=== PATIENT | male | born 1975 | race Caucasian/White ===

== ENCOUNTER 2025-01-25 00:17 | Inpatient (IN) | payer BC, SELFPAY ==
[2025-01-24 15:42] VITALS: BP 144/93
[2025-01-24 16:07] LABS: Urine Character Clear (Clear)
[2025-01-24 16:08] LABS: Hematocrit 46.0 % (39.0-52.0); Hemoglobin 15.7 g/dL (13.0-18.0); Mean Corp Hgb Conc. 34.1 g/dL (33.0-37.0); Mean Corpuscular Volume 88.3 fL (80.0-94.0); Nucleated Red Blood Cells % 0 % (-); Platelet Count 328 10^3/uL (130-400); Red Cell Dist. Width 13.3 % (11.5-14.5)
[2025-01-24 16:22] LABS: ALT (SGPT) 27 U/L (0-50); AST (SGOT) 21 U/L (17-59); Albumin 4.4 g/dl (3.5-5.0); Alkaline Phosphatase 78 U/L (38-126); Blood Urea Nitrogen 16 mg/dl (9-20); Calcium 9.1 mg/dl (8.4-10.2); Carbon Dioxide 28 mmol/L (22-30); Chloride 104 mmol/L (98-107); Glucose 105 mg/dl (70-99); Lipase 109 U/L (23-300); Potassium 4.7 mmol/L (3.5-5.1); Sodium 137 mmol/L (135-145); Total Protein 7.0 g/dl (6.3-8.2); eGFR > 60.00
[2025-01-24 16:32] LABS: Urine Squamous Cell 0-2 /LPF (Few); Urine White Cell 0-2 /HPF (0-5)
--- NOTE | 2025-01-24 19:47 | ED.GENMED ---
History of Present Illness
General
Chief Complaint: Abdominal Pain
Source: patient
Exam Limitations: none
Time Seen by Provider: 01/24/25 19:30
Nursing documentation reviewed up to this point in time: agreed with
History of Present Illness
History of Present Illness:
41-year-old male presenting to the emergency department today with concerns of suprapubic abdominal discomfort starting yesterday. Described as sharp and achy. Ongoing today. Denies nausea vomiting does have some degree of constipation and did
not have any significant bowel movements today which is abnormal for him. Denies any fevers denies any similar symptoms in the past.
Review of Systems
Review of Systems
Allergies reviewed?: Yes
All Other Systems: ROS reviewed and negative except as documented in HPI and ROS
Phy Exam
Physical Exam
Physical Exam:
GENERAL: Alert , in no apparent distress
EYE: pupils equal and reactive
NECK: Supple, no significant adenopathy.
ENT: o/p clr, mmm.
CARDIAC: Regular rate and rhythm .
LUNGS: Clear breath sounds bilaterally, no acute respiratory distress, no wheezes/rales/rhonchi
ABDOMEN: Vague discomfort throughout the lower abdomen otherwise abdomen benign no tenderness to the upper abdomen.
NEUROLOGICAL: Alert and oriented, no focal neuro deficits
SKIN: Warm and dry, skin intact.
MUSCULOSKELETAL: No edema, well perfused.
PSYCH: Normal and appropriate interaction.
Course
Orders/Labs/Results
Orders:
Orders
01/24/25 15:56
Complete Blood Count/With Diff Urgent
Comprehensive Metabolic Panel Urgent
Lipase Urgent
Urinalysis Reflex To Culture Urgent
Date Specimen was Collected: 01/24/25
Time Specimen was Collected: 15:46
Urine Microscopic Reflex Cult Urgent
01/24/25 19:41
CT Abd/Pel (IV only)-DH only Urgent
Comment:
Reason For Exam: lower abd pain maximal to RLQ
01/24/25 22:00
0.9% Sodium Chloride 1000 ml [Nss] 1,000 ml IV BOLUS
01/24/25 22:10
Ketorolac [Toradol] 15 mg .ROUTE .STK-MED ONE
01/24/25 22:13
Ketorolac [Toradol] 15 mg IV NOW STA
Abnormal Lab Results
01/24/25
15:56
Lymphocytes % 15.2 L %
(20.5-51.1)
Glucose 105 H mg/dl
(70-99)
Ur Occult Blood Reflex 2+ A
(Negative)
Urine RBC 3-6 A /HPF
(0-2)
Urine Bacteria (Reflex) Few A
(Negative)
01/24/25 15:56
01/24/25 15:56
Vital Signs
Initial and Last Documented VS:
Initial Vital Signs
Temp Pulse Resp BP Pulse Ox
98.8 F 64 18 144/93 98
01/24/25 15:42 01/24/25 15:42 01/24/25 15:42 01/24/25 15:42 01/24/25 15:42
Last Documented Vital Signs
Temp Pulse Resp BP Pulse Ox
98.8 F 59 18 140/84 99
01/24/25 15:42 01/24/25 22:11 01/24/25 22:11 01/24/25 22:11 01/24/25 22:11
MDM/Problems Addressed
MDM/Problems Addressed:
49-year-old male presenting with concerns of lower abdominal pain starting yesterday. Here vaguely reproducible. Plan for CT scan for further assessment. Labs unremarkable. CT scan ordered considering progressive symptoms. CT scan showing small
bowel obstruction with concerning features of mass. Plan to admit for further monitoring and assessment.
*Pulse Oximetry
SaO2: 98
Oxygen Mode of Delivery: Room air
Patient hypoxic: no (99)
*Critical Care Note
Total Time (30-74mins, 75-104mins- exclusive of procedures): Not Applicable
ED Attending Note
-
Portions of this chart may have been created with voice recognition software.� Occasional wrong word or��sound alike� substitutions may have occurred due to the inherent limitations of voice recognition software.
Discharge Plan
Departure
Patient Disposition: Admit
Date of Disposition: 01/24/25
Time of Disposition: 23:02
Admit to: Med/Surg
Admit to doctor: [place]
Presentation/result/management discussed w/ accepting MD/DO: Hospitalist
Patient with high blood pressure during this ER visit?: No
Condition: Good
Covid-19: Not Applicable
Discharge Problem:
SBO (small bowel obstruction)
Referrals:
Sudheer Cole MD [Family Provider]
Interventions
Interventions:
*Risk Screen - Suicide Last Done: 01/24/25 15:42
*General Assessment Last Done: 01/24/25 15:42
YJ-Srdlmr-Fezlqxagas Assessment Last Done: 01/24/25 19:45
Discharge Date and Time
Print Language: CITIZEN OF [place]
[2025-01-24 19:49] VITALS: BP 146/74
[2025-01-24 22:11] VITALS: BP 140/84
[2025-01-24] MEDS: NSS 1000 IV (22:12)
[2025-01-24] MEDS: TORADOL 15 MG IV (22:13)
--- NOTE | 2025-01-24 23:58 | HPS.HSE ---
Family Physician
-
Family Physician: Sudheer Cole
Chief Complaint
-
Abdominal pain
History of Present Illness
Is a 41-year-old with no known segment past medical history presenting to the emergency department with suprapubic abdominal discomfort starting about 1 day ago.
Patient denies any prior history of abdominal pain or surgeries. Denies any history of gallstones. Denies history of biliary disease. Reports that the pain is sharp and achy and nonradiating. There is some constipation and has not had a bowel
movement today. Denies abdominal bloating. Denies nausea or vomiting. Has had no fevers or chills.
In the emergency department patient has been afebrile with a temp of 98.8 blood pressure 140/80 with a pulse of 59 satting 98% on room air. CBC was unremarkable
Electrolytes BUN/creatinine were all normal. LFTs were normal.
CT scan of the abdomen pelvis showing small bowel obstruction with transition point seen in the terminal ileum just prior to the ileocecal valve, there is a loop of the terminal ileum represents transition point demonstrating mural thickening and
hyperenhancement, there is also a 4 x 4 x 3 cm mass lesion in the right lower quadrant approximately 2 cm prior to this transition point which most likely represents a pathologically enlarged lymph node. The concern is high for malignancy of the
terminal ileum causing small bowel obstruction.
Medical History
Past Medical History
Past Medical History: Reports None
Past Surgical History: Reports None
Social History
Tobacco: Non-smoker
Alcohol: Occasional
Drug: None
Personal:
Family History
Family History: Not pertinent
Allergies / Home Medications
Allergies reflects when Allergies were last updated in [employer].
Home Medications with original date entered in [employer]
Allergy/Medication List:
Allergies
Allergy/AdvReac Type Severity Reaction Status Date / Time
No Known Allergies Allergy Unverified 01/24/25 15:45
No home medication
Review of Systems
-
Constitutional: Reports No Symptoms
EENT: Reports No Symptoms
Respiratory: Reports No Symptoms
Cardiac: Reports No Symptoms
Abdomen/GI: Reports Abdominal Pain and Constipated
: Reports No Symptoms
Musculoskeletal: Reports No Symptoms
Skin: Reports No Symptoms
Neurological: Reports No Symptoms
Endocrine: Reports No Symptoms
Hematologic/Lymphatic: Reports No Symptoms
Psych: Reports No Symptoms
Physical Exam
Vital Signs
Vital Signs
Temp Pulse Resp BP Pulse Ox
98.8 F 59 18 140/84 99
01/24/25 15:42 01/24/25 22:11 01/24/25 22:11 01/24/25 22:11 01/24/25 22:11
Physical Exam
General: Well Developed, Well Nourished and No Apparent Distress
HEENT: NormoCephalic, Moist mucous membranes and Atraumatic
Respiratory: Clear
Cardiac: S1/S2 and Regular Rhythm; No Murmur or Rub
GI: Soft, Non Tender, Non Distended and Normal Bowel Sounds; No Organomegaly
Rectal: Deferred by Provider
Musculoskeletal: No Clubbing, No Cyanosis and No Edema
Skin: No Rash
Neuro: Nonfocal/grossly intact
Laboratory Results
-
01/24/25 15:56
01/24/25 15:56
Laboratory Results
Total Bilirubin 0.8 mg/dl (0.2-1.3) 01/24/25 15:56
AST 21 U/L (17-59) 01/24/25 15:56
ALT 27 U/L (0-50) 01/24/25 15:56
Alkaline Phosphatase 78 U/L (38-126) 01/24/25 15:56
Lipase 109 U/L (23-300) 01/24/25 15:56
Data Reviewed
-
CT Scan: Report Reviewed by me
Lab Data: Labs Reviewed by me
Old Records: Reviewed
Impression/Plan
-
IMPRESSION:
49-year-old with 1 day history of abdominal pain and constipation and found to have small bowel obstruction likely on the basis of malignant process just proximal to the terminal ileum.
PLAN:
SBO w/ terminal ileum malignancy.
- admit to med/surg
- npo for now
- pain control and antiemetics
- Not vomiting, so held off on NG tube
- IV fluids with LR for now
- surgical consultation
- post surgery, consider oncology consult
DVT PPX - lovenox sq
code status - Full Code
[2025-01-25] VITALS (24 sets, daily range): BP systolic 101–146; BP diastolic 54–89; BMI 33.1; BMI 31.9
[2025-01-25] MEDS: MORPHINE SULFATE 2 MG IV ×2 (01:02→12:31)
[2025-01-25] MEDS: D5LR 1000 IV ×2 (01:04→12:24)
[2025-01-25 05:41] LABS: Hematocrit 40.3 % (39.0-52.0); Hemoglobin 14.0 g/dL (13.0-18.0); Mean Corp Hgb Conc. 34.7 g/dL (33.0-37.0); Mean Corpuscular Volume 87.8 fL (80.0-94.0); Platelet Count 294 10^3/uL (130-400); Red Cell Dist. Width 13.3 % (11.5-14.5)
[2025-01-25 06:09] LABS: Blood Urea Nitrogen 15 mg/dl (9-20); Calcium 8.3 mg/dl (8.4-10.2); Carbon Dioxide 24 mmol/L (22-30); Chloride 108 mmol/L (98-107); Estimated Creatinine Clearance 116 ml/min; Glucose 106 mg/dl (70-99); Potassium 4.0 mmol/L (3.5-5.1); Sodium 137 mmol/L (135-145); eGFR > 60.00
[2025-01-25] MEDS: TORADOL 10 MG IV (09:19)
--- NOTE | 2025-01-25 10:25 | CON.GS ---
Addendum entered and electronically signed by Сергей Ledbetter MD 01/25/25 11:53:
I saw and examined the patient.
The Accident Examiner's note was reviewed and I agree with the note.
Comment: 49M acute onset abd pain, no passage of BM or flatus for 24 hours, c/o distention and severe abd pain, denies f/c/n/v. Exam with moderate abd distention and diffuse moderate ttp. AFVSS, labs unremarkable. CT concerning for obstructing mass
at terminal ileum with dilated fecalized sb loops proximal to obstruction and decompressed colon. 4.5cm mass adjacent to the transition point concerning for enlarged mesenteric node that abuts a distal branch of the SMA and is positioned anterior to
the right ureter with about a 3mm plane in between. 9mm hypodensity in the right liver lobe superior to the gallbladder fossa, likely inaccessible for intra-op biopsy. We discussed exploratory laparotomy with oncologic approach given likely
malignant bowel obstruction. Advised pt the goal is not to excise all cancerous nodes, but to relieve the obstruction, resect primary mass and obtain enough tissue for diagnosis and staging, this would include mesenteric nodes but with the larger
node it may not be safe to resect the entire structure and limited biopsy may be performed instead. Discussed the possibility of need for further surgery, adjuvant chemo and/or radiation, anastomotic leak or stricture, bleeding, infection, post op
ileus, incisional hernia
Original Note:
Consultation
-
Date/Time Consultation Performed: 01/25/25 0815
Medical History
-
Chief Complaint: abdominal pain
History of Present Illness:
Mr Damian is a 49 yo male without significant medical or surgical history with no prior colonoscopies who presents through the ED with abdominal pain which has increased over the past 2 days. 2 days ago, he noted an episode of abdominal pain in the
evening which was generalized. Although he was not having diarrhea, he did take an Imodium as well as some GasX. He was able to go to bed that night and sleep and felt better in the morning until he ate a few meatballs at a alliance party. At that point pain
returned and was more severe as well as persistent. He has not passed a BM or flatus since onset of symptoms but notes his bowel pattern is usually quite regular and he usually passes a BM after meals. He denies nausea and vomiting. Pain persists
but is not focal. General tenderness on exam. He denies fever/chills.
Past Medical History
Past Medical History: None
Past Surgical History: None
Social History
Tobacco: Non-Smoker
Alcohol: Occasional
Family History
Family History: Reviewed & Not Pertinent
Allergies / Home Medications
Allergy/AdvReac Type Severity Reaction Status Date / Time
No Known Allergies Allergy Unverified 01/24/25 15:45
Review of Systems
-
History Source: Patient and Family
All other systems: Negative unless noted
A 10 point review of systems was completed, and was negative except as per HPI.
Physical Exam
Vital Signs
Temp Pulse Resp BP Pulse Ox
98.8 F 51 16 101/54 95
01/24/25 15:42 01/25/25 04:01 01/25/25 04:01 01/25/25 04:01 01/25/25 06:30
01/24/25 01/25/25 01/26/25
06:59 06:59 06:59
Actual Weight 110.7 kg
Body Mass Index (BMI) 33.1
Lab Results
01/25/25 05:33
01/25/25 05:33
WBC 8.9 10^3/uL (4.8-10.8) 01/25/25 05:33
Hgb 14.0 g/dL (13.0-18.0) 01/25/25 05:33
Hct 40.3 % (39.0-52.0) 01/25/25 05:33
Plt Count 294 10^3/uL (130-400) 01/25/25 05:33
Abs Immat Gran (auto) 0.0 10^3/uL (0-0.05) 01/24/25 15:56
Neutrophils % 74.0 % (42.2-75.2) 01/24/25 15:56
Physical Exam
General: Well Developed and Well Nourished
HEENT: Moist Mucous Membranes
Respiratory: Non Labored Respirations
GI: Soft, Tender (generalized) and Distended
Skin: Warm and Dry
Neuro: Awake, Alert and AO x 3
Psych: Calm
Data Reviewed
-
CT Scan: Image Personally Visualized and interpreted, Report Reviewed by me, Discussed with Physician, Discussed with Nurse, Discussed with Patient and Discussed with Family
Labs: Labs Reviewed by me, Discussed with Physician, Discussed with Patient and Discussed with Family
Old Records: Reviewed
Assessment / Plan
-
49 yo male presenting with abdominal pain x2 days with absence of flatus/stools since that time. CT abd/pelvis done in work up with concerning finding of a mass near the ileocecal valve causing what looks to be a complete obstruction. Additionally,
there is a 4.5 x 4.0 x 3.5 cm mass/enlarged in the right lower quadrant approximate 2 cm superior to the transition point which is proximal to the ureter as well as the SMA. Suspect SBO secondary to what is likely to malignancy. There is no
leukocytosis or electrolyte derangements.
Plan:
OR today for exploratory laparotomy
Urology consulted for cystoscopy/right stent placement given proximity of the mass to ureter
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
Will send CEA, type and sreen and coags
Keep NPO
--- NOTE | 2025-01-25 10:29 | CONS.URO ---
Consultation
-
Date/Time Consultation Performed: 01/25/25 1030
Requesting Provider: Anatoly
Performing Provider: Bebeto
Reason for Consultation: ureteral stenting
Medical History
History of Present Illness
ED note: 'Is a 49-year-old with no known segment past medical history presenting to the emergency department with suprapubic abdominal discomfort starting about 1 day ago.'
CT scan of the abdomen pelvis: small bowel obstruction with transition point seen in the terminal ileum just prior to the ileocecal valve, there is a loop of the terminal ileum represents transition point demonstrating mural thickening and
hyperenhancement, there is also a 4 x 4 x 3 cm mass lesion in the right lower quadrant approximately 2 cm prior to this transition point which most likely represents a pathologically enlarged lymph node. The concern is high for malignancy of the
terminal ileum causing small bowel obstruction.
Past Medical History
Past Medical History: None
Allergies/Home Medications
Allergies
Allergy/AdvReac Type Severity Reaction Status Date / Time
No Known Allergies Allergy Unverified 01/24/25 15:45
Physical Exam
Vital Signs
Vital Signs
Temp Pulse Resp BP Pulse Ox
98.8 F 51 16 101/54 95
01/24/25 15:42 01/25/25 04:01 01/25/25 04:01 01/25/25 04:01 01/25/25 06:30
Lab / Testing Results
Laboratory Results
01/25/25 05:33
01/25/25 05:33
Assessment / Plan
-
Right ureter is in vicinity of abdominal-pelvic retroperitoneal pathology, rendering it at potential risk during surgical exploration.
I will place a right ureteral stent at the outset of Dr Ledbetter's surgery to help identify and protect the right ureter.
Data Reviewed
-
CT Scan: Image personally visualized and interpreted
[2025-01-25 10:38] LABS: INR 0.98; PT 13.3 Sec (11.4-14.6)
[2025-01-25 10:41] LABS: APTT 28.4 Sec (23.4-35.0)
[2025-01-25 11:16] LABS: CEA 1.89 ng/ml
--- NOTE | 2025-01-25 16:35 | W.IMMPOSTOP ---
Surgical Immed Post Op Note
-
Primary Surgeon: Anatoly
Assisting Surgeon: Elif MARLEY
Pre-op Diagnosis: Malignant bowel obstruction
Post-op Diagnosis: Same
Procedure Performed: Exploratory laparotomy, right hemicolectomy, take-down hepatic flexure
Anesthesia Type: GETA + TAP block
Specimen / Cultures: Right colon, appendix, terminal ileum, proximal transverse colon
Estimated Blood Loss: 40cc
Complications: None immediate
Operative Findings: Preop right ureteral stent placed by Urology, palpated intra-op and ureter protected. Firm tethered mass at the ileocecal junction adhesed to retroperitoneum with severely dilated terminal ileum and totally decompressed colon;
20cm of terminal ileum resected en block with right colon, appendix, hepatic flexure and proximal transverse colon; ileo-transverse anastomosis side-side stapled and oversewn at the staple line intersection; large node noted on imaging also resected
en block with specimen.
updated by phone
24 hrs postop abx
Dilaudid DEPUTY FIRE MARSHAL
NPO with sips and chips
DVT ppx
[2025-01-25] MEDS: DILAUDID 0.5 MG IV ×2 (17:12→17:35)
--- NOTE | 2025-01-25 18:02 | W.PN.HOSP.TC ---
Today's Communication/Plan
-
see bold
Assessment / Plan
Assessment / Plan
HPI: 49-year-old with 1 day history of abdominal pain and constipation and found to have small bowel obstruction likely on the basis of malignant process just proximal to the terminal ileum.
PLAN:
SBO w/ terminal ileum malignancy
-Appreciate urology input, patient's right ureter is in the vicinity of the retroperitoneal lesion, urology plans to stent the right ureter during surgery
-Appreciate general surgery input, status post ex lap, right hemicolectomy, take-down hepatic flexure, and right ureter stent
-N.p.o., IV fluids, pain control
-Consult oncology, follow-up on pathology
DVT PPX - lovenox sq
Code status - Full Code
Physical Exam
General: Obese, no acute distress
HEENT: Normocephalic, Atraumatic, EOMI, MMM
Respiratory: Clear to Auscultation bilaterally
Cardiac: Normal S1/S2, Regular Rate and Rhythm
GI: Soft, appropriately tender, vertical midline incision dressed
Extremities: No Clubbing, Cyanosis, or Edema
Neuro: Nonfocal/Grossly Intact
Psych: Calm, Cooperative
Anticipated Discharge: > 48 hours
Subjective/Interval History
-
Date of Service: January 25, 2025
Objective Data
-
Labs:
Laboratory Results
01/25/25 01/25/25
05:33 08:36
WBC 8.9
Hgb 14.0
Hct 40.3
Plt Count 294
PT Pending
INR Pending
APTT Pending
Sodium 137
Potassium 4.0
Chloride 108 H
Carbon Dioxide 24
BUN 15
Creatinine 1.0
Glucose 106 H
Calcium 8.3 L
Vital Signs:
Vital Signs
Temp Pulse Resp BP Pulse Ox
98.8 F 51 16 101/54 95
01/24/25 15:42 01/25/25 04:01 01/25/25 04:01 01/25/25 04:01 01/25/25 06:30
[2025-01-25] MEDS: DILAUDID PCA 30 IV (18:10)
[2025-01-25] MEDS: TORADOL 30 MG IV (22:21)
[2025-01-25] MEDS: TYLENOL 1000 MG PO (22:22)
[2025-01-25] MEDS: TYLENOL PO (23:38)
--- NOTE | 2025-01-26 02:06 | PTCARENOTE ---
1930 pt arrived from [facility]. AAOX3. Dilaudid assistant professor of nursing running. abdominal pain per patient ' 05/18'. pt has abdominal dressing with scant amount of drainage. winters w/ bloody urine. pt oriented to room w/ call cedeño at reach.
[address] Fallon - pt requesting morphine instead of Dilaudid. Recieved new orders for schedule pain meds and assistant professor of nursing Dilaudid pump. Reviewed order w/ doctor. will continue to monitor.
[2025-01-26 03:01] VITALS: BP 104/65
[2025-01-26] MEDS: D5LR 1000 IV ×2 (03:51→15:07)
[2025-01-26] MEDS: TORADOL 30 MG IV ×3 (03:52→15:59)
[2025-01-26] MEDS: TYLENOL 1000 MG PO ×2 (06:14→12:22)
[2025-01-26 06:16] LABS: Hematocrit 41.9 % (39.0-52.0); Hemoglobin 14.3 g/dL (13.0-18.0); Mean Corp Hgb Conc. 34.1 g/dL (33.0-37.0); Mean Corpuscular Volume 88.8 fL (80.0-94.0); Platelet Count 306 10^3/uL (130-400); Red Cell Dist. Width 13.6 % (11.5-14.5)
[2025-01-26 06:39] LABS: Blood Urea Nitrogen 20 mg/dl (9-20); Calcium 7.7 mg/dl (8.4-10.2); Carbon Dioxide 23 mmol/L (22-30); Chloride 106 mmol/L (98-107); Estimated Creatinine Clearance 95 ml/min; Glucose 155 mg/dl (70-99); Magnesium 1.9 mg/dl (1.6-2.3); Potassium 5.2 mmol/L (3.5-5.1); Sodium 134 mmol/L (135-145); eGFR > 60.00
--- NOTE | 2025-01-26 07:00 | PTCARENOTE ---
pt oob to chair. reports +flatulence. new ice pack to abd. luisana cedeño and housekeeper/laundry assistant pump in reach
[2025-01-26 07:32] VITALS: BP 112/78
--- NOTE | 2025-01-26 07:32 | CON.ONC ---
Consultation
-
Date Consultation Performed: 01/26/25
Performing Provider: Ginger Burnett
Impression
Impression
SBO w/ terminal ileum malignancy
- pathology pending
- Post Op Day 1, recovering well
- Perera and right ureteral catheter removed today
Plan
Plan
Will await pathology results. Discussed following up outpatient with [place] after path has resulted.
Will follow along while admitted.
Patient History
History of Present Illness
Patient is a 49 year old male with no known PMH presenting with abdominal pain and constipation for 1 day.
In the ED, CT AP revealed a loop of terminal ileum at the level of the transposition point contain some possible enhancement with some possible mural thickening and there is an additional 4.5 x 4.0 x 3.5 cm mass in the right lower quadrant
approximate 2 cm superior to the transition point. Suspicious for malignancy involving the terminal ileum resulting in possible mild partial small bowel obstruction as well as accompanying local sanjuana metastasis. Patient determined to have a SBO,
went for an ex lap on 01/25/2025. Patient underwent an ex lap, right hemicolectomy, take-down hepatic flexure, and right ureter stent placement. Pathology is pending.
Today patient was seen sitting in the chair. Patient states he is feeling well today. He denies any pain at the moment and is passing gas. Patient had catheter removed this morning and is urinating fine. Patient denies all other ROS.
Past-Medical/Surgical History
Medical History
Reports none
Surgical History
Reports none
Family History
Mother - lung cancer
Brother - HCC
Patient Medication
�Medication �Instructions �Recorded �Confirmed �Last Taken �Type
No Meds [No Current Medications] 01/25/25 01/25/25 Unknown History
Active Medications
Generic Name Dose Route Start Last Admin
Trade Name Freq PRN Reason Stop Dose Admin
Acetaminophen 1,000 mg 01/26/25 00:00 01/26/25 06:14
Acetaminophen 500 Mg Tablet PO 02/23/25 00:00 1,000 mg
Q6H DYLAN Administration
Enoxaparin Sodium 40 mg 01/26/25 18:00
Enoxaparin Sodium 40 Mg/0.4 Ml Syringe SC 02/23/25 17:59
QPM DYLAN
Fentanyl Citrate 25 mcg 01/25/25 13:46
Fentanyl (50 Mcg/Ml) 100 Mcg/2 Ml Ampul IV 01/26/25 13:46
[id number] PRN
shivers
Hydromorphone HCl 0.5 mg 01/25/25 13:46 01/25/25 17:35
Hydromorphone 0.5 Mg/0.5 Ml Syringe IV 01/26/25 13:46 0.5 mg
PACU-Q5MPRN PRN Administration
severe pain
Hydromorphone HCl 0.25 mg 01/25/25 13:46
Hydromorphone 0.25 Mg/0.5 Ml Syringe IV 01/26/25 13:46
PACU-Q5MPRN PRN
moderate pain
Hydromorphone HCl 0.5 mg 01/25/25 16:30
Hydromorphone 0.5 Mg/0.5 Ml Syringe IV 02/08/25 16:29
Q3HPRN PRN
breakthrough pain
Dextrose/Lactated Ringer's 1,000 mls @ 125 mls/hr 01/25/25 01:00 01/26/25 03:51
D5lr IV 1,000 mls
.Q8H DYLAN Administration
Parenteral Electrolytes 1,000 mls @ 100 mls/hr 01/25/25 14:00
Normosol-R/Plasmalyte-A IV 01/26/25 13:46
PER PROTOCOL DYLAN
Dextrose/Sodium Chloride 1,000 mls @ 40 mls/hr 01/25/25 16:30
D5/0.45%Nacl IV
.Q24H PRN
LINEN SUPPLY LOAD BUILDER Protocol- IVF discontinued
Hydromorphone HCl 30 mg in 30 mls @ 0 mls/hr 01/25/25 16:30 01/25/25 18:10
Dilaudid Tread Tuber Machine Operator IV 30 mls
PER PROTOCOL DYLAN Administration
Protocol
Per Protocol
Ketorolac Tromethamine 30 mg 01/25/25 21:55 01/26/25 03:52
Ketorolac 15 Mg/Ml Injection IV 01/30/25 16:59 30 mg
Q6H DYLAN Administration
Naloxone HCl 0.04 mg 01/25/25 16:30
Naloxone (0.4 Mg/Ml) 1 Ml Injection IV 02/22/25 16:29
Q2MPRN PRN
RR </= 10/min / Pasero scale=4
Ondansetron HCl 4 mg 01/25/25 00:54
Ondansetron 4 Mg/2 Ml Vial IV 02/22/25 00:53
Q6HPRN PRN
nausea and vomiting
Ondansetron HCl 4 mg 01/25/25 13:46
Ondansetron 4 Mg/2 Ml Vial IV 01/26/25 13:46
PACU-ONCEPRN PRN
nausea/vomiting
Prochlorperazine Edisylate 5 mg 01/25/25 13:46
Prochlorperazine 10 Mg/2 Ml Vial IV 01/26/25 13:46
PACU-ONCEPRN PRN
nausea/vomiting
Sodium Chloride 0 flush 01/25/25 01:00
Sodium Chloride 0.9% (Flush) Syringe IV 02/22/25 00:59
PER PROTOCOL DYLAN
Sodium Chloride 0.9 ml 01/25/25 16:30
Sodium Chloride 0.9% (Preservative Free) 10 Ml Vial IV 02/22/25 16:29
Q2MPRN PRN
naloxone dilution
Review of Systems
-
History Source: Patient
Constitutional: Reports No Symptoms
EENT: Reports No Symptoms
Respiratory: Reports No Symptoms
Cardiac: Reports No Symptoms
GI: Reports No Symptoms
: Reports No Symptoms
Musculoskeletal: Reports No Symptoms
Psych: Reports No Symptoms
Physical Exam
-
General: Well Developed, Well Nourished and No Apparent Distress
Cardiology: Normal Sinus Rhythm
Pulmonary: Clear
GI: Soft
Extremities: Pulses Present
Skin: Warm and Dry
Psych: Calm
Labs
Lab Results
WBC 13.7 10^3/uL (4.8-10.8) H 01/26/25 05:46
RBC 4.72 10^6/uL (4.70-6.10) 01/26/25 05:46
Hgb 14.3 g/dL (13.0-18.0) 01/26/25 05:46
Hct 41.9 % (39.0-52.0) 01/26/25 05:46
MCV 88.8 fL (80.0-94.0) 01/26/25 05:46
MCH 30.3 pg (27.0-31.0) 07 05:46
MCHC 34.1 g/dL (33.0-37.0) 01/26/25 05:46
RDW 13.6 % (11.5-14.5) 01/26/25 05:46
Plt Count 306 10^3/uL (130-400) 01/26/25 05:46
MPV 10.5 fL (7.4-10.4) H 01/26/25 05:46
Abs Immat Gran (auto) 0.0 10^3/uL (0-0.05) 01/24/25 15:56
Absolute Neuts (auto) 6.2 10^3/uL (1.4-6.5) 01/24/25 15:56
Absolute Lymphs (auto) 1.3 10^3/uL (1.2-3.4) 01/24/25 15:56
Absolute Monos (auto) 0.6 10^3/uL (0.1-0.6) 01/24/25 15:56
Absolute Eos (auto) 0.2 10^3/uL (0-0.7) 01/24/25 15:56
Absolute Basos (auto) 0.1 10^3/uL (0-0.2) 01/24/25 15:56
Immature Gran % 0.4 % (0-0.5) 01/24/25 15:56
Neutrophils % 74.0 % (42.2-75.2) 01/24/25 15:56
Lymphocytes % 15.2 % (20.5-51.1) L 01/24/25 15:56
Monocytes % 6.9 % (1.7-9.3) 01/24/25 15:56
Eosinophils % 2.9 % (0-6) 01/24/25 15:56
Basophils % 0.6 % (0-2) 01/24/25 15:56
Creatinine 1.2 mg/dL (0.7-1.3) 01/26/25 05:46
Vital Signs
Vital Signs
Temp Pulse Resp BP Pulse Ox
99.5 F 92 18 112/78 95
01/26/25 07:32 01/26/25 07:32 01/26/25 07:32 01/26/25 07:32 01/26/25 07:32
--- NOTE | 2025-01-26 08:02 | W.PN.URO.CBU ---
Today's Communication / Plan
-
Perera and right ureteral catheter removed
will sign off
Assessment / Plan
-
stable POD #1
Diagnosis
-
Date of Service: January 26, 2025
-
Patient Diagnosis:
GI tract/RP mass encroaching upon right ureter
s/p e-lap and right ureteral stenting
Post Op Day: 1
Subjective
-
'I feel better than I thought I would.'
Objective
-
Vital Signs
Temp Pulse Resp BP Pulse Ox
99.5 F 92 18 112/78 95
01/26/25 07:32 01/26/25 07:32 01/26/25 07:32 01/26/25 07:32 01/26/25 07:32
Intake and Output
01/25/25 01/26/25 01/27/25
06:59 06:59 06:59
Intake Total 1375 / 1375
Output Total 350 / 350
Balance 1025 / 1025
Intake:
IV fluids (Total) 1375 / 1375
Output:
Urine, Perera 350 / 350
Laboratory Results
01/26/25 05:46
01/26/25 05:46
Physical Exam
-
Perera and right ureteral catheter removed
--- NOTE | 2025-01-26 09:24 | W.PN.HOSP.TC ---
Today's Communication/Plan
-
clears
pain control
see plan
Assessment / Plan
Assessment / Plan
HPI: 49-year-old with 1 day history of abdominal pain and constipation and found to have small bowel obstruction likely on the basis of malignant process just proximal to the terminal ileum.
CT A/P
IMPRESSION:
Several findings, as detailed above, suspicious for malignancy involving the terminal ileum resulting in possible mild partial small bowel obstruction as well as accompanying local sanjuana metastasis.
Indeterminate subcentimeter right lobe hepatic lesion, too small to characterize.
Procedure Performed: Exploratory laparotomy, right hemicolectomy, take-down hepatic flexure 01/25/25
PLAN:
SBO w/ terminal ileum malignancy
-Appreciate Urology and General surgery
-status post ex lap, right hemicolectomy, take-down hepatic flexure, and right ureter stent
-clear liquid diet
-change fluids to 100cc/hr
-has PIPELAYER pump for pain control
-stent and winters catheter pulled this morning
-Path pending
-Oncology consulted
DVT PPX - lovenox sq
Code status - Full Code
Anticipated Discharge: > 48 hours
Subjective/Interval History
-
Date of Service: January 26, 2025
pain controlled on pump
hasn't urinated since winters removed
Objective Data
-
Labs:
Laboratory Results
01/26/25
05:46
WBC 13.7 H
Hgb 14.3
Hct 41.9
Plt Count 306
Sodium 134 L
Potassium 5.2 H D
Chloride 106
Carbon Dioxide 23
BUN 20
Creatinine 1.2
Glucose 155 H
Calcium 7.7 L
Vital Signs:
Vital Signs
Temp Pulse Resp BP Pulse Ox
99.5 F 92 18 112/78 95
01/26/25 07:32 01/26/25 07:32 01/26/25 07:32 01/26/25 07:32 01/26/25 07:32
I&O
01/25/25 01/26/25 01/27/25
06:59 06:59 06:59
Intake Total 1375 / 1375
Output Total 350 / 350
Balance 1025 / 1025
Review of Systems
-
History Source: Patient
All other systems: Reviewed and negative
Physical Exam
-
General: No Apparent Distress
HEENT: PERRLA
Respiratory: Clear to Auscultation; Negative Wheezes
Cardiac: Regular Rhythm and S1/S2
GI: Other (midline incision covered with mild oozing)
Musculoskeletal: No Edema
Skin: Warm and Dry; Negative Rash
Neuro: AO x 3
Psych: Calm
Data Reviewed
-
Diagnostic Radiology: Report Reviewed by me
Labs: Labs Reviewed by me
--- NOTE | 2025-01-26 09:56 | W.PN.GS2 ---
Addendum entered and electronically signed by Jethro Munoz MD 01/26/25 15:25:
I saw and examined the patient independently.
The resident's documentation was reviewed and I agree with the note, assessment and plan except where noted below.
Comment: This is a 49-year-old male who presented with a small bowel obstruction now postoperative day 1 with with a from a open right hemicolectomy for an ileocecal mass. He did have an intraoperative stent placed which urology removed along with
his Winters this morning.
Can start clears today.
Creatinine up today, he will need a CT chest with IV contrast at some point to complete staging so will defer for now.
Follow-up pathology.
Pain control.
DVT prophylaxis.
Surgery will follow
Original Note:
Today's Communication / Plan
-
Plan reviewed with attending.
Assessment / Plan
-
49yoM who presented with SBO s/p ex lap POD #1 with removal mass at the ileocecal junction adhesed to retroperitoneum, 20cm of terminal ileum with right colon, appendix, hepatic flexure and proximal transverse colon with ileo-transverse anastomosis.
He is recovering appropriately with managed pain. We will slowly advance his diet and monitor for continued pain control. Urology removed winters and stent.
Mr. Damian shared that his brother at the same age from liver cancer invading his heart, associated with his brother's lifestyle. We discussed that he is not responsible for his current state and that we will have more understanding of the mass
and its causes once pathology returns.
Plan
Continue to manage pain.
Follow pathology. Expected 5-7 days.
Consider further staging work up. Cr 1.[address] chest today.
Advance diet to clears.
Subjective Data
-
Date of Service: January 26, 2025
49yoM who presented with SBO s/p ex lap POD #1 with removal mass at the ileocecal junction adhesed to retroperitoneum, 20cm of terminal ileum with right colon, appendix, hepatic flexure and proximal transverse colon with ileo-transverse anastomosis.
Today, pt reports managed pain on current regimen; 9.4mg of [employer] used. He reports passing gas and walking around. Denies BM, nausea or vomiting, looking forward to advancing to a diet.
Objective Data
-
Intake and Output
01/25/25 01/26/25 01/27/25
06:59 06:59 06:59
Intake Total 1375 / 1375
Output Total 350 / 350
Balance 1025 / 1025
Intake:
IV fluids (Total) 1375 / 1375
Output:
Urine, Winters 350 / 350
Vital Signs
Temp Pulse Resp BP Pulse Ox
99.5 F 92 18 112/78 95
01/26/25 07:32 01/26/25 07:32 01/26/25 07:32 01/26/25 07:32 01/26/25 07:32
Lab Results
01/26/25 05:46
01/26/25 05:46
Calcium 7.7 mg/dl (8.4-10.2) L 01/26/25 05:46
Phosphorus 3.9 mg/dl (2.5-4.5) 01/26/25 05:46
Magnesium 1.9 mg/dl (1.6-2.3) 01/26/25 05:46
Total Bilirubin 0.8 mg/dl (0.2-1.3) 01/24/25 15:56
AST 21 U/L (17-59) 01/24/25 15:56
ALT 27 U/L (0-50) 01/24/25 15:56
Alkaline Phosphatase 78 U/L (38-126) 01/24/25 15:56
Total Protein 7.0 g/dl (6.3-8.2) 01/24/25 15:56
Albumin 4.4 g/dl (3.5-5.0) 01/24/25 15:56
Physical Exam
-
General: Well Developed and Well Nourished, sitting in chair with no acute distress
HEENT: Moist Mucous Membranes, anicteric
Respiratory: Non Labored Respirations
GI: Soft, nontender, and mildy distended, incision covered with dry bandage
Skin: Warm and Dry
Neuro: Awake, Alert and AO x 3, grossly intact
Psych: Calm
[2025-01-26 11:26] VITALS: BP 109/69
--- NOTE | 2025-01-26 11:55 | OR.RPT ---
Operative Report
Operative Report
Primary Surgeon: Anatoly
Assisting Surgeon: Elif MARLEY
Pre-op Diagnosis: Malignant bowel obstruction
Post-op Diagnosis: Same
Procedure Performed: Exploratory laparotomy, right hemicolectomy, take-down hepatic flexure
Anesthesia Type: GETA + TAP block
Specimen / Cultures: Right colon, appendix, terminal ileum, proximal transverse colon
Estimated Blood Loss: 40cc
Complications: None immediate
Operative Findings: Preop right ureteral stent placed by Urology, palpated intra-op and ureter protected. Firm tethered mass at the ileocecal junction adhesed to retroperitoneum with severely dilated terminal ileum and totally decompressed colon;
20cm of terminal ileum resected en block with right colon, appendix, hepatic flexure and proximal transverse colon; ileo-transverse anastomosis side-side stapled and oversewn at the staple line intersection; large node noted on imaging also resected
en block with specimen.
Date of Surgery: 01/25/25
Indications: This 49M developed right lower quadrant abdominal pain and a malignant bowel obstruction was suspected based on his imaging. Exploratory laparotomy with right hemicolectomy was planned. Cystoscopy and right ureteral stenting was
performed by Urology prior to the beginning of the procedure.
Description of procedure: The patient was placed on the operating table in the supine position. General anesthesia was induced. A time-out was completed verifying correct patient, procedure, site, positioning, and special equipment prior to
beginning this procedure. An orogastric tube was placed. The abdomen was prepped and draped in the usual sterile fashion. A midline incision was made with cut cautery and carried down to the linea alba with coag cautery. The linea alba was divided
and the abdomen entered. Decompressed proximal small bowel and colon was encountered. IN the right lower quadrant, a spiculated firm mass was palpated involving his terminal ileum and cecum. The terminal ileum was severely dilated for several cm
proximal to this area. The terminal ileum, cecum and right colon were mobilized off the retroperitoneum and lateral abdominal wall using a combination of blunt dissection and judicious cautery. The voyant device was used for parts of this
dissection. The colon was mobilized proximally to the hepatic flexure. The gastrocolic ligament was divided near the midline and the proximal transverse colon was mobilized from medial to lateral. Once the colon was fully mobilized attention was
turned to the ileocecal junction, this was the area of maximum adhesion to the retroperitoneum. A large lymph node corresponding to the node seen on imaging was identified. The ureteral stent was palpated and the ureter protected. The large node and
associated mesentery was carefully gently mobilized with blunt dissection and judicious electrocautery. The terminal ileum was then transected about 20cm proximal the junction in a healthy appearing area using a MILTON stapler with purple load. The
transverse colon was transected in similar fashion. The bowel was then liberated from the mesentery, en bloc with the large node and an adequate amount of mesenteric tissue. The specimen was passed off the table. The abdomen was irrigated and
hemostasis was assured. Prior to creating an anastomosis, the ileum was eviscerated and an enterotomy was created at the stapled end. A moderate amount of thick liquid stool was milked from the small bowel into a basin with minimal contamination. An
ileo-transverse anastomosis was then created in side-side fashion with a MILTON 80mm purple load stapler. The staple lines were oversewn with lembert sutures where they intersected and a crotch stitch was placed using 2-0 silk. The abdomen was again
irrigated and suctioned until effluent ran clear. The orogastric tube was removed. The fascia was closed with #1 PFDS stratafix suture. The subcutaneous tissue was irrigated with sterile saline and the skin was closed with inocencio. A silver
impregnated dressing was applied.
The patient tolerated the procedure well and was taken to the postanesthesia care unit in stable condition.
The assistance of Elif MARLEY was required due to the complexity of the procedure. During the procedure she assisted with retraction, resection, and closure of the wound.
--- NOTE | 2025-01-26 13:33 | CM ---
Patient seen at bedside
IA completed
Dx: SBO
Procedure Performed: Exploratory laparotomy, right hemicolectomy, take-down hepatic flexure
Lives with and 4 children in a multi-story home, 2 [address], flight stairs to bedroom/bathroom
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
DME: states has in home that is his 's - walker, cane, oxygen, pulse oximetry, wheelchair
Denies VN/Rehab
Denies insecurities
PCP: Sudheer Cole
Pharmacy: [address], [place]
PLAN: anticipate home, no needs currently, continue to follow
[2025-01-26 15:17] VITALS: BP 115/76
--- NOTE | 2025-01-26 15:39 | W.PN.UPDATE ---
Addendum entered and electronically signed by Bina Romero MD 01/26/25 19:39:
Renal US OK
FeNa 0.4%
-will continue higher NS rate @ 150cc/hr
-also worry may be related to contrast-induced nephropathy
-with very little urine output today, I have texted renal and will place formal consult for tomorrow
Addendum entered and electronically signed by Bina Romero MD 01/26/25 17:17:
patient urinated another small amount as bolus finishing
K OK, creatinine up to 1.8
-stop standing Toradol
-Renal US ordered
-discussing plan with Urology about considering straight cath to assess for retention (bladder scan difficult with incision in way) versus replacing winters with ABNER
Original Note:
Update Note
Progress Note Update
Patient with minimal urine output post winters removal but bladder scan shows only 10cc (may be limited given dressing in place). patient without discomfort
-I will give 500cc bolus now and monitor response in UO
-increase rate to 125cc/hr (he's also getting 40cc/hr with CINETECHNICIAN pump)
-will repeat labs now as K was mildly up this morning
[2025-01-26] MEDS: NSS 500 IV (16:00)
[2025-01-26] MEDS: D5LR IV (16:51)
[2025-01-26 17:01] LABS: Blood Urea Nitrogen 28 mg/dl (9-20); Calcium 7.9 mg/dl (8.4-10.2); Carbon Dioxide 25 mmol/L (22-30); Chloride 105 mmol/L (98-107); Estimated Creatinine Clearance 63 ml/min; Glucose 120 mg/dl (70-99); Potassium 4.7 mmol/L (3.5-5.1); Sodium 133 mmol/L (135-145); eGFR 45.86
[2025-01-26 18:32] VITALS: BP 150/90
[2025-01-26 18:53] LABS: Urine Character Clear (Clear)
[2025-01-26 19:34] LABS: Urine Red Blood Cell 80-90 /HPF (0-2)
[2025-01-26] MEDS: TYLENOL PO (19:37)
[2025-01-26] MEDS: LOVENOX 40 MG SC (20:45)
[2025-01-26 23:18] VITALS: BP 101/71
[2025-01-27] MEDS: TYLENOL 1000 MG PO ×4 (00:24→17:34)
[2025-01-27] MEDS: D5LR 1000 IV ×4 (00:29→21:35)
--- NOTE | 2025-01-27 02:24 | DOWNTIME ---
There was a [employer] Manager Downtime on 01/27/2025 from 0100 to 01/27/2025 at 0220. Downtime documentation of patient's care, including medication administrations, has been reconciled in the electronic record per guidelines. Refer to the
patient's paper chart under the miscellaneous tab to see printed paper medication records and downtime forms.
[2025-01-27 06:23] LABS: Hematocrit 36.0 % (39.0-52.0); Hemoglobin 12.1 g/dL (13.0-18.0); Mean Corp Hgb Conc. 33.6 g/dL (33.0-37.0); Mean Corpuscular Volume 89.3 fL (80.0-94.0); Platelet Count 252 10^3/uL (130-400); Red Cell Dist. Width 14.0 % (11.5-14.5)
[2025-01-27 06:42] LABS: Blood Urea Nitrogen 28 mg/dl (9-20); Calcium 7.6 mg/dl (8.4-10.2); Carbon Dioxide 24 mmol/L (22-30); Chloride 104 mmol/L (98-107); Estimated Creatinine Clearance 60 ml/min; Glucose 122 mg/dl (70-99); Magnesium 1.8 mg/dl (1.6-2.3); Potassium 4.5 mmol/L (3.5-5.1); Sodium 133 mmol/L (135-145); eGFR 42.98
--- NOTE | 2025-01-27 07:50 | W.PN.GS2 ---
Addendum entered and electronically signed by Chadd Sandoval MD 01/27/25 11:31:
Patient seen and examined.
Rough night reporting issues with urinary retention requiring Winters replacement. Continues to have crampy abdominal discomfort. No nausea or vomiting. No flatus or BM. Afebrile. Currently feels improved this AM.
Gen: NAD
Abd: soft, mild/moderate tenderness, mild/moderate distension, non-peritoneal, midline with shadowing
Patient is a 49 yo M p/w large bowel obstruction POD#2 s/p removal mass at the ileocecal junction adhesed to retroperitoneum, 20cm of terminal ileum with right colon, appendix, hepatic flexure and proximal transverse colon with ileo-transverse
anastomosis
AVSS
Labs with persistent leukocytosis, drift in Hb to 12, improved hyperkalemia, ABNER
Postoperative issues with urinary retention and expected ileus. No major changes from a surgical perspective. Continue with IV pain control. Continue with sips of clears as tolerated. Will obtain an abdominal x-ray to assess degree of bowel
distention and await further clinical improvement. Continue to trend WBC, no indication for antibiotics at this time.
-- Sips
-- Pain control: Tylenol, TELEVISION INSTALLER, no NSAIDS with ABNER
-- OOB/ambulate
-- Appreciate Nephrology and Urology
Original Note:
Today's Communication / Plan
-
Plan reviewed with attending.
Assessment / Plan
-
49yoM who presented with SBO s/p ex lap POD #2 removal mass at the ileocecal junction adhesed to retroperitoneum, 20cm of terminal ileum with right colon, appendix, hepatic flexure and proximal transverse colon with ileo-transverse anastomosis. He
is recovering appropriately with managed pain on TELEVISION INSTALLER. We discussed limiting clears diet today to sips for concern of ileus with increased distention and bloating with dinner last night. Monitor for continued pain control.
Afebrile vitals stable. Rising Cr. WBC continues to be elevated.
Pt was not urinating adequately yesterday so bladder scanned, straight cathed and winters replaced. Renal US demonstrated benign cysts but not concerning pathology or hydronephrosis.
Plan
Continue to manage pain with TELEVISION INSTALLER.
Follow pathology. Expected 5-7 days. Heme/onc following.
Consider further staging work up. Cr continues to uptrend today. Defer CT chest to outpatient.
Limit clears intake. We discussed with pt he can have some clears for comfort but hold off on full sized meal.
Winters in place. Urology following.
Trend WBC
Subjective Data
-
Date of Service: January 27, 2025
Mr. Damian is feeling well this morning. Denies nausea or vomiting. When eating dinner last night, he described feeling really warm and unwell with bloating. No BM or flatus. When lying down, he describes sensations of hyperactive bowels and the
urge to have a BM that dissipates once he stands up. Ambulating well. Pt did not have pain medication for a period of time yesterday where he described diffuse pain; now managed well on TELEVISION INSTALLER.
Objective Data
-
Intake and Output
01/26/25 01/27/25 01/28/25
06:59 06:59 06:59
Intake Total 1375 / 1375 540 / 540
Output Total 350 / 350 200 / 200
Balance 1025 / 1025 340 / 340
Intake:
Oral fluids 540 / 540
IV fluids (Total) 1375 / 1375
Output:
Urine, Winters 350 / 350 200 / 200
Other:
Number of approximated SMALL 1
amounts of urine
Vital Signs
Temp Pulse Resp BP Pulse Ox
98.7 F 90 18 101/71 94
01/26/25 23:18 01/26/25 23:18 01/27/25 04:00 01/26/25 23:18 01/27/25 04:00
Lab Results
01/27/25 05:36
01/27/25 05:36
Calcium 7.6 mg/dl (8.4-10.2) L 01/27/25 05:36
Phosphorus 3.9 mg/dl (2.5-4.5) 01/26/25 05:46
Magnesium 1.8 mg/dl (1.6-2.3) 01/27/25 05:36
Total Bilirubin 0.8 mg/dl (0.2-1.3) 01/24/25 15:56
AST 21 U/L (17-59) 01/24/25 15:56
ALT 27 U/L (0-50) 01/24/25 15:56
Alkaline Phosphatase 78 U/L (38-126) 01/24/25 15:56
Total Protein 7.0 g/dl (6.3-8.2) 01/24/25 15:56
Albumin 4.4 g/dl (3.5-5.0) 01/24/25 15:56
Physical Exam
-
General: Well Developed and Well Nourished, laying in bed, no acute distress
HEENT: Moist Mucous Membranes, anicteric
Respiratory: Non Labored Respirations
GI: nontender, distended, incision covered with slightly bloody bandage
: winters in place with slightly blood tinged urine
Skin: Warm and Dry
Neuro: Awake, Alert, groggy from pain medication, neurologically grossly intact
Psych: Calm
Patient has a winters catheter: Yes
[2025-01-27 08:06] LABS: Nucleated Red Blood Cells % 0 % (-)
[2025-01-27 08:12] VITALS: BP 102/66
--- NOTE | 2025-01-27 09:56 | W.PN.URO.CBU ---
Today's Communication / Plan
-
for ct scan
Assessment / Plan
-
yovani possible prereal or m[nephrotoxin but absebce of jets and and surgery must r./out injury will obtain abd./ pelvic ct scan r/out urinoma
Diagnosis
-
Date of Service: January 27, 2025
-
Patient Diagnosis:new onset yovani posm t op bladder empty no jets on u/s
Post Op Day:
Patient Diagnosis:
GI tract/RP mass encroaching upon right ureter
s/p e-lap and right ureteral stenting
Post Op Day: 1
Subjective
-
no gu complaints
Objective
-
Vital Signs
Temp Pulse Resp BP Pulse Ox
99.8 F 89 16 102/66 94
01/27/25 08:12 01/27/25 08:12 01/27/25 08:12 01/27/25 08:12 01/27/25 08:12
Intake and Output
01/26/25 01/27/25 01/28/25
06:59 06:59 06:59
Intake Total 1375 / 1375 540 / 540
Output Total 350 / 350 200 / 200
Balance 1025 / 1025 340 / 340
Intake:
Oral fluids 540 / 540
IV fluids (Total) 1375 / 1375
Output:
Urine, Perera 350 / 350 200 / 200
Other:
Number of approximated SMALL 1
amounts of urine
Laboratory Results
01/27/25 05:36
01/27/25 05:36
Review of Systems
-
: No Symptoms
Physical Exam
-
General - well developed, well nourished, no acute distress
Chest - clear bilaterally
Abdomen - soft, non-tender, positive bowel sounds, no CVAT, no incisional pain or distention
Genitalia - normal
Rectal - normal
Skin - warm & dry with no rash
Neuro - AOx3, no motor deficits
Extremities - no clubbing, no cyanosis, no edema
Incision - clean, dry
Dressing - clean, dry, intact
Care Review
Data Reviewed
Discussed with: Hospitalist
Ultrasound: Image Pers Reviewed
--- NOTE | 2025-01-27 10:44 | W.PN.HOSP.TC ---
Addendum entered and electronically signed by Bina Romero MD 01/27/25 15:44:
Hyponatremia
-Na stable
Acute blood loss anemia post-op versus effect of dilution
-monitor Hg daily
Original Note:
Today's Communication/Plan
-
clears
IVF
CT A/P non-con
appreciate consultants
Assessment / Plan
Assessment / Plan
Mr. 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 He is s/p right hemicolectomy,
take-down hepatic flexure 01/25/25, Urology was involved in OR case given proximity to ureter patient is s/p ureteral stent placement. Post-op course c/b ABNER.
CT A/P 01/25
IMPRESSION:
Several findings, as detailed above, suspicious for malignancy involving the terminal ileum resulting in possible mild partial small bowel obstruction as well as accompanying local sanjuana metastasis.
Indeterminate subcentimeter right lobe hepatic lesion, too small to characterize.
Procedure Performed: Exploratory laparotomy, right hemicolectomy, take-down hepatic flexure 01/25/25
Renal US 01/26/25
IMPRESSION:
1. Essentially unremarkable limited renal ultrasound, as detailed above.
Chest/Abdomen X-ray
IMPRESSION:
1. There is intraperitoneal free air, likely postoperative in nature
2. There is nonspecific bowel gas pattern with no evidence of obstruction. There are air-fluid levels in the colon.
3. Linear foci in the lung bases are likely atelectasis
PLAN:
SBO w/ terminal ileum malignancy
-Appreciate Urology and General surgery
-status post ex lap, right hemicolectomy, take-down hepatic flexure, and right ureter stent
-clear liquid diet
-D5 IVF
-has STRAP BUCKLER MACHINE pump for pain control, he states he took a 12 hour break yesterday
-Path pending
-Oncology consult appreciated, patient will need staging as outpatient
ABNER
-patient with decreased urinary output and rising creatinine post-op. His winters catheter was pulled POD 1 then replaced given minimal UO. Renal US without hydronephrosis. FeNa < 1%
-Toradol stopped
-continue IVF
-creatinine seems to be plateauing today and he produced more urine
-appreciate Urology, non-con CT A/P ordered
-Nephrology consulted
DVT PPX - lovenox sq (Cr Cl > 30)
Code status - Full Code
51 minutes spent on patient care
Anticipated Discharge: > 48 hours
Subjective/Interval History
-
Date of Service: January 27, 2025
not passing significant gas
had some abdominal discomfort last night and felt overheated, today pain resolved
no chest pain or shortness of breath
he denies feeling swollen
Objective Data
-
Labs:
Laboratory Results
01/27/25
05:36
WBC 13.2 H
Hgb 12.1 L
Hct 36.0 L
Plt Count 252
Sodium 133 L
Potassium 4.5
Chloride 104
Carbon Dioxide 24
BUN 28 H
Creatinine 1.9 H
Glucose 122 H
Calcium 7.6 L
Vital Signs:
Vital Signs
Temp Pulse Resp BP Pulse Ox
99.8 F 89 16 102/66 94
01/27/25 08:12 01/27/25 08:12 01/27/25 08:12 01/27/25 08:12 01/27/25 08:12
I&O
01/26/25 01/27/25 01/28/25
06:59 06:59 06:59
Intake Total 1375 / 1375 540 / 540
Output Total 350 / 350 200 / 200
Balance 1025 / 1025 340 / 340
Review of Systems
-
History Source: Patient
All other systems: Reviewed and negative
Physical Exam
-
General: No Apparent Distress
HEENT: PERRLA
Respiratory: Clear to Auscultation; Negative Wheezes
Cardiac: Regular Rhythm and S1/S2
GI: Soft, Nontender and Other
Musculoskeletal: No Edema
Skin: Warm and Dry; Negative Rash
Neuro: AO x 3
Psych: Calm
Data Reviewed
-
Diagnostic Radiology: Report Reviewed by me
Labs: Labs Reviewed by me
--- NOTE | 2025-01-27 13:42 | CM ---
Patient chart reviewed
clears, IVF
cont w/SUPERVISOR CRACK OFF
PLAN: Home, no needs anticipated, CM to continue to follow
--- NOTE | 2025-01-27 13:43 | W.CON.NEPH ---
Consultation
-
Date/Time Consultation Requested: January 26, 2025 at 6 PM
Date/Time Consultation Performed: January 27, 2025 at 1 PM
Requesting Provider: Dr. Romero
Performing Provider: Dr. Moody
Reason for Consultation: Acute kidney injury
Medical History
-
Chief Complaint: Acute kidney injury
History of Present Illness:
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 He is s/p right hemicolectomy, take-down hepatic flexure
01/25/25, Urology was involved in OR case given proximity to ureter patient is s/p ureteral stent placement. Post-op course c/b ABNER.
Renal consult for acute kidney injury with a creatinine of 1.9 from 1.2
Received a dose of Toradol and IV contrast
Past Medical History
No known medical history
Social History
Tobacco: Non-Smoker
Alcohol: None
Family History
Family History: Not Pertinent
Allergies / Home Medications
Allergy/AdvReac Type Severity Reaction Status Date / Time
No Known Allergies Allergy Unverified 01/24/25 15:45
�Medication �Instructions �Recorded �Confirmed �Type
No Meds [No Current Medications] 01/25/25 01/25/25 History
Review of Systems
-
No chest pain or shortness of breath
All other systems: Negative unless noted
Physical Exam
Vital Signs
Vital Signs
Temp Pulse Resp BP Pulse Ox
99.8 F 89 16 102/66 94
01/27/25 08:12 01/27/25 08:12 01/27/25 08:12 01/27/25 08:12 01/27/25 08:12
Lab Results
WBC 13.2 10^3/uL (4.8-10.8) H 01/27/25 05:36
RBC 4.03 10^6/uL (4.70-6.10) L 01/27/25 05:36
Hgb 12.1 g/dL (13.0-18.0) L 01/27/25 05:36
Hct 36.0 % (39.0-52.0) L 01/27/25 05:36
Plt Count 252 10^3/uL (130-400) 01/27/25 05:36
Sodium 133 mmol/L (135-145) L 01/27/25 05:36
Potassium 4.5 mmol/L (3.5-5.1) 01/27/25 05:36
Chloride 104 mmol/L (98-107) 01/27/25 05:36
Carbon Dioxide 24 mmol/L (22-30) 01/27/25 05:36
BUN 28 mg/dl (9-20) H 01/27/25 05:36
Creatinine 1.9 mg/dL (0.7-1.3) H 01/27/25 05:36
eGFR 42.98 01/27/25 05:36
Glucose 122 mg/dl (70-99) H 01/27/25 05:36
Calcium 7.6 mg/dl (8.4-10.2) L 01/27/25 05:36
Phosphorus 3.9 mg/dl (2.5-4.5) 01/26/25 05:46
Albumin 4.4 g/dl (3.5-5.0) 01/24/25 15:56
Physical Exam
General no acute distress
HEENT no cephalic atraumatic extraocular muscle intact no scleral icterus no JVD neck supple
lungs clear to auscultation bilateral
heart regular S1-S2 positive
abdomen soft nontender midline incision wound
extremities no edema pulses present bilateral
Neurologically nonfocal alert and oriented x 3
Skin no lesions no abrasions no petechiae
Psych normal affect no bizarre behavior
Data Reviewed
-
Ultrasound: Image Personally Visualized and interpreted
Labs: Labs Reviewed by me, Discussed with Physician, Discussed with Patient and Discussed with Family
Assessment/Plan
-
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 He is s/p right hemicolectomy, take-down hepatic flexure
01/25/25, Urology was involved in OR case given proximity to ureter patient is s/p ureteral stent placement. Post-op course c/b ABNER.
Renal consult for acute kidney injury with a creatinine of 1.9 from 1.2
Impression.
Acute kidney injury uncertain etiology ATN possible contrast nephropathy. No obvious episodes of hypotension /was given Toradol for pain
Right hemicolectomy status post with interrupted ureteral stent
Plan.
Maintain Perera catheter
No obstructive pathology on renal ultrasound
CAT scan today slight prominence of the right renal collecting system with slightly high attenuation density of fluid in the right renal pelvis 24 Hounsfield units. There is no retroperitoneal lymphadenopathy no hydronephrosis/ a small abnormal
fluid collection such as urinoma, particularly in the true pelvis cannot be entirely excluded.
Suspect this is early ATN/nonoliguric
Creatinine currently 1.9.
Urine indices Fena 0.4%
Continue lactated Ringer's at 150 cc/h
[2025-01-27 15:00] VITALS: BP 119/87
--- NOTE | 2025-01-27 15:11 | W.PN.SURGUPD ---
Surgical Update
Surgical Update
ct scan reviewed much artifact but no convincing evidence of urinary leak nor obstruction Continue prexsent medical evaluation
--- NOTE | 2025-01-27 15:14 | PN.CDI ---
CDI
- -
CDI:
Physician Documentation Request
Admit Date: 01/25/25 00:17
Dear Doctor Nick,
Patient admitted with SBO w/ terminal ileum malignancy -status post ex lap, right hemicolectomy, take-down hepatic flexure, and right ureter stent.
Hgb documented below:
Laboratory Tests
01/24/25 01/25/25 01/27/25
15:56 05:33 05:36
Hgb 15.7 14.0 12.1 L
Based on the above, please clarify, in your progress note, which of the following is the most likely diagnosis you are evaluating, monitoring and/or treating?
Acute blood loss anemia
Insignificant abnormal lab finding
Other
Use of terms such as suspected, likely, concern for, or probable (associated with a specific diagnosis that is being evaluated, monitored, or treated as if it exists) are acceptable and can be coded in the inpatient setting, when documented at the
time of discharge.
Thank you,
Eugenia MAX,RN,CCDS
CDI Specialist
Available via [employer] text
Please use your independent medical judgment in providing your response.
--- NOTE | 2025-01-27 15:21 | PN.CDI ---
CDI
- -
CDI:
Physician Documentation Request
Admit Date: 01/25/25 00:17
Dear Doctor Nick,
Patient admitted with SBO w/ terminal ileum malignancy -status post ex lap, right hemicolectomy, take-down hepatic flexure, and right ureter stent.
Na levels documented below:
Laboratory Tests
01/26/25 01/26/25 01/27/25
05:46 16:37 05:36
Sodium 134 L 133 L 133 L
Based on the above, please provide in the progress notes, the appropriate diagnosis, if significant, that supports the above abnormalities and additional evaluation, monitoring and/or treatment rendered:
Hyponatremia
Insignificant abnormal lab findings
Other
Use of terms such as suspected, likely, concern for, or probable (associated with a specific diagnosis that is being evaluated, monitored, or treated as if it exists) are acceptable and can be coded in the inpatient setting, when documented at the
time of discharge.
Thank you,
Eugenia MAX,RN,CCDS
CDI Specialist
Available via tiger text
Please use your independent medical judgment in providing your response.
[2025-01-27] MEDS: LOVENOX 40 MG SC (17:32)
[2025-01-27] MEDS: DILAUDID PCA 30 IV (18:46)
[2025-01-27 22:30] VITALS: BP 121/82
[2025-01-27 23:00] VITALS: BP 121/82
[2025-01-28] MEDS: TYLENOL 1000 MG PO ×2 (00:13→06:20)
[2025-01-28] MEDS: DILAUDID 0.5 MG IV ×3 (03:34→22:34)
[2025-01-28] MEDS: D5LR 1000 IV (03:36)
[2025-01-28 06:25] LABS: Hematocrit 37.5 % (39.0-52.0); Hemoglobin 12.5 g/dL (13.0-18.0); Mean Corp Hgb Conc. 33.3 g/dL (33.0-37.0); Mean Corpuscular Volume 89.7 fL (80.0-94.0); Platelet Count 274 10^3/uL (130-400); Red Cell Dist. Width 13.9 % (11.5-14.5)
[2025-01-28 07:05] VITALS: BP 129/76
[2025-01-28 07:12] LABS: Blood Urea Nitrogen 29 mg/dl (9-20); Calcium 7.8 mg/dl (8.4-10.2); Carbon Dioxide 24 mmol/L (22-30); Chloride 104 mmol/L (98-107); Estimated Creatinine Clearance 60 ml/min; Glucose 119 mg/dl (70-99); Potassium 4.4 mmol/L (3.5-5.1); Sodium 132 mmol/L (135-145); eGFR 42.98
--- NOTE | 2025-01-28 07:24 | W.PN.HOSP.TC ---
Today's Communication/Plan
-
pain control
IVF support
Perera as per urology
wound care
abx
Assessment / Plan
Assessment / Plan
Physical Exam
General: No acute Distress, appears relatively comfortable at this time.
HEENT: PERRLA
Respiratory: Clear to Auscultation; Negative Wheezes
Cardiac: Regular Rhythm and S1/S2
GI: Soft, tenderness, distended, wound dressing clean dry intact
Musculoskeletal: No Edema
Skin: Warm and Dry; Negative Rash
Neuro: AO x 3
Psych: Calm
Mr. 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 He is s/p right hemicolectomy,
take-down hepatic flexure 01/25/25, Urology was involved in OR case given proximity to ureter patient is s/p ureteral stent placement. Post-op course c/b ABNER.
CT A/P 01/25
IMPRESSION:
Several findings, as detailed above, suspicious for malignancy involving the terminal ileum resulting in possible mild partial small bowel obstruction as well as accompanying local sanjuana metastasis.
Indeterminate subcentimeter right lobe hepatic lesion, too small to characterize.
Procedure Performed: Exploratory laparotomy, right hemicolectomy, take-down hepatic flexure 01/25/25
Renal US 01/26/25
IMPRESSION:
1. Essentially unremarkable limited renal ultrasound, as detailed above.
Chest/Abdomen X-ray
IMPRESSION:
1. There is intraperitoneal free air, likely postoperative in nature
2. There is nonspecific bowel gas pattern with no evidence of obstruction. There are air-fluid levels in the colon.
3. Linear foci in the lung bases are likely atelectasis
PLAN:
SBO w/ terminal ileum malignancy
-Appreciate Urology and General surgery
-status post ex lap, right hemicolectomy, take-down hepatic flexure, and right ureter stent
-clear liquid diet, NURSE ADMINISTRATOR pump pain control, abx as per surgery
-Path pending
-Oncology consult appreciated, patient will need staging as outpatient
ABNER
-patient with decreased urinary output and rising creatinine post-op. His Perera catheter was pulled POD 1 then replaced given minimal UO. Renal US without hydronephrosis. FeNa < 1%
-Toradol stopped
-continue IVF as per nephro
-non-con CT A/P results appreciated limited study w/o contrast, no evidence urinary leak or obstruction as per urology review.
-urology consult appreciated
-Nephrology consult appreciated
DVT PPX - Lovenox
Code status - Full Code
I spent a total of 40 minutes with the patient or on the floor. More than 50% of this time involved counseling and coordination of care.
Anticipated Discharge: > 48 hours
Subjective/Interval History
-
Date of Service: January 28, 2025
pain relatively well controlled at this time w/ dilaudid radiologist physician. Denies bowel movements or flatus.
Objective Data
-
Labs:
Laboratory Results
01/28/25
06:03
WBC 7.1
Hgb 12.5 L
Hct 37.5 L
Plt Count 274
Sodium 132 L
Potassium 4.4
Chloride 104
Carbon Dioxide 24
BUN 29 H
Creatinine 1.9 H
Glucose 119 H
Calcium 7.8 L
Vital Signs:
Vital Signs
Temp Pulse Resp BP Pulse Ox
98.3 F 127 18 121/82 98
01/28/25 01:10 01/27/25 23:00 01/28/25 04:00 01/27/25 23:00 01/27/25 23:00
I&O
07/22/25 07/23/25 07/24/25
06:59 06:59 06:59
Intake Total 540 / 540 1280 / 1280
Output Total 200 / 200 1230 / 1230
Balance 340 / 340 50 / 50
--- NOTE | 2025-01-28 08:13 | W.PN.GS2 ---
Addendum entered and electronically signed by Сергей Ledbetter MD 01/28/25 13:19:
I was physically present and personally performed the wolfe portions of the surgical evaluation and/or procedure with the resident. I discussed the findings, reviewed the resident�s note, and confirmed the medical decision-making. I provided direct
supervision as required and agree with the assessment and plan as documented with the following additions/corrections:
Comment: Non-oliguric, dark brandie urine, pain controlled, ambulating, denies flatus, denies. Dressing cdi, belly soft, mild distention, approp ttp. WBC normalized. Tmax 101.3F. Cr elevated, stable. Mild hyponatremia. Will initiate IV abx for
fever, bolus 1L NS, D5 1/2NS at 150cc/hr for MIVF. Cont NPO with sips and chips. Ofimrev added, SEWING MACHINE OPERATOR SEMIAUTOMATIC demand dose adjusted down. DVT ppx
Original Note:
Today's Communication / Plan
-
Plan reviewed with attending
Assessment / Plan
-
49yoM who presented with SBO s/p ex lap POD #3 removal mass at the ileocecal junction adhesed to retroperitoneum, 20cm of terminal ileum with right colon, appendix, hepatic flexure and proximal transverse colon with ileo-transverse anastomosis. He
is recovering appropriately with managed pain on SEWING MACHINE OPERATOR SEMIAUTOMATIC. He had severe pain without using his SEWING MACHINE OPERATOR SEMIAUTOMATIC appropriately. We had a discussion about his future pain management to stay ahead of the pain and use the SEWING MACHINE OPERATOR SEMIAUTOMATIC when needed. We emphasized the importance of
pain control for appropriate recovery. Monitor for continued pain control.
Afebrile this morning. Vitals stable. Febrile Tmax 101.3, tachycardic to 128, normotensive overnight. Elevated Cr stabilized. WBC normalized.
Urine output yesterday was appropriate but overnight declined. FeNa and BUN:Cr ratio are indicative of prerenal etiology. Plan to give him a fluid bolus to account for surgical fluid loses.
Plan
Continue to manage pain with SEWING MACHINE OPERATOR SEMIAUTOMATIC.
Follow pathology. Expected 5-7 days. Heme/onc following.
Consider further staging work up. Defer CT chest to outpatient.
Diet: sips
Winters in place. Urology and nephrology following. Fluid bolus 1L NS.
Subjective Data
-
Date of Service: January 28, 2025
Mr. Damian had a difficult night with a bout of drenching sweats and fever at around midnight. He tried to go a few hours without using his SEWING MACHINE OPERATOR SEMIAUTOMATIC to see if it would help with bowel functioning. His pain intensified and he required a dose of 0.5
dilaudid. After getting pain meds, he was able to sleep and woke up feeling better without chills or sweats.
Objective Data
-
Intake and Output
01/27/25 01/28/25 01/29/25
06:59 06:59 06:59
Intake Total 540 / 540 1280 / 1280
Output Total 200 / 200 1230 / 1230
Balance 340 / 340 50 / 50
Intake:
Oral fluids 540 / 540 1280 / 1280
Output:
Urine, Winters 200 / 200 1230 / 1230
Other:
Number of approximated SMALL 1
amounts of urine
Vital Signs
Temp Pulse Resp BP Pulse Ox
98.3 F 127 18 121/82 98
01/28/25 01:10 01/27/25 23:00 01/28/25 07:55 01/27/25 23:00 01/27/25 23:00
Lab Results
01/28/25 06:03
01/28/25 06:03
Calcium 7.8 mg/dl (8.4-10.2) L 01/28/25 06:03
Phosphorus 3.9 mg/dl (2.5-4.5) 01/26/25 05:46
Magnesium 1.8 mg/dl (1.6-2.3) 01/27/25 05:36
Total Bilirubin 0.8 mg/dl (0.2-1.3) 01/24/25 15:56
AST 21 U/L (17-59) 01/24/25 15:56
ALT 27 U/L (0-50) 01/24/25 15:56
Alkaline Phosphatase 78 U/L (38-126) 01/24/25 15:56
Total Protein 7.0 g/dl (6.3-8.2) 01/24/25 15:56
Albumin 4.4 g/dl (3.5-5.0) 01/24/25 15:56
Physical Exam
-
General: Well Developed and Well Nourished, laying in bed, no acute distress
HEENT: Moist Mucous Membranes, anicteric
Respiratory: Non Labored Respirations
GI: nontender, distended, incision covered with slightly bloody bandage
: winters in place with dark urine, 350ml output overnight
Skin: Warm and Dry
Neuro: Awake, Alert, neurologically grossly intact
Psych: Calm
Patient has a winters catheter: Yes
--- NOTE | 2025-01-28 08:41 | W.PN.ONC ---
Today's Communication / Plan
-
Patient is s/p bowel resection for mass at TI, with suspicious local adenopathy noted on imaging.
Path pending, CEA normal. Adjuvant therapy to be considered pending path.
Will follow along while admitted.
Impression
Impression
SBO w/ terminal ileum malignancy
- pathology is still pending
- s/p right hemicolectomy, take-down hepatic flexure 01/25/25
- Post-op course complicated by ABNER
Plan
Plan
Patient is s/p bowel resection for mass at TI, with suspicious local adenopathy noted on imaging.
Path pending, CEA normal. Adjuvant therapy to be considered pending path.
Will follow along while admitted.
Subjective/Objective
Subjective/Objective
Patient seen at the bedside this morning. Patient still having post-op related abdominal pain that is worse at night, denies all other ROS.
General: not in acute distress
Cardiovascular: RRR
Respiratory: normal breath sounds
Extremities: SCDs on b/l, pulses present bilateral
Neuro: AAOx3
Vital Signs:
Vital Signs
Temp Pulse Resp BP Pulse Ox
100.3 F 88 18 129/76 95
01/28/25 07:05 01/28/25 07:05 01/28/25 07:55 01/28/25 07:05 01/28/25 07:05
Lab Results:
Laboratory Data
WBC 7.1 10^3/uL (4.8-10.8) 01/28/25 06:03
Hgb 12.5 g/dL (13.0-18.0) L 01/28/25 06:03
Plt Count 274 10^3/uL (130-400) 01/28/25 06:03
PT 13.3 Sec (11.4-14.6) 01/25/25 10:10
INR 0.98 01/25/25 10:10
APTT 28.4 Sec (23.4-35.0) 01/25/25 10:10
eGFR 42.98 01/28/25 06:03
--- NOTE | 2025-01-28 08:46 | W.PN.URO.CBU ---
Today's Communication / Plan
-
keep winters for now
Assessment / Plan
-
yovani possible atn , yovani but no convincing urologic injury CReatinine has stabilized will follow keep winters for now
Diagnosis
-
Date of Service: January 28, 2025
-
Patient Diagnosis:
Post Op Day:
Patient Diagnosis:new onset yovani posm t op bladder empty no jets on u/s
Post Op Day:
Patient Diagnosis:
GI tract/RP mass encroaching upon right ureter
s/p e-lap and right ureteral stenting
Post Op Day: 1
Subjective
-
dislikes winters
Objective
-
Vital Signs
Temp Pulse Resp BP Pulse Ox
100.3 F 88 18 129/76 95
01/28/25 07:05 01/28/25 07:05 01/28/25 07:55 01/28/25 07:05 01/28/25 07:05
Intake and Output
01/27/25 01/28/25 01/29/25
06:59 06:59 06:59
Intake Total 540 / 540 1280 / 1280
Output Total 200 / 200 1230 / 1230
Balance 340 / 340 50 / 50
Intake:
Oral fluids 540 / 540 1280 / 1280
Output:
Urine, Winters 200 / 200 1230 / 1230
Other:
Number of approximated SMALL 1
amounts of urine
Laboratory Results
01/28/25 06:03
01/28/25 06:03
Review of Systems
-
: Difficulty Voiding
Physical Exam
-
General - well developed, well nourished, no acute distress
Chest - clear bilaterally
Abdomen - soft, non-tender, positive bowel sounds, no CVAT, no incisional pain or distention
Genitalia - normal
Rectal - normal
Skin - warm & dry with no rash
Neuro - AOx3, no motor deficits
Extremities - no clubbing, no cyanosis, no edema
Incision - clean, dry
Dressing - clean, dry, intact
Care Review
Data Reviewed
Discussed with: Nursing and Family
CT Scan: Image Pers Reviewed
[2025-01-28] MEDS: NSS 1000 IV ×3 (09:48→23:19)
[2025-01-28] MEDS: D5LR IV (09:49)
[2025-01-28] MEDS: ZOSYN 50 IV ×3 (10:31→22:34)
--- NOTE | 2025-01-28 10:53 | W.PN.URO.CBU ---
Today's Communication / Plan
-
Perera removal in AM
Assessment / Plan
-
Oliguria -- NOT due to urinary retention or obstructive uropathy
Diagnosis
-
Date of Service: January 28, 2025
-
Patient Diagnosis:
GI tract/RP mass encroaching upon right ureter
s/p e-lap and right ureteral stenting
post-op oliguria for which Perera was replaced
Post Op Day: 3
Subjective
-
'can you leave it [Perera] in for one more day'
fatigued
Objective
-
Vital Signs
Temp Pulse Resp BP Pulse Ox
98.2 F 88 18 129/76 95
01/28/25 07:05 01/28/25 07:05 01/28/25 08:00 01/28/25 07:05 01/28/25 07:05
Intake and Output
01/27/25 01/28/25 01/29/25
06:59 06:59 06:59
Intake Total 540 / 540 1280 / 1280
Output Total 200 / 200 1230 / 1230
Balance 340 / 340 50 / 50
Intake:
Oral fluids 540 / 540 1280 / 1280
Output:
Urine, Perera 200 / 200 1230 / 1230
Other:
Number of approximated SMALL 1
amounts of urine
Laboratory Results
01/28/25 06:03
01/28/25 06:03
Physical Exam
-
General - appears tired
Abdomen - no distention
Genitalia -Perera with clear outflow
[2025-01-28] MEDS: FLOMAX 0.8 MG PO (11:36)
--- NOTE | 2025-01-28 12:19 | W.PN.NEPH.PH ---
Today's Communication / Plan
-
Maintain lactated Ringer's
Follow BMP
Assessment/Plan
-
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 He is s/p right hemicolectomy, take-down hepatic flexure
01/25/25, Urology was involved in OR case given proximity to ureter patient is s/p ureteral stent placement. Post-op course c/b ABNER.
Renal consult for acute kidney injury with a creatinine of 1.9 from 1.2
Impression.
Acute kidney injury uncertain etiology ATN possible contrast nephropathy. No obvious episodes of hypotension /was given Toradol for pain
Right hemicolectomy status post with interrupted ureteral stent
Plan.
ABNER persists with creatinine of 1.9
Remains nonoliguric with approximately 1 L urine output via Perera
Maintain Perera catheter
Hemodynamically stable
No obstructive pathology on renal ultrasound or CT or by urology note reviewed
CAT scan previously noted slight prominence of the right renal collecting system with slightly high attenuation density of fluid in the right renal pelvis 24 Hounsfield units. There is no retroperitoneal lymphadenopathy no hydronephrosis/ a small
abnormal fluid collection such as urinoma, particularly in the true pelvis cannot be entirely excluded.
Suspect this is early ATN/nonoliguric
Creatinine currently 1.9.
Urine indices Fena 0.4% c/w pre renal stimulus
Continue lactated Ringer's
-
-
Date of Service: January 28, 2025
CC / HPI / ROS
-
Chief Complaint:
Acute kidney injury
History of Present Illness:
Acute kidney unchanged with creatinine at 1.9
Hemodynamically stable
Review of Systems:
No reported chest pain or shortness of breath
Appetite poor
Nonoliguric with approximately 1200 cc of urine via Perera cath
Labs
-
Labs:
WBC 7.1 10^3/uL (4.8-10.8) 01/28/25 06:03
RBC 4.18 10^6/uL (4.70-6.10) L 01/28/25 06:03
Hgb 12.5 g/dL (13.0-18.0) L 01/28/25 06:03
Hct 37.5 % (39.0-52.0) L 01/28/25 06:03
Plt Count 274 10^3/uL (130-400) 01/28/25 06:03
Sodium 132 mmol/L (135-145) L 01/28/25 06:03
Potassium 4.4 mmol/L (3.5-5.1) 01/28/25 06:03
Chloride 104 mmol/L (98-107) 01/28/25 06:03
Carbon Dioxide 24 mmol/L (22-30) 01/28/25 06:03
BUN 29 mg/dl (9-20) H 01/28/25 06:03
Creatinine 1.9 mg/dL (0.7-1.3) H 01/28/25 06:03
eGFR 42.98 01/28/25 06:03
Glucose 119 mg/dl (70-99) H 01/28/25 06:03
Calcium 7.8 mg/dl (8.4-10.2) L 01/28/25 06:03
Phosphorus 3.9 mg/dl (2.5-4.5) 01/26/25 05:46
Albumin 4.4 g/dl (3.5-5.0) 01/24/25 15:56
Physical Exam
-
Vital Signs:
Vital Signs
Temp Pulse Resp BP Pulse Ox
98.2 F 88 18 129/76 95
01/28/25 07:05 01/28/25 07:05 01/28/25 08:00 01/28/25 07:05 01/28/25 07:05
Cardiovascular:: Regular rate and rhythm
Respiratory:: Bilateral: CTA
Lung Excursion:: Normal
Abdomen:: Tender
Bowel Sounds:: Decreased
Extremity Edema:: None: Bilateral:
Perera Catheter: Yes
[2025-01-28] MEDS: OFIRMEV 100 IV ×3 (12:51→23:19)
[2025-01-28 15:00] VITALS: BP 109/86
[2025-01-28] MEDS: ZOFRAN 4 MG IV (16:11)
--- NOTE | 2025-01-28 16:22 | CM ---
Patient seen at bedside with
discussed VN - agreeable - options reviewed. Prefer [facility]
tt July liaison and referral to be entered.
PLAN: Home with [facility] when stable
--- NOTE | 2025-01-28 18:00 | PTCARENOTE ---
Walked with patient in hallway x2. Patient noted to have hyperactive bowel sounds during shift. Family in room updated on POC.
[2025-01-28] MEDS: LOVENOX 40 MG SC (18:17)
[2025-01-28 23:08] VITALS: BP 105/70
[2025-01-28 23:26] VITALS: BP 105/70
[2025-01-29] MEDS: DILAUDID 0.5 MG IV (02:22)
--- NOTE | 2025-01-29 02:27 | PTCARENOTE ---
ax3 belly round distended hypoactive. no flatus. midline dsg with old drainage- winters draining brandie- medicated with prn breakthrough dilaudid x3- encouraged to use medical claims examiner but pt falls asleep and does not use it. says overall he feels better tonight
than last night.
[2025-01-29] MEDS: ZOSYN 50 IV ×4 (03:02→21:19)
[2025-01-29] MEDS: OFIRMEV 100 IV ×4 (05:33→23:01)
--- NOTE | 2025-01-29 06:49 | W.PN.HOSP.TC ---
Today's Communication/Plan
-
pain control
IVF support
agree maintaining Perera
wound care
NPO as per surgery
Assessment / Plan
Assessment / Plan
Physical Exam
General: No acute Distress, appears relatively comfortable at this time.
HEENT: PERRLA
Respiratory: Clear to Auscultation; Negative Wheezes
Cardiac: Regular Rhythm and S1/S2
GI: Soft, tenderness, distended, wound dressing clean dry intact
Musculoskeletal: No Edema
Skin: Warm and Dry; Negative Rash
Neuro: AO x 3
Psych: Calm
Mr. 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 He is s/p right hemicolectomy,
take-down hepatic flexure 01/25/25, Urology was involved in OR case given proximity to ureter patient is s/p ureteral stent placement. Post-op course c/b ABNER.
CT A/P 01/25
IMPRESSION:
Several findings, as detailed above, suspicious for malignancy involving the terminal ileum resulting in possible mild partial small bowel obstruction as well as accompanying local sanjuana metastasis.
Indeterminate subcentimeter right lobe hepatic lesion, too small to characterize.
Procedure Performed: Exploratory laparotomy, right hemicolectomy, take-down hepatic flexure 01/25/25
Renal US 01/26/25
IMPRESSION:
1. Essentially unremarkable limited renal ultrasound, as detailed above.
Chest/Abdomen X-ray
IMPRESSION:
1. There is intraperitoneal free air, likely postoperative in nature
2. There is nonspecific bowel gas pattern with no evidence of obstruction. There are air-fluid levels in the colon.
3. Linear foci in the lung bases are likely atelectasis
PLAN:
SBO w/ terminal ileum malignancy
Post-op complicated with ileus
-Appreciate Urology and General surgery
-status post ex lap, right hemicolectomy, take-down hepatic flexure, and right ureter stent
-NPO, DRIVER COURIER pump pain control, abx as per surgery
-Path pending
-Oncology consult appreciated, patient will need staging as outpatient
ABNER
-patient with decreased urinary output and rising creatinine post-op. His Perera catheter was pulled POD 1 then replaced given minimal UO. Renal US without hydronephrosis. FeNa < 1%
-Toradol stopped
-continue IVF as per nephro
-non-con CT A/P results appreciated limited study w/o contrast, no evidence urinary leak or obstruction as per urology review.
-urology consult appreciated
-Nephrology consult appreciated
DVT PPX - Lovenox
Code status - Full Code
I spent a total of 40 minutes with the patient or on the floor. More than 50% of this time involved counseling and coordination of care.
Anticipated Discharge: > 48 hours
Subjective/Interval History
-
Date of Service: January 29, 2025
Pain relatively well controlled at this time with dilaudid DRIVER COURIER. Abd remains distended. Denies flatus.
Objective Data
-
Labs:
Laboratory Results
01/29/25
06:00
WBC Pending
Hgb Pending
Hct Pending
Plt Count Pending
Sodium Pending
Potassium Pending
Chloride Pending
Carbon Dioxide Pending
BUN Pending
Creatinine Pending
Glucose Pending
Calcium Pending
Vital Signs:
Vital Signs
Temp Pulse Resp BP Pulse Ox
99.7 F 91 20 105/70 94
01/28/25 23:08 01/28/25 23:08 01/29/25 06:10 01/28/25 23:08 01/28/25 23:08
I&O
01/27/25 01/28/25 01/29/25
06:59 06:59 06:59
Intake Total 540 / 540 1280 / 1280 5910 / 5910
Output Total 200 / 200 1230 / 1230 750 / 750
Balance 340 / 340 50 / 50 5160 / 5160
--- NOTE | 2025-01-29 07:55 | W.PN.GS2 ---
Addendum entered and electronically signed by Josh Barger MD 01/29/25 10:20:
I was physically present and personally performed the wolfe portions of the surgical evaluation and/or procedure with the resident. I discussed the findings, reviewed the resident�s note, and confirmed the medical decision-making. I provided direct
supervision as required and agree with the assessment and plan as documented with the following additions/corrections:
Patient seen and examined. available for discussions via speaker phone/conference call
Patient reports improved pain control overnight with additional dose of Dilaudid administered.
Persistent abdominal discomfort/pain predominantly at incision as well as due to generalized distention.
He denies nausea but states he feels heartburn and indigestion/reflux. No vomiting
No flatus or BM.
Feels a bit more out of it today
AFVSS
NAD but uncomfortable appearing. AAO x 3
ABD: Tensely distended with generalized tenderness but no rebound, no rigidity, no guarding. Incision with surgical dressing in place.
Winters with darker brandie-colored urine
A/P: 49-year-old male POD #4 status post ex lap right hemicolectomy, ABNER, Ileus
Discussions with patient and his regarding strong consideration of NG tube decompression given degree of abdominal distention and no significant signs of recovering GI function yet. We will cautiously wait out the a.m. but reassess for
possible NG tube placement today.
Given the persistence of his ileus and elevated creatinine recommend continued Winters catheter both for close monitoring of I's and O's as well as probable high risk for developing urinary retention in the setting of ongoing ileus and narcotic
requirement.
Continue IV Tylenol and renewed ASPARAGUS CUTTER for pain control. NSAIDs contraindicated/avoided in the setting of ABNER.
Renew IV fluids
PPI IV started
N.p.o. except ice chips for comfort
Following closely. Any of the patient's or his 's concerns or questions were fully addressed. Discussed care plan with nursing staff as well.
Original Note:
Today's Communication / Plan
-
Plan reviewed with attending.
Assessment / Plan
-
49yoM who presented with SBO s/p ex lap POD #4 removal mass at the ileocecal junction adhesed to retroperitoneum, 20cm of terminal ileum with right colon, appendix, hepatic flexure and proximal transverse colon with ileo-transverse anastomosis. He
is recovering appropriately with managed pain on ASPARAGUS CUTTER. Monitor for continued pain control.
Afebrile, Vitals stable. Elevated Cr. WBC normalized. Non-oliguric. Continued ileus with increased pressures and reflux. We had a discussion about placement of NG tube for comfort to help relieve some of the pressure. We will [place] back in the
afternoon to reevaluate.
Plan
Continue to manage pain with ASPARAGUS CUTTER.
Follow pathology. Expected 5-7 days. Heme/onc following.
Diet: sips
Winters in place. Urology and nephrology following.
Consider NG tube placement for comfort
Subjective Data
-
Date of Service: January 29, 2025
Mr. Damian had a good night without nausea, vomiting, fever, chills, or night sweats. Ambulating around unit. Regular use of incentive spirometer. Pain controlled on current regimen. Continued feeling of bloating. He reports reflux with even small
sips of water but no urge to vomit.
Objective Data
-
Intake and Output
01/28/25 01/29/25 01/30/25
06:59 06:59 06:59
Intake Total 1280 / 1280 5910 / 5910
Output Total 1230 / 1230 750 / 750
Balance 50 / 50 5160 / 5160
Intake:
Oral fluids 1280 / 1280 2160 / 2160
IV fluids (Total) 3450 / 3450
IV piggybacks 300 / 300
Output:
Urine, Winters 1230 / 1230 750 / 750
Vital Signs
Temp Pulse Resp BP Pulse Ox
99.7 F 91 20 105/70 94
01/28/25 23:08 01/28/25 23:08 01/29/25 06:10 01/28/25 23:08 01/28/25 23:08
Calcium 7.8 mg/dl (8.4-10.2) L 01/28/25 06:03
Phosphorus 3.9 mg/dl (2.5-4.5) 01/26/25 05:46
Magnesium 1.8 mg/dl (1.6-2.3) 01/27/25 05:36
Total Bilirubin 0.8 mg/dl (0.2-1.3) 01/24/25 15:56
AST 21 U/L (17-59) 01/24/25 15:56
ALT 27 U/L (0-50) 01/24/25 15:56
Alkaline Phosphatase 78 U/L (38-126) 01/24/25 15:56
Total Protein 7.0 g/dl (6.3-8.2) 01/24/25 15:56
Albumin 4.4 g/dl (3.5-5.0) 01/24/25 15:56
Physical Exam
-
General: Well Developed and Well Nourished, laying uncomfortably in bed
HEENT: Moist Mucous Membranes, anicteric
Respiratory: Non Labored Respirations
GI: nontender, distended and tympanic, incision covered with slightly bloody bandage
: winters in place with concentrated urine,
Skin: Warm and Dry
Neuro: Awake, Alert, neurologically grossly intact
Psych: Calm
Patient has a winters catheter: Yes
[2025-01-29 08:05] VITALS: BP 124/77
[2025-01-29] MEDS: FLOMAX 0.8 MG PO (08:27)
[2025-01-29 08:39] LABS: Blood Urea Nitrogen 38 mg/dl (9-20); Calcium 8.0 mg/dl (8.4-10.2); Carbon Dioxide 21 mmol/L (22-30); Chloride 107 mmol/L (98-107); Estimated Creatinine Clearance 54 ml/min; Glucose 107 mg/dl (70-99); Potassium 4.8 mmol/L (3.5-5.1); Sodium 135 mmol/L (135-145); eGFR 38.11
[2025-01-29 08:47] LABS: Hematocrit 39.3 % (39.0-52.0); Hemoglobin 13.2 g/dL (13.0-18.0); Mean Corp Hgb Conc. 33.6 g/dL (33.0-37.0); Mean Corpuscular Volume 89.1 fL (80.0-94.0); Platelet Count 371 10^3/uL (130-400); Red Cell Dist. Width 14.3 % (11.5-14.5)
--- NOTE | 2025-01-29 09:17 | W.PN.ONC ---
Today's Communication / Plan
-
Patient is s/p bowel resection for mass at TI, with suspicious local adenopathy noted on imaging.
Path pending, CEA normal. Adjuvant therapy to be considered pending path.
Will follow along while admitted.
Impression
Impression
SBO w/ terminal ileum malignancy
- pathology is still pending
- s/p right hemicolectomy, take-down hepatic flexure 01/25/25
- Post-op course complicated by ABNER
Plan
Plan
Patient is s/p bowel resection for mass at TI, with suspicious local adenopathy noted on imaging.
Path pending, CEA normal. Adjuvant therapy to be considered pending path.
Will follow along while admitted.
Subjective/Objective
Subjective/Objective
Patient seen today at the bedside. Patient states that pain was better last night. Planned for winters catheter removal this morning. Patient denies all other ROS.
Physical
General: not in acute distress
Cardiovascular: RRR
Respiratory: normal breath sounds
Extremeties: no edema b/l, pulses present
Vital Signs:
Vital Signs
Temp Pulse Resp BP Pulse Ox
99.1 F 87 16 124/77 94
01/29/25 08:05 01/29/25 08:05 01/29/25 08:05 01/29/25 08:05 01/29/25 08:05
Lab Results:
Laboratory Data
WBC 6.0 10^3/uL (4.8-10.8) 01/29/25 07:55
Hgb 13.2 g/dL (13.0-18.0) 01/29/25 07:55
Plt Count 371 10^3/uL (130-400) D 01/29/25 07:55
PT 13.3 Sec (11.4-14.6) 01/25/25 10:10
INR 0.98 01/25/25 10:10
APTT 28.4 Sec (23.4-35.0) 01/25/25 10:10
eGFR 38.11 01/29/25 07:55
[2025-01-29] MEDS: NSS 1000 IV ×3 (09:38→23:03)
--- NOTE | 2025-01-29 10:52 | VNURNOTE ---
Home Health Liaison met with patient at bedside to discuss [facility] nurse/therapy, visits, schedule and homebound status. Patient is agreeable and understands that visits at home will be 2-3 x per week to assess and teach medical management.
Patient is aware that [facility] will contact them for start of care in 1-2 days after discharge from .
[facility] referral completed in [facility].
[2025-01-29 12:17] VITALS: BMI 31.9
[2025-01-29] MEDS: PROTONIX IV 40 MG IV (12:26)
--- NOTE | 2025-01-29 12:53 | CM ---
CM following for discharge plans. Surgical pathology is pending; oncology following.
Plan: Discharge to home with [facility] when medically cleared.
[2025-01-29 15:00] VITALS: BP 115/81
--- NOTE | 2025-01-29 15:01 | W.PN.SURGUPD ---
Surgical Update
Surgical Update
Patient seen in routine follow-up this afternoon. Family members at bedside.
Feels slightly better than this a.m., no worse.
He was able to ambulate the halls a couple times with family members.
No nausea or vomiting.
Abdominal bloating/distention stable.
Patient reports he has been incontinent of a few small liquid stools
AFVSS
ABD: remains distended with mild tenderness but no rebound rigidity or guarding. Distention is not worse than earlier.
Given clinical stability, no need for antiemetics and a few small liquid stools will follow clinically and hold off on NG tube decompression
Continue current care
Nephrology service following for IV fluid management. Mild bump in BUN/creatinine today noted.
[2025-01-29 16:46] VITALS: BP 127/82; PULSE 104; O2SAT 95
[2025-01-29] MEDS: LOVENOX 40 MG SC (17:00)
--- NOTE | 2025-01-29 18:01 | W.PN.NEPH.PH ---
Today's Communication / Plan
-
Continue IV fluids with normal saline at 100 cc/h
Follow BMP
Assessment/Plan
-
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 He is s/p right hemicolectomy, take-down hepatic flexure
01/25/25, Urology was involved in OR case given proximity to ureter patient is s/p ureteral stent placement. Post-op course c/b ABNER.
Renal consult for acute kidney injury with a creatinine of 1.9 from 1.2
Impression.
Acute kidney injury uncertain etiology ATN possible contrast nephropathy. No obvious episodes of hypotension /was given Toradol for pain
Right hemicolectomy status post with interrupted ureteral stent
Plan.
ABNER persists with creatinine of 2.1, urine output only 400 cc
I will continue with IV fluids and patient continues with increased p.o. fluid intake
Maintain Perera catheter
Hemodynamically stable
No obstructive pathology on renal ultrasound or CT or by urology note reviewed
CAT scan previously noted slight prominence of the right renal collecting system with slightly high attenuation density of fluid in the right renal pelvis 24 Hounsfield units. There is no retroperitoneal lymphadenopathy no hydronephrosis/ a small
abnormal fluid collection such as urinoma, particularly in the true pelvis cannot be entirely excluded.
Suspect this is early ATN/nonoliguric, there may have been a component of contrast nephropathy from CT scan on January 24 with IV contrast
Creatinine currently 1.9.
Urine indices Fena 0.4% c/w pre renal stimulus
Continue normal saline at 100 cc/hr
-
-
Date of Service: January 29, 2025
CC / HPI / ROS
-
Chief Complaint:
Acute kidney injury
History of Present Illness:
Acute kidney unchanged with creatinine up to 2.1
Hemodynamically stable
Review of Systems:
No reported chest pain or shortness of breath
Appetite improving
oliguric with approximately 400 cc of urine via Perera cath
Labs
-
Labs:
WBC 6.0 10^3/uL (4.8-10.8) 01/29/25 07:55
RBC 4.41 10^6/uL (4.70-6.10) L 01/29/25 07:55
Hgb 13.2 g/dL (13.0-18.0) 01/29/25 07:55
Hct 39.3 % (39.0-52.0) 01/29/25 07:55
Plt Count 371 10^3/uL (130-400) D 01/29/25 07:55
Sodium 135 mmol/L (135-145) 01/29/25 07:55
Potassium 4.8 mmol/L (3.5-5.1) 01/29/25 07:55
Chloride 107 mmol/L (98-107) 01/29/25 07:55
Carbon Dioxide 21 mmol/L (22-30) L 01/29/25 07:55
BUN 38 mg/dl (9-20) H 01/29/25 07:55
Creatinine 2.1 mg/dL (0.7-1.3) H 01/29/25 07:55
eGFR 38.11 01/29/25 07:55
Glucose 107 mg/dl (70-99) H 01/29/25 07:55
Calcium 8.0 mg/dl (8.4-10.2) L 01/29/25 07:55
Phosphorus 3.9 mg/dl (2.5-4.5) 01/26/25 05:46
Albumin 4.4 g/dl (3.5-5.0) 01/24/25 15:56
Physical Exam
-
Vital Signs:
Vital Signs
Temp Pulse Resp BP Pulse Ox
98.6 F 115 20 115/81 94
01/29/25 15:00 01/29/25 15:00 01/29/25 15:00 01/29/25 15:00 01/29/25 15:00
Cardiovascular:: Regular rate and rhythm
Respiratory:: Bilateral: CTA
Lung Excursion:: Normal
Abdomen:: Tender
Bowel Sounds:: Decreased
Extremity Edema:: None: Bilateral:
Perera Catheter: Yes
[2025-01-29] MEDS: DILAUDID PCA 30 IV (23:05)
[2025-01-29 23:09] VITALS: BP 133/87
[2025-01-30] VITALS (15 sets, daily range): BP systolic 58–149; BP diastolic 77–107
[2025-01-30] MEDS: ZOSYN 50 IV ×3 (03:07→21:16)
[2025-01-30] MEDS: OFIRMEV 100 IV ×3 (05:05→19:08)
[2025-01-30 06:32] LABS: Hematocrit 35.8 % (39.0-52.0); Hemoglobin 12.4 g/dL (13.0-18.0); Mean Corp Hgb Conc. 34.6 g/dL (33.0-37.0); Mean Corpuscular Volume 87.3 fL (80.0-94.0); Platelet Count 413 10^3/uL (130-400); Red Cell Dist. Width 14.4 % (11.5-14.5)
[2025-01-30 06:50] LABS: Blood Urea Nitrogen 47 mg/dl (9-20); Calcium 8.0 mg/dl (8.4-10.2); Carbon Dioxide 21 mmol/L (22-30); Chloride 106 mmol/L (98-107); Estimated Creatinine Clearance 60 ml/min; Glucose 100 mg/dl (70-99); Potassium 4.6 mmol/L (3.5-5.1); Sodium 134 mmol/L (135-145); eGFR 42.98
--- NOTE | 2025-01-30 08:11 | W.PN.GS2 ---
Addendum entered and electronically signed by Сергей Ledbetter MD 01/30/25 12:09:
I was physically present and personally performed the wolfe portions of the surgical evaluation and/or procedure with the resident. I discussed the findings, reviewed the resident�s note, and confirmed the medical decision-making. I provided direct
supervision as required and agree with the assessment and plan as documented with the following additions/corrections:
AFVSS, ambulating, passing flaytus and liquid stools, UOP improved, remains distended, tender and tympanitic on exam, dressing taken down, wound cdi with inocencio. Cr improving. No leukocytosis. Cont NPO with sips. Start TPN. Adjust pain meds. KUB to
evaluate for ileus. F/U pathology
Original Note:
Today's Communication / Plan
-
Plan reviewed with attending.
Assessment / Plan
-
49yoM who presented with SBO s/p ex lap POD #5 removal mass and hemicolectomy. He continues to have signs of an ileus with distention and pain. We are changing his pain regimen to scheduled ofrimev and scheduled Dilaudid instead of the DENTAL OFFICE MANAGER to try to
better manage his pain appropriately.
Afebrile, Vitals stable. Elevated Cr slightly downtrended from yesterday. WBC continues to be normalized. Non-oliguric, dark urine. Continued distention but 3 BM.
Plan
Pain: scheduled tylenol and dilaudid
Follow pathology. Expected 5-7 days. Heme/onc following.
Diet: sips
Winters in place. Urology and nephrology following.
KUB to evaluate ileus
Subjective Data
-
Date of Service: January 30, 2025
Mr. Damian continues feeling poorly. He has had 3 large BM overnight but reports feeling the same amount of bloating. He is taking small sips of ice water with no reflux, nausea, or vomiting. He is complaining of winters discomfort.
Objective Data
-
Intake and Output
01/29/25 01/30/25 01/31/25
06:59 06:59 06:59
Intake Total 5910 / 5910 240 / 240
Output Total 750 / 750 950 / 950
Balance 5160 / 5160 -710 / -710
Intake:
Oral fluids 2160 / 2160 240 / 240
IV fluids (Total) 3450 / 3450
IV piggybacks 300 / 300
Output:
Urine, Winters 750 / 750 950 / 950
Vital Signs
Temp Pulse Resp BP Pulse Ox
98.0 F 89 19 149/86 95
01/30/25 07:00 01/30/25 07:00 01/30/25 07:00 01/30/25 07:00 01/30/25 07:00
Lab Results
01/30/25 05:57
01/30/25 05:57
Calcium 8.0 mg/dl (8.4-10.2) L 01/30/25 05:57
Phosphorus 3.9 mg/dl (2.5-4.5) 01/26/25 05:46
Magnesium 1.8 mg/dl (1.6-2.3) 01/27/25 05:36
Total Bilirubin 0.8 mg/dl (0.2-1.3) 01/24/25 15:56
AST 21 U/L (17-59) 01/24/25 15:56
ALT 27 U/L (0-50) 01/24/25 15:56
Alkaline Phosphatase 78 U/L (38-126) 01/24/25 15:56
Total Protein 7.0 g/dl (6.3-8.2) 01/24/25 15:56
Albumin 4.4 g/dl (3.5-5.0) 01/24/25 15:56
Physical Exam
-
General: Well Developed and Well Nourished, laying uncomfortably in bed
HEENT: Moist Mucous Membranes, anicteric
Respiratory: Non Labored Respirations
GI: nontender, distended and tympanic, incision with visible inocencio clean, dry, intact
: winters in place with muddy brown urine in bag, yellow in catheter tubing
Skin: Warm and Dry
Neuro: Awake, Alert, neurologically grossly intact
Psych: Calm
Patient has a winters catheter: Yes
--- NOTE | 2025-01-30 09:16 | W.PN.ONC ---
Today's Communication / Plan
-
Patient is s/p bowel resection for mass at TI, with suspicious local adenopathy noted on imaging.
Path pending, CEA normal. Adjuvant therapy to be considered pending path.
Will follow along while admitted.
Impression
Impression
SBO w/ terminal ileum malignancy
- pathology is still pending
- s/p right hemicolectomy, take-down hepatic flexure 01/25/25
- Post-op course complicated by ABNER
Plan
Plan
Patient is s/p bowel resection for mass at TI, with suspicious local adenopathy noted on imaging.
Path pending, CEA normal. Adjuvant therapy to be considered pending path.
Will follow along while admitted.
Subjective/Objective
Subjective/Objective
Vital Signs:
Vital Signs
Temp Pulse Resp BP Pulse Ox
98.0 F 89 19 149/86 95
01/30/25 07:00 01/30/25 07:00 01/30/25 07:00 01/30/25 07:00 01/30/25 07:00
Lab Results:
Laboratory Data
WBC 6.9 10^3/uL (4.8-10.8) 01/30/25 05:57
Hgb 12.4 g/dL (13.0-18.0) L 01/30/25 05:57
Plt Count 413 10^3/uL (130-400) H 01/30/25 05:57
PT 13.3 Sec (11.4-14.6) 01/25/25 10:10
INR 0.98 01/25/25 10:10
APTT 28.4 Sec (23.4-35.0) 01/25/25 10:10
eGFR 42.98 01/30/25 05:57
[2025-01-30] MEDS: DILAUDID 0.5 MG IV ×3 (09:24→19:09)
[2025-01-30] MEDS: FLOMAX 0.8 MG PO (09:24)
[2025-01-30] MEDS: NSS 1000 IV ×3 (09:25→20:11)
[2025-01-30] MEDS: PROTONIX IV 40 MG IV (09:25)
[2025-01-30 10:36] LABS: Magnesium 2.4 mg/dl (1.6-2.3)
[2025-01-30 10:42] LABS: Triglycerides < 30 mg/dl (10-149)
[2025-01-30 10:46] LABS: Prealbumin (Transthyretin) 4.0 mg/dl (17.6-36.0)
--- NOTE | 2025-01-30 12:16 | W.PN.UPDATE ---
Update Note
Progress Note Update
Discussed with general surgery, patient primarily here with surgical issues, Nephrology following for ABNER, will transfer patient into general surgery service and hospitalist service will sign off. Please re-consult as necessary.
--- NOTE | 2025-01-30 12:26 | CM ---
Patient chart reviewed
Referral in [facility]-accepted
PLAN: home with [facility] when stable.
--- NOTE | 2025-01-30 14:06 | W.PN.UPDATE ---
Update Note
Progress Note Update
CT reviewed. Concerning for increased air and free fluid, suggestive of anastomotic leak. Plan for RTOR for dx lap, possible ex lap. Discussed with patient in person and by phone. Informed consent obtained.
Preliminary path also discussed. NET with sanjuana mets, minimum stage III. Further staging w/u with possible IR biopsy of liver lesion and CT chest deferred for now.
--- NOTE | 2025-01-30 14:10 | W.PN.URO.CBU ---
Today's Communication / Plan
-
kep winters
Assessment / Plan
-
keep winters may go to op jovita for prsiumed anastomotic leakOliguria -- NOT due to urinary retention or obstructive uropathy
Diagnosis
-
Date of Service: January 30, 2025
-
Patient Diagnosis:
Post Op Day:
Patient Diagnosis:
GI tract/RP mass encroaching upon right ureter
s/p e-lap and right ureteral stenting
post-op oliguria for which Winters was replaced
Post Op Day: 3
Subjective
-
p0oss anastomotic leak creatinine down
Objective
-
Vital Signs
Temp Pulse Resp BP Pulse Ox
98.0 F 89 19 149/86 95
01/30/25 07:00 01/30/25 07:00 01/30/25 07:00 01/30/25 07:00 01/30/25 07:00
Intake and Output
01/29/25 01/30/25 01/31/25
06:59 06:59 06:59
Intake Total 5910 / 5910 240 / 240
Output Total 750 / 750 950 / 950
Balance 5160 / 5160 -710 / -710
Intake:
Oral fluids 2160 / 2160 240 / 240
IV fluids (Total) 3450 / 3450
IV piggybacks 300 / 300
Output:
Urine, Winters 750 / 750 950 / 950
Laboratory Results
01/30/25 05:57
01/30/25 05:57
Review of Systems
-
: Difficulty Voiding
Physical Exam
-
General - well developed, well nourished, no acute distress
Chest - clear bilaterally
Abdomen - soft, non-tender, positive bowel sounds, no CVAT, no incisional pain or distention
Genitalia - normal
Rectal - normal
Skin - warm & dry with no rash
Neuro - AOx3, no motor deficits
Extremities - no clubbing, no cyanosis, no edema
Incision - clean, dry
Dressing - clean, dry, intact
Care Review
Data Reviewed
Discussed with: Nursing
CT Scan: Image Pers Reviewed
[2025-01-30] MEDS: DILAUDID IV ×3 (14:28→21:16)
[2025-01-30] MEDS: ZOSYN IV (15:55)
--- NOTE | 2025-01-30 17:45 | W.IMMPOSTOP ---
Surgical Immed Post Op Note
-
Primary Surgeon: Anatoly
Assisting Surgeon: Elif Barger
Pre-op Diagnosis: Perforated viscus
Post-op Diagnosis: Anastomotic leak
Procedure Performed: Exploratory laparotomy, bowel resection
Anesthesia Type: GETA
Specimen / Cultures: ileo-colic anastomosis
Estimated Blood Loss: 30cc
Complications: None immediate
Operative Findings: Veress needle entry with bilious fluid return, conversion to exploratory laparotomy; extensive thin stool contamination, irrigated; 2cm opening at anastomotic staple line identified and whip stitched, abdomen irrigated
thoroughly once contamination controlled; small bowel transected with MILTON stapler proximal to anastomosis, transverse colon transected in similar fashion distal to anastomosis; partial mobilization of splenic flexure and scoring of small bowel
mesentery to increase bowel mobility; ultimately ileum and colon came together well without tension and a side-side stapled anastomosis was created; common channel inspected - hemostatic; crotch stitch with 3-0 PDS placed adjacent to crotch and 1cm
away; anastomosis palpated and patency confirmed; abdomen irrigated with total 8L warm sterile saline, effluent clear; 19 fr terri drain placed in the mid abdomen in the region of the anastomosis and brought out through the right lower quadrant; ngt
palpated in the stomach, fascia closed without tension, interpolated inocencio with telfa antonia, abd pads
--- NOTE | 2025-01-30 20:00 | PTCARENOTE ---
Pt arrived from PACU via bed. Pt drowsy but AAOx4. Admission assessment updated. Pt on 2L NC. Pt has winters, SHANICE drain, and L NGT hooked up to low intermittent suction. IVF initiated per order. at bedside. Oriented to room, call cedeño within
reach, bed in lowest position.
[2025-01-30 20:09] LABS: Glucose - Point of Care 103 mg/dl (70-99)
[2025-01-30] MEDS: LOVENOX 40 MG SC (20:23)
[2025-01-30] MEDS: Parenteral Nutrition, Central 1030 IV (22:15)
--- NOTE | 2025-01-31 00:08 | PTCARENOTE ---
Pt c/o bladder pressure. Low urine output through winters. PCT obtained bladder scan that showed 669cc. [facility] notified and aware. Order to irrigate catheter was placed. First got pt up and standing at bedside but no UOP. Irrigated and
manipulated winters. Pt with successful urine output and relief of bladder pressure. Pt resting comfortably.
--- NOTE | 2025-01-31 00:08 | PTCARENOTE ---
obtain bladder scan per RN request, bladder scan showed volume amount of 669ml. Bedside RN notified of result.
[2025-01-31 00:13] LABS: Glucose - Point of Care 138 mg/dl (70-99)
[2025-01-31] MEDS: DILAUDID 0.5 MG IV ×2 (00:20→03:17)
[2025-01-31] MEDS: OFIRMEV 100 IV ×4 (00:23→18:36)
[2025-01-31] MEDS: ZOSYN 50 IV ×4 (03:17→21:13)
[2025-01-31 03:49] VITALS: BP 132/86
--- NOTE | 2025-01-31 04:35 | VATNOTE ---
R hand appears more swollen then left hand. Patient states he does not tell a difference. Primary RN at bedside, elevated right arm. Suggested US if swelling persist. Will continue to monitor.
[2025-01-31 05:01] LABS: Hematocrit 34.1 % (39.0-52.0); Hemoglobin 12.0 g/dL (13.0-18.0); Mean Corp Hgb Conc. 35.2 g/dL (33.0-37.0); Mean Corpuscular Volume 86.5 fL (80.0-94.0); Platelet Count 467 10^3/uL (130-400); Red Cell Dist. Width 14.6 % (11.5-14.5)
[2025-01-31 05:24] LABS: Blood Urea Nitrogen 40 mg/dl (9-20); Calcium 7.1 mg/dl (8.4-10.2); Carbon Dioxide 24 mmol/L (22-30); Chloride 108 mmol/L (98-107); Estimated Creatinine Clearance 88 ml/min; Glucose 138 mg/dl (70-99); Magnesium 2.6 mg/dl (1.6-2.3); Potassium 4.7 mmol/L (3.5-5.1); Sodium 136 mmol/L (135-145); eGFR > 60.00
[2025-01-31 05:27] VITALS: BMI 33.4
[2025-01-31] MEDS: DILAUDID IV (05:56)
[2025-01-31 06:12] LABS: Glucose - Point of Care 129 mg/dl (70-99)
--- NOTE | 2025-01-31 06:20 | PTCARENOTE ---
Pt's right abdominal SHANICE drain output is 370cc of bloody drainage from [id number].
[2025-01-31 07:00] VITALS: BP 143/89
[2025-01-31] MEDS: FLOMAX 0.8 MG PO (07:45)
[2025-01-31] MEDS: PROTONIX IV 40 MG IV (07:45)
[2025-01-31] MEDS: DILAUDID 1 MG IV ×4 (07:56→23:22)
[2025-01-31 11:00] VITALS: BP 145/84
--- NOTE | 2025-01-31 11:49 | W.PN.GS2 ---
Today's Communication / Plan
-
NPO/NGT/TPN
Pain management
Assessment / Plan
-
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
Increased pain/distention on 01/[address] done in work up demonstrating increase in free air, taken back to OR for anastomotic leak
POD #6 ex lap for Right hemicolectomy with cystoscopy for stent for identification of the right ureter (stent removed on pod #1 by urology)
POD #1 take back to OR for ex lap, bowel resection d/t anastomotic leak with abdominal washout
Ileus present, anticipate will take some days to resolve. TPN initiated on 01/30 via PICC and thus far well tolerated
Reactive leukocytosis, continued on IV zosyn
ABNER being followed by nephrology, Cr continues to trend down 1.9 to 1.3. No obstructive uropathy on imaging
H/H stable
SHANICE drain with expected SS outputs
Plan:
Continue IV ABX
Continue NPO, ok for sips/chips for comfort
NGT to LIWS
Analgesics scheduled and prn. Sleepy on exam, changed narcotics back to prn, continue scheduled Ofirmev. Hold NSAIDs given ABNER
Continue TPN, nutrition following. SSI while on TPN
IV ppi for VTE ppx
Lovenox for VTE ppx
Increase activity, OOB
Subjective Data
-
Date of Service: January 31, 2025
Pt seen and examined at bedside with Dr. Schulz. Denies n/v. Sleepy on exam. Pain present but manageable.
Objective Data
-
Intake and Output
01/30/25 01/31/25 02/01/25
06:59 06:59 06:59
Intake Total 240 / 240 960 / 960
Output Total 950 / 950 3193 / 3193 600 / 600
Balance -710 / -710 -2233 / -2233 -600 / -600
Intake:
Oral fluids 240 / 240 360 / 360
IV fluids (Total) 200 / 200
Normosol 200 / 200
IV piggybacks 400 / 400
Output:
Drain Output (Total) 568 / 568 50 / 50
Right Middle Abdomen Joaquim- 568 / 568 50 / 50
Perales A
Gastrointestinal tube output ( 100 / 100
Total)
[place] Sump 100 / 100
Urine, Winters 950 / 950 2525 / 2525 550 / 550
Vital Signs
Temp Pulse Resp BP Pulse Ox
99 F 82 14 143/89 94
01/31/25 07:00 01/31/25 07:00 01/31/25 07:00 01/31/25 07:00 01/31/25 07:00
Lab Results
01/31/25 04:30
01/31/25 04:30
Calcium 7.1 mg/dl (8.4-10.2) L 01/31/25 04:30
Phosphorus 3.2 mg/dl (2.5-4.5) 01/31/25 04:30
Magnesium 2.6 mg/dl (1.6-2.3) H 01/31/25 04:30
Total Bilirubin 0.8 mg/dl (0.2-1.3) 01/24/25 15:56
AST 21 U/L (17-59) 01/24/25 15:56
ALT 27 U/L (0-50) 01/24/25 15:56
Alkaline Phosphatase 78 U/L (38-126) 01/24/25 15:56
Total Protein 7.0 g/dl (6.3-8.2) 01/24/25 15:56
Albumin 4.4 g/dl (3.5-5.0) 01/24/25 15:56
Physical Exam
-
NAD, pale
ABD softly distended, expected tenderness, NGT with bilious outputs (low)
Incision with intact dressing
SHANICE with SS outputs
Patient has a winters catheter: Yes
Patient has a central line: Yes (PICC)
[2025-01-31 12:09] LABS: Glucose - Point of Care 146 mg/dl (70-99)
--- NOTE | 2025-01-31 13:04 | VATNOTE ---
PT RIGHT HAND DOES NOT APPEAR EDEMATOUS THIS AM,RESOLVED. PER PT HE '...DI D NOT THINK IT LOOKED SWOLLEN TO BEGIN WITH...'. PT RESTING, CALL HAMM IN REACH
--- NOTE | 2025-01-31 14:01 | W.PN.NEPH.PH ---
Today's Communication / Plan
-
Continue TPN per surgery
AM labs
Assessment/Plan
-
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 He is s/p right hemicolectomy, take-down hepatic flexure
01/25/25, Urology was involved in OR case given proximity to ureter patient is s/p ureteral stent placement. Post-op course c/b ABNER.
Renal consult for acute kidney injury with a creatinine of 1.9 from 1.2
Impression.
Acute kidney injury uncertain etiology ATN possible contrast nephropathy. No obvious episodes of hypotension /was given Toradol for pain
Right hemicolectomy status post with interrupted ureteral stent
Plan.
No obstructive pathology on renal ultrasound or CT or by urology note reviewed
CAT scan previously noted slight prominence of the right renal collecting system with slightly high attenuation density of fluid in the right renal pelvis 24 Hounsfield units. There is no retroperitoneal lymphadenopathy no hydronephrosis/ a small
abnormal fluid collection such as urinoma, particularly in the true pelvis cannot be entirely excluded.
ex lap for Right hemicolectomy with cystoscopy for stent for identification of the right ureter (stent removed on pod #1 by urology
Creatinine down to 1.3
On TPN reviewed orders
Discussed with family at bedside
-
-
Date of Service: January 31, 2025
CC / HPI / ROS
-
Chief Complaint:
Acute kidney injury
History of Present Illness:
Acute kidney unchanged with creatinine up to 2.1
Hemodynamically stable
Review of Systems:
No reported chest pain or shortness of breath
Nonoliguric
Labs
-
Labs:
WBC 15.0 10^3/uL (4.8-10.8) H 01/31/25 04:30
RBC 3.94 10^6/uL (4.70-6.10) L 01/31/25 04:30
Hgb 12.0 g/dL (13.0-18.0) L 01/31/25 04:30
Hct 34.1 % (39.0-52.0) L 01/31/25 04:30
Plt Count 467 10^3/uL (130-400) H 01/31/25 04:30
Sodium 136 mmol/L (135-145) 01/31/25 04:30
Potassium 4.7 mmol/L (3.5-5.1) 01/31/25 04:30
Chloride 108 mmol/L (98-107) H 01/31/25 04:30
Carbon Dioxide 24 mmol/L (22-30) 01/31/25 04:30
BUN 40 mg/dl (9-20) H 01/31/25 04:30
Creatinine 1.3 mg/dL (0.7-1.3) 01/31/25 04:30
eGFR > 60.00 01/31/25 04:30
Glucose 138 mg/dl (70-99) H 01/31/25 04:30
Calcium 7.1 mg/dl (8.4-10.2) L 01/31/25 04:30
Phosphorus 3.2 mg/dl (2.5-4.5) 01/31/25 04:30
Albumin 4.4 g/dl (3.5-5.0) 01/24/25 15:56
Physical Exam
-
Vital Signs:
Vital Signs
Temp Pulse Resp BP Pulse Ox
99.7 F 87 14 145/84 94
01/31/25 11:00 01/31/25 11:00 01/31/25 11:00 01/31/25 11:00 01/31/25 11:00
Cardiovascular:: Regular rate and rhythm
Respiratory:: Bilateral: CTA
Lung Excursion:: Normal
Abdomen:: Tender
Bowel Sounds:: Decreased
Extremity Edema:: None: Bilateral:
Perera Catheter: Yes
[2025-01-31 14:43] LABS: Glycohemoglobin (HgbA1c) 5.7 % (4.0-5.6)
[2025-01-31 15:00] VITALS: BP 144/72
[2025-01-31] MEDS: LOVENOX 40 MG SC (17:10)
[2025-01-31 18:48] LABS: Glucose - Point of Care 123 mg/dl (70-99)
[2025-01-31] MEDS: Parenteral Nutrition, Central 1610 IV (21:15)
[2025-01-31 21:42] LABS: Glucose - Point of Care 124 mg/dl (70-99)
[2025-01-31 23:22] VITALS: BP 159/82
[2025-02-01 00:10] LABS: Glucose - Point of Care 117 mg/dl (70-99)
[2025-02-01] MEDS: OFIRMEV 100 IV ×4 (00:41→18:26)
[2025-02-01] MEDS: DILAUDID 1 MG IV ×6 (02:27→20:24)
[2025-02-01] MEDS: ZOSYN 50 IV ×4 (03:24→21:10)
[2025-02-01 06:34] LABS: Glucose - Point of Care 131 mg/dl (70-99)
[2025-02-01 06:37] VITALS: BMI 33.0
[2025-02-01 07:00] VITALS: BP 145/96
[2025-02-01] MEDS: PROTONIX IV 40 MG IV (07:26)
[2025-02-01] MEDS: FLOMAX 0.8 MG PO (07:27)
[2025-02-01 08:46] LABS: Hematocrit 28.7 % (39.0-52.0); Hemoglobin 10.1 g/dL (13.0-18.0); Mean Corp Hgb Conc. 35.2 g/dL (33.0-37.0); Mean Corpuscular Volume 86.7 fL (80.0-94.0); Platelet Count 438 10^3/uL (130-400); Red Cell Dist. Width 15.0 % (11.5-14.5)
[2025-02-01 09:24] LABS: Blood Urea Nitrogen 40 mg/dl (9-20); Calcium 7.2 mg/dl (8.4-10.2); Carbon Dioxide 28 mmol/L (22-30); Chloride 110 mmol/L (98-107); Estimated Creatinine Clearance 97 ml/min; Glucose 110 mg/dl (70-99); Magnesium 2.2 mg/dl (1.6-2.3); Potassium 4.0 mmol/L (3.5-5.1); Sodium 140 mmol/L (135-145); eGFR > 60.00
--- NOTE | 2025-02-01 10:09 | W.PN.GS2 ---
Today's Communication / Plan
-
NPO/NGT/TPN
Pain management
Monitor WBC
Assessment / Plan
-
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
Increased pain/distention on 01/[address] done in work up demonstrating increase in free air, taken back to OR for anastomotic leak
POD #7 ex lap for Right hemicolectomy with cystoscopy for stent for identification of the right ureter (stent removed on pod #1 by urology)
POD #2 take back to OR for ex lap, bowel resection d/t anastomotic leak with abdominal washout
Ileus present, anticipate will take some days to resolve. TPN initiated on 01/30 via PICC and thus far well tolerated
Source of leukocytosis unclear but the incision is clean and SHANICE ss. Afebrile. Continue on IV zosyn.
ABNER being followed by nephrology, Cr continues to trend down 1.9 to 1.2. No obstructive uropathy on imaging. Possible Winters removal tomorrow.
H/H stable
SHANICE drain with expected SS outputs
Plan:
Continue IV ABX
Continue NPO, ok for sips/chips for comfort
NGT to LIWS
Analgesics scheduled and prn. Continue scheduled Ofirmev. Hold NSAIDs given ABNER
Continue TPN, nutrition following. SSI while on TPN
IV ppi for VTE ppx
Lovenox for VTE ppx
Increase activity, OOB
Subjective Data
-
Date of Service: February 01, 2025
His pain is manageable with Dilaudid 1mg. No complaints about the NGT. No flatus but he feels rumbling. He has been ambulating.
Objective Data
-
Intake and Output
01/31/25 02/01/25 02/02/25
06:59 06:59 06:59
Intake Total 960 / 960 1345 / 1345
Output Total 3193 / 3193 2955 / 2955 125 / 125
Balance -2233 / -2233 -1610 / -1610 -125 / -125
Intake:
Oral fluids 360 / 360
IV fluids (Total) 200 / 200
Normosol 200 / 200
IV piggybacks 400 / 400 50 / 50
TPN/PPN 1295 / 1295
Output:
Drain Output (Total) 568 / 568 305 / 305
Right Middle Abdomen Joaquim- 568 / 568 305 / 305
Perales A
Gastrointestinal tube output ( 100 / 100 100 / 100
Total)
[place] Sump 100 / 100 100 / 100
Urine, Winters 2525 / 2525 2550 / 2550
Urine, Voided 125 / 125
Vital Signs
Temp Pulse Resp BP Pulse Ox
98.5 F 69 16 145/96 99
02/01/25 07:00 02/01/25 07:00 02/01/25 07:00 02/01/25 07:00 02/01/25 07:00
Lab Results
02/01/25 08:41
02/01/25 08:41
Calcium 7.2 mg/dl (8.4-10.2) L 02/01/25 08:41
Phosphorus 3.1 mg/dl (2.5-4.5) 02/01/25 08:41
Magnesium 2.2 mg/dl (1.6-2.3) 02/01/25 08:41
Total Bilirubin 0.8 mg/dl (0.2-1.3) 01/24/25 15:56
AST 21 U/L (17-59) 01/24/25 15:56
ALT 27 U/L (0-50) 01/24/25 15:56
Alkaline Phosphatase 78 U/L (38-126) 01/24/25 15:56
Total Protein 7.0 g/dl (6.3-8.2) 01/24/25 15:56
Albumin 4.4 g/dl (3.5-5.0) 01/24/25 15:56
Physical Exam
-
NAD
ABD softly distended, expected tenderness, NGT with bilious outputs (low)
Dressing changed and the incision is clean.
SHANICE with SS outputs
Patient has a winters catheter: Yes
Patient has a central line: Yes (PICC)
[2025-02-01 11:47] LABS: Glucose - Point of Care 132 mg/dl (70-99)
--- NOTE | 2025-02-01 14:49 | W.PN.NEPH.PH ---
Today's Communication / Plan
-
Continue TPN
Remove Perera catheter
Assessment/Plan
-
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 He is s/p right hemicolectomy, take-down hepatic flexure
01/25/25, Urology was involved in OR case given proximity to ureter patient is s/p ureteral stent placement. Post-op course c/b ABNER.
Renal consult for acute kidney injury with a creatinine of 1.9 from 1.2
Impression.
Acute kidney injury uncertain etiology ATN possible contrast nephropathy. No obvious episodes of hypotension /was given Toradol for pain
Right hemicolectomy status post with interrupted ureteral stent
Plan.
No obstructive pathology on renal ultrasound or CT or by urology note reviewed
CAT scan previously noted slight prominence of the right renal collecting system with slightly high attenuation density of fluid in the right renal pelvis 24 Hounsfield units. There is no retroperitoneal lymphadenopathy no hydronephrosis/ a small
abnormal fluid collection such as urinoma, particularly in the true pelvis cannot be entirely excluded.
ex lap for Right hemicolectomy with cystoscopy for stent for identification of the right ureter (stent removed on pod #1 by urology
Creatinine down to 1.2
On TPN reviewed orders reviewed
Remove Perera catheter today urinating without difficulty
Discussed with family at bedside
-
-
Date of Service: February 01, 2025
CC / HPI / ROS
-
Chief Complaint:
Acute kidney injury
History of Present Illness:
Acute kidney unchanged with creatinine up to 2.1
Hemodynamically stable
Review of Systems:
No reported chest pain or shortness of breath
Nonoliguric
Labs
-
Labs:
WBC 27.5 10^3/uL (4.8-10.8) H 02/01/25 08:41
RBC 3.31 10^6/uL (4.70-6.10) L 02/01/25 08:41
Hgb 10.1 g/dL (13.0-18.0) L 02/01/25 08:41
Hct 28.7 % (39.0-52.0) L 02/01/25 08:41
Plt Count 438 10^3/uL (130-400) H 02/01/25 08:41
Sodium 140 mmol/L (135-145) 02/01/25 08:41
Potassium 4.0 mmol/L (3.5-5.1) 02/01/25 08:41
Chloride 110 mmol/L (98-107) H 02/01/25 08:41
Carbon Dioxide 28 mmol/L (22-30) 02/01/25 08:41
BUN 40 mg/dl (9-20) H 02/01/25 08:41
Creatinine 1.2 mg/dL (0.7-1.3) 02/01/25 08:41
eGFR > 60.00 02/01/25 08:41
Glucose 110 mg/dl (70-99) H 02/01/25 08:41
Calcium 7.2 mg/dl (8.4-10.2) L 02/01/25 08:41
Phosphorus 3.1 mg/dl (2.5-4.5) 02/01/25 08:41
Albumin 4.4 g/dl (3.5-5.0) 01/24/25 15:56
Physical Exam
-
Vital Signs:
Vital Signs
Temp Pulse Resp BP Pulse Ox
98.5 F 69 16 145/96 99
02/01/25 07:00 02/01/25 07:00 02/01/25 07:00 02/01/25 07:00 02/01/25 07:00
Cardiovascular:: Regular rate and rhythm
Respiratory:: Bilateral: CTA
Lung Excursion:: Normal
Abdomen:: Tender
Bowel Sounds:: Decreased
Extremity Edema:: None: Bilateral:
Perera Catheter: No
[2025-02-01 15:05] VITALS: BP 154/80
[2025-02-01] MEDS: LOVENOX 40 MG SC (17:23)
[2025-02-01 18:02] LABS: Glucose - Point of Care 118 mg/dl (70-99)
[2025-02-01] MEDS: Parenteral Nutrition, Central 1610 IV (21:08)
[2025-02-01] MEDS: CALDOLOR 104 MG IV (21:49)
[2025-02-01 23:01] VITALS: BP 128/77
[2025-02-02 00:07] LABS: Glucose - Point of Care 108 mg/dl (70-99)
[2025-02-02] MEDS: OFIRMEV 100 IV ×4 (00:08→21:12)
[2025-02-02] MEDS: DILAUDID 0.5 MG IV ×2 (01:52→18:06)
[2025-02-02] MEDS: ZOSYN 50 IV ×4 (04:25→21:45)
[2025-02-02] MEDS: DILAUDID 1 MG IV ×5 (05:00→21:08)
[2025-02-02 06:14] VITALS: BMI 32.7
[2025-02-02 07:05] VITALS: BP 142/84
--- NOTE | 2025-02-02 07:55 | W.PN.GS2 ---
Today's Communication / Plan
-
-- No major changes from surgical perspective, awaiting more consistent ROBF
-- Renew TPN when lytes finalized
Assessment / Plan
-
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
Increased pain/distention on 01/[address] done in work up demonstrating increase in free air, taken back to OR for anastomotic leak
POD #8 ex lap for Right hemicolectomy with cystoscopy for stent for identification of the right ureter (stent removed on pod #1 by urology)
POD #3 take back to OR for ex lap, bowel resection d/t anastomotic leak with abdominal washout
Ileus present, anticipate will take some days to resolve. TPN initiated on 01/30 via PICC and thus far well tolerated
Source of leukocytosis unclear but the incision is clean and SHANICE ss. Afebrile. Continue on IV zosyn.
ABNER being followed by nephrology, Cr continues to trend down. No obstructive uropathy on imaging. Labs today pending.
H/H stable
SHANICE drain with expected SS outputs
Plan:
Continue IV ABX
Continue NPO, ok for sips/chips for comfort
NGT to LIWS
Analgesics scheduled and prn. Continue scheduled Ofirmev. Hold NSAIDs given ABNER
Continue TPN, nutrition following. SSI while on TPN
IV ppi for VTE ppx
Lovenox for VTE ppx
Increase activity, OOB
Subjective Data
-
Date of Service: February 02, 2025
Reports abdominal soreness. No nausea or vomiting. No flatus. Does report some looser green stool. Ambulating. Voiding.
Objective Data
-
Intake and Output
02/01/25 02/02/25 02/03/25
06:59 06:59 06:59
Intake Total 1345 / 1345
Output Total 2955 / 2955 1400 / 1400
Balance -1610 / -1610 -1400 / -1400
Intake:
IV piggybacks 50 / 50
TPN/PPN 1295 / 1295
Output:
Drain Output (Total) 305 / 305 150 / 150
Right Middle Abdomen Joaquim- 305 / 305 150 / 150
Perales A
Gastrointestinal tube output ( 100 / 100 300 / 300
Total)
[place] Sump 100 / 100 300 / 300
Urine, Winters 2550 / 2550
Urine, Voided 950 / 950
Other:
Number of approximated LARGE 2
amounts of urine
Vital Signs
Temp Pulse Resp BP Pulse Ox
98.8 F 73 16 142/84 96
02/02/25 07:05 02/02/25 07:05 02/02/25 07:05 02/02/25 07:05 02/02/25 07:05
Calcium 7.2 mg/dl (8.4-10.2) L 02/01/25 08:41
Phosphorus 3.1 mg/dl (2.5-4.5) 02/01/25 08:41
Magnesium 2.2 mg/dl (1.6-2.3) 02/01/25 08:41
Total Bilirubin 0.8 mg/dl (0.2-1.3) 01/24/25 15:56
AST 21 U/L (17-59) 01/24/25 15:56
ALT 27 U/L (0-50) 01/24/25 15:56
Alkaline Phosphatase 78 U/L (38-126) 01/24/25 15:56
Total Protein 7.0 g/dl (6.3-8.2) 01/24/25 15:56
Albumin 4.4 g/dl (3.5-5.0) 01/24/25 15:56
Physical Exam
-
Gen: NAD, uncomfortable
HEENT: bilious output
Abd: soft, tender to palpation, mild distension, non-peritoneal, midline c/d/i - no erythema, ecchymosis or drainage, SHANICE serosang
Patient has a winters catheter: No
Patient has a central line: Yes
[2025-02-02 07:56] LABS: Hematocrit 30.2 % (39.0-52.0); Hemoglobin 10.1 g/dL (13.0-18.0); Mean Corp Hgb Conc. 33.4 g/dL (33.0-37.0); Mean Corpuscular Volume 87.5 fL (80.0-94.0); Platelet Count 500 10^3/uL (130-400); Red Cell Dist. Width 15.1 % (11.5-14.5)
[2025-02-02] MEDS: PROTONIX IV 40 MG IV (08:14)
[2025-02-02] MEDS: FLOMAX 0.8 MG PO (08:15)
[2025-02-02] MEDS: NSS (PRESERVATIVE FREE) 10 ML IV (08:28)
[2025-02-02 08:36] LABS: ALT (SGPT) 22 U/L (0-50); AST (SGOT) 26 U/L (17-59); Albumin 2.1 g/dl (3.5-5.0); Alkaline Phosphatase 53 U/L (38-126); Blood Urea Nitrogen 34 mg/dl (9-20); Calcium 7.6 mg/dl (8.4-10.2); Carbon Dioxide 26 mmol/L (22-30); Chloride 110 mmol/L (98-107); Estimated Creatinine Clearance > 125 ml/min; Glucose 102 mg/dl (70-99); Magnesium 1.6 mg/dl (1.6-2.3); Potassium 3.8 mmol/L (3.5-5.1); Sodium 140 mmol/L (135-145); Total Protein 4.5 g/dl (6.3-8.2); Triglycerides 111 mg/dl (10-149); eGFR > 60.00
--- NOTE | 2025-02-02 09:42 | W.PN.NEPH.PH ---
Today's Communication / Plan
-
s/o
Assessment/Plan
-
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 He is s/p right hemicolectomy, take-down hepatic flexure
01/25/25, Urology was involved in OR case given proximity to ureter patient is s/p ureteral stent placement. Post-op course c/b ABNER.
Renal consult for acute kidney injury with a creatinine of 1.9 from 1.2
Impression.
Acute kidney injury uncertain etiology ATN possible contrast nephropathy. No obvious episodes of hypotension /was given Toradol for pain
Right hemicolectomy status post with interrupted ureteral stent
Plan.
follow BMP
TPN per surgery
will s/o
-
-
Date of Service: February 02, 2025
CC / HPI / ROS
-
Chief Complaint:
Acute kidney injury
History of Present Illness:
Acute kidney resolved
TPN running
still with NGT high output
Hemodynamically stable
Review of Systems:
No reported chest pain or shortness of breath
Nonoliguric
Labs
-
Labs:
WBC 25.4 10^3/uL (4.8-10.8) H 02/02/25 07:28
RBC 3.45 10^6/uL (4.70-6.10) L 02/02/25 07:28
Hgb 10.1 g/dL (13.0-18.0) L 02/02/25 07:28
Hct 30.2 % (39.0-52.0) L 02/02/25 07:28
Plt Count 500 10^3/uL (130-400) H 02/02/25 07:28
Sodium 140 mmol/L (135-145) 02/02/25 07:28
Potassium 3.8 mmol/L (3.5-5.1) 02/02/25 07:28
Chloride 110 mmol/L (98-107) H 02/02/25 07:28
Carbon Dioxide 26 mmol/L (22-30) 02/02/25 07:28
BUN 34 mg/dl (9-20) H 02/02/25 07:28
Creatinine 0.9 mg/dL (0.7-1.3) 02/02/25 07:28
eGFR > 60.00 02/02/25 07:28
Glucose 102 mg/dl (70-99) H 02/02/25 07:28
Calcium 7.6 mg/dl (8.4-10.2) L 02/02/25 07:28
Phosphorus 3.9 mg/dl (2.5-4.5) 02/02/25 07:28
Albumin 2.1 g/dl (3.5-5.0) L 02/02/25 07:28
Physical Exam
-
Vital Signs:
Vital Signs
Temp Pulse Resp BP Pulse Ox
98.8 F 73 16 142/84 96
02/02/25 07:05 02/02/25 07:05 02/02/25 07:05 02/02/25 07:05 02/02/25 07:05
Cardiovascular:: Regular rate and rhythm
Respiratory:: Bilateral: Coarse
Lung Excursion:: Normal
Abdomen:: Nontender and Soft
Bowel Sounds:: None
Extremity Edema:: None: Bilateral:
[2025-02-02] MEDS: TORADOL 15 MG IV (10:46)
[2025-02-02 11:46] LABS: Glucose - Point of Care 90 mg/dl (70-99)
[2025-02-02 15:00] VITALS: BP 132/79
[2025-02-02 16:11] VITALS: BP 141/78; PULSE 74
[2025-02-02] MEDS: LOVENOX 40 MG SC (17:39)
[2025-02-02 17:59] LABS: Glucose - Point of Care 125 mg/dl (70-99)
[2025-02-02] MEDS: Parenteral Nutrition, Central 1610 IV (21:14)
[2025-02-02 23:00] VITALS: BP 149/84
[2025-02-02 23:55] LABS: Glucose - Point of Care 141 mg/dl (70-99)
[2025-02-03] MEDS: DILAUDID 1 MG IV ×7 (00:09→21:13)
[2025-02-03] MEDS: OFIRMEV 100 IV ×2 (02:51→09:31)
[2025-02-03] MEDS: ZOSYN 50 IV ×4 (03:25→21:08)
[2025-02-03 04:54] LABS: Hematocrit 28.0 % (39.0-52.0); Hemoglobin 9.8 g/dL (13.0-18.0); Mean Corp Hgb Conc. 35.0 g/dL (33.0-37.0); Mean Corpuscular Volume 86.4 fL (80.0-94.0); Platelet Count 520 10^3/uL (130-400); Red Cell Dist. Width 14.8 % (11.5-14.5)
[2025-02-03 05:23] LABS: Blood Urea Nitrogen 32 mg/dl (9-20); Calcium 7.3 mg/dl (8.4-10.2); Carbon Dioxide 25 mmol/L (22-30); Chloride 109 mmol/L (98-107); Estimated Creatinine Clearance > 125 ml/min; Glucose 116 mg/dl (70-99); Potassium 3.9 mmol/L (3.5-5.1); Sodium 139 mmol/L (135-145); eGFR > 60.00
[2025-02-03 05:57] LABS: Glucose - Point of Care 137 mg/dl (70-99)
[2025-02-03 06:00] VITALS: BMI 32.5
[2025-02-03 08:25] VITALS: BP 151/81
[2025-02-03] MEDS: NSS (PRESERVATIVE FREE) 10 ML IV (09:31)
[2025-02-03] MEDS: FLOMAX 0.8 MG PO (09:31)
[2025-02-03] MEDS: PROTONIX IV 40 MG IV (09:32)
[2025-02-03 12:08] LABS: Glucose - Point of Care 121 mg/dl (70-99)
--- NOTE | 2025-02-03 12:44 | W.PN.GS2 ---
Today's Communication / Plan
-
-- Clamp trial NGT for today possible removal tomorrow, NPO, sips of clears for comfort
Assessment / Plan
-
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
Increased pain/distention on 01/[address] done in work up demonstrating increase in free air, taken back to OR for anastomotic leak
POD #9 ex lap for Right hemicolectomy with cystoscopy for stent for identification of the right ureter (stent removed on pod #1 by urology)
POD #4 take back to OR for ex lap, bowel resection d/t anastomotic leak with abdominal washout
Ileus present, slowly resolving. Clamp trial today. TPN initiated on 01/30 via PICC and thus far well tolerated
Source of leukocytosis unclear but the incision is clean and SHANICE ss. Afebrile. Continue on IV Zosyn. Would consider repeat CT scan in the days to come (high risk for intra-abdominal abscess)
ABNER being followed by Nephrology, Cr continues to trend down. No obstructive uropathy on imaging. Labs today pending.
H/H stable
SHANICE drain with expected SS outputs
Plan:
-- Clamp trial NGT for today possible removal tomorrow, NPO, sips of clears for comfort
-- Abx: Zosyn
-- Continue NPO, ok for sips/chips for comfort
-- Pain control: Tylenol, Toradol, IV Dilaudid
-- Continue TPN, nutrition following. SSI while on TPN
-- GI: PPI
-- DVT: Lovenox
-- Increase activity, OOB
Subjective Data
-
Date of Service: February 03, 2025
Feels slightly improved. No nausea or emesis. Passing flatus and loose BMs. No fevers.
Objective Data
-
Intake and Output
0702/03/25 02/04/25
06:59 06:59 06:59
Intake Total 400 / 400 150 / 150
Output Total 1400 / 1400 2170 / 2170 240 / 240
Balance -1400 / -1400 -1770 / -1770 -90 / -90
Intake:
IV piggybacks 400 / 400 150 / 150
Output:
Drain Output (Total) 150 / 150 210 / 210 40 / 40
Right Middle Abdomen Joaquim- 150 / 150 210 / 210 40 / 40
Perales A
Gastrointestinal tube output ( 300 / 300 360 / 360
Total)
[place] Sump 300 / 300 360 / 360
Urine, Voided 950 / 950 1600 / 1600 200 / 200
Other:
Number of approximated LARGE 2
amounts of urine
Vital Signs
Temp Pulse Resp BP Pulse Ox
98.3 F 76 18 151/81 98
02/03/25 08:25 02/03/25 08:25 02/03/25 08:25 02/03/25 08:25 02/03/25 08:25
Lab Results
02/03/25 04:42
02/03/25 04:42
Calcium 7.3 mg/dl (8.4-10.2) L 02/03/25 04:42
Phosphorus 3.9 mg/dl (2.5-4.5) 02/02/25 07:28
Magnesium 1.6 mg/dl (1.6-2.3) 02/02/25 07:28
Total Bilirubin 1.1 mg/dl (0.2-1.3) 02/02/25 07:28
AST 26 U/L (17-59) 02/02/25 07:28
ALT 22 U/L (0-50) 02/02/25 07:28
Alkaline Phosphatase 53 U/L (38-126) 02/02/25 07:28
Total Protein 4.5 g/dl (6.3-8.2) L 02/02/25 07:28
Albumin 2.1 g/dl (3.5-5.0) L 02/02/25 07:28
Physical Exam
-
Gen: NAD
HEENT: light minimal bilious output
Abd: soft, tender diffusely, ND, non-peritoneal, incision c/d/i - no erythema, ecchymosis or drainage, antonia in place, SHANICE serosang
Patient has a winters catheter: No
Patient has a central line: Yes
--- NOTE | 2025-02-03 13:01 | CM ---
CM following re: discharge planning.
Reviewed pt's chart, met with pt and pt's spouse at bedside.
Per MD, clamp trial NGT for today possible removal tomorrow, NPO, continue TPN, continue supportive care.
[facility] liaison following.
D/C plan: home with [facility] and family support. Spouse to transport at discharge.
CM will follow with discharge plan updates as hospitalization progresses
[2025-02-03] MEDS: TORADOL 15 MG IV ×2 (14:56→21:03)
[2025-02-03 15:05] VITALS: BP 139/82
--- NOTE | 2025-02-03 15:09 | PN.CDI ---
CDI
- -
CDI:
Physician Documentation Request
Admit Date: 01/25/25 00:17
Dear Doctor Anatoly,
Patient admitted with SBO w/ terminal ileum malignancy.
01/30 Surgical Immediate Post Op Note, 'Post-op Diagnosis: Anastomotic leak....Operative Findings: Veress needle entry with bilious fluid return, conversion to exploratory laparotomy; extensive thin stool contamination, irrigated; 2cm opening at
anastomotic staple line identified and whip stitched, abdomen irrigated thoroughly once contamination controlled...'
Patient on IV Zosyn.
Please provide in your note the diagnosis associated with the above findings:
Localized peritonitis
General peritonitis
Perforated peritonitis
Anastomotic Leak only
Other
Use of terms such as suspected, likely, concern for, or probable (associated with a specific diagnosis that is being evaluated, monitored, or treated as if it exists) are acceptable and can be coded in the inpatient setting, when documented at the
time of discharge.
Thank you,
Eugenia MAX,RN,CCDS
CDI Specialist
Available via tiger text
Please use your independent medical judgment in providing your response.
[2025-02-03] MEDS: LOVENOX 40 MG SC (17:39)
--- NOTE | 2025-02-03 17:39 | W.PN.ONC ---
Today's Communication / Plan
-
See updated plan.
Impression
Impression
Stage III colon cancer
Reoperation for anastomotic leak
Plan
Plan
I outlined in general terms the fact that he will need postoperative chemotherapy. We did not go into great detail, as he is still not feeling too well from his repeat surgery. He seems to be accepting of this and have a realistic outlook. We
will continue to follow.
Subjective/Objective
Subjective/Objective
He is having a fair amount of abdominal pain. Examination is unchanged.
Vital Signs:
Vital Signs
Temp Pulse Resp BP Pulse Ox
98.6 F 69 18 139/82 98
02/03/25 15:05 02/03/25 15:05 02/03/25 15:05 02/03/25 15:05 02/03/25 15:05
Lab Results:
Laboratory Data
WBC 26.2 10^3/uL (4.8-10.8) H 02/03/25 04:42
Hgb 9.8 g/dL (13.0-18.0) L 02/03/25 04:42
Plt Count 520 10^3/uL (130-400) H 02/03/25 04:42
PT 13.3 Sec (11.4-14.6) 01/25/25 10:10
INR 0.98 01/25/25 10:10
APTT 28.4 Sec (23.4-35.0) 01/25/25 10:10
eGFR > 60.00 02/03/25 04:42
[2025-02-03 18:47] LABS: Glucose - Point of Care 139 mg/dl (70-99)
[2025-02-03] MEDS: Parenteral Nutrition, Central 1610 IV (20:55)
[2025-02-03 23:00] VITALS: BP 147/83
[2025-02-04] VITALS (24 sets, daily range): BP systolic 84–140; BP diastolic 62–82; BMI 32.5
[2025-02-04 00:11] LABS: Glucose - Point of Care 132 mg/dl (70-99)
[2025-02-04] MEDS: DILAUDID 1 MG IV ×8 (00:18→23:54)
[2025-02-04] MEDS: ZOSYN 50 IV ×4 (03:14→21:38)
[2025-02-04] MEDS: TORADOL 15 MG IV ×4 (03:16→23:54)
[2025-02-04 04:41] LABS: Hematocrit 24.0 % (39.0-52.0); Hemoglobin 8.4 g/dL (13.0-18.0); Mean Corp Hgb Conc. 35.0 g/dL (33.0-37.0); Mean Corpuscular Volume 86.3 fL (80.0-94.0); Platelet Count 532 10^3/uL (130-400); Red Cell Dist. Width 14.8 % (11.5-14.5)
--- NOTE | 2025-02-04 05:02 | PTCARENOTE ---
RN went to check SHANICE drain output for shift thus far, total was 480cc from 1845. Dr. Ledbetter notified and aware. Pt's Hgb came back 8.4 this AM, was previously 9.8. Dr. Ledbetter also notified and aware.
[2025-02-04 05:03] LABS: Blood Urea Nitrogen 32 mg/dl (9-20); Calcium 7.2 mg/dl (8.4-10.2); Carbon Dioxide 25 mmol/L (22-30); Chloride 110 mmol/L (98-107); Estimated Creatinine Clearance > 125 ml/min; Glucose 140 mg/dl (70-99); Potassium 4.1 mmol/L (3.5-5.1); Sodium 137 mmol/L (135-145); eGFR > 60.00
[2025-02-04 05:43] LABS: Glucose - Point of Care 145 mg/dl (70-99)
[2025-02-04 05:55] LABS: Glucose - Point of Care 167 mg/dl (70-99)
--- NOTE | 2025-02-04 06:00 | PTCARENOTE ---
Pt had increased SHANICE drain output (480cc in 9hrs). Dr. Ledbetter notified and aware. Pt was sitting at side of bed and became very pale, diaphoretic, and fixated stare ahead, not responding to verbal commands. BP became very soft. See documentation.
VENDING MACHINE HOST/HOSTESS called. Renotified Dr. Ledbetter. Labs and blood ordered. Bolus started per REPORTING MANAGER. Dr. Ledbetter at bedside. 1st unit of PRBC infusing. Pt to be transferred to IMU room 3348. Family at bedside.
[2025-02-04 06:37] LABS: INR 1.65; PT 20.0 Sec (11.4-14.6)
[2025-02-04 06:38] LABS: APTT 38.7 Sec (23.4-35.0)
[2025-02-04 06:42] LABS: Hematocrit 24.1 % (39.0-52.0); Hemoglobin 8.5 g/dL (13.0-18.0); Mean Corp Hgb Conc. 35.3 g/dL (33.0-37.0); Mean Corpuscular Volume 86.7 fL (80.0-94.0); Platelet Count 546 10^3/uL (130-400); Red Cell Dist. Width 14.8 % (11.5-14.5)
--- NOTE | 2025-02-04 06:47 | W.PN.UPDATE ---
Update Note
Progress Note Update
0600 Rapid response
BP 70's/40's, symptomatic, dizzy,pale. RN states noted increase blood colored drainage output since 4am.
NSS bolus, CBC, BMP, type and screen, COAGS, type and screen, telemetry
Dr. Ledbetter made aware and ordered for stat blood transfusion. Will await for Dr. Ledbetter for possible OR.
Blood consent obtained, emergent blood release signed, 101 97% RA
Dr. Ledbetter at the bedside, plan to transfer to IMU at present, Nsg supervisor twisting department made aware.
Patient is AAOx3, Plan of care explained by Dr. Ledbetter.
--- NOTE | 2025-02-04 06:58 | W.PN.UPDATE ---
Update Note
Progress Note Update
Called to bedside this am for increased drain output, orthostatic hypotension, pallor. SBP 90s HR 98. Hb 9.8 --> 8.4. INR 1.65. Drain output increased, bloody fluid but not kyung blood. Belly remains soft, approp ttp, minimal distention, scant NGT
output and reports passing flatus, denies nausea. Voiding. TPN infusing. Stat 2u PRBCs ordered. Transfer to IMU. Cont monitoring. Recheck labs. and daughter updated at bedside.
--- NOTE | 2025-02-04 09:15 | PTCARENOTE ---
Received patient from [address] [place] [address]. PRBC's and TPN transfusing via right d/l PICC. Patient rating pain at abdomen 8/10. 110 mls emptied from SHANICE drain. VS stable. Last BP 101/77(86). Oriented patient to room. Will continue to monitor patient
frequently.
--- NOTE | 2025-02-04 09:53 | W.PN.GS2 ---
Addendum entered and electronically signed by Сергей Ledbetter MD 02/04/25 14:49:
CT A/P reviewed. PO contrast to rectum, no evidence of leak. Free fluid noted, likely client support representative of self limited intra-abdominal bleeding. No organized collections present (scan is limited by lack of IV contrast, deferred due to recent ABNER
recovery). Plan to DC NGT and start clears. Cont close monitoring of HD status and drain output
Addendum entered and electronically signed by Сергей Ledbetter MD 02/04/25 10:53:
CDI query: perforated peritonitis at time of surgery
Addendum entered and electronically signed by Сергей Ledbetter MD 02/04/25 10:04:
lovenox on hold
SCDs ordered
Original Note:
Today's Communication / Plan
-
CT
TPN
Monitoring
Assessment / Plan
-
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
Increased pain/distention on 01/[address] done in work up demonstrating increase in free air, taken back to OR for anastomotic leak
POD #10 ex lap for Right hemicolectomy with cystoscopy for stent for identification of the right ureter (stent removed on pod #1 by urology)
POD #5 take back to OR for ex lap, bowel resection d/t anastomotic leak with abdominal washout
Increased ss drain output and transient hypotension responsive to fluids on 02/04 am --> 2 u PRBC transfused
On re-eval SBP 117 HR 86
Ileus resolving. Passed clamp trial. Passing flatus. TPN initiated on 01/30 via PICC and thus far well tolerated
Source of leukocytosis unclear but the incision is clean and SHANICE ss. WBC increased today. Afebrile. Continue on IV Zosyn.
ABNER being followed by Nephrology, Cr continues to trend down. No obstructive uropathy on imaging. Labs today pending.
Hb 9.8 --> 8.4 --> 8.5
INR 1.65
Plts 520K --> 546K
Plan:
-- CT with PO contrast
-- Transfer to IMU for closer hemodynamic monitoring
-- Abx: Zosyn
-- Continue NPO, ok for sips/chips for comfort, consider DC NGT pending CT result
-- Pain control: Tylenol, Toradol, IV Dilaudid
-- Continue TPN, nutrition following. SSI while on TPN
-- GI: PPI
-- DVT: Lovenox
-- Increase activity, OOB
Subjective Data
-
Date of Service: February 04, 2025
Hypotensive early this am with increased serosang output in drain, responsive to fluids. Pt reports increased ab pain at this time, denies n/v with NGT clamped since yesterday, reports passing flatus
Objective Data
-
Intake and Output
02/03/25 02/04/25 02/05/25
06:59 06:59 06:59
Intake Total 400 / 400 250 / 250 250 / 250
Output Total 2170 / 2170 2054 / 2054 100 / 100
Balance -1770 / -1770 -1805 / -1805 150 / 150
Intake:
IV piggybacks 400 / 400 250 / 250
Blood Product Amount Infused ( 0 / 0 250 / 250
mL)
Packed Rbc Leukoreduced Unit 0 / 0 250 / 250
[id number]
Packed Rbc Leukoreduced Unit 0 / 0
[id number]
Output:
Drain Output (Total) 855 / 855 100 / 100
Right Middle Abdomen Joaquim- 855 / 855 100 / 100
Perales A
Gastrointestinal tube output ( 360 / 360
Total)
[place] Sump 360 / 360
Urine, Voided 1600 / 1600 1200 / 1200
Vital Signs
Temp Pulse Resp BP Pulse Ox
99.7 F 97 14 109/72 97
02/04/25 09:23 02/04/25 09:23 02/04/25 09:23 02/04/25 09:23 02/04/25 09:23
Lab Results
02/04/25 06:10
02/04/25 04:25
Calcium 7.2 mg/dl (8.4-10.2) L 02/04/25 04:25
Phosphorus 3.9 mg/dl (2.5-4.5) 02/02/25 07:28
Magnesium 1.6 mg/dl (1.6-2.3) 02/02/25 07:28
Total Bilirubin 1.1 mg/dl (0.2-1.3) 02/02/25 07:28
AST 26 U/L (17-59) 02/02/25 07:28
ALT 22 U/L (0-50) 02/02/25 07:28
Alkaline Phosphatase 53 U/L (38-126) 02/02/25 07:28
Total Protein 4.5 g/dl (6.3-8.2) L 02/02/25 07:28
Albumin 2.1 g/dl (3.5-5.0) L 02/02/25 07:28
Physical Exam
-
Gen: NAD
Abd: soft, moderate ttp, incisions cdi, drain serosang
Patient has a winters catheter: No
Patient has a central line: Yes (PICC)
--- NOTE | 2025-02-04 10:19 | PTOTSP ---
Patient transferred to IMU - will require updated PT orders to resume therapy when stable. Thank you.
[2025-02-04] MEDS: FLOMAX 0.8 MG PO (10:28)
[2025-02-04] MEDS: PROTONIX IV 40 MG IV (10:29)
[2025-02-04] MEDS: FLUSH (NSS) 1 FLUSH IV ×2 (10:30→11:10)
[2025-02-04] MEDS: NSS (PRESERVATIVE FREE) 10 ML IV (10:30)
[2025-02-04] MEDS: OMNIPAQUE 50 ML PO (10:32)
--- NOTE | 2025-02-04 10:57 | OR.RPT ---
Operative Report
Operative Report
DOS: 01/30/25
Primary Surgeon: Anatoly
Assisting Surgeon: Elif Barger
Pre-op Diagnosis: Perforated viscus
Post-op Diagnosis: Anastomotic leak
Procedure Performed: Exploratory laparotomy, bowel resection
Anesthesia Type: GETA
Specimen / Cultures: ileo-colic anastomosis
Estimated Blood Loss: 30cc
Complications: None immediate
Operative Findings: Veress needle entry with bilious fluid return, conversion to exploratory laparotomy; extensive thin stool contamination, irrigated; 2cm opening at anastomotic staple line identified and whip stitched, abdomen irrigated
thoroughly once contamination controlled; small bowel transected with MILTON stapler proximal to anastomosis, transverse colon transected in similar fashion distal to anastomosis; partial mobilization of splenic flexure and scoring of small bowel
mesentery to increase bowel mobility; ultimately ileum and colon came together well without tension and a side-side stapled anastomosis was created; common channel inspected - hemostatic; crotch stitch with 3-0 PDS placed adjacent to crotch and 1cm
away; anastomosis palpated and patency confirmed; abdomen irrigated with total 8L warm sterile saline, effluent clear; 19 fr terri drain placed in the mid abdomen in the region of the anastomosis and brought out through the right lower quadrant; ngt
palpated in the stomach, fascia closed without tension, interpolated elizabeth with telfa antonia, abd pads
Indications: 49M 5 days status post exploratory laparotomy and right hemicolectomy for malignant bowel obstruction. Developed increased distention and lack of bowel recovery prompting CT scan that revealed pneumoperitoneum. Return to the operating
room for diagnostic laparoscopy, possible exploratory laparotomy was planned.
Description of procedure: The patient was placed on the operating table in the supine position. General anesthesia was induced. A time-out was completed verifying correct patient, procedure, site, positioning, and special equipment prior to
beginning this procedure. Nasogastric tube was already in place. A veress needle was inserted in the left upper quadrant and bilious fluid returned. At this point the procedure was converted to exploratory laparotomy.
Elizabeth were removed from the skin and the laparotomy incision was opened. Sorenson scissors were used to divide the PDS suture at the fascial level. Feculent fluid was identified throughout the abdomen and was suctioned and irrigated clear. The area of
veress entry was inspected and no injuries were identified. A perforation in the anastomosis at the staple line along the taenia was identified and whip stitched closed with 2-0 silk suture. The abdomen was then irrigated with 6 liters of warm
sterile saline. The terminal ileum approaching the anastomosis was isolated. A window was created in the mesentery with a hemostat and the ileum was transected with a MILTON 80mm stapler with purple load. The transverse colon was isolated and
transected in similar fashion distal to the anastomosis. The old anastomosis was passed off the table as specimen. Omentum around the area was resected. The transverse colon was mobilized off the gastrocolic ligament and the splenic flexure was
partially mobilized and the root of the mall bowel mesentery was scored. The bowel was evaluated and appeared healthy and well perfused. It was brought together without tension and an anastomosis was created in side-side fashion with the 80mm MILTON
stapler with purple loads. Crotch stitches were placed x2 with 3-0 PDS. A 19fr terri drain was placed in the region of the anastomosis and brought out through the right lower quadrant and secured with 2-0 nylon suture. The fascia was closed with #1
PDS stratafix and the skin was loosely approximated with elizabeth and telfa antonia were placed in between the elizabeth. Dry gauze and abd pads were placed and a drain sponge was placed, all secured with tape. Dr. Barger assisted with exposure,
mobilization of small bowel and creation of anastomosis.
The patient tolerated the procedure well and was taken to the postanesthesia care unit in stable condition.
The assistance of Elif MARLEY was required due to the complexity of the procedure. During the procedure she assisted with retraction, resection, and closure of the wound.
[2025-02-04 12:02] LABS: Glucose - Point of Care 142 mg/dl (70-99)
--- NOTE | 2025-02-04 12:23 | PTCARENOTE ---
Transfused 2nd unit of PRBC's without incident. Oral contrast via NGT for CT of abdomen. Medicated patient with IV tordal and IV dilaudid as ordered for abdominal pain rating 8-9/10. Patient states that the best pain relief patient has had has
been a 7/10 since his 2nd time in the OR. Patient states that his abdomen hurts with inspiration. SHANICE drain has drained 245 mls since arrival to IMU. VS have remained stable SBP have been above 100. Family in room at bedside. Will monitor.
[2025-02-04] MEDS: FLUSH (NSS) 2 FLUSH IV ×3 (13:58→17:16)
--- NOTE | 2025-02-04 16:00 | PTCARENOTE ---
Removed Left nare NGT as per MD order. Patient advanced to clear liquid diet. VS stable,afebrile. SR/ST with HR 80-low 100's.
[2025-02-04] MEDS: ANESTHETIC LOZENGE 1 LOZENGE PO (16:05)
[2025-02-04 17:42] LABS: Glucose - Point of Care 133 mg/dl (70-99)
[2025-02-04] MEDS: Parenteral Nutrition, Central 1610 IV (21:35)
[2025-02-05] VITALS (15 sets, daily range): BP systolic 97–130; BP diastolic 58–83; PULSE 91; O2SAT 98; BMI 32.4; BMI 32.3
[2025-02-05 00:01] LABS: Glucose - Point of Care 110 mg/dl (70-99)
[2025-02-05] MEDS: DILAUDID 1 MG IV ×7 (03:49→23:43)
[2025-02-05] MEDS: ZOSYN 50 IV ×4 (03:49→21:57)
[2025-02-05 04:14] LABS: Hematocrit 22.5 % (39.0-52.0); Hemoglobin 7.9 g/dL (13.0-18.0); Mean Corp Hgb Conc. 35.1 g/dL (33.0-37.0); Mean Corpuscular Volume 85.9 fL (80.0-94.0); Platelet Count 414 10^3/uL (130-400); Red Cell Dist. Width 14.4 % (11.5-14.5)
[2025-02-05 04:26] LABS: Blood Urea Nitrogen 34 mg/dl (9-20); Calcium 7.3 mg/dl (8.4-10.2); Carbon Dioxide 22 mmol/L (22-30); Chloride 111 mmol/L (98-107); Estimated Creatinine Clearance > 125 ml/min; Glucose 109 mg/dl (70-99); Magnesium 1.5 mg/dl (1.6-2.3); Potassium 4.3 mmol/L (3.5-5.1); Sodium 135 mmol/L (135-145); eGFR > 60.00
--- NOTE | 2025-02-05 05:17 | PTCARENOTE ---
No acute events overnight. Tolerating clear liquid diet. Pain managed with prn dilaudid and toradol. One moderate loose BM with hyperactive bowel sounds. TPN infusing. SHANICE drain with sanguinous output. No episodes of hypotension. Will continue to
monitor.
[2025-02-05 05:41] LABS: Glucose - Point of Care 147 mg/dl (70-99)
[2025-02-05] MEDS: FLOMAX 0.8 MG PO (07:20)
[2025-02-05] MEDS: NSS (PRESERVATIVE FREE) 10 ML IV (07:21)
[2025-02-05] MEDS: PROTONIX IV 40 MG IV (07:22)
[2025-02-05] MEDS: TORADOL 15 MG IV ×2 (08:36→23:44)
--- NOTE | 2025-02-05 08:42 | W.PN.GS2 ---
Addendum entered and electronically signed by Сергей Ledbetter MD 02/05/25 15:23:
CDI query: localized infection 2/2 perforated peritonitis
Addendum entered and electronically signed by Сергей Ledbetter MD 02/05/25 15:21:
CDI query: severe sepsis not present.
Addendum entered and electronically signed by Сергей Ledbetter MD 02/05/25 08:52:
PT re-ordered
Tylenol PO saadia for pain
PPI DC'ed
Original Note:
Today's Communication / Plan
-
Adv to fulls
TPN
IV abx
Assessment / Plan
-
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
Increased pain/distention on 01/[address] done in work up demonstrating increase in free air, taken back to OR for anastomotic leak
POD #11 ex lap for Right hemicolectomy with cystoscopy for stent for identification of the right ureter (stent removed on pod #1 by urology)
POD #6 take back to OR for ex lap, bowel resection d/t anastomotic leak with abdominal washout
Increased ss drain output and transient hypotension responsive to fluids on 02/04 am --> 2 u PRBC transfused
Since that time he has remained stable
Passing flatus and BMs. TPN initiated on 01/30 via PICC and thus far well tolerated
WBC trending down. Afebrile. Continue on IV Zosyn. Drain output clearing and decreasing.
CT 02/04 - likely intra-abdominal hematoma, lack of IV contrast limits evaluation but no clear evidence of organized collection
ABNER resolved
Hb 9.8 --> 8.4 --> 8.5 --> 7.9
INR 1.65
Plts 520K --> 546K --> 414
Plan:
-- Adv to fulls
-- Abx: Zosyn
-- Pain control: Tylenol, Toradol, IV Dilaudid
-- Continue TPN, nutrition following. SSI while on TPN
-- DVT: Lovenox on hold, SCDs in place
-- Increase activity, OOB
Subjective Data
-
Date of Service: February 05, 2025
AFVSS, drain output decreasing and clearing, ally PO clears, pain controlled, continues passing flatus and BMs, denies n/v
Objective Data
-
Intake and Output
02/04/25 02/05/25 02/06/25
06:59 06:59 06:59
Intake Total 250 / 250 1644 / 1644
Output Total 2054 / 2054 1740 / 1740 200 / 200
Balance -1805 / -1805 -96 / -96 -200 / -200
Intake:
Oral fluids 240 / 240
IV piggybacks 250 / 250 100 / 100
TPN/PPN 804 / 804
Blood Product Amount Infused ( 0 / 0 500 / 500
mL)
Packed Rbc Leukoreduced Unit 0 / 0 250 / 250
[id number]
Packed Rbc Leukoreduced Unit 250 / 250
[id number]
Output:
Drain Output (Total) 855 / 855 700 / 700
Right Middle Abdomen Joaquim- 855 / 855 700 / 700
Perales A
Urine, Voided 1200 / 1200 1040 / 1040 200 / 200
Vital Signs
Temp Pulse Resp BP Pulse Ox
98.6 F 85 12 116/83 99
02/05/25 07:34 02/05/25 08:00 02/05/25 08:00 02/05/25 08:00 02/05/25 08:00
Lab Results
02/05/25 03:48
02/05/25 03:48
Calcium 7.3 mg/dl (8.4-10.2) L 02/05/25 03:48
Phosphorus 3.4 mg/dl (2.5-4.5) 02/05/25 03:48
Magnesium 1.5 mg/dl (1.6-2.3) L 02/05/25 03:48
Total Bilirubin 1.1 mg/dl (0.2-1.3) 02/02/25 07:28
AST 26 U/L (17-59) 02/02/25 07:28
ALT 22 U/L (0-50) 02/02/25 07:28
Alkaline Phosphatase 53 U/L (38-126) 02/02/25 07:28
Total Protein 4.5 g/dl (6.3-8.2) L 02/02/25 07:28
Albumin 2.1 g/dl (3.5-5.0) L 02/02/25 07:28
Physical Exam
-
Gen: NAD
Abd: soft, approp ttp, serous drainage from midline incision, drain serosang
Patient has a winters catheter: No
Patient has a central line: Yes (PICC)
--- NOTE | 2025-02-05 08:50 | PTOTSP ---
Addendum entered by Deloris Marc, PT 02/05/25 08:53:
Pt did not go to OR yesterday but will still need new order for PT when stable to participate due to transfer to higher level of care.
Addendum entered by Deloris Marc, PT 02/05/25 08:51:
Pt went to OR and will need new order for PT when stable to restart activity.
Original Note:
Patient had rapid response and transferred to IMU yesterday. PT order was not continued upon transfer. Will need new order for PT when stable to resume therapy activity.
[2025-02-05] MEDS: TYLENOL 1000 MG PO ×3 (09:20→20:38)
[2025-02-05] MEDS: MAGNESIUM SULFATE 50 IV (09:55)
[2025-02-05 12:09] LABS: Glucose - Point of Care 116 mg/dl (70-99)
--- NOTE | 2025-02-05 14:56 | PN.CDI ---
CDI
- -
CDI:
Physician Documentation Request
Admit Date: 01/25/25 00:17
Dear Doctor Anatoly,
Patient admitted with SBO w/ terminal ileum malignancy.
02/04 WBC 35.6 and HR> 90.
02/04 PN, '....perforated peritonitis at time of surgery.... Continue on IV Zosyn....ABNER being followed by Nephrology....'
WBC's documented below:
Laboratory Tests
02/01/25 02/02/25 02/03/25
08:41 07:28 04:42
WBC 27.5 H 25.4 H 26.2 H
02/04/25 02/04/25 02/05/25
04:25 06:10 03:48
WBC 28.4 H 35.6 H 31.1 H
Please clarify which of the following most accurately describes the status of the patient's infection:
Severe sepsis, evolved during hospital stay
Perforated peritonitis only
Other
Sepsis
- Systemic manifestations of infection, with 2 or more SIRS criteria which include:
- Fever >100.9 degrees F or hypothermia < 96.8 degrees F
- Leukocytosis - WBC > 12,000 or leukopenia - WBC < 4,000 or > 10% bands
- Tachycardia > 90 beats per minute
- Tachypnea - RR > 20 breaths per minute or PaCO2 , 32mmHg
Source: Merck Manual 2013
- Indicate the known or suspected organism
- Indicate the known or suspected underlying infection, such as perforated peritonitis
Severe Sepsis
- Sepsis with associated acute organ dysfunction, such as renal failure or respiratory failure
- Documentation should indicate the association between the sepsis and the organ dysfunction
Localized Infection Only, Without Systemic Illness
- indicate the site/source, such as perforated peritonitis
Other
Use of terms such as suspected, likely, concern for, or probable (associated with a specific diagnosis that is being evaluated, monitored, or treated as if it exists) are acceptable and can be coded in the inpatient setting, when documented at the
time of discharge.
Thank you,
Eugenia MAX,RN,CCDS
CDI Specialist
Available via tiger text
Please use your independent medical judgment in providing your response.
--- NOTE | 2025-02-05 15:43 | PTCARENOTE ---
Pt received in bed @ 0700. AAOx3. Pt expressing 8/10 abdominal pain throughout shift. PRN Dilaudid 1mg IV Q3H given as able per pt request. Scheduled Tylenol 1,000mg PO administered. SaO2 99% on room air. Diminished breath sounds. Sinus rhythm/
Sinus tach on torpedoman's mate. HR 70s - 90s at rest, inccrease seen to 120s with ambulation. Trace LE edema. Pedal pulses palpable. (+) bowel sounds. Tolerating clear liquid diet. Advanced to full liquid diet and tolerating. Pt with loose bowel
movements observed. SHANICE drain with serosanguineous output. Voiding brandie into urinal. TPN infusing through (R) DL PICC. Magnesium Sulfate 2mg IV administered per order Pt oob in chair. Walked 1 lap in hallway around entire floor on 2 occasions this
shift.
--- NOTE | 2025-02-05 17:23 | CM ---
Patient with Hx Stage III colon cancer who is s/p Exploratory laparotomy, bowel resection. Room air. Full liquids. Receiving TPN, IV Abx, IV Dilaudid prn, IV Toradol prn. SHANICE Drain. Per nurse; A/O, ambulatory in halls.
CM continuing to follow for d/c needs.
Plan home with [facility].
[2025-02-05 18:03] LABS: Glucose - Point of Care 110 mg/dl (70-99)
[2025-02-05] MEDS: Parenteral Nutrition, Central 1610 IV (20:39)
[2025-02-05 23:49] LABS: Glucose - Point of Care 113 mg/dl (70-99)
[2025-02-06] VITALS (15 sets, daily range): BP systolic 109–140; BP diastolic 64–85; PULSE 81; O2SAT 99; BMI 32.4
[2025-02-06] MEDS: DILAUDID 1 MG IV ×7 (03:50→22:53)
[2025-02-06] MEDS: ZOSYN 50 IV ×4 (03:51→21:48)
[2025-02-06] MEDS: TYLENOL 1000 MG PO ×4 (03:51→19:50)
[2025-02-06 04:09] LABS: Hematocrit 20.6 % (39.0-52.0); Hemoglobin 7.3 g/dL (13.0-18.0); Mean Corp Hgb Conc. 35.4 g/dL (33.0-37.0); Mean Corpuscular Volume 86.2 fL (80.0-94.0); Platelet Count 442 10^3/uL (130-400); Red Cell Dist. Width 14.5 % (11.5-14.5)
[2025-02-06 04:33] LABS: Blood Urea Nitrogen 30 mg/dl (9-20); Calcium 7.1 mg/dl (8.4-10.2); Carbon Dioxide 22 mmol/L (22-30); Chloride 110 mmol/L (98-107); Estimated Creatinine Clearance > 125 ml/min; Glucose 104 mg/dl (70-99); Magnesium 2.1 mg/dl (1.6-2.3); Potassium 4.8 mmol/L (3.5-5.1); Sodium 134 mmol/L (135-145); eGFR > 60.00
--- NOTE | 2025-02-06 04:49 | W.PN.UPDATE ---
Update Note
Progress Note Update
hgb 7.3/20.6 stable Vs no active bleeding, minimal output 60 cc SS SHANICE drainage. Will transfuse 1 unit of PRBC's.
--- NOTE | 2025-02-06 05:41 | PTCARENOTE ---
Patient with 60 ml serosanguinous output overnight. AM hgb 7.3. at home independent call center agent provider made aware and ordered 1 unit PRBCs. PRN dilaudid given along with standing tylenol for pain. Will continue to monitor.
[2025-02-06 06:42] LABS: Glucose - Point of Care 121 mg/dl (70-99)
--- NOTE | 2025-02-06 07:46 | W.PN.GS2 ---
Today's Communication / Plan
-
LRD
IV abx
PT
Assessment / Plan
-
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
Increased pain/distention on 01/[address] done in work up demonstrating increase in free air, taken back to OR for anastomotic leak
POD #11 ex lap for Right hemicolectomy with cystoscopy for stent for identification of the right ureter (stent removed on pod #1 by urology)
POD #6 take back to OR for ex lap, bowel resection d/t anastomotic leak with abdominal washout
Increased ss drain output and transient hypotension responsive to fluids on 02/04 am --> 2 u PRBC transfused
Since that time he has remained stable
Drain output clearing and trending down
Passing flatus and BMs. TPN initiated on 01/30 via PICC and thus far well tolerated
WBC trending down. Afebrile. Continue on IV Zosyn.
CT 02/04 - likely intra-abdominal hematoma, lack of IV contrast limits evaluation but no clear evidence of organized collection
ABNER resolved
Hb and Hct trended down overnight, likely reflects equilibration. Do not suspect ongoing bleeding.
1 u PRBC ordered by night provider.
Plan:
-- Adv to [facility] with ensure BID
-- Abx: Zosyn
-- Pain control: Tylenol, Toradol, IV Dilaudid
-- Finish TPN today, not re-ordered. SSI while on TPN
-- D5 1/2NS at 75cc/hr, decrease when PO intake adequate
-- DVT: Lovenox on hold, SCDs in place
-- Increase activity, OOB, PT
Subjective Data
-
Date of Service: February 06, 2025
AFVSS, pain controlled, working with PT, ally fulls, BM and flatus +, denies n/v
Objective Data
-
Intake and Output
02/05/25 02/06/25 02/07/25
06:59 06:59 06:59
Intake Total 1644 / 1644 2338 / 2338
Output Total 1740 / 1740 1310 / 1310
Balance -96 / -96 1028 / 1028
Intake:
Oral fluids 240 / 240 480 / 480
IV piggybacks 100 / 100 250 / 250
TPN/PPN 804 / 804 1608 / 1608
Blood Product Amount Infused ( 500 / 500 0 / 0
mL)
Packed Rbc Leukoreduced Unit 0 / 0
[id number]
Packed Rbc Leukoreduced Unit 250 / 250
[id number]
Packed Rbc Leukoreduced Unit 250 / 250
[id number]
Output:
Drain Output (Total) 700 / 700 310 / 310
Right Middle Abdomen Joaquim- 700 / 700 310 / 310
Perales A
Urine, Voided 1040 / 1040 1000 / 1000
Vital Signs
Temp Pulse Resp BP Pulse Ox
98.0 F 72 11 116/68 98
02/06/25 07:00 02/06/25 06:00 02/06/25 06:00 02/06/25 06:00 02/06/25 06:00
Lab Results
02/06/25 03:49
02/06/25 03:49
Calcium 7.1 mg/dl (8.4-10.2) L 02/06/25 03:49
Phosphorus 3.3 mg/dl (2.5-4.5) 02/06/25 03:49
Magnesium 2.1 mg/dl (1.6-2.3) 02/06/25 03:49
Total Bilirubin 1.1 mg/dl (0.2-1.3) 02/02/25 07:28
AST 26 U/L (17-59) 02/02/25 07:28
ALT 22 U/L (0-50) 02/02/25 07:28
Alkaline Phosphatase 53 U/L (38-126) 02/02/25 07:28
Total Protein 4.5 g/dl (6.3-8.2) L 02/02/25 07:28
Albumin 2.1 g/dl (3.5-5.0) L 02/02/25 07:28
Physical Exam
-
Gen: NAd
Abd: soft, approp ttp, incisiom cdi with inocencio, serous drainage, drain with ss fluid
Patient has a winters catheter: No
Patient has a central line: Yes (PICC)
--- NOTE | 2025-02-06 07:55 | PTCARENOTE ---
On walking rounds Pt AAOx3, Blood transfusing as ordered , TPN transfusing as ordered. NSR on monitor. R dual PICC. Dr vázquez saw pt new orderd written. Pt for low res diet
[2025-02-06] MEDS: FLOMAX 0.8 MG PO (08:42)
[2025-02-06] MEDS: D5/0.45%NACL 1000 IV ×2 (08:43→21:48)
[2025-02-06] MEDS: TORADOL 15 MG IV (11:39)
[2025-02-06 13:08] LABS: Glucose - Point of Care 119 mg/dl (70-99)
[2025-02-06] MEDS: ROXICODONE 5 MG PO (14:56)
[2025-02-06 23:05] LABS: Glucose - Point of Care 109 mg/dl (70-99)
[2025-02-07] VITALS (12 sets, daily range): BP systolic 107–134; BP diastolic 65–80; BMI 32.6
[2025-02-07] MEDS: ROXICODONE 5 MG PO ×2 (02:19→08:53)
[2025-02-07] MEDS: ZOSYN 50 IV ×4 (03:25→22:41)
[2025-02-07] MEDS: DILAUDID 1 MG IV ×3 (03:25→11:06)
[2025-02-07] MEDS: TYLENOL PO (03:26)
[2025-02-07 06:17] LABS: Glucose - Point of Care 86 mg/dl (70-99)
[2025-02-07 06:37] LABS: Blood Urea Nitrogen 24 mg/dl (9-20); Calcium 6.6 mg/dl (8.4-10.2); Carbon Dioxide 21 mmol/L (22-30); Chloride 106 mmol/L (98-107); Estimated Creatinine Clearance > 125 ml/min; Glucose 340 mg/dl (70-99); Potassium 4.7 mmol/L (3.5-5.1); Sodium 128 mmol/L (135-145); eGFR > 60.00
[2025-02-07 06:51] LABS: Hematocrit 21.8 % (39.0-52.0); Hemoglobin 7.6 g/dL (13.0-18.0); Mean Corp Hgb Conc. 34.9 g/dL (33.0-37.0); Mean Corpuscular Volume 85.8 fL (80.0-94.0); Platelet Count 546 10^3/uL (130-400); Red Cell Dist. Width 14.3 % (11.5-14.5)
[2025-02-07] MEDS: FLOMAX 0.8 MG PO (08:51)
[2025-02-07] MEDS: TYLENOL 1000 MG PO ×3 (08:51→20:48)
[2025-02-07] MEDS: D5/0.45%NACL 1000 IV (11:06)
--- NOTE | 2025-02-07 11:13 | W.PN.GS2 ---
Today's Communication / Plan
-
`
Assessment / Plan
-
Assessment: 49yoM who presented with SBO secondary to malignant obstruction
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 Lymphovascular invasion identified. Negative resection margins. Mesenteric peritoneal tumor implants multiple.
POD #12 ex lap for Right hemicolectomy with cystoscopy for stent for identification of the right ureter (stent removed on pod #1 by urology)
POD #7 take back to OR for ex lap, bowel resection d/t anastomotic leak with abdominal washout
Increased ss drain output and transient hypotension responsive to fluids on
30 am --> 2 u PRBC transfused
Additional 1 unit transfusion overnight 02/05--> following last transfusion hemoglobin has been stable at 7.3 to 7.6 this a.m. 02/07/2025
SHANICE drain output more serosanguineous than sanguinous and trending down
Plan:
-- Low residue diet with ensure BID however cautioned to snack throughout the day with smaller portions rather than larger isolated meals
-- Abx: Zosyn
-- Follow SHANICE outputs
-- Pain control: Tylenol, Toradol, IV Dilaudid
-- D5 1/2NS at 75cc/hr, decrease when PO intake adequate
-- Repeating BMP as multiple electrolyte abnormalities no and glucose abnormally elevated at 340 may be reflective of lab error/poor lab draw then accurate assessment of electrolytes
-- DVT: Lovenox on hold, SCDs in place
-- Increase activity, OOB, PT
-- Tentative plan for IR guided liver biopsy 02/09/2025
Subjective Data
-
Date of Service: February 07, 2025
Patient seen and examined. at bedside.
Discussed with patient's nurse.
Continued postoperative abdominal pain but essentially unchanged. No worse.
Tolerated low residue diet yesterday but states he over ate as he had 2 full meals
Passing flatus, bowel movements
No nausea but feels full
Objective Data
-
Intake and Output
02/06/25 02/07/25 02/08/25
06:59 06:59 06:59
Intake Total 2338 / 2338 1269 / 1269
Output Total 1310 / 1310 250 / 250
Balance 1028 / 1028 1019 / 1019
Intake:
Oral fluids 480 / 480
IV fluids (Total) 852 / 852
IV piggybacks 250 / 250 100 / 100
TPN/PPN 1608 / 1608 67 / 67
Blood Product Amount Infused ( 0 / 0 250 / 250
mL)
Packed Rbc Leukoreduced Unit 0 / 0 250 / 250
[id number]
Output:
Drain Output (Total) 310 / 310 50 / 50
Right Middle Abdomen Joaquim- 310 / 310 50 / 50
Perales A
Urine, Voided 1000 / 1000 200 / 200
Other:
Number of approximated SMALL 3
amounts of urine
Number of approximated MODERATE 1
amounts of urine
Vital Signs
Temp Pulse Resp BP Pulse Ox
100.7 F H 72 14 121/68 98
02/07/25 07:05 02/07/25 06:00 02/07/25 06:00 02/07/25 06:00 02/07/25 06:00
Lab Results
02/07/25 05:53
Calcium 6.6 mg/dl (8.4-10.2) L* 02/07/25 05:53
Phosphorus 3.3 mg/dl (2.5-4.5) 02/06/25 03:49
Magnesium 2.1 mg/dl (1.6-2.3) 02/06/25 03:49
Total Bilirubin 1.1 mg/dl (0.2-1.3) 02/02/25 07:28
AST 26 U/L (17-59) 02/02/25 07:28
ALT 22 U/L (0-50) 02/02/25 07:28
Alkaline Phosphatase 53 U/L (38-126) 02/02/25 07:28
Total Protein 4.5 g/dl (6.3-8.2) L 02/02/25 07:28
Albumin 2.1 g/dl (3.5-5.0) L 02/02/25 07:28
Physical Exam
-
NAD AAO x 3 lying in hospital bed
ABD: Softly distended, mild generalized tenderness
SHANICE with serosanguineous fluid -not kyung blood, no clot in bulb
Keep midline incisional dressing change this a.m. and remains clean
[2025-02-07 12:15] LABS: Albumin 2.2 g/dl (3.5-5.0); Blood Urea Nitrogen 24 mg/dl (9-20); Calcium 7.5 mg/dl (8.4-10.2); Carbon Dioxide 21 mmol/L (22-30); Chloride 105 mmol/L (98-107); Estimated Creatinine Clearance > 125 ml/min; Glucose 94 mg/dl (70-99); Potassium 5.2 mmol/L (3.5-5.1); Sodium 130 mmol/L (135-145); eGFR > 60.00
--- NOTE | 2025-02-07 12:33 | PTCARENOTE ---
Pt reporting 9/10 abd pain at start of shift - pain control achieved with alternating oxy/dilaudid IV. AAO x 3; VSS; NSR on monitor. Skin pale; + 1 BLE, KH SCD's on/legs elevated while in bed. Pt OOB to bathroom and walking halls at times.
Will continue to monitor and assess.
[2025-02-07] MEDS: TORADOL 15 MG IV (13:10)
[2025-02-07] MEDS: NSS 1000 IV (13:13)
[2025-02-07 16:27] LABS: Glucose - Point of Care 98 mg/dl (70-99)
[2025-02-07] MEDS: MOTRIN 600 MG PO (18:57)
[2025-02-08] VITALS (8 sets, daily range): BP systolic 121–140; BP diastolic 69–81; BMI 32.4
--- NOTE | 2025-02-08 01:41 | PTCARENOTE ---
Wound dressings completed per order set.
SHANICE drain C/D/I.
Pt. wants to avoid using IVP and Oral Opioid medications as he reports bowel issues. Would like to utilize lower pain scale PRNs and scheduled APAP to manage pain. This technical proposal writer confirmed plan w. Patient and informed him of all PRN pain options.
Remains hemodynamically stable, ambulating w.o assistance, all questions answered.
[2025-02-08] MEDS: NSS 1000 IV (03:05)
[2025-02-08] MEDS: ZOSYN 50 IV ×4 (03:05→21:57)
[2025-02-08] MEDS: TYLENOL 1000 MG PO ×3 (03:06→20:25)
[2025-02-08 03:38] LABS: Hematocrit 24.3 % (39.0-52.0); Hemoglobin 8.5 g/dL (13.0-18.0); Mean Corp Hgb Conc. 35.0 g/dL (33.0-37.0); Mean Corpuscular Volume 84.7 fL (80.0-94.0); Platelet Count 764 10^3/uL (130-400); Red Cell Dist. Width 14.0 % (11.5-14.5)
[2025-02-08 03:47] LABS: Blood Urea Nitrogen 22 mg/dl (9-20); Calcium 7.8 mg/dl (8.4-10.2); Carbon Dioxide 22 mmol/L (22-30); Chloride 108 mmol/L (98-107); Estimated Creatinine Clearance > 125 ml/min; Glucose 98 mg/dl (70-99); Magnesium 1.9 mg/dl (1.6-2.3); Potassium 5.0 mmol/L (3.5-5.1); Sodium 132 mmol/L (135-145); eGFR > 60.00
[2025-02-08] MEDS: MOTRIN 600 MG PO (04:41)
[2025-02-08] MEDS: FLOMAX 0.8 MG PO (09:12)
--- NOTE | 2025-02-08 10:17 | W.PN.GS2 ---
Today's Communication / Plan
-
`
Assessment / Plan
-
Assessment: 49yoM who presented with SBO secondary to malignant obstruction
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 Lymphovascular invasion identified. Negative resection margins. Mesenteric peritoneal tumor implants multiple.
POD #13 ex lap for Right hemicolectomy with cystoscopy for stent for identification of the right ureter (stent removed on pod #1 by urology)
POD #8 take back to OR for ex lap, bowel resection d/t anastomotic leak with abdominal washout
7 am --> 2 u PRBC transfused
Additional 1 unit transfusion overnight 02/05--> following last transfusion hemoglobin has been stable at 7.3 to 7.6 this a.m. 02/07/2025
SHANICE drain output light SSF
WBC remains in low 20s, may be reactive as clinically improving
hyponatremia improving
mild hyperkalemia resolved
Plan:
-- stable for transfer to floors; no telemetry necessary
-- Low residue diet with ensure BID however cautioned to snack throughout the day with smaller portions rather than larger isolated meals
-- Abx: Zosyn
-- Follow SHANICE outputs
-- Pain control: Tylenol, Ibuprofen
-- D/c IVF
-- DVT: Lovenox on hold, SCDs in place
-- Increase activity, OOB, PT
-- Tentative plan for IR guided liver biopsy 02/09/2025
Subjective Data
-
Date of Service: February 08, 2025
pt seen and examined
multiple BMs and voiding frequently
pain controlled, pt states he is trying to avoid/minimize narcotics
Objective Data
-
Intake and Output
02/07/25 02/08/25 02/09/25
06:59 06:59 06:59
Intake Total 1269 / 1269 1200 / 1200
Output Total 250 / 250 340 / 340
Balance 1019 / 1019 860 / 860
Intake:
Oral fluids 200 / 200
IV fluids (Total) 852 / 852 1000 / 1000
IV piggybacks 100 / 100
TPN/PPN 67 / 67
Blood Product Amount Infused ( 250 / 250
mL)
Packed Rbc Leukoreduced Unit 250 / 250
[id number]
Output:
Drain Output (Total) 50 50 190 / 190
Right Middle Abdomen Joaquim- 190 / 190
Perales A
Urine, Voided 200 / 200 150 / 150
Other:
Number of approximated SMALL 3
amounts of urine
Number of approximated MODERATE 1 1
amounts of urine
Number of approximated LARGE 2
amounts of urine
Vital Signs
Temp Pulse Resp BP Pulse Ox
98.5 F 62 16 133/69 98
02/08/25 07:33 02/08/25 06:00 02/08/25 06:00 02/08/25 02:00 02/08/25 06:15
Lab Results
02/08/25 03:12
02/08/25 03:12
Calcium 7.8 mg/dl (8.4-10.2) L 02/08/25 03:12
Phosphorus 3.3 mg/dl (2.5-4.5) 02/06/25 03:49
Magnesium 1.9 mg/dl (1.6-2.3) 02/08/25 03:12
Total Bilirubin 1.1 mg/dl (0.2-1.3) 02/02/25 07:28
AST 26 U/L (17-59) 02/02/25 07:28
ALT 22 U/L (0-50) 02/02/25 07:28
Alkaline Phosphatase 53 U/L (38-126) 02/02/25 07:28
Total Protein 4.5 g/dl (6.3-8.2) L 02/02/25 07:28
Albumin 2.2 g/dl (3.5-5.0) L 02/07/25 11:31
Physical Exam
-
NAD AAOx3
ABD: softer, not significantly distended, mild TTP, no R/R/G
SHANICE with light SSF
--- NOTE | 2025-02-08 12:56 | PTCARENOTE ---
Pt downgraded to med/surg; Report given to Edelmira AGUILA on ; Moved to rm 211 in wheelchair.
[2025-02-08] MEDS: TYLENOL PO (16:13)
[2025-02-08] MEDS: DILAUDID 1 MG IV (22:00)
[2025-02-09] MEDS: TYLENOL 1000 MG PO ×4 (03:35→21:54)
[2025-02-09] MEDS: ZOSYN 50 IV ×4 (03:35→21:54)
[2025-02-09] MEDS: DILAUDID 1 MG IV ×6 (04:35→22:42)
[2025-02-09 04:46] LABS: Hematocrit 28.1 % (39.0-52.0); Hemoglobin 9.7 g/dL (13.0-18.0); Mean Corp Hgb Conc. 34.5 g/dL (33.0-37.0); Mean Corpuscular Volume 85.9 fL (80.0-94.0); Platelet Count 1175 10^3/uL (130-400); Red Cell Dist. Width 14.0 % (11.5-14.5)
[2025-02-09 05:05] LABS: Blood Urea Nitrogen 21 mg/dl (9-20); Calcium 8.2 mg/dl (8.4-10.2); Carbon Dioxide 22 mmol/L (22-30); Chloride 106 mmol/L (98-107); Estimated Creatinine Clearance > 125 ml/min; Glucose 96 mg/dl (70-99); Potassium 5.0 mmol/L (3.5-5.1); Sodium 134 mmol/L (135-145); eGFR > 60.00
[2025-02-09 06:00] VITALS: BMI 31.9
[2025-02-09 07:33] VITALS: BP 103/70
--- NOTE | 2025-02-09 08:07 | W.PN.ONC2 ---
Today's Communication / Plan
-
OP follow up will be arranged upon discharge
Impression
Impression
Stage III colon cancer, T4N2M0
s/p ex lap for hemicolectomy c/b anastomotic leak s/p bowel resection/wash out 02/04
anemia s/p 3U prbc during hospitalization
Plan
Plan
postoperative chemotherapy will be planned upon hospital recovery.
transfuse Hgb <7 or as needed for sxs anemia
Subjective/Objective
Subjective
no new complaints
pain controlled
ambulating
Vital Signs:
Vital Signs
Temp Pulse Resp BP Pulse Ox
98.0 F 65 16 103/70 100
02/09/25 07:33 02/09/25 07:33 02/09/25 07:33 02/09/25 07:33 02/09/25 07:33
Lab Results:
Laboratory Data
WBC 22.8 10^3/uL (4.8-10.8) H 02/09/25 04:31
Hgb 9.7 g/dL (13.0-18.0) L 02/09/25 04:31
Plt Count 1175 10^3/uL (130-400) H D 02/09/25 04:31
PT 20.0 Sec (11.4-14.6) H 02/04/25 06:10
INR 1.65 02/04/25 06:10
APTT 38.7 Sec (23.4-35.0) H 02/04/25 06:10
eGFR > 60.00 02/09/25 04:31
Physical Exam
HEENT: No Jaundice
Pulmonary: Other (unlabored)
GI: Soft
Extremities: Pulses Present
[2025-02-09] MEDS: FLOMAX 0.8 MG PO (08:19)
--- NOTE | 2025-02-09 10:29 | CM ---
Reviewed the chart notes. Low residue diet continues. SHANICE drain in place. Tentative plan for IR guided liver biopsy today. CM continues to be available to patient/family and is monitoring medical plan for needs at discharge.
Plan: Discharge to home when medically stable. No needs anticipated if SHANICE drain removed prior to discharge.
--- NOTE | 2025-02-09 11:52 | W.PN.GS2 ---
Today's Communication / Plan
-
ID eval
Assessment / Plan
-
Assessment: 49yoM who presented with SBO secondary to malignant obstruction
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 Lymphovascular invasion identified. Negative resection margins. Mesenteric peritoneal tumor implants multiple.
POD #14 ex lap for Right hemicolectomy with cystoscopy for stent for identification of the right ureter (stent removed on pod #1 by urology)
POD #9 take back to OR for ex lap, bowel resection d/t anastomotic leak with abdominal washout
CT on 02/04 with likely intra-abdominal hematoma, lack of IV contrast limits evaluation but no clear evidence of organized collection
02/04 am --> 2 u PRBC transfused
Additional 1 unit transfusion overnight 02/05--> following last transfusion hemoglobin has been stable and rising
SHANICE drain output light SSF
Tolerating diet with good bowel function
WBC remains in low 20s, may be reactive as clinically improving
Thrombocytosis likely reactive
hyponatremia improving
d/w IR, tentative liver biopsy was planned today. Lesion is likely too small to biopsy. Will cancel for today given ongoing leukocytosis
Plan:
-- Low residue diet with ensure BID
-- Abx: Zosyn. consult placed to ID for assistance with abx selection.
-- Follow SHANICE outputs, will liklely be able to remove drain prior to d/c
-- Pain control: Tylenol, Ibuprofen
-- C/W PICC for now
-- DVT: Lovenox on hold, SCDs in place
-- Increase activity, OOB, PT
Subjective Data
-
Date of Service: February 09, 2025
Pt seen and examined at bedside with Dr. Philip. Hoffmann n/v. Passing stools and flatus. Pain improved from previous. Feeling a bit less fatigued.
Objective Data
-
Intake and Output
02/08/25 02/09/25 02/10/25
06:59 06:59 06:59
Intake Total 1200 / 1200 640 / 640 480 / 480
Output Total 340 / 340 288 / 288 120 / 120
Balance 860 / 860 352 / 352 360 / 360
Intake:
Oral fluids 200 / 200 640 / 640 480 / 480
IV fluids (Total) 1000 / 1000
Output:
Drain Output (Total) 190 / 190 63 20 20
Right Middle Abdomen Joaquim- 190 / 190
Perales A
Urine, Voided 150 / 150 225 / 225 100 / 100
Other:
Number of approximated MODERATE 1 1 2
amounts of urine
Number of approximated LARGE 2
amounts of urine
Vital Signs
Temp Pulse Resp BP Pulse Ox
98.0 F 65 16 103/70 100
02/09/25 07:33 02/09/25 07:33 02/09/25 07:33 02/09/25 07:33 02/09/25 07:33
Lab Results
02/09/25 04:31
02/09/25 04:31
Calcium 8.2 mg/dl (8.4-10.2) L 02/09/25 04:31
Phosphorus 3.3 mg/dl (2.5-4.5) 02/06/25 03:49
Magnesium 1.9 mg/dl (1.6-2.3) 02/08/25 03:12
Total Bilirubin 1.1 mg/dl (0.2-1.3) 02/02/25 07:28
AST 26 U/L (17-59) 02/02/25 07:28
ALT 22 U/L (0-50) 02/02/25 07:28
Alkaline Phosphatase 53 U/L (38-126) 02/02/25 07:28
Total Protein 4.5 g/dl (6.3-8.2) L 02/02/25 07:28
Albumin 2.2 g/dl (3.5-5.0) L 02/07/25 11:31
Physical Exam
-
NAD AAOx3
ABD: softer, not significantly distended, mild TTP, no R/R/G
SHANICE with light SSF
Patient has a central line: Yes (PICC)
--- NOTE | 2025-02-09 14:51 | CON.ID ---
Consultation
-
Date/Time Consultation Requested: Consult request 02/09/25
Date/Time Consultation Performed: Consult performed 02/09/25
Performing Provider: Katie Jaimes MD
Reason for Consultation: perforated viscous
Chief Complaint / Past History
Chief Complaint
The patient was admitted 01/24/25 via ED with abdominal pain
History of Present Illness
The patient was afebrile on admission with WBC 8.4 and was afebrile at the time of initial evaluation in the ED with temperature of 98.5
CT imaging was done with findings suggestive of partial SBO with findings terminal ileum suggestive of malignancy with sanjuana mass 4.5x4.0x3.5 suggestive of malignancy
Urology placed ureteral stent for ureter protection and patient was taken to OR 01/25/25 for resection of malignant mass and node resection. Pathology showed well differentiated endocrine tumor in the terminal ileum with node invasion. Resection
showed clean margins of the anastomosis with 5/40 nodes positive along with small peritoneal implants.
The patient did well during the immediate post operative period with worrisome findings on 01/30/[address] imaging showing suspicious findings suggestive of bowel leak . The patient was taken back to the OR for repair of perforated viscous with
anastomotic leak and repair performed with surgical pathology supporting this finding.
The patient continues to improve with ability to tolerate oral intake and ambulate with assistance. The patient continues on IV Zosyn with slow decline of leukocytosis from WBC 35.6 and currently 22.8 with patient afebrile .There is thrombocytosis
which often occurs with inflammation as well as with malignancy. There are no differentials available
Past History
Past Medical History: None (no medical history )
Past Surgical History: None
Allergy History:
No Known Allergies Allergy (Unverified 01/24/25 15:45)
Medications Reviewed: Yes
Social History
Tobacco: Non-Smoker
Alcohol: Occasional
Drug: None
Personal:
Employment: Employed
Family History
Family History: Not Pertinent
Review of Systems
Review of Systems
General: Other (reports no symptoms)
Vital Signs
Temp Pulse Resp BP Pulse Ox
98.0 F 65 16 103/70 100
02/09/25 07:33 02/09/25 07:33 02/09/25 07:33 02/09/25 07:33 02/09/25 07:33
Physical Exam
Physical Exam
Constitutional: No Acute Distress, Well Developed, Comfortable and Obese (comfortable at rest with abdominal discomfort at suture line)
Head: Normocephalic
Eyes: Pupils Equal, Pupils Round, No Conjunctival Hemorrhage, Sclera Anicteric and Erythema
Pharynx: Benign
Oral: No Thrush and No Ulcers
Cardiovascular: Regular Rate
Pulmonary: Clear (slightly diminished breath sounds at both bases)
Gastrointestinal: Soft and Tender (quiet bowel sounds)
Genito-Urinary: Other (no flank tenderness)
Extremities: Other (mild edema with fair ROM , pulses present)
Skin: Warm and Dry (no pruritis, no excoriation)
Wound: Other (surgical wound with inocencio intact)
Neurological: Awake, Alert, Oriented, AO x 3 and No Motor Deficits (conversant , appropriate)
Psychological: Calm (pleasant)
Lab / Diagnostic Study Results
02/09/25 04:31
02/09/25 04:31
Abs Immat Gran (auto) 0.1 10^3/uL (0-0.05) H 01/27/25 05:36
Absolute Neuts (auto) 11.6 10^3/uL (1.4-6.5) H 01/27/25 05:36
Absolute Lymphs (auto) 0.7 10^3/uL (1.2-3.4) L 01/27/25 05:36
Absolute Monos (auto) 0.7 10^3/uL (0.1-0.6) H 01/27/25 05:36
Absolute Basos (auto) 0.1 10^3/uL (0-0.2) 01/27/25 05:36
Immature Gran % 0.4 % (0-0.5) 01/27/25 05:36
Neutrophils % 87.5 % (42.2-75.2) H 01/27/25 05:36
Lymphocytes % 5.5 % (20.5-51.1) L 01/27/25 05:36
Monocytes % 5.5 % (1.7-9.3) 01/27/25 05:36
Eosinophils % 0.6 % (0-6) 01/27/25 05:36
Basophils % 0.5 % (0-2) 01/27/25 05:36
PT 20.0 Sec (11.4-14.6) H 02/04/25 06:10
INR 1.65 02/04/25 06:10
Ur Squamous Epith Cells 6-10 /LPF (Few) 01/26/25 18:19
Microbiology Results
Micro:
none
Assessment / Plan
1. Patient with surgical resection of tumor/malignant node found terminal ileum with anastomosis 01/25/25
Pathology with well differentiated endocrine tumor with clean margins, small peritoneal implants present, node malignant , 5/40 nodes positive , appendix neg
2. Patient taken back to OR 01/30/25 with perforated viscous at site of anastomosis with successful repair
3. Leukocytosis slowly decreasing with patient afebrile and with oral intake WBC 35.6 on February 04 and currently WBC 22.8
4. Thrombocytosis continues with likely etiology inflammation, malignancy
5. Patient currently on Zosyn with slow but steady improvement without positive culture results or fever
6. Most recent CT 02/04/25 shows no evidence of obstruction
Large collection right abdomen lateral suggestive of hematoma
LUQ collection seroma or infection
Small amount of free fluid in pelvis with simple cystic attenuation value
7. Well patient continues to improve In setting of perforated viscus and recent leukocytosis infection cannot be completely ruled out
8 At this time would continue Zosyn and would repeat CT abdomen to assess for peritoneal studding as well as for large drainable collections
Thank you for calling infectious disease consultation. The ID team will continue to follow with you. Please call us with any questions or concerns
Care Review
Total Time Spent with Patient (in minutes): 55 minutes
[2025-02-09 15:10] VITALS: BP 116/71
--- NOTE | 2025-02-09 15:31 | VATNOTE ---
Per MD note, PICC to remain in place at this time. Will reassess need tomorrow.
[2025-02-09] MEDS: FLUSH (NSS) 1 FLUSH IV ×3 (19:43→22:42)
[2025-02-09] MEDS: ROXICODONE 5 MG PO (21:56)
[2025-02-09 23:31] VITALS: BP 113/70
[2025-02-10] MEDS: DILAUDID 1 MG IV ×5 (02:22→20:20)
[2025-02-10] MEDS: FLUSH (NSS) 1 FLUSH IV ×2 (02:25→05:01)
[2025-02-10] MEDS: TYLENOL PO ×2 (04:07→11:40)
[2025-02-10] MEDS: ZOSYN 50 IV ×4 (05:00→21:30)
[2025-02-10] MEDS: TYLENOL 1000 MG PO ×3 (05:00→20:20)
[2025-02-10] MEDS: ROXICODONE 5 MG PO ×4 (05:01→21:31)
[2025-02-10 06:00] VITALS: BMI 31.6
--- NOTE | 2025-02-10 07:41 | W.PN.GS2 ---
Today's Communication / Plan
-
-- CT abdomen/pelvis with PO and IV contrast
Assessment / Plan
-
Assessment: 49yoM who presented with SBO secondary to malignant obstruction
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 Lymphovascular invasion identified. Negative resection margins. Mesenteric peritoneal tumor implants multiple.
POD #15 ex lap for Right hemicolectomy with cystoscopy for stent for identification of the right ureter (stent removed on pod #1 by urology)
POD #10 take back to OR for ex lap, bowel resection d/t anastomotic leak with abdominal washout
CT on 02/04 with likely intra-abdominal hematoma, lack of IV contrast limits evaluation but no clear evidence of organized collection
02/04 am --> 2 u PRBC transfused
Additional 1 unit transfusion overnight 02/05--> following last transfusion hemoglobin has been stable and rising
SHANICE drain output light SSF
Tolerating diet with good bowel function
WBC remains in low 20s, may be reactive as clinically improving
Thrombocytosis likely reactive
Hyponatremia improving
d/w IR, tentative liver biopsy was planned today. Lesion is likely too small to biopsy.
Repeat CT abdomen and pelvis with PO and IV contrast to assess for un-drained intra-abdominal collections and cause for persistent WBC. Possible DC in the days to come if CT looks OK and clinically continues to improve.
Plan:
-- CT abdomen/pelvis with PO and IV contrast to assess for untrained collections and cause for persistent WBC
-- Low residue diet with ensure BID
-- Abx: Zosyn. consult placed to ID for assistance with abx selection.
-- Follow SHANICE outputs, will likely be able to remove drain prior to d/c
-- Pain control: Tylenol, Ibuprofen
-- C/W PICC for now
-- DVT: Lovenox on hold, SCDs in place
-- Increase activity, OOB, PT
Subjective Data
-
Date of Service: February 10, 2025
Feels little improved. Denies worsening abdominal pain. No nausea or vomiting. Passing flatus and stools. Afebrile.
Objective Data
-
Intake and Output
02/09/25 02/10/25 02/11/25
06:59 06:59 06:59
Intake Total 640 / 640 1200 / 1200
Output Total 288 / 288 300 / 300
Balance 352 / 352 900 / 900
Intake:
Oral fluids 640 / 640 1200 / 1200
Output:
Drain Output (Total) 50
Right Middle Abdomen Joaquim-
Perales A
Urine, Voided 225 / 225 250 / 250
Other:
Number of approximated MODERATE 1 2
amounts of urine
Vital Signs
Temp Pulse Resp BP Pulse Ox
98.8 F 74 18 113/70 99
02/09/25 23:31 02/09/25 23:31 02/09/25 23:31 02/09/25 23:31 02/09/25 23:31
Calcium 8.2 mg/dl (8.4-10.2) L 02/09/25 04:31
Phosphorus 3.3 mg/dl (2.5-4.5) 02/06/25 03:49
Magnesium 1.9 mg/dl (1.6-2.3) 02/08/25 03:12
Total Bilirubin 1.1 mg/dl (0.2-1.3) 02/02/25 07:28
AST 26 U/L (17-59) 02/02/25 07:28
ALT 22 U/L (0-50) 02/02/25 07:28
Alkaline Phosphatase 53 U/L (38-126) 02/02/25 07:28
Total Protein 4.5 g/dl (6.3-8.2) L 02/02/25 07:28
Albumin 2.2 g/dl (3.5-5.0) L 02/07/25 11:31
Physical Exam
-
Gen: NAD
Abd: soft, mild tenderness, mild distension, non-peritoneal, midline dressing c/d/i, SHANICE serosang
Patient has a winters catheter: No
Patient has a central line: No
[2025-02-10 07:52] VITALS: BP 120/73
[2025-02-10 08:36] LABS: Hematocrit 24.9 % (39.0-52.0); Hemoglobin 8.5 g/dL (13.0-18.0); Mean Corp Hgb Conc. 34.1 g/dL (33.0-37.0); Mean Corpuscular Volume 87.7 fL (80.0-94.0); Platelet Count 1068 10^3/uL (130-400); Red Cell Dist. Width 14.2 % (11.5-14.5)
[2025-02-10] MEDS: OMNIPAQUE 50 ML PO (08:39)
[2025-02-10 09:36] LABS: Blood Urea Nitrogen 19 mg/dl (9-20); Calcium 7.7 mg/dl (8.4-10.2); Carbon Dioxide 23 mmol/L (22-30); Chloride 105 mmol/L (98-107); Estimated Creatinine Clearance > 125 ml/min; Glucose 91 mg/dl (70-99); Potassium 4.9 mmol/L (3.5-5.1); Sodium 132 mmol/L (135-145); eGFR > 60.00
[2025-02-10 10:02] VITALS: BP 133/77
--- NOTE | 2025-02-10 12:37 | CM ---
Patient seen at bedside with physician on . Patient stated that he is feeling better and is concerned about possible IV antibiotic needs at discharge. Pending ID consult per chart review. CM will continue to follow for discharge planning
needs.
Plan;home with no needs vs home with IV antibiotic needs; watch for recommendations
[2025-02-10] MEDS: FLOMAX 0.8 MG PO (13:30)
[2025-02-10 15:36] VITALS: BP 123/71
--- NOTE | 2025-02-10 18:12 | VATNOTE ---
called to assess pt.s complaint of right forearm pain; only when extends right arm out. Pt states he noticed the pain yest. States its 'shooting'; compared right and left arms since right arm has PICC in it. no difference in size. Mentioned to PCN,
Madison, that this VAT RN did not believe pt needed an US at this time.
--- NOTE | 2025-02-10 19:55 | W.PN.ID1 ---
Date of Service
Date of Service: February 10, 2025
Today's Communication
communicated extensively with patient and about role of IR in managing and draining infectious collections
discussed patient with [facility] [place] care nurse
Assessment / Plan
1. Patient with surgical resection of tumor/malignant node found terminal ileum with anastomosis 01/25/25
Pathology with well differentiated endocrine tumor with clean margins, small peritoneal implants present, node malignant , 5/40 nodes positive , appendix neg
2. Patient taken back to OR 01/30/25 with perforated viscous at site of anastomosis with successful repair
3. Leukocytosis slowly decreasing with patient afebrile and with oral intake WBC 35.6 on February 04 and currently WBC 16
4. Thrombocytosis continues with likely etiology inflammation, malignancy
5. Patient currently on Zosyn with slow but steady improvement without positive culture results or fever
6. Most recent CT 02/04/25 shows no evidence of obstruction
Large collection right abdomen lateral suggestive of hematoma
LUQ collection seroma or infection
Small amount of free fluid in pelvis with simple cystic attenuation value versus infected collections
Likely IR drainage if possible
7. Well patient continues to improve In setting of perforated viscus and recent leukocytosis infection cannot be completely ruled out
8 At this time would continue Zosyn and would repeat CT abdomen to assess for peritoneal studding as well as for large drainable collections
Thank you for calling infectious disease consultation. The ID team will continue to follow with you. Please call us with any questions or concerns
Chief Complaint
-: Other (peritonitis from perforated viscous)
Subjective / Review of Systems
Review of Systems: No Fever, No Chills, No Headache, No Pharyngitis, No Stiff Neck, No Swollen Lymph Nodes, No Cough, No Sputum Production, No Chest Pain, No Palpitations, Abdominal Pain, No Nausea, No Vomiting, No Diarrhea, No Dysuria, No Joint
Pain and No Skin Rash
Vital Signs / Physical Exam
Vital Signs
Vital Signs
Temp Pulse Resp BP Pulse Ox
98.6 F 76 16 123/71 97
02/10/25 15:36 02/10/25 15:36 02/10/25 15:36 02/10/25 15:36 02/10/25 15:36
Physical Exam
Constitutional: No Acute Distress, Well Developed, Comfortable, Acutely Ill, Non-toxic and Obese
Head: Normocephalic
Eyes: Pupils Equal, Pupils Round, No Conjunctival Hemorrhage and Sclera Anicteric
Oropharyngeal: Benign
Cardiovascular: Regular Rate
Pulmonary: Clear
Gastrointestinal: Tender, Distended and Normal Bowel Sounds
Genito-Urinary: Clear Urine
Extremities: Pulses
Skin: Warm and Dry
Wound: Other (intact midline incision)
Neurological: Awake, Alert, Oriented, AO x 3 and No Motor Deficits
Psychological: Calm
Objective Data
Lab Data
Lab Results
02/10/25 08:15
02/10/25 08:15
PT 20.0 Sec (11.4-14.6) H 02/04/25 06:10
INR 1.65 02/04/25 06:10
APTT 38.7 Sec (23.4-35.0) H 02/04/25 06:10
Estimated Creat Clear > 125 ml/min 02/10/25 08:15
Total Bilirubin 1.1 mg/dl (0.2-1.3) 02/02/25 07:28
AST 26 U/L (17-59) 02/02/25 07:28
ALT 22 U/L (0-50) 02/02/25 07:28
Alkaline Phosphatase 53 U/L (38-126) 02/02/25 07:28
Most recent labs reviewed.
Microbiology: Report Reviewed
Chest X-Ray: Report Reviewed
CT Scan: Report Reviewed
Care Review
Plan reviewed with: Nurse and Other ( and patient)
Total Time Spent with Patient (in minutes): 55
[2025-02-10 23:30] VITALS: BP 120/72
[2025-02-11] VITALS (12 sets, daily range): BP systolic 72–136; BP diastolic 72–84; BMI 31.3
[2025-02-11] MEDS: DILAUDID 1 MG IV ×5 (00:49→21:00)
[2025-02-11] MEDS: ROXICODONE 5 MG PO ×2 (03:01→19:18)
[2025-02-11] MEDS: ZOSYN 50 IV ×4 (03:02→21:00)
[2025-02-11] MEDS: TYLENOL 1000 MG PO ×3 (03:02→21:00)
[2025-02-11 06:18] LABS: Hematocrit 24.2 % (39.0-52.0); Hemoglobin 8.2 g/dL (13.0-18.0); Mean Corp Hgb Conc. 33.9 g/dL (33.0-37.0); Mean Corpuscular Volume 88.0 fL (80.0-94.0); Platelet Count 1112 10^3/uL (130-400); Red Cell Dist. Width 14.1 % (11.5-14.5)
[2025-02-11] MEDS: FLOMAX 0.8 MG PO (08:08)
--- NOTE | 2025-02-11 09:53 | W.PN.GS2 ---
Today's Communication / Plan
-
IR for possible drain placement
Assessment / Plan
-
Assessment: 49yoM who presented with SBO secondary to malignant obstruction
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 Lymphovascular invasion identified. Negative resection margins. Mesenteric peritoneal tumor implants multiple.
POD #16 ex lap for Right hemicolectomy with cystoscopy for stent for identification of the right ureter (stent removed on pod #1 by urology)
POD #11 take back to OR for ex lap, bowel resection d/t anastomotic leak with abdominal washout
CT on 02/11/2025 Demonstrated multiple intra-abdominal abscesses.
SHANICE drain output light SSF
Tolerating diet with good bowel function
WBC down to 16
Thrombocytosis likely reactive
Hyponatremia improving
Plan:
-- IR consulted for possible drain placement of his intra-abdominal abscesses.
-- N.p.o. for now, okay to resume low residue diet with ensure BID supplements after procedure.
-- Abx: Zosyn. Appreciate ID input.
-- Follow SHANICE outputs, will likely be able to remove drain prior to discharge
-- Pain control: Tylenol, Ibuprofen
-- C/W PICC for now
-- DVT: Lovenox on hold, SCDs in place
-- Increase activity, OOB, PT
Time Spent
Total Time Spent with Patient (in minutes): 20
Subjective Data
-
Date of Service: February 11, 2025
Interval Events:
No acute events overnight. Slept well. Pain Controlled. Denies Nausea/Vomiting, +bowel function. Tolerating diet.
Objective Data
-
Intake and Output
02/10/25 02/11/25 02/12/25
06:59 06:59 06:59
Intake Total 1200 / 1200 1660 / 1660
Output Total 300 / 300 32 / 32
Balance 900 / 900 1628 / 1628
Intake:
Oral fluids 1200 / 1200 1560 / 1560
IV piggybacks 100 / 100
Output:
Drain Output (Total) 50 / 50 30 / 30
Right Middle Abdomen Joaquim- 50 30 / 30
Perales A
Urine, Voided 250 / 250 2 / 2
Other:
Number of approximated MODERATE 2 5
amounts of urine
Vital Signs
Temp Pulse Resp BP Pulse Ox
99.0 F 72 16 128/74 99
02/11/25 07:35 02/11/25 07:35 02/11/25 07:35 02/11/25 07:35 02/11/25 07:35
Lab Results
02/11/25 05:45
02/10/25 08:15
Calcium 7.7 mg/dl (8.4-10.2) L 02/10/25 08:15
Phosphorus 3.3 mg/dl (2.5-4.5) 02/06/25 03:49
Magnesium 1.9 mg/dl (1.6-2.3) 02/08/25 03:12
Total Bilirubin 1.1 mg/dl (0.2-1.3) 02/02/25 07:28
AST 26 U/L (17-59) 02/02/25 07:28
ALT 22 U/L (0-50) 02/02/25 07:28
Alkaline Phosphatase 53 U/L (38-126) 02/02/25 07:28
Total Protein 4.5 g/dl (6.3-8.2) L 02/02/25 07:28
Albumin 2.2 g/dl (3.5-5.0) L 02/07/25 11:31
Physical Exam
-
GENERAL/NEURO: Awake, Alert, no distress
CHEST: Unlabored breathing on RA
ABDOMEN: Soft, Non-Tender, Non-Distended, SHANICE with minimal serosanguineous output. Midline incision clean dry intermittent inocencio, draining appropriately.
Patient has a winters catheter: No
Patient has a central line: No
--- NOTE | 2025-02-11 10:59 | CM ---
Reviewed the chart notes and spoke with the patient and spouse at the bedside. Patient anticipates going to IR for possible drain placement today. CM continues to be available to patient/family and is monitoring medical plan for needs at discharge.
Plan: Discharge plans will depend on the patient's progress.
[2025-02-11] MEDS: TYLENOL PO (15:57)
--- NOTE | 2025-02-11 16:55 | W.PN.UPDATE ---
Update Note
Progress Note Update
- CT guided drainage of L midabdomen and LUQ/subdiaphragmatic collections.
- 6F drain placed into L midabdomen with return of serosanguineous fluid.
- 8F drain placed into LUQ collection with return of green purulent fluid. Total of 50 mL aspirated. Viscous. This drain may have minimally transgressed the pleural reflection.
- Drain orders placed. Pt tolerated well.
--- NOTE | 2025-02-11 21:01 | W.PN.ID1 ---
Date of Service
Date of Service: February 11, 2025
Today's Communication
patient with continued abscess collections with improvement //drains in place with one collection with bloody output and the other with green.montoya thick pus -like out- put
Assessment / Plan
1. Patient with surgical resection of tumor/malignant node found terminal ileum with anastomosis 01/25/25
Pathology with well differentiated endocrine tumor with clean margins, small peritoneal implants present, node malignant , 5/40 nodes positive , appendix neg
2. Patient taken back to OR 01/30/25 with perforated viscous at site of anastomosis with successful repair
3. Leukocytosis slowly decreasing with patient afebrile and with oral intake WBC 35.6 on February 04 and currently WBC 16
4. Thrombocytosis continues with likely etiology inflammation, malignancy
5. Patient currently on Zosyn with slow but steady improvement without positive culture results or fever
6. Most recent CT 02/04/25 shows no evidence of obstruction
Large collection right abdomen lateral suggestive of hematoma
LUQ collection seroma or infection
Small amount of free fluid in pelvis with simple cystic attenuation value versus infected collections
IR drainage done of two left sided collections via CT guidance others without drainage at this time
7. Patient continues to improve In setting of perforated viscus and recent leukocytosis stable
8 At this time would continue Zosyn and would repeat CT abdomen next week or sooner to assess for peritoneal studding as well as for large drainable collections
Thank you for calling infectious disease consultation. The ID team will continue to follow with you. Please call us with any questions or concerns
Chief Complaint
-: Other (peritonitis from perforated viscous with multiple abscess collections in abdomen for IR drainage today)
Subjective / Review of Systems
Review of Systems: No Fever, No Chills, No Headache, No Pharyngitis, No Stiff Neck, No Cough, No Sputum Production, No Chest Pain, No Palpitations, Abdominal Pain, Nausea, No Vomiting, No Diarrhea, No Dysuria and No Skin Rash
Vital Signs / Physical Exam
Vital Signs
Vital Signs
Temp Pulse Resp BP Pulse Ox
99.2 F 90 16 124/75 96
02/11/25 18:00 02/11/25 18:00 02/11/25 18:00 02/11/25 18:00 02/11/25 18:00
Physical Exam
Constitutional: No Acute Distress, Well Developed, Comfortable, Acutely Ill and Non-toxic
Head: Normocephalic
Eyes: Pupils Equal, Pupils Round, No Conjunctival Hemorrhage and Sclera Anicteric
Oropharyngeal: Benign
Pulmonary: Clear and Non Labored (decreased breath sounds at bases)
Gastrointestinal: Soft, Tender, Distended and Decreased Bowel Sounds (new drains now in place by IR for peritoneal collections )
Genito-Urinary: Clear Urine
Skin: Warm and Dry
Wound: Other (painful tender )
Neurological: Awake, Alert, Oriented, AO x 3 (gait not evaluated) and No Motor Deficits
Psychological: Calm
Objective Data
Lab Data
Lab Results
02/11/25 05:45
02/10/25 08:15
PT 20.0 Sec (11.4-14.6) H 02/04/25 06:10
INR 1.65 02/04/25 06:10
APTT 38.7 Sec (23.4-35.0) H 02/04/25 06:10
Estimated Creat Clear > 125 ml/min 02/10/25 08:15
Total Bilirubin 1.1 mg/dl (0.2-1.3) 02/02/25 07:28
AST 26 U/L (17-59) 02/02/25 07:28
ALT 22 U/L (0-50) 02/02/25 07:28
Alkaline Phosphatase 53 U/L (38-126) 02/02/25 07:28
Most recent labs reviewed.
Microbiology: Report Reviewed (will follow up on new specimens obtained by IR today)
Micro Results:
02/11/25 15:35 Wound Culture - Pending
Abdomen Gram Stain - Preliminary
02/11/25 16:12 Wound Culture - Pending
Abdomen Gram Stain - Preliminary
Chest X-Ray: Report Reviewed
CT Scan: Report Reviewed
Care Review
Plan reviewed with: Nurse (discussed with critical care nurse)
Total Time Spent with Patient (in minutes): 45
[2025-02-12] MEDS: DILAUDID 1 MG IV ×7 (00:32→23:34)
[2025-02-12] MEDS: ROXICODONE 5 MG PO ×2 (03:04→11:07)
[2025-02-12] MEDS: ZOSYN 50 IV ×4 (03:04→21:00)
[2025-02-12] MEDS: TYLENOL 1000 MG PO ×4 (03:04→20:22)
[2025-02-12 03:05] VITALS: BP 120/78
[2025-02-12 05:54] VITALS: BMI 31.0
[2025-02-12 08:05] VITALS: BP 128/79
--- NOTE | 2025-02-12 08:20 | W.PN.ONC2 ---
Today's Communication / Plan
-
discharge planning
Pt at bedside provided updates and questions answered
Impression
Impression
Stage III colon cancer, [id number]
s/p ex lap for hemicolectomy c/b anastomotic leak s/p bowel resection/wash out 02/04
anemia s/p 3U prbc during hospitalization
Plan
Plan
postoperative chemotherapy will be planned upon hospital recovery.
transfuse Hgb <7 or as needed for sxs anemia
Subjective/Objective
Subjective
no new complaints
Vital Signs:
Vital Signs
Temp Pulse Resp BP Pulse Ox
98.2 F 74 17 120/78 98
02/12/25 03:05 02/12/25 03:05 02/12/25 03:05 02/12/25 03:05 02/12/25 03:05
Lab Results:
Laboratory Data
WBC 16.0 10^3/uL (4.8-10.8) H 02/11/25 05:45
Hgb 8.2 g/dL (13.0-18.0) L 02/11/25 05:45
Plt Count 1112 10^3/uL (130-400) H 02/11/25 05:45
PT 20.0 Sec (11.4-14.6) H 02/04/25 06:10
INR 1.65 02/04/25 06:10
APTT 38.7 Sec (23.4-35.0) H 02/04/25 06:10
eGFR > 60.00 02/10/25 08:15
Physical Exam
HEENT: Moist Mucous Membranes; No Jaundice
Pulmonary: Other (unlabored)
GI: Other (abdominal surgical dressing CDI)
Extremities: Pulses Present
[2025-02-12] MEDS: FLOMAX 0.8 MG PO (08:25)
--- NOTE | 2025-02-12 10:09 | CM ---
Reviewed the chart notes. Patient had additional two drains placed in abdomen yesterday. CM continues to be available to patient/family and is monitoring medical plan for needs at discharge.
Plan: Discharge plans will depend on the patient's progress.
--- NOTE | 2025-02-12 10:33 | W.PN.GS2 ---
Today's Communication / Plan
-
`
Assessment / Plan
-
Assessment: 49yoM who presented with SBO secondary to malignant obstruction
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 Lymphovascular invasion identified. Negative resection margins. Mesenteric peritoneal tumor implants multiple.
POD #17 ex lap for Right hemicolectomy with cystoscopy for stent for identification of the right ureter (stent removed on pod #1 by urology)
POD #12 take back to OR for ex lap, bowel resection d/t anastomotic leak with abdominal washout
02/11/2025 -IR drainage left upper quadrant perisplenic fluid collection and left-mid sided fluid collection
SHANICE drain output light SSF
-- Mid abdomen collection with no organisms and no WBC
-- Left subdiaphragmatic collection with rare gram-negative rods
Plan:
--Low residue diet
-- Abx: Zosyn. Appreciate ID input. -> Will continue to follow for culture results
-- Maintain all current drains but will assess for appropriateness of removal potentially prior to discharge
-- Pain control: Tylenol, Ibuprofen
-- C/W PICC for now
-- DVT: Lovenox resumed today, SCDs in place
-- Increase activity, OOB, PT
Subjective Data
-
Date of Service: February 12, 2025
Patient seen and examined. Resting comfortably in hospital bed.
Patient's on conference call during our discussions
Reports some discomfort at new IR drain sites but no new generalized abdominal pain
Continued overall improvement in abdominal distention and fullness
Passing flatus and continues with bowel movements
Tolerating low residue diet without nausea or vomiting
Objective Data
-
Intake and Output
02/11/25 02/12/25 02/13/25
06:59 06:59 06:59
Intake Total 1660 / 1660 270 / 270
Output Total 32 / 32 295 / 295
Balance 1628 / 1628 -25 / -25
Intake:
Oral fluids 1560 / 1560
IV piggybacks 100 250 / 250
Amount instilled into Drain (
Total)
Left Abdomen A Placed in IR
Left Upper Abdomen B Placed in
IR
Output:
Drain Output (Total)
Left Abdomen A Placed in IR
Left Upper Abdomen B Placed in 50 / 50
IR
Right Middle Abdomen Joaquim-
Perales A
Urine, Voided 200 / 200
Other:
Number of approximated MODERATE 5
amounts of urine
Vital Signs
Temp Pulse Resp BP Pulse Ox
98.9 F 69 16 128/79 98
02/12/25 08:05 02/12/25 08:05 02/12/25 08:05 02/12/25 08:05 02/12/25 08:05
Lab Results
02/11/25 05:45
02/10/25 08:15
Calcium 7.7 mg/dl (8.4-10.2) L 02/10/25 08:15
Phosphorus 3.3 mg/dl (2.5-4.5) 02/06/25 03:49
Magnesium 1.9 mg/dl (1.6-2.3) 02/08/25 03:12
Total Bilirubin 1.1 mg/dl (0.2-1.3) 02/02/25 07:28
AST 26 U/L (17-59) 02/02/25 07:28
ALT 22 U/L (0-50) 02/02/25 07:28
Alkaline Phosphatase 53 U/L (38-126) 02/02/25 07:28
Total Protein 4.5 g/dl (6.3-8.2) L 02/02/25 07:28
Albumin 2.2 g/dl (3.5-5.0) L 02/07/25 11:31
Physical Exam
-
NAD AAO x 3
ABD: Soft, nondistended, minimal tenderness on palpation
Midline laparotomy incision with inocencio and a few small open areas. No purulence. No seromas. No erythema.
Right sided surgical SHANICE with serosanguineous fluid
Left upper lateral IR drain -purulent no enteric contents
Left upper paramedian IR drain -mostly serous
[2025-02-12 11:15] VITALS: BP 119/68
--- NOTE | 2025-02-12 16:27 | W.PN.ID1 ---
Date of Service
Date of Service: February 12, 2025
Today's Communication
spoke with critical care nurse today and
Assessment / Plan
1. Patient with surgical resection of tumor/malignant node found terminal ileum with anastomosis 01/25/25
Pathology with well differentiated endocrine tumor with clean margins, small peritoneal implants present, node malignant , 5/40 nodes positive , appendix neg
2. Patient taken back to OR 01/30/25 with perforated viscous at site of anastomosis with successful repair
3. Leukocytosis slowly decreasing with patient afebrile and with oral intake WBC 35.6 on February 04 and currently WBC 16
4. Thrombocytosis continues with likely etiology inflammation, malignancy
5. Patient currently on Zosyn with slow but steady improvement without positive culture results or fever
6. Most recent CT 02/04/25 shows no evidence of obstruction
Large collection right abdomen lateral suggestive of hematoma
LUQ collection seroma or infection
Small amount of free fluid in pelvis with simple cystic attenuation value versus infected collections
IR drainage done of two left sided collections via CT guidance others without drainage at this time
7. Patient continues to improve In setting of perforated viscus and recent leukocytosis stable
8 At this time would continue Zosyn and would repeat CT abdomen next week or sooner to assess for peritoneal studding as well as for large drainable collections
9. Mild coating of tonue suggestive of ild oral thrush will suggest nystatin 'swish-swallow' or similar
Thank you for calling infectious disease consultation. The ID team will continue to follow with you. Please call us with any questions or concerns
Chief Complaint
-: Other (peritonitis from perforated viscous with multiple abscess collections in abdomen for IR drainage today)
Subjective / Review of Systems
patient with peritonitis with fluid collections with IR drains place in 2 of the collections with continued drainage
Review of Systems: No Fever, No Chills, No Headache, No Pharyngitis, No Stiff Neck, No Swollen Lymph Nodes, No Cough, No Sputum Production, No Chest Pain, No Palpitations, Abdominal Pain, No Nausea, No Vomiting, No Diarrhea, No Dysuria, No Joint
Pain and No Skin Rash
Vital Signs / Physical Exam
Vital Signs
Vital Signs
Temp Pulse Resp BP Pulse Ox
98.5 F 74 16 119/68 98
02/12/25 11:15 02/12/25 11:15 02/12/25 11:15 02/12/25 11:15 02/12/25 11:15
Physical Exam
Constitutional: Well Developed, Acutely Ill and Non-toxic
Head: Normocephalic
Eyes: Pupils Equal, Pupils Round, No Conjunctival Hemorrhage and Sclera Anicteric
Oropharyngeal: Benign and Thrush
Cardiovascular: Regular Rate
Pulmonary: Clear and Non Labored
Gastrointestinal: Tender, Non Distended and Decreased Bowel Sounds (drains in place,tender surgical sites)
Skin: Warm and Dry
Wound: Other (surgical wounds /drains tender)
Neurological: Awake, Alert, Oriented, AO x 3 and No Motor Deficits
Psychological: Calm (cooperative, conversant, pleasnt)
Objective Data
Lab Data
Lab Results
02/11/25 05:45
02/10/25 08:15
PT 20.0 Sec (11.4-14.6) H 02/04/25 06:10
INR 1.65 02/04/25 06:10
APTT 38.7 Sec (23.4-35.0) H 02/04/25 06:10
Estimated Creat Clear > 125 ml/min 02/10/25 08:15
Total Bilirubin 1.1 mg/dl (0.2-1.3) 02/02/25 07:28
AST 26 U/L (17-59) 02/02/25 07:28
ALT 22 U/L (0-50) 02/02/25 07:28
Alkaline Phosphatase 53 U/L (38-126) 02/02/25 07:28
Most recent labs reviewed.
Microbiology: Report Reviewed
Micro Results:
02/11/25 16:12 Wound Culture - Preliminary
Abdomen No growth
Gram Stain - Preliminary
02/11/25 15:35 Wound Culture - Preliminary
Abdomen No growth
Gram Stain - Preliminary
CT Scan: Report Reviewed
Care Review
Plan reviewed with: Nurse ()
Total Time Spent with Patient (in minutes): 35
[2025-02-12] MEDS: LOVENOX 40 MG SC (17:49)
[2025-02-12 23:36] VITALS: BP 122/70
[2025-02-13] MEDS: TYLENOL 1000 MG PO ×4 (03:10→20:53)
[2025-02-13] MEDS: ZOSYN 50 IV ×4 (03:10→21:00)
[2025-02-13] MEDS: DILAUDID 1 MG IV ×2 (03:11→06:12)
[2025-02-13 04:40] LABS: Hematocrit 23.5 % (39.0-52.0); Hemoglobin 8.0 g/dL (13.0-18.0); Mean Corp Hgb Conc. 34.0 g/dL (33.0-37.0); Mean Corpuscular Volume 86.7 fL (80.0-94.0); Platelet Count 1025 10^3/uL (130-400); Red Cell Dist. Width 14.0 % (11.5-14.5)
[2025-02-13 04:51] LABS: Blood Urea Nitrogen 17 mg/dl (9-20); Calcium 8.0 mg/dl (8.4-10.2); Carbon Dioxide 28 mmol/L (22-30); Chloride 102 mmol/L (98-107); Estimated Creatinine Clearance > 125 ml/min; Glucose 98 mg/dl (70-99); Potassium 4.4 mmol/L (3.5-5.1); Sodium 131 mmol/L (135-145); eGFR > 60.00
[2025-02-13 05:57] VITALS: BMI 30.6
[2025-02-13 07:35] VITALS: BP 122/73
[2025-02-13] MEDS: FLOMAX 0.8 MG PO (08:20)
[2025-02-13] MEDS: ROXICODONE 10 MG PO (08:26)
--- NOTE | 2025-02-13 11:20 | W.PN.GS2 ---
Addendum entered and electronically signed by Chadd Sandoval MD 02/13/25 12:50:
Patient seen and examined. Agree with assessment plan as documented below.
No major complaints. Continues with mild to moderate abdominal soreness. Tolerating diet. Reports passing flatus and looser, nonbloody stools. Afebrile. Ambulating. Voiding.
Gen: NAD
Abd: soft, moderate tenderness, ND, non-peritoneal, midline dressing c/d/i, inocencio in place, operative drain with minimal serosang output, LEFT mid-abdominal IR drain with serosang output, LUQ drain purulent
Patient is a 49 yo M who presented with SBO secondary to malignant obstruction
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 Lymphovascular invasion identified. Negative resection margins. Mesenteric peritoneal tumor implants multiple.
POD #18 ex lap for Right hemicolectomy with cystoscopy for stent for identification of the right ureter (stent removed on pod #1 by urology)
POD #13 take back to OR for ex lap, bowel resection d/t anastomotic leak with abdominal washout
OR SHANICE drain with output light scant SSF, removed
02/11/2025 -IR drainage left upper quadrant perisplenic fluid collection (purulent) and left-mid sided fluid collection (serous), both with scant outputs
-- Mid abdomen collection with no organisms and no WBC
-- Left subdiaphragmatic collection with rare gram-negative rods
AVSS
Leukocytosis trending down
H/H stable
Mild hyponatremia persists
Plan:
-- Regular diet as tolerated
-- Abx: Zosyn. Appreciate ID input. -> Will continue to follow for culture results. Eventual repeat imaging, likely as OP given his continued improvement
-- Maintain both IR drains, anticipate will remain in place upon d/c. SHANICE from OR removed at bedside.
-- Pain control: scheduled Tylenol, Ibuprofen & Oxycodone (dosage increased). Dilaudid for breakthrough.
-- C/W PICC for now
-- DVT: Lovenox sq, SCDs in place
-- Increase activity, OOB, PT
Nearing readiness for d/c with close outpatient follow up. Tentatively in next 24-48hours pending labs, cultures
Original Note:
Today's Communication / Plan
-
c/w abx
pain management
Assessment / Plan
-
Assessment: 49yoM who presented with SBO secondary to malignant obstruction
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 Lymphovascular invasion identified. Negative resection margins. Mesenteric peritoneal tumor implants multiple.
POD #18 ex lap for Right hemicolectomy with cystoscopy for stent for identification of the right ureter (stent removed on pod #1 by urology)
POD #13 take back to OR for ex lap, bowel resection d/t anastomotic leak with abdominal washout
OR SHANICE drain with output light scant SSF, removed
02/11/2025 -IR drainage left upper quadrant perisplenic fluid collection (purulent) and left-mid sided fluid collection (serous), both with scant outputs
-- Mid abdomen collection with no organisms and no WBC
-- Left subdiaphragmatic collection with rare gram-negative rods
Leukocytosis trending down
H/H stable
Mild hyponatremia persists
Afebrile. VSS
Plan:
-- Regular diet as tolerated
-- Abx: Zosyn. Appreciate ID input. -> Will continue to follow for culture results. Eventual repeat imaging, likely as OP given his continued improvement
-- Maintain both IR drains, anticipate will remain in place upon d/c. SHANICE from OR removed at bedside.
-- Pain control: scheduled Tylenol, prn Ibuprofen & Oxycodone (dosage increased). Dilaudid for breakthrough.
-- C/W PICC for now
-- DVT: Lovenox sq, SCDs in place
-- Increase activity, OOB, PT
nearing readiness for d/c with close outpatient follow up. Tentatively in next 24-48hours pending labs, cultures.
Subjective Data
-
Date of Service: February 13, 2025
Pt seen and examined at bedside with Dr. Sandoval. Denies n/v. Tolerating diet with semi-formed stools. Having frequent BM's. Passing flatus. Pain gradually improving.
Objective Data
-
Intake and Output
02/12/25 02/13/25 02/14/25
06:59 06:59 06:59
Intake Total 270 / 270 480 / 480
Output Total 295 / 295 40 / 40
Balance -25 440 / 440
Intake:
Oral fluids 420 / 420
IV piggybacks 250 / 250 50 / 50
Amount instilled into Drain ( 20 / 20 10 / 10
Total)
Left Abdomen A Placed in IR 10 / 10 5 / 5
Left Upper Abdomen B Placed in 10 / 10 5 / 5
IR
Output:
Drain Output (Total) 95 / 95 40 / 40
Left Abdomen A Placed in IR 30 / 30 10 / 10
Left Upper Abdomen B Placed in 50 / 50 10 / 10
IR
Right Middle Abdomen Joaquim- 15 / 15 20 / 20
Perales A
Urine, Voided 200 / 200
Other:
Number of approximated MODERATE 4
amounts of urine
Vital Signs
Temp Pulse Resp BP Pulse Ox
98.8 F 75 18 122/73 97
02/13/25 07:35 02/13/25 07:35 02/13/25 07:35 02/13/25 07:35 02/13/25 07:35
Lab Results
02/13/25 04:19
02/13/25 04:19
Calcium 8.0 mg/dl (8.4-10.2) L 02/13/25 04:19
Phosphorus 3.3 mg/dl (2.5-4.5) 02/06/25 03:49
Magnesium 1.9 mg/dl (1.6-2.3) 02/08/25 03:12
Total Bilirubin 1.1 mg/dl (0.2-1.3) 02/02/25 07:28
AST 26 U/L (17-59) 02/02/25 07:28
ALT 22 U/L (0-50) 02/02/25 07:28
Alkaline Phosphatase 53 U/L (38-126) 02/02/25 07:28
Total Protein 4.5 g/dl (6.3-8.2) L 02/02/25 07:28
Albumin 2.2 g/dl (3.5-5.0) L 02/07/25 11:31
Physical Exam
-
NAD AAO x 3
ABD: Soft, nondistended, minimal tenderness on palpation
Midline laparotomy incision with inocencio and a few small open areas. No purulence. No seromas. No erythema.
Right sided surgical SHANICE with minimal serosanguineous fluid
Left upper lateral IR drain -purulent no enteric contents
Left upper paramedian IR drain -mostly serous, rust colored old blood
Patient has a winters catheter: No
Patient has a central line: Yes (picc)
[2025-02-13] MEDS: MOTRIN 600 MG PO (15:19)
[2025-02-13 15:35] VITALS: BP 121/74
--- NOTE | 2025-02-13 16:16 | CM ---
Chart reviewed and patient's plan is to return to home with [facility], patient to return to home with SHANICE drains in place.
Plan; Home with spouse and [facility].
--- NOTE | 2025-02-13 16:29 | W.PN.ID1 ---
Date of Service
Date of Service: February 13, 2025
Today's Communication
discussed with nurse this AM
Assessment / Plan
1. Patient with surgical resection of tumor/malignant node found terminal ileum with anastomosis 01/25/25
Pathology with well differentiated endocrine tumor with clean margins, small peritoneal implants present, node malignant , 5/40 nodes positive , appendix neg
2. Patient taken back to OR 01/30/25 with perforated viscous at site of anastomosis with successful repair
3. Leukocytosis slowly decreasing with patient afebrile and with oral intake WBC 35.6 on February 04 and currently WBC 11.9
4. Thrombocytosis continues with likely etiology inflammation, malignancy
5. Patient currently on Zosyn with slow but steady improvement without positive culture results or fever
6. Most recent CT 02/04/25 shows no evidence of obstruction
Large collection right abdomen lateral suggestive of hematoma
LUQ collection seroma or infection
Small amount of free fluid in pelvis with simple cystic attenuation value versus infected collections
IR drainage done of two left sided collections via CT guidance others without drainage at this time
7. Patient continues to improve In setting of perforated viscus and recent leukocytosis improving
8 Would consider Ceftriaxone 2 Gm IV Q 24 upon discharge with Metronidazole 500 mg po Q [address] abdomen next 7 to 10 days to assess for peritoneal studding as well as for large remaining collections for IR drainage
Yeast was noted on recent abdominal fluid await identification for appropriate antifungal treatment
9. Mild coating of tongue suggestive of mlld oral thrush ( suggest nystatin 'swish-swallow' or Mycelex cierra)
Thank you for calling infectious disease consultation. The ID team will continue to follow with you. Please call us with any questions or concerns
Chief Complaint
-: Clinical Sepsis (improving abdominal abscesses, peritonitis) and Other (peritonitis from perforated viscous with multiple abscess collections in abdomen for IR drainage today)
Subjective / Review of Systems
Review of Systems: No Fever, No Chills, No Headache, No Pharyngitis, No Stiff Neck, No Swollen Lymph Nodes, No Cough, No Sputum Production, No Chest Pain, No Palpitations, Abdominal Pain, No Nausea, No Vomiting, No Diarrhea, No Dysuria, No Joint
Pain and No Skin Rash
Vital Signs / Physical Exam
Vital Signs
Vital Signs
Temp Pulse Resp BP Pulse Ox
99.4 F 82 16 121/74 97
02/13/25 15:35 02/13/25 15:35 02/13/25 15:35 02/13/25 15:35 02/13/25 15:35
Physical Exam
Constitutional: No Acute Distress, Well Developed, Comfortable, Acutely Ill, Chronically Ill and Non-toxic
Head: Normocephalic
Eyes: Pupils Equal, Pupils Round, No Conjunctival Hemorrhage and Sclera Anicteric
Oropharyngeal: Benign and Thrush (nystati swish/swallow or Mycelex troches )
Cardiovascular: Regular Rate
Pulmonary: Clear and Non Labored
Gastrointestinal: Soft, Tender, Distended, Decreased Bowel Sounds, No Rebound and No Guarding
Extremities: Other (good Rom able to ambulate)
Skin: Warm and Dry
Wound: Other (wap2ntfv abdominal surgical wound)
Neurological: Awake, Alert, Oriented, AO x 3, Normal Gait and No Motor Deficits
Psychological: Calm (conversant, cooperative, pleasant)
Objective Data
Lab Data
Lab Results
02/13/25 04:19
02/13/25 04:19
PT 20.0 Sec (11.4-14.6) H 02/04/25 06:10
INR 1.65 02/04/25 06:10
APTT 38.7 Sec (23.4-35.0) H 02/04/25 06:10
Estimated Creat Clear > 125 ml/min 02/13/25 04:19
Total Bilirubin 1.1 mg/dl (0.2-1.3) 02/02/25 07:28
AST 26 U/L (17-59) 02/02/25 07:28
ALT 22 U/L (0-50) 02/02/25 07:28
Alkaline Phosphatase 53 U/L (38-126) 02/02/25 07:28
Most recent labs reviewed.
Microbiology: Report Reviewed (concern regarding yeast /await identification for appropriate antifungal)
Micro Results:
02/11/25 15:35 Wound Culture - Final
Abdomen No growth
Gram Stain - Final
02/11/25 16:12 Wound Culture - Preliminary
Abdomen Yeast
Gram Stain - Preliminary
Care Review
Plan reviewed with: Nurse
Total Time Spent with Patient (in minutes): 45
[2025-02-13] MEDS: LOVENOX 40 MG SC (17:50)
[2025-02-13] MEDS: ROXICODONE 5 MG PO (19:56)
[2025-02-13] MEDS: ZOFRAN 4 MG IV (20:57)
[2025-02-13] MEDS: FLUSH (NSS) 1 FLUSH IV (20:59)
[2025-02-13] MEDS: MELATONIN 5 MG PO (21:43)
[2025-02-13] MEDS: TUMS CHEWABLE TABLET 200 MG PO (23:16)
[2025-02-13 23:20] VITALS: BP 121/73
[2025-02-14] MEDS: ROXICODONE 5 MG PO (02:14)
[2025-02-14] MEDS: TYLENOL 1000 MG PO ×2 (02:14→08:36)
[2025-02-14] MEDS: FLUSH (NSS) 1 FLUSH IV (04:19)
[2025-02-14] MEDS: ZOSYN 50 IV ×4 (04:20→21:42)
[2025-02-14 05:16] LABS: Hematocrit 23.8 % (39.0-52.0); Hemoglobin 8.2 g/dL (13.0-18.0); Mean Corp Hgb Conc. 34.5 g/dL (33.0-37.0); Mean Corpuscular Volume 86.5 fL (80.0-94.0); Platelet Count 1029 10^3/uL (130-400); Red Cell Dist. Width 14.0 % (11.5-14.5)
[2025-02-14 05:41] LABS: Blood Urea Nitrogen 18 mg/dl (9-20); Calcium 8.1 mg/dl (8.4-10.2); Carbon Dioxide 27 mmol/L (22-30); Chloride 102 mmol/L (98-107); Estimated Creatinine Clearance > 125 ml/min; Glucose 91 mg/dl (70-99); Potassium 4.9 mmol/L (3.5-5.1); Sodium 131 mmol/L (135-145); eGFR > 60.00
[2025-02-14 06:00] VITALS: BMI 30.3
[2025-02-14] MEDS: ZOFRAN 4 MG IV ×3 (06:43→21:39)
[2025-02-14 07:41] VITALS: BP 116/72
[2025-02-14] MEDS: FLOMAX 0.8 MG PO (08:36)
[2025-02-14] MEDS: MARINOL 2.5 MG PO (10:46)
--- NOTE | 2025-02-14 11:18 | W.PN.ID1 ---
Date of Service
Date of Service: February 14, 2025
Today's Communication
Add micafungin to Zosyn.
Assessment / Plan
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
Pathology with well differentiated endocrine tumor with clean margins, small peritoneal implants present, node malignant , 5/40 nodes positive , appendix neg
# 01/30/25 perforated viscous at site of anastomosis s/p repair
# Intra-abdominal abscesses s/p IR perc drain x 2 on 02/11/25
# Leukocytosis improving
- Abscess # 1 cx: no growth to date
-Abscess #2 cx: yeast. Asked micro to identify yeast.
- Start micafungin 100mg IV q24.
- Continue Zosyn for now.
- Trend wbc
Chief Complaint
-: Clinical Sepsis (improving abdominal abscesses, peritonitis) and Other (peritonitis from perforated viscous with multiple abscess collections in abdomen for IR drainage today)
Subjective / Review of Systems
Poor appetite.
Vital Signs / Physical Exam
Vital Signs
Vital Signs
Temp Pulse Resp BP Pulse Ox
98.4 F 69 16 116/72 98
02/14/25 07:41 02/14/25 07:41 02/14/25 07:41 02/14/25 07:41 02/14/25 07:41
Physical Exam
Constitutional: Non-toxic
Cardiovascular: Regular Rate and S1/S2
Pulmonary: Clear
Gastrointestinal: Soft, Tender (Mild), Distended, Decreased Bowel Sounds and Other (SHANICE#1 pus; SHANICE#2 serosanguinous fluid)
Extremities: Negative Edema
Neurological: AO x 3
Objective Data
Lab Data
Lab Results
02/14/25 04:36
02/14/25 04:36
PT 20.0 Sec (11.4-14.6) H 02/04/25 06:10
INR 1.65 02/04/25 06:10
APTT 38.7 Sec (23.4-35.0) H 02/04/25 06:10
Estimated Creat Clear > 125 ml/min 02/14/25 04:36
Total Bilirubin 1.1 mg/dl (0.2-1.3) 02/02/25 07:28
AST 26 U/L (17-59) 02/02/25 07:28
ALT 22 U/L (0-50) 02/02/25 07:28
Alkaline Phosphatase 53 U/L (38-126) 02/02/25 07:28
Most recent labs reviewed.
Micro Results:
02/11/25 15:35 Wound Culture - Final
Abdomen No growth
Gram Stain - Final
02/11/25 16:12 Wound Culture - Preliminary
Abdomen Yeast
Gram Stain - Preliminary
[2025-02-14] MEDS: MEGACE 40 MG PO (12:00)
[2025-02-14] MEDS: MYCAMINE 105 MG IV (12:00)
--- NOTE | 2025-02-14 12:02 | W.PN.GS2 ---
Today's Communication / Plan
-
change oral analgesics
follow labs/cx
Assessment / Plan
-
Assessment: 49yoM who presented with SBO secondary to malignant obstruction
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 Lymphovascular invasion identified. Negative resection margins. Mesenteric peritoneal tumor implants multiple.
POD #19 ex lap for Right hemicolectomy with cystoscopy for stent for identification of the right ureter (stent removed on pod #1 by urology)
POD #14 take back to OR for ex lap, bowel resection d/t anastomotic leak with abdominal washout
02/11/2025 -IR drainage left upper quadrant perisplenic fluid collection (purulent) and left-mid sided fluid collection (serous), both with scant outputs
-- Mid abdomen collection with no organisms and no WBC
-- Left subdiaphragmatic collection with rare gram-negative rods and yeast on prelim
OR SHANICE drain with output light scant SSF, removed on 02/13
Leukocytosis trended down, now stable
H/H stable
Mild hyponatremia persists
Afebrile. VSS
c/o nausea and anorexia, passing stools/flatus. ?related to initiation of PO oxycodone, will change PO analgesics
Plan:
-- Regular diet as tolerated
-- Abx: Zosyn. d/w ID given new findings of yeast on IR cx, will evaluate.
Nystatin initiated d/t oral thrush.
Will continue to follow for final culture results. Eventual repeat imaging in 1-2 weeks, likely as OP if he has continued improvement
-- Maintain both IR drains, anticipate will remain in place upon d/c pending LOS
-- Pain control: scheduled Tylenol, prn Ibuprofen & Tramadol
-- C/W PICC for now
-- DVT: Lovenox sq, SCDs in place
-- Increase activity, OOB, PT
-- Marinol x1 dose (unable to continue as scheduled d/t national shortage) then Megace BID
Subjective Data
-
Date of Service: February 14, 2025
Pt seen and examined at bedside with Dr. Yang. Reports nausea since switching to Po oxycodone. Still passing flatus and small loose stools. Poor appetite overall. at bedside, updated.
Objective Data
-
Intake and Output
02/13/25 02/14/25 02/15/25
06:59 06:59 06:59
Intake Total 480 / 480 1190 / 1190
Output Total
Balance 440 / 440 1164 / 1164
Intake:
Oral fluids 420 / 420 1190 / 1190
IV piggybacks 50 / 50
Amount instilled into Drain (
Total)
Left Abdomen A Placed in IR
Left Upper Abdomen B Placed in
IR
Output:
Drain Output (Total)
Left Abdomen A Placed in IR
Left Upper Abdomen B Placed in
IR
Right Middle Abdomen Joaquim-
Perales A
Other:
Number of approximated MODERATE 4 3 2
amounts of urine
Vital Signs
Temp Pulse Resp BP Pulse Ox
98.4 F 69 16 116/72 98
02/14/25 07:41 02/14/25 07:41 02/14/25 07:41 02/14/25 07:41 02/14/25 07:41
Lab Results
02/14/25 04:36
02/14/25 04:36
Calcium 8.1 mg/dl (8.4-10.2) L 02/14/25 04:36
Phosphorus 3.3 mg/dl (2.5-4.5) 02/06/25 03:49
Magnesium 1.9 mg/dl (1.6-2.3) 02/08/25 03:12
Total Bilirubin 1.1 mg/dl (0.2-1.3) 02/02/25 07:28
AST 26 U/L (17-59) 02/02/25 07:28
ALT 22 U/L (0-50) 02/02/25 07:28
Alkaline Phosphatase 53 U/L (38-126) 02/02/25 07:28
Total Protein 4.5 g/dl (6.3-8.2) L 02/02/25 07:
Albumin 2.2 g/dl (3.5-5.0) L 02/07/25 11:31
Physical Exam
-
NAD AAO x 3
Tongue with redness and white patches
ABD: Soft, nondistended, minimal tenderness on palpation
Midline laparotomy incision with inocencio and a few small open areas. No purulence. No seromas. No erythema.
Right prior SHANICE site without erythema, dressing changed
Left upper lateral IR drain -purulent no enteric contents
Left upper paramedian IR drain -mostly serous, rust colored old blood
Patient has a winters catheter: No
Patient has a central line: Yes (picc)
--- NOTE | 2025-02-14 13:11 | PTCARENOTE ---
Pt w/ nausea and vomiting despite Megace and 2.5mg dose of Marinol. Zofran IV given as ordered. Will continue to assess for nausea.
[2025-02-14 15:46] VITALS: BP 120/74
[2025-02-14] MEDS: TYLENOL PO (16:22)
[2025-02-14] MEDS: DILAUDID 1 MG IV ×2 (17:28→21:39)
--- NOTE | 2025-02-14 17:32 | W.PN.UPDATE ---
Update Note
Progress Note Update
Pt seen and evaluated at bedside with family present.
1. Nausea from this morning not improved. Continues to pass flatus/regular BM's. No distention on exam. Some epigastric tenderness. Obstruction series obtained and reviewed with patient and at bedside. Nonobstructive gas pattern. Drains in
place. No significant acute findings. Suspect nausea from transition from IV dilaudid to oral oxycodone as it began around that time, will avoid oxycodone going forward. For now will continue prn IV dilaudid with addition of Ofirmev IV q6h scheduled
to minimize narcotics. Offered NGT if vomiting persists, but given his XR findings, no pressing need for this. He declines at this time. Ok for clears for comfort. Will continue zofran with compazine prn for breakthrough nausea. d/c megace. IVF
initiated given poor PO intake. NSS at 75ml/hr.
2. Notes sensation of burning in his esophagus unclear if this is secondary to vomiting vs irritation from prior NGT vs thrush related. Will follow on Micafungin. Will add magic mouthwash prn and follow for improvement.
[2025-02-14] MEDS: NSS 1000 IV (17:33)
[2025-02-14] MEDS: LOVENOX 40 MG SC (18:36)
[2025-02-14] MEDS: COMPAZINE 5 MG IV (18:37)
[2025-02-14] MEDS: OFIRMEV IV (21:30)
[2025-02-14] MEDS: MELATONIN PO (22:40)
[2025-02-14] MEDS: OFIRMEV 100 IV (23:17)
[2025-02-14 23:40] VITALS: BP 124/78
[2025-02-15] MEDS: COMPAZINE 5 MG IV ×2 (00:34→07:20)
[2025-02-15] MEDS: DILAUDID 1 MG IV ×4 (00:34→21:54)
--- NOTE | 2025-02-15 01:35 | PTCARENOTE ---
Pt. with x2 bilious green emesis ~100ml each @2130 and 0030. Talked with patient about the possibility of needing an NGT again but pt. wants to hold off at the moment and talk with the physicians this AM.
[2025-02-15] MEDS: ZOSYN 50 IV ×4 (03:24→21:54)
[2025-02-15] MEDS: ZOFRAN 4 MG IV (03:31)
[2025-02-15 05:16] LABS: Hematocrit 25.3 % (39.0-52.0); Hemoglobin 8.6 g/dL (13.0-18.0); Mean Corp Hgb Conc. 34.0 g/dL (33.0-37.0); Mean Corpuscular Volume 86.3 fL (80.0-94.0); Platelet Count 1021 10^3/uL (130-400); Red Cell Dist. Width 14.1 % (11.5-14.5)
[2025-02-15 05:42] LABS: Blood Urea Nitrogen 21 mg/dl (9-20); Calcium 7.9 mg/dl (8.4-10.2); Carbon Dioxide 30 mmol/L (22-30); Chloride 100 mmol/L (98-107); Estimated Creatinine Clearance > 125 ml/min; Glucose 104 mg/dl (70-99); Potassium 4.9 mmol/L (3.5-5.1); Sodium 131 mmol/L (135-145); eGFR > 60.00
[2025-02-15] MEDS: OFIRMEV 100 IV ×3 (05:44→17:56)
[2025-02-15 07:05] VITALS: BP 126/76
[2025-02-15] MEDS: FLOMAX PO (07:19)
[2025-02-15] MEDS: NSS 1000 IV ×2 (07:20→22:03)
--- NOTE | 2025-02-15 08:05 | W.PN.GS2 ---
Today's Communication / Plan
-
place NGT to [facility]
Assessment / Plan
-
Assessment: 49yoM who presented with SBO secondary to malignant obstruction
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 Lymphovascular invasion identified. Negative resection margins. Mesenteric peritoneal tumor implants multiple.
POD #20 ex lap for Right hemicolectomy with cystoscopy for stent for identification of the right ureter (stent removed on pod #1 by urology)
POD #15 take back to OR for ex lap, bowel resection d/t anastomotic leak with abdominal washout
02/11/2025 -IR drainage left upper quadrant perisplenic fluid collection (purulent) and left-mid sided fluid collection (serous), both with scant outputs
-- Mid abdomen collection with no organisms and no WBC
-- Left subdiaphragmatic collection with rare gram-negative rods and yeast on prelim
OR SHANICE drain with output light scant SSF, removed on 02/13
Leukocytosis trended down, now stable
H/H stable
Mild hyponatremia persists
Afebrile. VSS
Nausea/vomiting for last 24 hours. not improved with holding oxycodone. suspect ileus vs early adhesive sbo
Plan:
-- NPO except ice chips for comfort
-- Place NGT
-- Abx: Zosyn, Micafungin. Appreciate ID
Will continue to follow for final culture results
-- Maintain both IR drains
-- Pain control: scheduled IV Tylenol, prn IV diluadid
-- C/W PICC for now, may need to resume TPN if prolonged NPO, hold off for now. Consult placed to nutrition
-- DVT: Lovenox sq, SCDs in place
-- Increase activity, OOB, PT
Subjective Data
-
Date of Service: February 15, 2025
Pt seen and examined at bedside with Dr. Yang. Nausea with vomiting overnight. Abdominal pain about the same as yesterday, no better or worse. Spouse updated via telephone.
Objective Data
-
Intake and Output
02/14/25 02/15/25 02/16/25
06:59 06:59 06:59
Intake Total 1190 / 1190 720 / 720
Output Total 525 / 525
Balance 1164 / 1164 195 / 195
Intake:
Oral fluids 1190 / 1190 720 / 720
Output:
Emesis 500 / 500
Drain Output (Total)
Left Abdomen A Placed in IR
Left Upper Abdomen B Placed in
IR
Other:
Number of approximated MODERATE 3 1
amounts of urine
Number of immeasurable emeses? 1
Vital Signs
Temp Pulse Resp BP Pulse Ox
99.9 F 92 17 124/78 95
02/14/25 23:40 02/14/25 23:40 02/14/25 23:40 02/14/25 23:40 02/15/25 07:35
Lab Results
02/15/25 04:49
02/15/25 04:49
Calcium 7.9 mg/dl (8.4-10.2) L 02/15/25 04:49
Phosphorus 3.3 mg/dl (2.5-4.5) 02/06/25 03:49
Magnesium 1.9 mg/dl (1.6-2.3) 02/08/25 03:12
Total Bilirubin 1.1 mg/dl (0.2-1.3) 02/02/25 07:28
AST 26 U/L (17-59) 02/02/25 07:28
ALT 22 U/L (0-50) 02/02/25 07:28
Alkaline Phosphatase 53 U/L (38-126) 02/02/25 07:28
Total Protein 4.5 g/dl (6.3-8.2) L 02/02/25 07:28
Albumin 2.2 g/dl (3.5-5.0) L 02/07/25 11:31
Physical Exam
-
NAD AAO x 3
Tongue with redness and white patches
ABD: Soft, minimal distention, minimal tenderness on palpation to epigastrium
Midline laparotomy incision with inocencio and a few small open areas. No purulence. No seromas. No erythema.
Right prior SHANICE site without erythema
Left upper lateral IR drain -purulent no enteric contents
Left upper paramedian IR drain -mostly serous, rust colored old blood
Patient has a winters catheter: No
Patient has a central line: Yes (picc)
--- NOTE | 2025-02-15 11:28 | W.PN.ID1 ---
Date of Service
Date of Service: February 15, 2025
Today's Communication
Continue antibiotics.
Assessment / Plan
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
- Pathology with well differentiated endocrine tumor with clean margins, small peritoneal implants present, node malignant , 5/40 nodes positive , appendix neg
# 01/30/25 perforated viscous at site of anastomosis s/p repair
# Intra-abdominal abscesses s/p IR perc drain x 2 on 02/11/25
# Leukocytosis improving
- Abscess # 1 cx: no growth to date
- Abscess #2 cx: yeast. Micro to workup.
- Continue Zosyn 3.375 gm IV q.6 hours (d#19) and micafungin 100mg IV q24 (d#2)
- Trend wbc
- Follow drain output
Chief Complaint
-: Clinical Sepsis (improving abdominal abscesses, peritonitis) and Other (peritonitis from perforated viscous with multiple abscess collections in abdomen )
Subjective / Review of Systems
Patient seen and examined. Reports prior nausea which is now improved with placement of NG tube. Minimal abdominal discomfort.
Vital Signs / Physical Exam
Vital Signs
Vital Signs
Temp Pulse Resp BP Pulse Ox
98.7 F 75 16 126/76 95
02/15/25 07:05 02/15/25 07:05 02/15/25 07:05 02/15/25 07:05 02/15/25 08:45
Physical Exam
Constitutional: No Acute Distress, Comfortable and Non-toxic
Head: Other (NG tube in place.)
Eyes: Sclera Anicteric
Cardiovascular: Regular Rate and S1/S2
Pulmonary: Clear
Gastrointestinal: Soft, Tender (Mild), Distended, Decreased Bowel Sounds and Other (SHANICE#1 pus; SHANICE#2 serosanguinous fluid)
Extremities: Negative Edema
Neurological: AO x 3
Psychological: Calm
Objective Data
Lab Data
Lab Results
02/15/25 04:49
02/15/25 04:49
PT 20.0 Sec (11.4-14.6) H 02/04/25 06:10
INR 1.65 02/04/25 06:10
APTT 38.7 Sec (23.4-35.0) H 02/04/25 06:10
Estimated Creat Clear > 125 ml/min 02/15/25 04:49
Total Bilirubin 1.1 mg/dl (0.2-1.3) 02/02/25 07:28
AST 26 U/L (17-59) 02/02/25 07:28
ALT 22 U/L (0-50) 02/02/25 07:28
Alkaline Phosphatase 53 U/L (38-126) 02/02/25 07:28
Most recent labs reviewed.
Micro Results:
02/11/25 16:12 Wound Culture - Preliminary
Abdomen Yeast
Gram Stain - Preliminary
02/11/25 15:35 Wound Culture - Final
Abdomen No growth
Gram Stain - Final
[2025-02-15] MEDS: MYCAMINE 105 MG IV (12:07)
[2025-02-15] MEDS: CATHFLO/ACTIVASE 2 MG INTRACATH (12:26)
[2025-02-15 15:30] VITALS: BP 118/72
[2025-02-15] MEDS: LOVENOX 40 MG SC (17:51)
[2025-02-15] MEDS: MELATONIN 5 MG PO (21:54)
[2025-02-15 23:21] VITALS: BP 117/72
[2025-02-16] MEDS: DILAUDID 1 MG IV ×6 (01:12→20:39)
[2025-02-16] MEDS: OFIRMEV 100 IV ×4 (01:12→18:07)
[2025-02-16] MEDS: ZOSYN 50 IV ×2 (03:24→10:10)
[2025-02-16 05:28] LABS: Hematocrit 24.9 % (39.0-52.0); Hemoglobin 8.4 g/dL (13.0-18.0); Mean Corp Hgb Conc. 33.7 g/dL (33.0-37.0); Mean Corpuscular Volume 87.4 fL (80.0-94.0); Platelet Count 956 10^3/uL (130-400); Red Cell Dist. Width 14.3 % (11.5-14.5)
[2025-02-16 05:35] LABS: ALT (SGPT) 46 U/L (0-50); AST (SGOT) 37 U/L (17-59); Albumin 2.2 g/dl (3.5-5.0); Alkaline Phosphatase 89 U/L (38-126); Blood Urea Nitrogen 21 mg/dl (9-20); Calcium 7.9 mg/dl (8.4-10.2); Carbon Dioxide 32 mmol/L (22-30); Chloride 99 mmol/L (98-107); Estimated Creatinine Clearance 111 ml/min; Glucose 82 mg/dl (70-99); Magnesium 1.9 mg/dl (1.6-2.3); Potassium 4.5 mmol/L (3.5-5.1); Sodium 134 mmol/L (135-145); Total Protein 5.1 g/dl (6.3-8.2); Triglycerides 54 mg/dl (10-149); eGFR > 60.00
[2025-02-16 07:45] VITALS: BP 114/73
[2025-02-16] MEDS: FLOMAX 0.8 MG PO (08:02)
[2025-02-16] MEDS: FLUSH (NSS) 2 FLUSH IV (08:04)
--- NOTE | 2025-02-16 09:33 | W.PN.GS2 ---
Addendum entered and electronically signed by Chadd Sandoval MD 02/16/25 09:55:
Patient seen and examined. Agree with assessment plan as documented below.
Related complaints. Denies any nausea. Feels improved compared to yesterday. Passing small amounts of flatus, no further BMs. No fevers.
Gen: NAD
HEENT: light bilious output
Abd: soft, minimal tenderness, mild distension, midline incision c/d/i - no erythema, ecchymosis or drainage, IR drains LEFT mid abd serosang, LUQ purulent
Assessment: 49yo M who presented with SBO secondary to malignant obstruction
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 Lymphovascular invasion identified. Negative resection margins. Mesenteric peritoneal tumor implants multiple.
POD #21 ex lap for Right hemicolectomy with cystoscopy for stent for identification of the right ureter (stent removed on pod #1 by urology)
POD #16 take back to OR for ex lap, bowel resection d/t anastomotic leak with abdominal washout
02/11/2025 -IR drainage left upper quadrant perisplenic fluid collection (purulent) and left-mid sided fluid collection (serous), both with scant outputs
-- Mid abdomen collection with no organisms and no WBC
-- Left subdiaphragmatic collection with rare gram-negative rods and yeast on prelim
OR SHANICE drain with output light scant SSF, removed on 02/13
Leukocytosis continues to trend down
H/H stable
Hyponatremia improved
Afebrile. VSS
NGT placed on 02/15/25 with >3L bilious output. Suspect delayed ileus, if no improvement may need PO contrast study for further evaluation pending patient course.
Plan:
-- NPO except ice chips for comfort
-- Continue NGT, ok to clamp for activity
-- Abx: Zosyn, Micafungin. Appreciate ID
Will continue to follow for final culture results
-- Maintain both IR drains, eventual drain study and follow up CT either later this week or next pending pt course
-- Pain control: scheduled IV Tylenol, prn IV diluadid
-- C/W PICC for now, may need to resume TPN if prolonged NPO, hold off for now. Consult placed to nutrition
-- DVT: Lovenox sq, SCDs in place
-- Increase activity, OOB, PT. Ok to shower
-- Will remove inocencio today
Original Note:
Today's Communication / Plan
-
NGT to LIWS
Assessment / Plan
-
Assessment: 49yoM who presented with SBO secondary to malignant obstruction
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 Lymphovascular invasion identified. Negative resection margins. Mesenteric peritoneal tumor implants multiple.
POD #21 ex lap for Right hemicolectomy with cystoscopy for stent for identification of the right ureter (stent removed on pod #1 by urology)
POD #16 take back to OR for ex lap, bowel resection d/t anastomotic leak with abdominal washout
02/11/2025 -IR drainage left upper quadrant perisplenic fluid collection (purulent) and left-mid sided fluid collection (serous), both with scant outputs
-- Mid abdomen collection with no organisms and no WBC
-- Left subdiaphragmatic collection with rare gram-negative rods and yeast on prelim
OR SHANICE drain with output light scant SSF, removed on 02/13
Leukocytosis continues to trend down
H/H stable
Hyponatremia improved
Afebrile. VSS
NGT placed on 02/15/25 with >3L bilious output. Suspect delayed ileus, if no improvement may need PO contrast study for further evaluation pending patient course.
Plan:
-- NPO except ice chips for comfort
-- Continue NGT, ok to clamp for activity
-- Abx: Zosyn, Micafungin. Appreciate ID
Will continue to follow for final culture results
-- Maintain both IR drains, eventual drain study and follow up CT either later this week or next pending pt course
-- Pain control: scheduled IV Tylenol, prn IV diluadid
-- C/W PICC for now, may need to resume TPN if prolonged NPO, hold off for now. Consult placed to nutrition
-- DVT: Lovenox sq, SCDs in place
-- Increase activity, OOB, PT. Ok to shower
-- Will remove inocencio today
Subjective Data
-
Date of Service: February 16, 2025
Pt seen and examined at bedside with Dr. Sandoval. Pts present and updated, question's addressed. He feels relief of nausea with NGT placement. Still passing some flatus. No BM since Sunday morning. Denies abdominal pain.
Objective Data
-
Intake and Output
02/15/25 02/16/25 02/17/25
06:59 06:59 06:59
Intake Total 720 / 720 2265 / 2265
Output Total 525 / 525 4400 / 4400
Balance 195 / 195 -2134 / -2134
Intake:
Oral fluids 720 / 720 750 / 750
IV fluids (Total) 750 / 750
IV piggybacks 600 / 600
Amount instilled into Drain (
Total)
Left Abdomen A Placed in IR
Left Upper Abdomen B Placed in
IR
Amount instilled into GI Tube ( 150 / 150
Total)
[place] Sump 150 / 150
Output:
Emesis 500 / 500 240 / 240
Drain Output (Total)
Left Abdomen A Placed in IR
Left Upper Abdomen B Placed in
IR
Gastrointestinal tube output ( 3650 / 3650
Total)
[place] Sump 3649
Urine, Voided 500 / 500
Other:
Number of approximated MODERATE 1
amounts of urine
Number of immeasurable emeses? 1
Vital Signs
Temp Pulse Resp BP Pulse Ox
98.4 F 79 16 114/73 96
02/16/25 07:45 02/16/25 07:45 02/16/25 07:45 02/16/25 07:45 02/16/25 08:32
Lab Results
02/16/25 04:37
02/16/25 04:37
Calcium 7.9 mg/dl (8.4-10.2) L 02/16/25 04:37
Phosphorus 4.0 mg/dl (2.5-4.5) 02/16/25 04:37
Magnesium 1.9 mg/dl (1.6-2.3) 02/16/25 04:37
Total Bilirubin 1.6 mg/dl (0.2-1.3) H 02/16/25 04:37
AST 37 U/L (17-59) 02/16/25 04:37
ALT 46 U/L (0-50) 02/16/25 04:37
Alkaline Phosphatase 89 U/L (38-126) 02/16/25 04:37
Total Protein 5.1 g/dl (6.3-8.2) L 02/16/25 04:37
Albumin 2.2 g/dl (3.5-5.0) L 02/16/25 04:37
Physical Exam
-
NAD AAO x 3
ABD: Soft, ND, minimal tenderness on palpation to epigastrium
Midline laparotomy incision with inocencio and a few small open areas. No purulence. No seromas. No erythema.
Right prior SHANICE site without erythema
Left upper lateral IR drain -purulent, no enteric contents
Left upper paramedian IR drain -mostly serous, minimal outputs with rust colored old blood
Patient has a winters catheter: No
Patient has a central line: Yes (picc)
--- NOTE | 2025-02-16 11:37 | CM ---
Reviewed the chart notes and spoke with the patient and spouse at the bedside. NGT in place. IR drains remain. CM continues to be available to patient/family and is monitoring medical plan for needs at discharge.
Plan: Discharge plans will depend on the patient's progress. Referral previously sent in [facility] for [facility].
[2025-02-16] MEDS: MYCAMINE 105 MG IV (12:07)
[2025-02-16] MEDS: NSS 1000 IV (12:10)
--- NOTE | 2025-02-16 13:22 | W.PN.ID1 ---
Date of Service
Date of Service: February 16, 2025
Today's Communication
Continue antibiotics. See below�
Assessment / Plan
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
- Pathology with well differentiated endocrine tumor with clean margins, small peritoneal implants present, node malignant , 5/40 nodes positive , appendix neg
# 01/30/25 perforated viscous at site of anastomosis s/p repair
# Intra-abdominal abscesses s/p IR perc drain x 2 on 02/11/25
# Leukocytosis improving
- Abscess # 1 cx: no growth to date
- Abscess #2 cx: Juju albicans
- Narrow to Unasyn 3 gm IV q6h (d#20 abx). Continue micafungin 100mg IV q24 (d#3)
- Trend wbc
- Follow drain output
����������������������������������������������������������
Chief Complaint
-: Clinical Sepsis (improving abdominal abscesses, peritonitis) and Other (peritonitis 2*perforated viscous. Multiple abdominal abscesses)
Subjective / Review of Systems
Patient seen and examined. Reports feeling improved today. Improved abdominal discomfort.
Review of Systems: No Fever and No Chills
Vital Signs / Physical Exam
Vital Signs
Vital Signs
Temp Pulse Resp BP Pulse Ox
98.4 F 79 16 114/73 96
02/16/25 07:45 02/16/25 07:45 02/16/25 07:45 02/16/25 07:45 02/16/25 08:32
Physical Exam
Constitutional: No Acute Distress, Comfortable and Non-toxic
Head: Other (NG tube in place.)
Eyes: Sclera Anicteric
Cardiovascular: Regular Rate and S1/S2
Pulmonary: Clear
Gastrointestinal: Soft, Tender (Mild), Distended, Decreased Bowel Sounds and Other (SHANICE#1 pus; SHANICE#2 serosanguinous fluid)
Extremities: Negative Edema
Neurological: AO x 3
Psychological: Calm
Objective Data
Lab Data
Lab Results
02/16/25 04:37
02/16/25 04:37
PT 20.0 Sec (11.4-14.6) H 02/04/25 06:10
INR 1.65 02/04/25 06:10
APTT 38.7 Sec (23.4-35.0) H 02/04/25 06:10
Estimated Creat Clear 111 ml/min 02/16/25 04:37
Total Bilirubin 1.6 mg/dl (0.2-1.3) H 02/16/25 04:37
AST 37 U/L (17-59) 02/16/25 04:37
ALT 46 U/L (0-50) 02/16/25 04:37
Alkaline Phosphatase 89 U/L (38-126) 02/16/25 04:37
Most recent labs reviewed.
Micro Results:
02/11/25 16:12 Wound Culture - Final
Abdomen Juju albicans
Gram Stain - Final
02/11/25 15:35 Wound Culture - Final
Abdomen No growth
Gram Stain - Final
Care Review
Plan reviewed with: Other Provider (General Surgery)
[2025-02-16 15:35] VITALS: BP 117/65
[2025-02-16] MEDS: UNASYN IV ×2 (15:56→21:53)
[2025-02-16 16:00] VITALS: BP 117/65
[2025-02-16] MEDS: FLUSH (NSS) 1 FLUSH IV (16:15)
[2025-02-16] MEDS: LOVENOX 40 MG SC (18:06)
[2025-02-16 23:28] VITALS: BP 121/71
[2025-02-16] MEDS: MELATONIN PO (23:33)
[2025-02-17] MEDS: DILAUDID 1 MG IV ×6 (00:41→21:07)
[2025-02-17] MEDS: OFIRMEV 100 IV ×3 (01:18→13:30)
[2025-02-17] MEDS: UNASYN IV ×4 (04:13→21:07)
[2025-02-17] MEDS: NSS 1000 IV ×2 (04:13→17:36)
[2025-02-17 06:03] LABS: Hematocrit 27.9 % (39.0-52.0); Hemoglobin 9.3 g/dL (13.0-18.0); Mean Corp Hgb Conc. 33.3 g/dL (33.0-37.0); Mean Corpuscular Volume 86.4 fL (80.0-94.0); Platelet Count 987 10^3/uL (130-400); Red Cell Dist. Width 14.5 % (11.5-14.5)
[2025-02-17 06:17] LABS: Blood Urea Nitrogen 22 mg/dl (9-20); Calcium 8.2 mg/dl (8.4-10.2); Carbon Dioxide 29 mmol/L (22-30); Chloride 101 mmol/L (98-107); Estimated Creatinine Clearance > 125 ml/min; Glucose 85 mg/dl (70-99); Potassium 4.6 mmol/L (3.5-5.1); Sodium 135 mmol/L (135-145); eGFR > 60.00
--- NOTE | 2025-02-17 07:47 | W.PN.GS2 ---
Addendum entered and electronically signed by Chadd Sandoval MD 02/17/25 18:47:
CT scan reviewed with the patient. No new or worsening abscesses. Continued large RIGHT sided collection likely a hematoma without clear signs of infection or abscess formation. Contrast is made his way all the way to the descending colon.
Rickie reports passing a small bowel movement as well as continued flatus. Plan for NGT removal.
Original Note:
Today's Communication / Plan
-
-- UGI
-- Possible TPN pending above
Assessment / Plan
-
Assessment: 49yoM who presented with SBO secondary to malignant obstruction
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 Lymphovascular invasion identified. Negative resection margins. Mesenteric peritoneal tumor implants multiple.
POD #22 ex lap for Right hemicolectomy with cystoscopy for stent for identification of the right ureter (stent removed on pod #1 by urology)
POD #17 take back to OR for ex lap, bowel resection d/t anastomotic leak with abdominal washout
02/11/2025 -IR drainage left upper quadrant perisplenic fluid collection (purulent) and left-mid sided fluid collection (serous), both with scant outputs
-- Mid abdomen collection with no organisms and no WBC
-- Left subdiaphragmatic collection with rare gram-negative rods and yeast on prelim
OR SHANICE drain with output light scant SSF, removed on 02/13
Leukocytosis reactive likely from ileus
H/H stable
Hyponatremia improved
Afebrile. VSS
NGT placed on 02/15/25 with >3L >1L bilious output . Suspect delayed ileus related to LUQ abscess
Given persistent issues with bowel function plan for a UGI with SBFT today for diagnostic and therapeutic purposes. May need to resume TPN if issues from a GI function pending this study.
Plan:
-- UGI
-- NPO except ice chips for comfort
-- Continue NGT, ok to clamp for activity
-- Abx: Zosyn, Micafungin. Appreciate ID
Will continue to follow for final culture results
-- Maintain both IR drains, eventual drain study and follow up CT either later this week or next pending pt course
-- Pain control: scheduled IV Tylenol, prn IV diluadid
-- C/W PICC for now, may need to resume TPN if prolonged NPO, hold off for now. Consult placed to nutrition
-- DVT: Lovenox sq, SCDs in place
-- Increase activity, OOB, PT. Ok to shower
Subjective Data
-
Date of Service: February 17, 2025
No complaints. Pain well-controlled. No nausea or vomiting. Continues to pass flatus, no BM. Afebrile.
Objective Data
-
Intake and Output
02/16/25 02/17/25 02/18/25
06:59 06:59 06:59
Intake Total 2265 / 2265 1490 / 1490
Output Total 4400 / 4400 1610 / 1610
Balance -2135 / -2135 -120 / -120
Intake:
Oral fluids 750 / 750 60 / 60
IV fluids (Total) 750 / 750 900 / 900
IV piggybacks 600 / 600 400 / 400
Amount instilled into Drain ( 40 / 40
Total)
Left Abdomen A Placed in IR
Left Upper Abdomen B Placed in
IR
Amount instilled into GI Tube ( 150 / 150 90 / 90
Total)
[place] Sump 150 / 150 90 / 90
Output:
Emesis 240 / 240
Drain Output (Total)
Left Abdomen A Placed in IR
Left Upper Abdomen B Placed in
IR
Gastrointestinal tube output ( 3650 / 3650 1010 / 1010
Total)
[place] Sump 3650 / 3650 1010 / 1010
Urine, Voided 500 / 500 600 / 600
Vital Signs
Temp Pulse Resp BP Pulse Ox
98.4 F 68 16 121/71 98
02/16/25 23:28 02/16/25 23:28 02/16/25 23:28 02/16/25 23:28 02/16/25 23:28
Lab Results
02/17/25 05:35
02/17/25 05:35
Calcium 8.2 mg/dl (8.4-10.2) L 02/17/25 05:35
Phosphorus 4.0 mg/dl (2.5-4.5) 02/16/25 04:37
Magnesium 1.9 mg/dl (1.6-2.3) 02/16/25 04:37
Total Bilirubin 1.6 mg/dl (0.2-1.3) H 02/16/25 04:37
AST 37 U/L (17-59) 02/16/25 04:37
ALT 46 U/L (0-50) 02/16/25 04:37
Alkaline Phosphatase 89 U/L (38-126) 02/16/25 04:37
Total Protein 5.1 g/dl (6.3-8.2) L 02/16/25 04:37
Albumin 2.2 g/dl (3.5-5.0) L 02/16/25 04:37
Physical Exam
-
Gen: NAD
Abd: soft, minimal tenderness, mild distension, non-peritoneal, dressings c/d/i - no erythema, ecchymosis or drainage, IR drains L mid-abd serosang, LUQ puurulent
Patient has a winters catheter: No
Patient has a central line: Yes
[2025-02-17] MEDS: FLOMAX 0.8 MG PO (07:56)
[2025-02-17 08:05] VITALS: BP 115/74
--- NOTE | 2025-02-17 08:45 | W.PN.ID1 ---
Addendum entered and electronically signed by Sudheer Velazquez, 02/17/25 09:00:
Correction : for UGI today and eventual repeat CT abd/pel
Original Note:
Date of Service
Date of Service: February 17, 2025
Today's Communication
Continue antibiotics. Await repeat CT.
Assessment / Plan
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
- Pathology with well differentiated endocrine tumor with clean margins, small peritoneal implants present, node malignant , 40 nodes positive , appendix neg
# 01/30/25 perforated viscous at site of anastomosis s/p repair
# Intra-abdominal abscesses s/p IR perc drain x 2 on 02/11/25
# Leukocytosis
Recommendations:
- Abscess # 1 cx: no growth to date (Gram stain: no wbc's, no organisms)
- Abscess #2 cx: Juju albicans (Gram stain: many wbc's, rare GNR's)
- Continue unasyn 3 gm IV q6h (d#21 abx). Continue micafungin 100mg IV q24 (d#4)
- Trend wbc
- Follow drain output
- For repeat CT abd/pel today
����������������������������������������������������������
Chief Complaint
-: Clinical Sepsis (improving abdominal abscesses, peritonitis) and Other (peritonitis 2*perforated viscous. Multiple abdominal abscesses)
Subjective / Review of Systems
Patient seen and examined. Reports some right upper quadrant discomfort. Denies fevers or chills. No difficulty with antibiotics.
Review of Systems: No Fever and No Chills
Vital Signs / Physical Exam
Vital Signs
Vital Signs
Temp Pulse Resp BP Pulse Ox
98.4 F 68 16 121/71 98
02/16/25 23:28 02/16/25 23:28 02/16/25 23:28 02/16/25 23:28 02/16/25 23:28
Physical Exam
Constitutional: No Acute Distress, Comfortable and Non-toxic
Head: Other (NG tube in place.)
Eyes: Sclera Anicteric
Cardiovascular: Regular Rate and S1/S2
Pulmonary: Clear
Gastrointestinal: Soft, Tender (Mild), Distended, Decreased Bowel Sounds and Other (SHANICE drain x 2)
Extremities: Negative Edema
Neurological: AO x 3
Psychological: Calm
Objective Data
Lab Data
Lab Results
02/17/25 05:35
02/17/25 05:35
PT 20.0 Sec (11.4-14.6) H 02/04/25 06:10
INR 1.65 02/04/25 06:10
APTT 38.7 Sec (23.4-35.0) H 02/04/25 06:10
Estimated Creat Clear > 125 ml/min 02/17/25 05:35
Total Bilirubin 1.6 mg/dl (0.2-1.3) H 02/16/25 04:37
AST 37 U/L (17-59) 02/16/25 04:37
ALT 46 U/L (0-50) 02/16/25 04:37
Alkaline Phosphatase 89 U/L (38-126) 02/16/25 04:37
Most recent labs reviewed.
Micro Results:
02/11/25 16:12 Wound Culture - Final
Abdomen Juju albicans
Gram Stain - Final
02/11/25 15:35 Wound Culture - Final
Abdomen No growth
Gram Stain - Final
Imaging:
02/15/2025 CXR (portable): stable right PICC line. Interval NG tube placement. Mild bibasilar atelectasis. No significant residual pleural effusion.
02/10/2025 CT abdomen/pelvis: a 9.7 cm left upper quadrant subphrenic abscess noted. 810 cm left lateral mid abdominal intraperitoneal abscess is noted. A 6.5 cm intraperitoneal abscess in the center of the pelvis is appreciated. There is a large
29 cm hemorrhagic fluid collection in the right lateral paracolic gutter. Patient is status post right hemicolectomy and ileocolonic anastomosis. There is moderate small bowel distention consistent with adynamic ileus. Please see full dictation
for additional detail.
Care Review
Plan reviewed with: Physician ([facility].)
--- NOTE | 2025-02-17 09:08 | CM ---
Reviewed the chart notes. Patient order UGI today. Per notes, depending on results, TPN may need to be initiated. CM continues to be available to patient/family and is monitoring medical plan for needs at discharge.
Plan: Discharge plans will depend on the patient's progress. Referral for [facility] previously sent.
[2025-02-17] MEDS: FLUSH (NSS) 1 FLUSH IV (10:16)
[2025-02-17] MEDS: OMNIPAQUE 50 ML PO (12:10)
[2025-02-17] MEDS: MYCAMINE 105 MG IV (12:11)
[2025-02-17] MEDS: FLUSH (NSS) 2 FLUSH IV (14:35)
[2025-02-17 15:40] VITALS: BP 114/67
[2025-02-17] MEDS: LOVENOX 40 MG SC (17:37)
[2025-02-17] MEDS: MELATONIN PO (20:13)
[2025-02-17 23:00] VITALS: BP 117/75
[2025-02-18] MEDS: DILAUDID 1 MG IV ×7 (00:26→21:59)
[2025-02-18] MEDS: UNASYN IV ×4 (03:28→22:01)
[2025-02-18 06:00] VITALS: BMI 28.9
--- NOTE | 2025-02-18 06:38 | PTCARENOTE ---
Per pt. midline dressing changed in the early AM (02/17) by overnight nurse Amy. Midline dressing C/D/I and free of drainage. VSS. Pt. resting comfortably at this time. Plan of care ongoing.
[2025-02-18 07:40] VITALS: BP 117/77
[2025-02-18] MEDS: FLOMAX 0.8 MG PO (10:07)
[2025-02-18] MEDS: NSS 1000 IV ×2 (10:09→23:55)
--- NOTE | 2025-02-18 10:45 | CM ---
Reviewed the chart notes and spoke with the patient and spouse at the bedside. The patient's diet advanced to clear liquid. CM continues to be available to patient/family and is monitoring medical plan for needs at discharge.
Plan: Discharge to home when medically stable. VN referral previously sent and accepted.
--- NOTE | 2025-02-18 11:15 | W.PN.GS2 ---
Today's Communication / Plan
-
Clears with ensure
Abx per ID
Assessment / Plan
-
Assessment: 49yoM who presented with SBO secondary to malignant obstruction
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 Lymphovascular invasion identified. Negative resection margins. Mesenteric peritoneal tumor implants multiple.
POD #22 ex lap for Right hemicolectomy with cystoscopy for stent for identification of the right ureter (stent removed on pod #1 by urology)
POD #17 take back to OR for ex lap, bowel resection d/t anastomotic leak with abdominal washout
02/11/2025 -IR drainage left upper quadrant perisplenic fluid collection (purulent) and left-mid sided fluid collection (serous), both with scant outputs
-- Mid abdomen collection with no organisms and no WBC
-- Left subdiaphragmatic collection growing padmaja
OR SHANICE drain with output light scant SSF, removed on 02/13
Leukocytosis reactive likely from ileus, lab holiday today
H/H stable
Hyponatremia improved
Afebrile. VSS
NGT placed on 02/15/25 with >3L >1L bilious output . Suspect delayed ileus related to LUQ abscess
Rpt CT 02/17 with much improved left side collections, resolving hematoma to right hemiabdomen noted, po contrast to sigmoid with air in rectum
Plan:
-- Start clears with ensure bid
-- IVF at reduced rate
-- Abx: unasyn, Micafungin. Appreciate ID
Will continue to follow for final culture results
-- Maintain both IR drains, likely will dc prior to discharge home given improvement on CT yesterday
-- Pain control: scheduled IV Tylenol, prn IV diluadid
-- Consider DC PICC line tomorrow if tolerates PO
-- DVT: Lovenox sq, SCDs in place
-- Increase activity, OOB, PT. Ok to shower
-- Discuss further staging w/u if relevant with Heme/Onc
Subjective Data
-
Date of Service: February 18, 2025
AFVSS, hungry, feels tired, weak, passing flatus and BM, ambulating, denies n/v since NGT dc'ed yesterday
Objective Data
-
Intake and Output
02/17/25 02/18/25 02/19/25
06:59 06:59 06:59
Intake Total 1490 / 1490 1140 / 1140
Output Total 1610 / 1610 300 / 300
Balance -120 / -120 840 / 840
Intake:
Oral fluids 60 / 60
IV fluids (Total) 900 / 900 900 / 900
IV piggybacks 400 / 400 240 / 240
Amount instilled into Drain ( 40 /
Total)
Left Abdomen A Placed in IR
Left Upper Abdomen B Placed in
IR
Amount instilled into GI Tube ( 90 / 90
Total)
[place] Sump 90 / 90
Output:
Gastrointestinal tube output ( 1010 / 1010
Total)
[place] Sump 1010 / 1010
Urine, Voided 600 / 600 300 / 300
Other:
Number of approximated MODERATE 3
amounts of urine
Vital Signs
Temp Pulse Resp BP Pulse Ox
98.8 F 81 16 117/77 97
02/18/25 07:40 02/18/25 07:40 02/18/25 07:40 02/18/25 07:40 02/18/25 07:40
Lab Results
02/17/25 05:35
02/17/25 05:35
Calcium 8.2 mg/dl (8.4-10.2) L 02/17/25 05:35
Phosphorus 4.0 mg/dl (2.5-4.5) 02/16/25 04:37
Magnesium 1.9 mg/dl (1.6-2.3) 02/16/25 04:37
Total Bilirubin 1.6 mg/dl (0.2-1.3) H 02/16/25 04:37
AST 37 U/L (17-59) 02/16/25 04:37
ALT 46 U/L (0-50) 02/16/25 04:37
Alkaline Phosphatase 89 U/L (38-126) 02/16/25 04:37
Total Protein 5.1 g/dl (6.3-8.2) L 02/16/25 04:37
Albumin 2.2 g/dl (3.5-5.0) L 02/16/25 04:37
Physical Exam
-
Gen: NAD
Abd: soft, minimal distention/ttp, incision healing well with scant serous drainage, IR drains with scant output
Patient has a winters catheter: No
Patient has a central line: Yes (PICC)
[2025-02-18] MEDS: MYCAMINE 105 MG IV (13:15)
--- NOTE | 2025-02-18 15:07 | W.PN.ID1 ---
Date of Service
Date of Service: February 18, 2025
Today's Communication
Continue antibiotics for today.
Assessment / Plan
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
- Pathology with well differentiated endocrine tumor with clean margins, small peritoneal implants present, node malignant , 5/40 nodes positive , appendix neg
# 01/30/25 perforated viscous at site of anastomosis s/p repair
# Intra-abdominal abscesses s/p IR perc drain x 2 on 02/11/25
# Leukocytosis
Recommendations:
- Abscess # 1 cx: no growth to date (Gram stain: no wbc's, no organisms)
- Abscess #2 cx: Juju albicans (Gram stain: many wbc's, rare GNR's)
- Continue unasyn 3 gm IV q6h (d#22 abx). Continue micafungin 100mg IV q24 (d#5)
- Trend wbc
- Follow drain output
- Repeat CT abd/pel suggests almost complete resolution of previously seen left upper and lateral abdominal and central pelvic fluid collections.
����������������������������������������������������������
Chief Complaint
-: Clinical Sepsis (improving abdominal abscesses, peritonitis) and Other (peritonitis 2*perforated viscous. Multiple abdominal abscesses)
Subjective / Review of Systems
Patient seen and examined. Reports feeling improved today. NG tube has been pulled. Patient tolerating small amounts of liquid.
Review of Systems: No Fever and No Chills
Vital Signs / Physical Exam
Vital Signs
Vital Signs
Temp Pulse Resp BP Pulse Ox
98.8 F 81 16 117/77 97
02/18/25 07:40 02/18/25 07:40 02/18/25 07:40 02/18/25 07:40 02/18/25 07:40
Physical Exam
Constitutional: No Acute Distress, Comfortable and Non-toxic
Eyes: Sclera Anicteric
Cardiovascular: Regular Rate and S1/S2
Pulmonary: Clear
Gastrointestinal: Soft, Tender (Mild), Distended, Decreased Bowel Sounds and Other (SHANICE drain x 2; first with scant amount of purulence, second with serosanguineous drainage)
Extremities: Negative Edema
Neurological: AO x 3
Psychological: Calm
Objective Data
Lab Data
Lab Results
02/17/25 05:35
02/17/25 05:35
PT 20.0 Sec (11.4-14.6) H 02/04/25 06:10
INR 1.65 02/04/25 06:10
APTT 38.7 Sec (23.4-35.0) H 02/04/25 06:10
Estimated Creat Clear > 125 ml/min 02/17/25 05:35
Total Bilirubin 1.6 mg/dl (0.2-1.3) H 02/16/25 04:37
AST 37 U/L (17-59) 02/16/25 04:37
ALT 46 U/L (0-50) 02/16/25 04:37
Alkaline Phosphatase 89 U/L (38-126) 02/16/25 04:37
Most recent labs reviewed.
Micro Results:
02/11/25 16:12 Wound Culture - Final
Abdomen Juju albicans
Gram Stain - Final
02/11/25 15:35 Wound Culture - Final
Abdomen No growth
Gram Stain - Final
Imaging:
02/15/2025 CXR (portable): stable right PICC line. Interval NG tube placement. Mild bibasilar atelectasis. No significant residual pleural effusion.
02/10/2025 CT abdomen/pelvis: a 9.7 cm left upper quadrant subphrenic abscess noted. 810 cm left lateral mid abdominal intraperitoneal abscess is noted. A 6.5 cm intraperitoneal abscess in the center of the pelvis is appreciated. There is a large
29 cm hemorrhagic fluid collection in the right lateral paracolic gutter. Patient is status post right hemicolectomy and ileocolonic anastomosis. There is moderate small bowel distention consistent with adynamic ileus. Please see full dictation
for additional detail.
[2025-02-18 17:30] VITALS: BP 118/75
[2025-02-18] MEDS: LOVENOX 40 MG SC (18:36)
[2025-02-18] MEDS: MELATONIN PO (22:08)
[2025-02-18 23:27] VITALS: BP 123/78
[2025-02-19] MEDS: DILAUDID 1 MG IV ×3 (01:10→08:44)
[2025-02-19] MEDS: UNASYN IV ×4 (05:00→22:28)
[2025-02-19 05:23] LABS: Hematocrit 25.1 % (39.0-52.0); Hemoglobin 8.3 g/dL (13.0-18.0); Mean Corp Hgb Conc. 33.1 g/dL (33.0-37.0); Mean Corpuscular Volume 85.7 fL (80.0-94.0); Platelet Count 745 10^3/uL (130-400); Red Cell Dist. Width 15.1 % (11.5-14.5)
[2025-02-19 05:38] LABS: Blood Urea Nitrogen 18 mg/dl (9-20); Calcium 7.3 mg/dl (8.4-10.2); Carbon Dioxide 26 mmol/L (22-30); Chloride 106 mmol/L (98-107); Estimated Creatinine Clearance > 125 ml/min; Glucose 89 mg/dl (70-99); Magnesium 1.8 mg/dl (1.6-2.3); Potassium 4.4 mmol/L (3.5-5.1); Sodium 134 mmol/L (135-145); eGFR > 60.00
[2025-02-19 08:10] VITALS: BP 125/83
[2025-02-19] MEDS: FLOMAX 0.8 MG PO (08:43)
--- NOTE | 2025-02-19 09:19 | W.PN.GS2 ---
Today's Communication / Plan
-
IV abx per ID
Adv to fulls
DC PICC
Assessment / Plan
-
Assessment: 49yoM who presented with SBO secondary to malignant obstruction
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 Lymphovascular invasion identified. Negative resection margins. Mesenteric peritoneal tumor implants multiple.
POD #23 ex lap for Right hemicolectomy with cystoscopy for stent for identification of the right ureter (stent removed on pod #1 by urology)
POD #18 take back to OR for ex lap, bowel resection d/t anastomotic leak with abdominal washout
02/11/2025 -IR drainage left upper quadrant perisplenic fluid collection (purulent) and left-mid sided fluid collection (serous), both with scant outputs
-- Mid abdomen collection with no organisms and no WBC
-- Left subdiaphragmatic collection growing padmaja
OR SHANICE drain with output light scant SSF, removed on 02/13
Leukocytosis resolved
Hyponatremia improved, mag and phos replaced
Afebrile. VSS
NGT placed on 02/15/25 with >3L >1L bilious output . Suspect delayed ileus related to LUQ abscess
Rpt CT 02/17 with much improved left side collections, resolving hematoma to right hemiabdomen noted, po contrast to sigmoid with air in rectum
Plan:
-- Adv to fulls with ensure bid
-- Cont IVF at reduced rate
-- Abx: unasyn, Micafungin. Appreciate ID
-- Maintain both IR drains, likely will dc prior to discharge home given improvement on CT yesterday
-- Pain control: scheduled PO Tylenol, prn oxy, weaning IV diluadid (d/w pt)
-- DC PICC
-- DVT: Lovenox sq, SCDs in place
-- Increase activity, OOB, PT. Ok to shower
-- Discuss further staging w/u if relevant with Heme/Onc, consider CT C/A/P
Subjective Data
-
Date of Service: February 19, 2025
AFVSS, pain controlled, ambulating, voiding, ally cld, denies n/v
Objective Data
-
Intake and Output
02/18/25 02/19/25 02/20/25
06:59 06:59 06:59
Intake Total 1140 / 1140 3235 / 3235
Output Total 300 / 300
Balance 840 / 840 3235 / 3235
Intake:
Oral fluids 990 / 990
IV fluids (Total) 900 / 900 1650 / 1650
IV piggybacks 240 / 240 585 / 585
Amount instilled into Drain (
Total)
Left Abdomen A Placed in IR 5 / 5
Left Upper Abdomen B Placed in 5 / 5
IR
Output:
Urine, Voided 300 / 300
Other:
Number of approximated MODERATE 3 2
amounts of urine
Vital Signs
Temp Pulse Resp BP Pulse Ox
98.8 F 104 16 125/83 99
02/19/25 08:10 02/19/25 08:10 02/19/25 08:10 02/19/25 08:10 02/19/25 08:10
Lab Results
02/19/25 05:05
02/19/25 05:05
Calcium 7.3 mg/dl (8.4-10.2) L 02/19/25 05:05
Phosphorus 2.8 mg/dl (2.5-4.5) 02/19/25 05:05
Magnesium 1.8 mg/dl (1.6-2.3) 02/19/25 05:05
Total Bilirubin 1.6 mg/dl (0.2-1.3) H 02/16/25 04:37
AST 37 U/L (17-59) 02/16/25 04:37
ALT 46 U/L (0-50) 02/16/25 04:37
Alkaline Phosphatase 89 U/L (38-126) 02/16/25 04:37
Total Protein 5.1 g/dl (6.3-8.2) L 02/16/25 04:37
Albumin 2.2 g/dl (3.5-5.0) L 02/16/25 04:37
Physical Exam
-
Gen: NAD
Abd: soft, approp ttp, upper drain scant seropurulent, lower drain clear ss
Patient has a winters catheter: No
Patient has a central line: Yes (PICC)
[2025-02-19] MEDS: MAGNESIUM SULFATE 50 IV (09:23)
[2025-02-19] MEDS: SODIUM PHOSPHATE 255 MEQ IV (09:26)
[2025-02-19] MEDS: NSS 1000 IV (10:56)
[2025-02-19] MEDS: TYLENOL 1000 MG PO (10:57)
--- NOTE | 2025-02-19 11:09 | CM ---
Reviewed the chart notes and spoke with the patient's spouse at the bedside, patient was asleep. Patient's diet upgraded to full liquid. Patient ambulates ad alanna. CM continues to be available to patient/family and is monitoring medical plan for
needs at discharge.
Plan: Discharge to home when medically stable with VN services.
[2025-02-19] MEDS: MYCAMINE 105 MG IV (12:31)
[2025-02-19] MEDS: ROXICODONE 5 MG PO (12:57)
--- NOTE | 2025-02-19 14:47 | W.PN.ID1 ---
Date of Service
Date of Service: February 19, 2025
Today's Communication
Continue antibiotics.
Assessment / Plan
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
- Pathology with well differentiated endocrine tumor with clean margins, small peritoneal implants present, node malignant , 5/40 nodes positive , appendix neg
# 01/30/25 perforated viscous at site of anastomosis s/p repair
# Intra-abdominal abscesses s/p IR perc drain x 2 on 02/11/25
# Leukocytosis
Recommendations:
- Abscess # 1 cx: no growth (Gram stain: no wbc's, no organisms)
- Abscess #2 cx: Juju albicans (Gram stain: many wbc's, rare GNR's)
- Continue unasyn 3 gm IV q6h (d#23 abx). Continue micafungin 100mg IV q24 (d#6)
- Trend wbc
- Follow drain output
- Repeat CT abd/pel suggests almost complete resolution of previously seen left upper and lateral abdominal and central pelvic fluid collections.
- At time of discharge, will likely transition to oral Augmentin and Diflucan for another 7 to 10 days of antibiotics.
����������������������������������������������������������
Chief Complaint
-: Clinical Sepsis (improving abdominal abscesses, peritonitis) and Other (peritonitis 2*perforated viscous. Multiple abdominal abscesses)
Subjective / Review of Systems
Review of Systems: No Fever and No Chills
Vital Signs / Physical Exam
Vital Signs
Vital Signs
Temp Pulse Resp BP Pulse Ox
98.8 F 104 16 125/83 99
02/19/25 08:10 02/19/25 08:10 02/19/25 08:10 02/19/25 08:10 02/19/25 08:10
Physical Exam
Constitutional: No Acute Distress, Comfortable and Non-toxic
Eyes: Sclera Anicteric
Cardiovascular: Regular Rate and S1/S2
Pulmonary: Clear
Gastrointestinal: Soft, Tender (Mild), Distended, Decreased Bowel Sounds and Other (SHANICE drain x 2; first with scant amount of purulence, second with serosanguineous drainage)
Extremities: Negative Edema
Skin: Warm and Dry; Negative Rash
Neurological: AO x 3
Psychological: Calm
Objective Data
Lab Data
Lab Results
02/19/25 05:05
02/19/25 05:05
PT 20.0 Sec (11.4-14.6) H 02/04/25 06:10
INR 1.65 02/04/25 06:10
APTT 38.7 Sec (23.4-35.0) H 02/04/25 06:10
Estimated Creat Clear > 125 ml/min 02/19/25 05:05
Total Bilirubin 1.6 mg/dl (0.2-1.3) H 02/16/25 04:37
AST 37 U/L (17-59) 02/16/25 04:37
ALT 46 U/L (0-50) 02/16/25 04:37
Alkaline Phosphatase 89 U/L (38-126) 02/16/25 04:37
Most recent labs reviewed.
Micro Results:
02/11/25 16:12 Wound Culture - Final
Abdomen Juju albicans
Gram Stain - Final
02/11/25 15:35 Wound Culture - Final
Abdomen No growth
Gram Stain - Final
Imaging:
02/15/2025 CXR (portable): stable right PICC line. Interval NG tube placement. Mild bibasilar atelectasis. No significant residual pleural effusion.
02/10/2025 CT abdomen/pelvis: a 9.7 cm left upper quadrant subphrenic abscess noted. 810 cm left lateral mid abdominal intraperitoneal abscess is noted. A 6.5 cm intraperitoneal abscess in the center of the pelvis is appreciated. There is a large
29 cm hemorrhagic fluid collection in the right lateral paracolic gutter. Patient is status post right hemicolectomy and ileocolonic anastomosis. There is moderate small bowel distention consistent with adynamic ileus. Please see full dictation
for additional detail.
[2025-02-19] MEDS: DILAUDID 0.5 MG IV ×2 (16:10→20:54)
[2025-02-19] MEDS: TYLENOL PO ×2 (16:14→22:29)
[2025-02-19 16:47] VITALS: BP 125/84
[2025-02-19] MEDS: LOVENOX 40 MG SC (18:18)
[2025-02-19] MEDS: COMPAZINE 5 MG IV (18:21)
--- NOTE | 2025-02-19 22:19 | PTCARENOTE ---
Pt had 300ml green emesis this evening after receiving compazine previous shift prior to shift change for nausea. Pt on full liquid diet and report he had some cream of wheat for dinner. Pt discouraged and reports he want to maintain clear liquid
diet as of now and refusing any oral meds.
[2025-02-19] MEDS: MELATONIN PO (22:29)
[2025-02-19 23:00] VITALS: BP 140/83
[2025-02-20] MEDS: DILAUDID 0.5 MG IV (00:38)
[2025-02-20] MEDS: UNASYN IV ×4 (03:31→21:27)
[2025-02-20] MEDS: DILAUDID 1 MG IV ×3 (03:31→23:30)
[2025-02-20] MEDS: TYLENOL PO ×4 (03:38→21:42)
[2025-02-20 06:00] VITALS: BMI 29.4
[2025-02-20] MEDS: TUMS CHEWABLE TABLET 200 MG PO (06:23)
[2025-02-20 08:10] VITALS: BP 131/84
[2025-02-20] MEDS: NSS 1000 IV ×2 (09:37→23:30)
[2025-02-20] MEDS: PROTONIX IV 40 MG IV (10:13)
[2025-02-20] MEDS: NSS (PRESERVATIVE FREE) 10 ML IV (10:14)
[2025-02-20] MEDS: MAALOX 30 ML PO (10:15)
--- NOTE | 2025-02-20 10:38 | W.PN.GS2 ---
Addendum entered and electronically signed by Сергей Ledbetter MD 02/20/25 14:38:
I saw and examined the patient.
The Senior Medical Writer's note was reviewed and I agree with the note.
Comment: Emesis yesterday, c/o reflux pain this morning. Continues passing flatus/BMs. Denies nausea. Ab exam very mild distention, incision cdi, drains unchanged from yesterday with no recorded output. Mylanta/protonix for reflux. Back to CLD for
now. Would maintain CLD for minimum 48 hrs prior to advancing.
Original Note:
Today's Communication / Plan
-
XR abd
Clears as tolerated
Assessment / Plan
-
Assessment: 49yoM who presented with SBO secondary to malignant obstruction
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 Lymphovascular invasion identified. Negative resection margins. Mesenteric peritoneal tumor implants multiple.
POD #26 ex lap for Right hemicolectomy with cystoscopy for stent for identification of the right ureter (stent removed on pod #1 by urology)
POD #21 take back to OR for ex lap, bowel resection d/t anastomotic leak with abdominal washout
02/11/2025 -IR drainage left upper quadrant perisplenic fluid collection (purulent) and left-mid sided fluid collection (serous), both with scant outputs
-- Mid abdomen collection with no organisms and no WBC
-- Left subdiaphragmatic collection growing padmaja
OR SHANICE drain removed on 02/13
Lab holiday
Afebrile. VSS
NGT placed on 02/15/25 with >3L >1L bilious output . Suspect delayed ileus related to LUQ abscess
Rpt CT 02/17 with much improved left side collections, resolving hematoma to right hemiabdomen noted, po contrast to sigmoid with air in rectum
N/V developed overnight with dietary advancements. continues to pass flatus/stools
Plan:
-- Clears as tolerated, may need to restart on TPN if nausea persists
-- Check XR abd
-- Cont IVF
-- Abx: unasyn, Micafungin. Appreciate ID
-- Maintain both IR drains, likely will dc prior to discharge home given improvement on CT yesterday
-- Pain control: scheduled PO Tylenol, prn tramadol, prn IV diluadid
-- DC PICC
-- DVT: Lovenox sq, SCDs in place
-- Increase activity, OOB, PT. Ok to shower
Subjective Data
-
Date of Service: February 20, 2025
Pt seen and examined at bedside with Dr. Ldebetter. Vomited last night after dinner. Vomiting persists through this AM. Denies worsening pain. Has had 2 bm's today and continues to pass flatus.
Objective Data
-
Intake and Output
02/19/25 02/20/25 02/21/25
06:59 06:59 06:59
Intake Total 3235 / 3235 1840 / 1840 120 / 120
Output Total 600 / 600
Balance 3235 / 3235 1240 / 1240 120 / 120
Intake:
Oral fluids 990 / 990 1140 / 1140
IV fluids (Total) 1650 / 1650 500 / 500
IV piggybacks 585 / 585 200 / 200 120 / 120
Amount instilled into Drain (
Total)
Left Abdomen A Placed in IR 5 / 5
Left Upper Abdomen B Placed in 5 / 5
IR
Output:
Emesis 300 / 300
Urine, Voided 300 / 300
Other:
Number of approximated MODERATE 2 1
amounts of urine
Vital Signs
Temp Pulse Resp BP Pulse Ox
99.0 F 99 20 131/84 98
02/20/25 08:10 02/20/25 08:10 02/20/25 08:10 02/20/25 08:10 02/20/25 08:10
Lab Results
02/19/25 05:05
02/19/25 05:05
Calcium 7.3 mg/dl (8.4-10.2) L 02/19/25 05:05
Phosphorus 2.8 mg/dl (2.5-4.5) 02/19/25 05:05
Magnesium 1.8 mg/dl (1.6-2.3) 02/19/25 05:05
Total Bilirubin 1.6 mg/dl (0.2-1.3) H 02/16/25 04:37
AST 37 U/L (17-59) 02/16/25 04:37
ALT 46 U/L (0-50) 02/16/25 04:37
Alkaline Phosphatase 89 U/L (38-126) 02/16/25 04:37
Total Protein 5.1 g/dl (6.3-8.2) L 02/16/25 04:37
Albumin 2.2 g/dl (3.5-5.0) L 02/16/25 04:37
Physical Exam
-
Gen: NAD
Abd: soft, approp ttp, upper drain scant seropurulent, lower drain clear ss
Midline incision healing, no drainage. Prior drain site healing, no drainage
Patient has a winters catheter: No
Patient has a central line: Yes (PICC)
--- NOTE | 2025-02-20 11:04 | W.PN.ID1 ---
Date of Service
Date of Service: February 20, 2025
Today's Communication
Continue current antibiotics.
Assessment / Plan
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
- Pathology with well differentiated endocrine tumor with clean margins, small peritoneal implants present, node malignant , 5/40 nodes positive , appendix neg
# 01/30/25 perforated viscous at site of anastomosis s/p repair
# Intra-abdominal abscesses s/p IR perc drain x 2 on 02/11/25
# Leukocytosis
Recommendations:
- Abscess # 1 cx: no growth (Gram stain: no wbc's, no organisms)
- Abscess #2 cx: Juju albicans (Gram stain: many wbc's, rare GNR's)
- Repeat CT abd/pel suggests almost complete resolution of previously seen left upper and lateral abdominal and central pelvic fluid collections.
- Continue unasyn 3 gm IV q6h (d#24 abx). Continue micafungin 100mg IV q24 (d#7)
- Trend wbc
- Follow drain output
- Follow N/V
- At time of discharge, will likely transition to oral Augmentin and Diflucan for another 7 to 10 days of antibiotics.
����������������������������������������������������������
Chief Complaint
-: Clinical Sepsis (improving abdominal abscesses, peritonitis) and Other (peritonitis 2*perforated viscous. Multiple abdominal abscesses)
Subjective / Review of Systems
Patient seen and examined. Nausea and vomiting has returned. No fevers or chills.
Vital Signs / Physical Exam
Vital Signs
Vital Signs
Temp Pulse Resp BP Pulse Ox
99.0 F 99 20 131/84 98
02/20/25 08:10 02/20/25 08:10 02/20/25 08:10 02/20/25 08:10 02/20/25 08:10
Physical Exam
Constitutional: No Acute Distress, Comfortable and Non-toxic
Eyes: Sclera Anicteric
Cardiovascular: Regular Rate and S1/S2
Pulmonary: Clear and Non Labored
Gastrointestinal: Distended, Decreased Bowel Sounds and Other (SHANICE drain x 2; first with scant amount of purulence, second with serosanguineous drainage)
Extremities: Negative Edema
Skin: Warm and Dry; Negative Rash
Neurological: AO x 3
Psychological: Calm
Objective Data
Lab Data
Lab Results
02/19/25 05:05
02/19/25 05:05
PT 20.0 Sec (11.4-14.6) H 02/04/25 06:10
INR 1.65 02/04/25 06:10
APTT 38.7 Sec (23.4-35.0) H 02/04/25 06:10
Estimated Creat Clear > 125 ml/min 02/19/25 05:05
Total Bilirubin 1.6 mg/dl (0.2-1.3) H 02/16/25 04:37
AST 37 U/L (17-59) 02/16/25 04:37
ALT 46 U/L (0-50) 02/16/25 04:37
Alkaline Phosphatase 89 U/L (38-126) 02/16/25 04:37
Most recent labs reviewed.
Micro Results:
02/11/25 16:12 Wound Culture - Final
Abdomen Juju albicans
Gram Stain - Final
02/11/25 15:35 Wound Culture - Final
Abdomen No growth
Gram Stain - Final
Imaging:
02/15/2025 CXR (portable): stable right PICC line. Interval NG tube placement. Mild bibasilar atelectasis. No significant residual pleural effusion.
02/10/2025 CT abdomen/pelvis: a 9.7 cm left upper quadrant subphrenic abscess noted. 810 cm left lateral mid abdominal intraperitoneal abscess is noted. A 6.5 cm intraperitoneal abscess in the center of the pelvis is appreciated. There is a large
29 cm hemorrhagic fluid collection in the right lateral paracolic gutter. Patient is status post right hemicolectomy and ileocolonic anastomosis. There is moderate small bowel distention consistent with adynamic ileus. Please see full dictation
for additional detail.
Care Review
Plan reviewed with: Other Provider (Gen Sx.)
--- NOTE | 2025-02-20 11:44 | CM ---
Reviewed the chart notes. Patient vomited last evening. Patient's diet downgraded to clear liquid. Per ID, will transition to oral abx when discharged. CM continues to be available to patient/family and is monitoring medical plan for needs at
discharge.
Plan: Discharge to home once medically stable with VN.
[2025-02-20] MEDS: MYCAMINE 105 MG IV (12:27)
[2025-02-20 12:42] VITALS: BP 128/85
[2025-02-20] MEDS: ZOFRAN 4 MG IV (12:58)
[2025-02-20] MEDS: ULTRAM 100 MG PO (15:15)
[2025-02-20 16:00] VITALS: BP 121/80
[2025-02-20] MEDS: LOVENOX 40 MG SC (17:50)
--- NOTE | 2025-02-20 18:01 | PTCARENOTE ---
Patient vomited multiple times this dayshift; Dr. Ledbetter aware, diet changed from Full Liquids to clears, and Zofran, Maalox & Protonix administered; patient stated willing to wait to see if vomiting stopped before placing NGT; at 16:30 patient
vomited 150cc green emesis, Dr. Ledbetter notified, NGT placed in (L) nare successfully on 2nd attempt with immediate 500cc green/brown drainage (possible small amount of bloody drainage in tube).
[2025-02-20] MEDS: MELATONIN PO (21:42)
[2025-02-20 23:25] VITALS: BP 124/81
[2025-02-20 23:52] LABS: Glucose - Point of Care 96 mg/dl (70-99)
[2025-02-21] MEDS: DILAUDID 1 MG IV ×4 (02:30→20:57)
[2025-02-21] MEDS: UNASYN IV ×4 (03:57→21:50)
[2025-02-21] MEDS: TYLENOL PO ×2 (04:00→10:21)
[2025-02-21 05:59] LABS: Glucose - Point of Care 91 mg/dl (70-99)
[2025-02-21 06:40] LABS: Hematocrit 25.4 % (39.0-52.0); Hemoglobin 8.4 g/dL (13.0-18.0); Mean Corp Hgb Conc. 33.1 g/dL (33.0-37.0); Mean Corpuscular Volume 85.5 fL (80.0-94.0); Platelet Count 655 10^3/uL (130-400); Red Cell Dist. Width 15.1 % (11.5-14.5)
[2025-02-21 07:48] VITALS: BP 129/81
[2025-02-21 07:48] LABS: ALT (SGPT) 34 U/L (0-50); AST (SGOT) 30 U/L (17-59); Albumin 2.2 g/dl (3.5-5.0); Alkaline Phosphatase 70 U/L (38-126); Blood Urea Nitrogen 17 mg/dl (9-20); Calcium 7.7 mg/dl (8.4-10.2); Carbon Dioxide 23 mmol/L (22-30); Chloride 107 mmol/L (98-107); Estimated Creatinine Clearance > 125 ml/min; Glucose 87 mg/dl (70-99); Magnesium 1.9 mg/dl (1.6-2.3); Potassium 4.6 mmol/L (3.5-5.1); Sodium 134 mmol/L (135-145); Total Protein 5.2 g/dl (6.3-8.2); Triglycerides 60 mg/dl (10-149); eGFR > 60.00
[2025-02-21] MEDS: NSS (PRESERVATIVE FREE) 10 ML IV (08:57)
[2025-02-21] MEDS: PROTONIX IV 40 MG IV (08:57)
--- NOTE | 2025-02-21 11:47 | W.PN.ID1 ---
Date of Service
Date of Service: February 21, 2025
Today's Communication
Continue antibiotics.
Assessment / Plan
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
- Pathology with well differentiated endocrine tumor with clean margins, small peritoneal implants present, node malignant , 5/40 nodes positive , appendix neg
# 01/30/25 perforated viscous at site of anastomosis s/p repair
# Intra-abdominal abscesses s/p IR perc drain x 2 on 02/11/25
# Leukocytosis
Recommendations:
- Abscess # 1 cx: no growth (Gram stain: no wbc's, no organisms)
- Abscess #2 cx: Juju albicans (Gram stain: many wbc's, rare GNR's)
- Repeat CT abd/pel suggests almost complete resolution of previously seen left upper and lateral abdominal and central pelvic fluid collections.
- Continue unasyn 3 gm IV q6h (d#25 abx). Continue micafungin 100mg IV q24 (d#8)
- Trend wbc
- Follow drain output
- Follow N/V
- For initiation of TPN
����������������������������������������������������������
Chief Complaint
-: Clinical Sepsis (improving abdominal abscesses, peritonitis) and Other (peritonitis 2*perforated viscous. Multiple abdominal abscesses)
Subjective / Review of Systems
Patient seen and examined. Since yesterday, NG tube has been replaced. Currently patient feels improved.
Review of Systems: No Fever
Vital Signs / Physical Exam
Vital Signs
Vital Signs
Temp Pulse Resp BP Pulse Ox
98.4 F 88 17 129/81 96
02/21/25 07:48 02/21/25 07:48 02/21/25 07:48 02/21/25 07:48 02/21/25 07:48
Physical Exam
Constitutional: No Acute Distress, Comfortable and Non-toxic
Eyes: Sclera Anicteric
Pulmonary: Non Labored
Gastrointestinal: Non Distended and Other (SHANICE drain x 2; first with scant amount of purulence, second with serosanguineous drainage)
Extremities: Negative Edema
Skin: Warm and Dry; Negative Rash
Neurological: AO x 3
Psychological: Calm
Objective Data
Lab Data
Lab Results
02/21/25 06:20
02/21/25 06:20
PT 20.0 Sec (11.4-14.6) H 02/04/25 06:10
INR 1.65 02/04/25 06:10
APTT 38.7 Sec (23.4-35.0) H 02/04/25 06:10
Estimated Creat Clear > 125 ml/min 02/21/25 06:20
Total Bilirubin 1.1 mg/dl (0.2-1.3) 02/21/25 06:20
AST 30 U/L (17-59) 02/21/25 06:20
ALT 34 U/L (0-50) 02/21/25 06:20
Alkaline Phosphatase 70 U/L (38-126) 02/21/25 06:20
Most recent labs reviewed.
Micro Results:
02/11/25 16:12 Wound Culture - Final
Abdomen Juju albicans
Gram Stain - Final
02/11/25 15:35 Wound Culture - Final
Abdomen No growth
Gram Stain - Final
Imaging:
02/15/2025 CXR (portable): stable right PICC line. Interval NG tube placement. Mild bibasilar atelectasis. No significant residual pleural effusion.
02/10/2025 CT abdomen/pelvis: a 9.7 cm left upper quadrant subphrenic abscess noted. 810 cm left lateral mid abdominal intraperitoneal abscess is noted. A 6.5 cm intraperitoneal abscess in the center of the pelvis is appreciated. There is a large
29 cm hemorrhagic fluid collection in the right lateral paracolic gutter. Patient is status post right hemicolectomy and ileocolonic anastomosis. There is moderate small bowel distention consistent with adynamic ileus. Please see full dictation
for additional detail.
[2025-02-21 12:04] LABS: Glucose - Point of Care 84 mg/dl (70-99)
[2025-02-21] MEDS: OFIRMEV 100 IV ×3 (12:38→23:55)
[2025-02-21] MEDS: MYCAMINE 105 MG IV (12:48)
--- NOTE | 2025-02-21 13:10 | W.PN.GS2 ---
Addendum entered and electronically signed by Sudheer Shafer MD 02/21/25 14:30:
I saw and examined the patient.
The RADIO MACHINIST's note was reviewed and I agree with the note.
Comment:
NGT placed overnight with 1.2 L of bilious output. Complains of mild nausea, no flatus or BMs
AFVSS, ABD soft, mildly distended and tympanitic, minimally tender, midline incision with scab, no surrounding erythema or drainage
WBC 12.0 from 10.4, Hb 8.4 from 8.3, CR 0.7
� Continue NPO with NGT; will start TPN
� Mild increase in WBC, but no fever; will hold off on CT scan today
�Continue JPs to bulb suction
� Continue Protonix; will add Pepcid as needed
�Continue DVT PPx with Lovenox
�Continue antibiotics per ID
Original Note:
Today's Communication / Plan
-
NGT to suction
Start TPN
Assessment / Plan
-
Assessment: 49yoM who presented with SBO secondary to malignant obstruction
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 Lymphovascular invasion identified. Negative resection margins. Mesenteric peritoneal tumor implants multiple.
POD #27 ex lap for Right hemicolectomy with cystoscopy for stent for identification of the right ureter (stent removed on pod #1 by urology)
POD #22 take back to OR for ex lap, bowel resection d/t anastomotic leak with abdominal washout
02/11/2025 -IR drainage left upper quadrant perisplenic fluid collection (purulent) and left-mid sided fluid collection (serous), both with scant outputs
-- Mid abdomen collection with no organisms and no WBC
-- Left subdiaphragmatic collection growing padmaja
OR SHANICE drain removed on 02/13
Labs stable
Afebrile. VSS
NGT placed on 02/15/25. Suspect delayed ileus related to resolving hematoma/abscess. Subsequently able to be removed; however, did not tolerate dietary advancement and n/v recurred
NGT placed on 02/20/25 for bilious outputs of 1.2L immediately. XR abdomen consistent with ileus.
Rpt CT 02/17 with much improved left side collections, resolving hematoma to right hemiabdomen noted, po contrast to sigmoid with air in rectum (nonobstructive pattern)
Plan:
-- NPO with NGT to suction
-- Restart TPN, nutrition recs from previous appreciated
-- Cont IVF until TPN initiated
-- Abx: unasyn, Micafungin. Appreciate ID
-- Maintain both IR drains, likely will dc prior to discharge home given improvement on CT yesterday
-- Pain control: scheduled IV Tylenol, prn IV diluadid
-- OOB as able
-- Trend labs/exams
-- DVT: Lovenox sq, SCDs in place
Subjective Data
-
Date of Service: February 21, 2025
Pt seen and examined at bedside with Dr. Shafer. Updated his via telephone. Denies further vomiting since NGT placement but does have intermittent mild nausea. Had a small BM today, not really passing much flatus. No worsening abdominal pain.
Objective Data
-
Intake and Output
02/20/25 02/21/25 02/22/25
06:59 06:59 06:59
Intake Total 1840 / 1840 1545 / 1545
Output Total 600 / 600 1729 / 1729
Balance 1240 / 1240 -184 / -184
Intake:
Oral fluids 1140 / 1140
IV fluids (Total) 500 / 500 1100 / 1100
IV piggybacks 200 / 200 425 / 425
Amount instilled into Drain ( 20 / 20
Total)
Left Abdomen A Placed in IR
Left Upper Abdomen B Placed in
IR
Amount instilled into GI Tube ( 0 / 0
Total)
[place] Sump 0 / 0
Output:
Emesis 300 / 300 250 / 250
Drain Output (Total)
Left Abdomen A Placed in IR
Left Upper Abdomen B Placed in
IR
Gastrointestinal tube output ( 1200 / 1200
Total)
[place] Sump 1200 / 1200
Urine, Voided 300 / 300 250 / 250
Other:
Number of approximated MODERATE 1
amounts of urine
Vital Signs
Temp Pulse Resp BP Pulse Ox
98.4 F 88 17 129/81 96
02/21/25 07:48 02/21/25 07:48 02/21/25 07:48 02/21/25 07:48 02/21/25 07:48
Lab Results
02/21/25 06:20
02/21/25 06:20
Calcium 7.7 mg/dl (8.4-10.2) L 02/21/25 06:20
Phosphorus 3.7 mg/dl (2.5-4.5) 02/21/25 06:20
Magnesium 1.9 mg/dl (1.6-2.3) 02/21/25 06:20
Total Bilirubin 1.1 mg/dl (0.2-1.3) 02/21/25 06:20
AST 30 U/L (17-59) 02/21/25 06:20
ALT 34 U/L (0-50) 02/21/25 06:20
Alkaline Phosphatase 70 U/L (38-126) 02/21/25 06:20
Total Protein 5.2 g/dl (6.3-8.2) L 02/21/25 06:20
Albumin 2.2 g/dl (3.5-5.0) L 02/21/25 06:20
Physical Exam
-
Gen: NAD
Abd: soft, approp ttp, upper drain scant fibrinous, lower drain clear ss
Midline incision healing, no drainage. Prior drain site healing, no drainage
Patient has a winters catheter: No
Patient has a central line: Yes (PICC)
[2025-02-21 15:47] VITALS: BP 114/69
[2025-02-21] MEDS: LOVENOX 40 MG SC (17:02)
[2025-02-21 17:49] LABS: Glucose - Point of Care 84 mg/dl (70-99)
[2025-02-21] MEDS: Parenteral Nutrition, Central 1250 IV (20:26)
[2025-02-21] MEDS: NSS 1000 IV (21:48)
[2025-02-21] MEDS: MELATONIN PO (22:13)
[2025-02-21 23:00] VITALS: BP 125/80
[2025-02-21 23:20] LABS: Glucose - Point of Care 122 mg/dl (70-99)
[2025-02-22] MEDS: DILAUDID 0.5 MG IV ×3 (00:02→20:42)
[2025-02-22] MEDS: DILAUDID 1 MG IV ×2 (04:34→18:03)
[2025-02-22] MEDS: UNASYN IV ×4 (04:34→21:33)
[2025-02-22 05:26] LABS: Hematocrit 25.0 % (39.0-52.0); Hemoglobin 8.1 g/dL (13.0-18.0); Mean Corp Hgb Conc. 32.4 g/dL (33.0-37.0); Mean Corpuscular Volume 85.3 fL (80.0-94.0); Platelet Count 630 10^3/uL (130-400); Red Cell Dist. Width 15.3 % (11.5-14.5)
[2025-02-22 05:35] LABS: Blood Urea Nitrogen 15 mg/dl (9-20); Calcium 7.5 mg/dl (8.4-10.2); Carbon Dioxide 26 mmol/L (22-30); Chloride 106 mmol/L (98-107); Estimated Creatinine Clearance > 125 ml/min; Glucose 111 mg/dl (70-99); Magnesium 1.8 mg/dl (1.6-2.3); Potassium 4.1 mmol/L (3.5-5.1); Sodium 133 mmol/L (135-145); eGFR > 60.00
[2025-02-22] MEDS: OFIRMEV IV (05:47)
[2025-02-22 06:00] VITALS: BMI 29.2
[2025-02-22 06:09] LABS: Glucose - Point of Care 118 mg/dl (70-99)
[2025-02-22 07:40] VITALS: BP 114/79
--- NOTE | 2025-02-22 10:31 | W.PN.ID1 ---
Date of Service
Date of Service: February 22, 2025
Today's Communication
Continue antibiotics.
Assessment / Plan
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
- Pathology with well differentiated endocrine tumor with clean margins, small peritoneal implants present, node malignant , /40 nodes positive , appendix neg
# 01/30/25 perforated viscous at site of anastomosis s/p repair
# Intra-abdominal abscesses s/p IR perc drain x 2 on 02/11/25
# Leukocytosis
Recommendations:
- Abscess # 1 cx: no growth (Gram stain: no wbc's, no organisms)
- Abscess #2 cx: Juju albicans (Gram stain: many wbc's, rare GNR's)
- Repeat CT abd/pel suggests almost complete resolution of previously seen left upper and lateral abdominal and central pelvic fluid collections.
- Continue unasyn 3 gm IV q6h (d#26 abx). Continue micafungin 100mg IV q24 (d#9)
- Trend wbc; slight upward trend over the past several days noted.
- Follow drain output; currently scant
- Follow N/V; currently improved with NG tube
- For repeat CT today
����������������������������������������������������������
Chief Complaint
-: Clinical Sepsis (improving abdominal abscesses, peritonitis) and Other (peritonitis 2*perforated viscous. Multiple abdominal abscesses)
Subjective / Review of Systems
Patient seen and examined. Reports feeling somewhat improved from yesterday. NG tube remains in place. Patient on TPN.
Review of Systems: No Fever and No Chills
Vital Signs / Physical Exam
Vital Signs
Vital Signs
Temp Pulse Resp BP Pulse Ox
98.7 F 88 16 114/79 96
02/22/25 07:40 02/22/25 07:40 02/22/25 07:40 02/22/25 07:40 02/22/25 07:40
Physical Exam
Constitutional: No Acute Distress, Comfortable and Non-toxic
Eyes: Sclera Anicteric
Pulmonary: Non Labored
Gastrointestinal: Non Distended and Other (SHANICE drain x 2; first with scant amount of purulence, second with serosanguineous drainage)
Extremities: Negative Edema
Skin: Warm and Dry; Negative Rash
Neurological: AO x 3
Psychological: Calm
Objective Data
Lab Data
Lab Results
02/22/25 04:57
02/22/25 04:57
PT 20.0 Sec (11.4-14.6) H 02/04/25 06:10
INR 1.65 02/04/25 06:10
APTT 38.7 Sec (23.4-35.0) H 02/04/25 06:10
Estimated Creat Clear > 125 ml/min 02/22/25 04:57
Total Bilirubin 1.1 mg/dl (0.2-1.3) 02/21/25 06:20
AST 30 U/L (17-59) 02/21/25 06:20
ALT 34 U/L (0-50) 02/21/25 06:20
Alkaline Phosphatase 70 U/L (38-126) 02/21/25 06:20
Most recent labs reviewed.
Micro Results:
02/11/25 16:12 Wound Culture - Final
Abdomen Juju albicans
Gram Stain - Final
02/11/25 15:35 Wound Culture - Final
Abdomen No growth
Gram Stain - Final
Imaging:
02/15/2025 CXR (portable): stable right PICC line. Interval NG tube placement. Mild bibasilar atelectasis. No significant residual pleural effusion.
02/10/2025 CT abdomen/pelvis: a 9.7 cm left upper quadrant subphrenic abscess noted. 810 cm left lateral mid abdominal intraperitoneal abscess is noted. A 6.5 cm intraperitoneal abscess in the center of the pelvis is appreciated. There is a large
29 cm hemorrhagic fluid collection in the right lateral paracolic gutter. Patient is status post right hemicolectomy and ileocolonic anastomosis. There is moderate small bowel distention consistent with adynamic ileus. Please see full dictation
for additional detail.
[2025-02-22] MEDS: PROTONIX IV 40 MG IV (10:37)
[2025-02-22] MEDS: NSS (PRESERVATIVE FREE) 10 ML IV (10:37)
[2025-02-22] MEDS: OMNIPAQUE 50 ML PO (10:54)
[2025-02-22] MEDS: OFIRMEV 100 IV ×3 (11:27→23:59)
--- NOTE | 2025-02-22 12:02 | W.PN.GS2 ---
Addendum entered and electronically signed by Sudheer Shafer MD 02/22/25 19:10:
Update pt and on results of CTAP; continue mgmt as is
Addendum entered and electronically signed by Sudheer Shafer MD 02/22/25 15:59:
I saw and examined the patient.
The THERMOSTAT MECHANIC's note was reviewed and I agree with the note.
Comment:
Still no flatus or BMs, feels better today with TPN flowing. NGT with 700 bilious output
AFVSS, ABD soft, mildly to moderately distended with tympany (somewhat better than yesterday), minimally tender, no rebound or guarding; midline incision with scabbing, no surrounding erythema or purulent drainage
WBC 12.3 from 12.0, Hb stable, CR 0.6
� Repeat CT due to persistent leukocytosis and obstipation
�CT showing concern for small bowel obstruction in the right midabdomen, hematoma stable, collections minimal/resolved
�Will discuss with primary surgeon tomorrow; no acute surgical intervention at this point; would consider gradually removing IR drains
� Continue n.p.o. with NGT and TPN
� Pain control with Dilaudid as needed
� Continue Unasyn and micafungin per ID
�Encourage I-S/OOB
Original Note:
Today's Communication / Plan
-
Continue npo/ngt
TPN
check CT
Assessment / Plan
-
Assessment: 49yoM who presented with SBO secondary to malignant obstruction
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 Lymphovascular invasion identified. Negative resection margins. Mesenteric peritoneal tumor implants multiple.
POD #28 ex lap for Right hemicolectomy with cystoscopy for stent for identification of the right ureter (stent removed on pod #1 by urology)
POD #23 take back to OR for ex lap, bowel resection d/t anastomotic leak with abdominal washout
02/11/2025 -IR drainage left upper quadrant perisplenic fluid collection (purulent) and left-mid sided fluid collection (serous), both with scant outputs
-- Mid abdomen collection with no organisms and no WBC
-- Left subdiaphragmatic collection growing padmaja
OR SHANICE drain removed on 02/13
Still with mild leukocytosis, h/h stable
Afebrile. VSS
NGT placed on 02/15/25. Suspect delayed ileus related to resolving hematoma/abscess. Subsequently able to be removed; however, did not tolerate dietary advancement and n/v recurred
Rpt CT 02/17 with much improved left side collections, resolving hematoma to right hemiabdomen noted, po contrast to sigmoid with air in rectum (nonobstructive pattern)
NGT placed on 02/20/25 for bilious outputs of 1.2L immediately. XR abdomen consistent with ileus.
Plan:
-- NPO with NGT to suction
-- Continue TPN, nutrition recs appreciated. Hand writing TPN given CPOE issue with TPN order set (see paper chart)
-- Abx: unasyn, Micafungin. Appreciate ID
-- Maintain both IR drains, likely will dc prior to discharge home
-- CT abd/pelvis for further evaluation of collections given ongoing ileus
-- Pain control: scheduled IV Tylenol, prn IV diluadid
-- OOB as able
-- Trend labs/exams
-- DVT: Lovenox sq, SCDs in place
Subjective Data
-
Date of Service: February 22, 2025
Pt seen and examined at bedside with Dr. Shafer. Denies n/v. Feeling much better today with more energy. Not passing flatus or stools. No worsening pain, still with some discomfort.
Objective Data
-
Intake and Output
02/21/25 02/22/25 02/23/25
06:59 06:59 06:59
Intake Total 1545 / 1545 2285 / 2285
Output Total 1729 / 1729 2204 / 2204 300 / 300
Balance -184 / -184 81 / 81 -300 / -300
Intake:
Oral fluids 0 / 0
IV fluids (Total) 1100 / 1100 1100 / 1100
IV piggybacks 425 / 425 515 / 515
TPN/PPN 520 / 520
Amount instilled into Drain (
Total)
Left Abdomen A Placed in IR
Left Upper Abdomen B Placed in
IR
Amount instilled into GI Tube ( 0 / 0 150 / 150
Total)
[place] Sump 0 / 0 150 / 150
Output:
Emesis 250 / 250
Drain Output (Total)
Left Abdomen A Placed in IR
Left Upper Abdomen B Placed in
IR
Gastrointestinal tube output ( 1200 / 1200 700 / 700
Total)
[place] Sump 1200 / 1200 700 / 700
Urine, Voided 250 / 250 1500 / 1500 300 / 300
Vital Signs
Temp Pulse Resp BP Pulse Ox
98.7 F 88 16 114/79 96
02/22/25 07:40 02/22/25 07:40 02/22/25 07:40 02/22/25 07:40 02/22/25 07:40
Lab Results
02/22/25 04:57
02/22/25 04:57
Calcium 7.5 mg/dl (8.4-10.2) L 02/22/25 04:57
Phosphorus 3.3 mg/dl (2.5-4.5) 02/22/25 04:57
Magnesium 1.8 mg/dl (1.6-2.3) 02/22/25 04:57
Total Bilirubin 1.1 mg/dl (0.2-1.3) 02/21/25 06:20
AST 30 U/L (17-59) 02/21/25 06:20
ALT 34 U/L (0-50) 02/21/25 06:20
Alkaline Phosphatase 70 U/L (38-126) 02/21/25 06:20
Total Protein 5.2 g/dl (6.3-8.2) L 02/21/25 06:20
Albumin 2.2 g/dl (3.5-5.0) L 02/21/25 06:20
Physical Exam
-
Gen: NAD
Abd: soft, approp ttp, upper drain scant fibrinous, lower drain clear ss
Midline incision healing, no drainage. Prior drain site healing, no drainage
Patient has a winters catheter: No
Patient has a central line: Yes (PICC)
[2025-02-22 12:30] LABS: Glucose - Point of Care 122 mg/dl (70-99)
[2025-02-22] MEDS: MYCAMINE 105 MG IV (13:13)
[2025-02-22 15:35] VITALS: BP 122/76
[2025-02-22] MEDS: LOVENOX 40 MG SC (18:04)
[2025-02-22 18:10] LABS: Glucose - Point of Care 112 mg/dl (70-99)
[2025-02-22] MEDS: Parenteral Nutrition, Central 1250 IV (20:44)
[2025-02-22] MEDS: MELATONIN PO (21:54)
[2025-02-22 23:00] VITALS: BP 119/75
[2025-02-22 23:11] LABS: Glucose - Point of Care 122 mg/dl (70-99)
[2025-02-23] VITALS (8 sets, daily range): BP systolic 82–131; BP diastolic 77–93; BMI 29.2
[2025-02-23] MEDS: DILAUDID 1 MG IV ×5 (00:27→21:11)
[2025-02-23] MEDS: UNASYN IV ×4 (04:24→21:42)
[2025-02-23 05:00] LABS: Glucose - Point of Care 118 mg/dl (70-99)
[2025-02-23] MEDS: OFIRMEV 100 IV (05:30)
[2025-02-23 06:00] LABS: ALT (SGPT) 37 U/L (0-50); AST (SGOT) 32 U/L (17-59); Albumin 2.0 g/dl (3.5-5.0); Alkaline Phosphatase 66 U/L (38-126); Blood Urea Nitrogen 14 mg/dl (9-20); Calcium 7.8 mg/dl (8.4-10.2); Carbon Dioxide 25 mmol/L (22-30); Chloride 103 mmol/L (98-107); Estimated Creatinine Clearance > 125 ml/min; Glucose 98 mg/dl (70-99); Magnesium 1.8 mg/dl (1.6-2.3); Potassium 4.4 mmol/L (3.5-5.1); Sodium 130 mmol/L (135-145); Total Protein 5.1 g/dl (6.3-8.2); Triglycerides 89 mg/dl (10-149); eGFR > 60.00
--- NOTE | 2025-02-23 09:31 | W.PN.ID1 ---
Date of Service
Date of Service: February 23, 2025
Today's Communication
Continue antibiotics.
Assessment / Plan
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
- Pathology with well differentiated endocrine tumor with clean margins, small peritoneal implants present, node malignant , 5/40 nodes positive , appendix neg
# SBO
# Perforated viscous at site of anastomosis s/p repair (01/30/25)
# Intra-abdominal abscesses s/p IR perc drain x 2 on 02/11/25
# Leukocytosis
Recommendations:
- Abscess # 1 cx: no growth (Gram stain: no wbc's, no organisms)
- Abscess #2 cx: Juju albicans (Gram stain: many wbc's, rare GNR's)
- Continue unasyn 3 gm IV q6h (d#27 abx). Continue micafungin 100mg IV q24 (d#10)
- Trend wbc; slight upward trend over the past several days noted, possibly from SBO
- Follow drain output; currently scant
- Follow N/V; currently improved with NG tube
- for attempt at hematoma aspiration today.
����������������������������������������������������������
Chief Complaint
-: Clinical Sepsis (improving abdominal abscesses, peritonitis) and Other (peritonitis 2*perforated viscous. Multiple abdominal abscesses)
Subjective / Review of Systems
Review of Systems: No Fever and No Chills
Vital Signs / Physical Exam
Vital Signs
Vital Signs
Temp Pulse Resp BP Pulse Ox
98.6 F 67 16 131/77 98
02/23/25 06:38 02/23/25 06:38 02/23/25 06:38 02/23/25 06:38 02/23/25 06:38
Physical Exam
Constitutional: No Acute Distress, Comfortable and Non-toxic
Eyes: Sclera Anicteric
Cardiovascular: S1/S2; Negative S3/S4
Pulmonary: Non Labored
Gastrointestinal: Non Distended, Decreased Bowel Sounds and Other (SHANICE drain x 2; first with scant amount of purulence, second with serosanguineous drainage)
Extremities: Negative Edema
Skin: Warm and Dry; Negative Rash
Neurological: AO x 3
Psychological: Calm
Objective Data
Lab Data
Lab Results
02/22/25 04:57
02/23/25 04:50
PT 20.0 Sec (11.4-14.6) H 02/04/25 06:10
INR 1.65 02/04/25 06:10
APTT 38.7 Sec (23.4-35.0) H 02/04/25 06:10
Estimated Creat Clear > 125 ml/min 02/23/25 04:50
Total Bilirubin 1.0 mg/dl (0.2-1.3) 02/23/25 04:50
AST 32 U/L (17-59) 02/23/25 04:50
ALT 37 U/L (0-50) 02/23/25 04:50
Alkaline Phosphatase 66 U/L (38-126) 02/23/25 04:50
Most recent labs reviewed.
Micro Results:
02/11/25 16:12 Wound Culture - Final
Abdomen Juju albicans
Gram Stain - Final
02/11/25 15:35 Wound Culture - Final
Abdomen No growth
Gram Stain - Final
Imaging:
02/22/2025 CT abdomen/pelvis with contrast: SBO noted with transition point in the right lateral abdomen. Persistent relatively stable large hematoma in the right abdomen. Trace ascites. No free air. Left subhepatic percutaneous drainage catheter
remains in place. Thin linear soft tissue attenuation noted adjacent to the peripheral margin of the drainage catheter, which could represent a collapsed abscess versus small amount of residual complex fluid within a small abscess. This appears
slightly improved compared to prior examination. Right lateral abdomen percutaneous drainage catheter in place without adjacent or surrounding persistent fluid collection/abscess.
02/15/2025 CXR (portable): stable right PICC line. Interval NG tube placement. Mild bibasilar atelectasis. No significant residual pleural effusion.
02/10/2025 CT abdomen/pelvis: a 9.7 cm left upper quadrant subphrenic abscess noted. 810 cm left lateral mid abdominal intraperitoneal abscess is noted. A 6.5 cm intraperitoneal abscess in the center of the pelvis is appreciated. There is a large
29 cm hemorrhagic fluid collection in the right lateral paracolic gutter. Patient is status post right hemicolectomy and ileocolonic anastomosis. There is moderate small bowel distention consistent with adynamic ileus. Please see full dictation
for additional detail.
Care Review
Plan reviewed with: Physician (Gen Vieira.)
[2025-02-23] MEDS: PROTONIX IV 40 MG IV ×2 (10:05→19:34)
[2025-02-23] MEDS: NSS (PRESERVATIVE FREE) 10 ML IV ×2 (10:05→19:35)
[2025-02-23] MEDS: PROTONIX IV IV (10:05)
--- NOTE | 2025-02-23 10:05 | CM ---
Reviewed the chart notes and spoke with the patient and spouse at the bedside. TPN continues, as well as, NGT. Patient ambulates ad alanna. CM continues to be available to patient/family and is monitoring medical plan for needs at discharge.
Plan: Discharge plans will depend on the patient's progress. Hopefully home with no needs.
[2025-02-23] MEDS: DILAUDID 0.5 MG IV ×2 (10:12→19:33)
[2025-02-23] MEDS: NSS (PRESERVATIVE FREE) IV (10:43)
--- NOTE | 2025-02-23 11:01 | W.PN.GS2 ---
Today's Communication / Plan
-
Incr PPI, saadia H2 kailash
IR consult
IV abx
NGT
PT/OT
Assessment / Plan
-
Assessment: 49yoM who presented with SBO secondary to malignant obstruction
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 Lymphovascular invasion identified. Negative resection margins. Mesenteric peritoneal tumor implants multiple.
POD #29 ex lap for Right hemicolectomy with cystoscopy for stent for identification of the right ureter (stent removed on pod #1 by urology)
POD #24 take back to OR for ex lap, bowel resection d/t anastomotic leak with abdominal washout
02/11/2025 -IR drainage left upper quadrant perisplenic fluid collection (purulent) and left-mid sided fluid collection (serous), both with scant outputs
-- Mid abdomen collection with no organisms and no WBC
-- Left subdiaphragmatic collection growing padmaja
OR SHANICE drain removed on 02/13
Still with mild leukocytosis, h/h stable, hyponatremia noted today
Afebrile. VSS
NGT placed on 02/15/25. Suspect delayed ileus related to resolving hematoma/abscess. Subsequently able to be removed; however, did not tolerate dietary advancement and n/v recurred
Rpt CT 02/17 with much improved left side collections, resolving hematoma to right hemiabdomen noted, po contrast to sigmoid with air in rectum (nonobstructive pattern)
NGT placed on 02/20/25 for bilious outputs of 1.2L immediately. XR abdomen consistent with ileus.
CT with ileus vs SBO 02/22, collections on left side appear resolved, hematoma remains
Plan:
-- Inc PPI and H2 kailash for reflux
-- Interventional Rads consult to interrogate/DC left side drains, attempt new drain to right side hematoma
-- Cont NPO with NGT to suction
-- Continue TPN, nutrition recs appreciated. Hand writing TPN given CPOE issue with TPN order set (see paper chart)
-- Abx: unasyn, Micafungin. Appreciate ID
-- Pain control: scheduled IV Tylenol, prn IV diluadid
-- OOB as able
-- Trend labs/exams
-- DVT: Lovenox sq, SCDs in place
Subjective Data
-
Date of Service: February 23, 2025
AFVSS, denies n/v with NGT to suction, passing small flatus, c/o reflux pain, feels hematoma on right hemiabdomen as well
Objective Data
-
Intake and Output
02/22/25 02/23/25 02/24/25
06:59 06:59 06:59
Intake Total 2285 / 2285 2704 / 2704 150 / 150
Output Total 2204 / 2204 2130 / 2130
Balance 81 / 81 574 / 574 150 / 150
Intake:
Oral fluids 0 / 0
IV fluids (Total) 1100 / 1100
IV piggybacks 515 / 515 800 / 800 150 / 150
TPN/PPN 520 / 520 1144 / 1144
Amount instilled into GI Tube ( 150 / 150 760 / 760
Total)
[place] Sump 150 / 150 760 / 760
Output:
Drain Output (Total) 4 / 4 75 / 75
Left Abdomen A Placed in IR /
Left Upper Abdomen B Placed in 2 / 2 50 / 50
IR
Gastrointestinal tube output ( 700 / 700 730 / 730
Total)
[place] Sump 700 / 700 730 / 730
Urine, Voided 1500 / 1500 1325 / 1325
Vital Signs
Temp Pulse Resp BP Pulse Ox
98.6 F 67 16 131/77 98
02/23/25 06:38 02/23/25 06:38 02/23/25 06:38 02/23/25 06:38 02/23/25 06:38
Lab Results
02/22/25 04:57
02/23/25 04:50
Calcium 7.8 mg/dl (8.4-10.2) L 02/23/25 04:50
Phosphorus 3.9 mg/dl (2.5-4.5) 02/23/25 04:50
Magnesium 1.8 mg/dl (1.6-2.3) 02/23/25 04:50
Total Bilirubin 1.0 mg/dl (0.2-1.3) 02/23/25 04:50
AST 32 U/L (17-59) 02/23/25 04:50
ALT 37 U/L (0-50) 02/23/25 04:50
Alkaline Phosphatase 66 U/L (38-126) 02/23/25 04:50
Total Protein 5.1 g/dl (6.3-8.2) L 02/23/25 04:50
Albumin 2.0 g/dl (3.5-5.0) L 02/23/25 04:50
Physical Exam
-
Gen: NAD
Abd: soft, approp ttp, incision cdi with scabbing. left side drains unchanged, palpable hematoma right lili-abdomen
Patient has a winters catheter: No
Patient has a central line: Yes (PICC)
[2025-02-23] MEDS: MYCAMINE 105 MG IV (13:50)
[2025-02-23 15:36] LABS: Glucose - Point of Care 88 mg/dl (70-99)
--- NOTE | 2025-02-23 16:14 | W.PN.ONC2 ---
Today's Communication / Plan
-
Serum chromogranin and 24-hr urine for 5-HIAA now given diagnosis of well-differentiated neuroendocrine tumor.
Outpt SSTR-PET upon recovery.
Impression
Impression
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
s/p ex lap for hemicolectomy c/b anastomotic leak s/p bowel resection/wash out 02/04
Recurrent bowel obstruction
Hematomas with drains in place
Pain from reflux and hematoma
Plan
Plan
Discussed pathologic diagnosis with pt.
Cytotoxic chemotherapy not indicated for this diagnosis.
If residual disease suspected to be present and complicating his recover, could consider lanreotide.
Would not start everolimus at this time as it is immunosuppressive and pt continues on unasyn and micafungin.
If no residual disease suspected then would do SSRT-PET/CT with DOTATATE tracer to eclude residual disease and establish post-treatment baseline. Would consider 'adjuvant' lanreotide due to disease bulk.
Await recovery from surgery.
Transfuse Hgb <7 or as needed for sxs anemia
Subjective/Objective
Chief Complaint
Heme/Onc follow up of newly diagnosed locally advanced neuroendocrine tumor
Subjective
Offering little history, appears depressed, NGT in place.
Since we last saw him, path has unexpectedly returned consistent with well-differentiated, low-grade neuroendocrine carcinoma of terminal ileum.
Vital Signs:
Vital Signs
Temp Pulse Resp BP Pulse Ox
98.4 F 83 14 115/85 99
02/23/25 16:00 02/23/25 16:05 02/23/25 16:05 02/23/25 16:05 02/23/25 16:05
Lab Results:
Laboratory Data
WBC 12.3 10^3/uL (4.8-10.8) H 02/22/25 04:57
Hgb 8.1 g/dL (13.0-18.0) L 02/22/25 04:57
Plt Count 630 10^3/uL (130-400) H 02/22/25 04:57
PT 20.0 Sec (11.4-14.6) H 02/04/25 06:10
INR 1.65 02/04/25 06:10
APTT 38.7 Sec (23.4-35.0) H 02/04/25 06:10
eGFR > 60.00 02/23/25 04:50
Physical Exam
Awake, alert, non-toxic but uncomfortable-appearing with NGT in place.
[2025-02-23 17:45] LABS: Glucose - Point of Care 117 mg/dl (70-99)
[2025-02-23] MEDS: LOVENOX 40 MG SC (18:05)
[2025-02-23 18:12] LABS: Glucose - Point of Care 124 mg/dl (70-99)
[2025-02-23] MEDS: PEPCID 20 MG IV (19:34)
[2025-02-23] MEDS: NSS (PRESERVATIVE FREE) 8 ML IV (19:35)
[2025-02-23] MEDS: Parenteral Nutrition, Central 1450 IV (20:56)
[2025-02-23] MEDS: MELATONIN PO (22:19)
[2025-02-24] MEDS: DILAUDID 1 MG IV ×6 (00:38→20:08)
[2025-02-24] MEDS: DILAUDID 0.5 MG IV (02:58)
[2025-02-24] MEDS: UNASYN IV ×2 (04:19→11:04)
[2025-02-24 06:00] VITALS: BMI 29.1
[2025-02-24 06:24] LABS: Glucose - Point of Care 136 mg/dl (70-99)
[2025-02-24 07:35] VITALS: BP 133/81
[2025-02-24] MEDS: PROTONIX IV 40 MG IV ×2 (08:13→20:12)
[2025-02-24] MEDS: PEPCID 20 MG IV ×2 (08:14→20:12)
[2025-02-24] MEDS: NSS (PRESERVATIVE FREE) 10 ML IV ×2 (08:14→20:11)
[2025-02-24] MEDS: NSS (PRESERVATIVE FREE) 8 ML IV ×2 (08:14→20:12)
[2025-02-24 08:55] LABS: Blood Urea Nitrogen 14 mg/dl (9-20); Calcium 8.0 mg/dl (8.4-10.2); Carbon Dioxide 25 mmol/L (22-30); Chloride 100 mmol/L (98-107); Estimated Creatinine Clearance > 125 ml/min; Glucose 116 mg/dl (70-99); Magnesium 1.7 mg/dl (1.6-2.3); Potassium 4.6 mmol/L (3.5-5.1); Sodium 129 mmol/L (135-145); eGFR > 60.00
[2025-02-24 09:03] LABS: Hematocrit 26.2 % (39.0-52.0); Hemoglobin 8.7 g/dL (13.0-18.0); Mean Corp Hgb Conc. 33.2 g/dL (33.0-37.0); Mean Corpuscular Volume 83.4 fL (80.0-94.0); Platelet Count 625 10^3/uL (130-400); Red Cell Dist. Width 15.5 % (11.5-14.5)
[2025-02-24 11:13] LABS: Glucose - Point of Care 116 mg/dl (70-99)
[2025-02-24] MEDS: MYCAMINE 105 MG IV (11:55)
--- NOTE | 2025-02-24 12:33 | W.PN.GS2 ---
Today's Communication / Plan
-
NGT
TPN
Drain Cx
Abx
Assessment / Plan
-
Assessment: 49yoM who presented with SBO secondary to malignant obstruction
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 Lymphovascular invasion identified. Negative resection margins. Mesenteric peritoneal tumor implants multiple.
POD #30 ex lap for Right hemicolectomy with cystoscopy for stent for identification of the right ureter (stent removed on pod #1 by urology)
POD #25 take back to OR for ex lap, bowel resection d/t anastomotic leak with abdominal washout
02/11/2025 -IR drainage left upper quadrant perisplenic fluid collection (purulent) and left-mid sided fluid collection (serous), both with scant outputs
-- Mid abdomen collection with no organisms and no WBC
-- Left subdiaphragmatic collection growing padmaja
-- Both drains removed 02/23
Leukocytosis trending up, h/h stable, hyponatremia noted
Low grade temps continue. VSS
NGT placed on 02/15/25. Suspect delayed ileus related to resolving hematoma/abscess. Subsequently able to be removed; however, did not tolerate dietary advancement and n/v recurred
Rpt CT 02/17 with much improved left side collections, resolving hematoma to right hemiabdomen noted, po contrast to sigmoid with air in rectum (nonobstructive pattern)
NGT placed on 02/20/25 for bilious outputs of 1.2L immediately. XR abdomen consistent with ileus.
CT with ileus vs SBO 02/22, collections on left side appear resolved, hematoma remains
02/23 new IR drain to hematoma
Plan:
-- Cont PPI and H2 kailash for reflux
-- Cx hematoma fluid
-- Cont NPO with NGT to suction
-- Continue TPN, nutrition recs appreciated.
-- Abx: unasyn, Micafungin. Appreciate ID
-- Pain control: scheduled IV Tylenol, prn IV diluadid
-- OOB as able
-- Trend labs/exams
-- DVT: Lovenox sq, SCDs in place
Subjective Data
-
Date of Service: February 24, 2025
Low grade temps contnue, 99.5 Tmax,increased pain at site of hematoma, passing small flatus, denies n/v with NGT to suction, reflux improved not resolved
Objective Data
-
Intake and Output
02/23/25 02/24/25 02/25/25
06:59 06:59 06:59
Intake Total 2704 / 2704 1330 / 1330
Output Total 2130 / 2130 950 / 950
Balance 574 / 574 380 / 380
Intake:
Oral fluids 0 / 0
IV piggybacks 800 / 800 300 / 300
TPN/PPN 1144 / 1144 720 / 720
Amount instilled into GI Tube ( 760 / 760 310 / 310
Total)
[place] Sump 760 / 760 310 / 310
Output:
Drain Output (Total) 75 / 75 10 / 10
Left Abdomen A Placed in IR
Left Upper Abdomen B Placed in 50 / 50
IR
Right Lower Abdomen Placed in
IR
Gastrointestinal tube output ( 730 / 730 340 / 340
Total)
[place] Sump 730 / 730 340 / 340
Urine, Voided 1325 / 1325 600 / 600
Vital Signs
Temp Pulse Resp BP Pulse Ox
99.6 F 84 16 133/81 96
02/24/25 07:35 02/24/25 07:35 02/24/25 07:35 02/24/25 07:35 02/24/25 07:35
Lab Results
02/24/25 08:25
02/24/25 08:25
Calcium 8.0 mg/dl (8.4-10.2) L 02/24/25 08:25
Phosphorus 3.7 mg/dl (2.5-4.5) 02/24/25 08:25
Magnesium 1.7 mg/dl (1.6-2.3) 02/24/25 08:25
Total Bilirubin 1.0 mg/dl (0.2-1.3) 02/23/25 04:50
AST 32 U/L (17-59) 02/23/25 04:50
ALT 37 U/L (0-50) 02/23/25 04:50
Alkaline Phosphatase 66 U/L (38-126) 02/23/25 04:50
Total Protein 5.1 g/dl (6.3-8.2) L 02/23/25 04:50
Albumin 2.0 g/dl (3.5-5.0) L 02/23/25 04:50
Physical Exam
-
Gen: NAD
Abd: soft, mild distetion, ttp mainy to right hemiabdomen, right drain with dark old blood
Patient has a winters catheter: No
Patient has a central line: Yes (picc)
--- NOTE | 2025-02-24 14:36 | CM ---
Reviewed the chart notes. Patient remains on TPN. CM continues to be available to patient/family and is monitoring medical plan for needs at discharge.
Plan: Discharge plans will depend on the patient's progress.
--- NOTE | 2025-02-24 14:39 | W.PN.ID1 ---
Date of Service
Date of Service: February 24, 2025
Today's Communication
Continue micafungin. Discontinue further Unasyn. Follow white count. Await pending cultures.
Assessment / Plan
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
- Pathology with well differentiated endocrine tumor with clean margins, small peritoneal implants present, node malignant , 5/40 nodes positive , appendix neg
# SBO
# Perforated viscous at site of anastomosis s/p repair (01/30/25)
# Intra-abdominal abscesses s/p IR perc drain x 2 on 02/11/25
# Leukocytosis; trending up
Recommendations:
- Abscess # 1 cx: no growth (Gram stain: no wbc's, no organisms)
- Abscess #2 cx: Juju albicans (Gram stain: many wbc's, rare GNR's)
At this point in time, patient is on day #28 of Unasyn, can likely discontinue at this point
Continue micafungin 100mg IV q24 (d#11)
- Trend wbc; slight upward trend over the past several days noted, possibly from SBO
- Follow drain output
- Await pending cultures
- Follow N/V; currently improved with NG tube
����������������������������������������������������������
Chief Complaint
-: Clinical Sepsis (improving abdominal abscesses, peritonitis) and Other (peritonitis 2*perforated viscous. Multiple abdominal abscesses)
Subjective / Review of Systems
Review of Systems: No Fever
Vital Signs / Physical Exam
Vital Signs
Vital Signs
Temp Pulse Resp BP Pulse Ox
99.6 F 84 16 133/81 96
02/24/25 07:35 02/24/25 07:35 02/24/25 07:35 02/24/25 07:35 02/24/25 07:35
Physical Exam
Constitutional: No Acute Distress, Comfortable and Non-toxic
Eyes: Sclera Anicteric
Cardiovascular: S1/S2; Negative S3/S4
Pulmonary: Non Labored
Gastrointestinal: Non Distended, Decreased Bowel Sounds and Other (right sided SHANICE with bloody fluid)
Extremities: Negative Edema
Skin: Warm and Dry; Negative Rash
Neurological: AO x 3
Psychological: Calm
Objective Data
Lab Data
Lab Results
02/24/25 08:25
02/24/25 08:25
PT 20.0 Sec (11.4-14.6) H 02/04/25 06:10
INR 1.65 02/04/25 06:10
APTT 38.7 Sec (23.4-35.0) H 02/04/25 06:10
Estimated Creat Clear > 125 ml/min 02/24/25 08:25
Total Bilirubin 1.0 mg/dl (0.2-1.3) 02/23/25 04:50
AST 32 U/L (17-59) 02/23/25 04:50
ALT 37 U/L (0-50) 02/23/25 04:50
Alkaline Phosphatase 66 U/L (38-126) 02/23/25 04:50
Most recent labs reviewed.
Micro Results:
02/24/25 14:05 Wound Culture - Pending
Abdomen Gram Stain - Pending
02/11/25 16:12 Wound Culture - Final
Abdomen Juju albicans
Gram Stain - Final
02/11/25 15:35 Wound Culture - Final
Abdomen No growth
Gram Stain - Final
Imaging:
02/22/2025 CT abdomen/pelvis with contrast: SBO noted with transition point in the right lateral abdomen. Persistent relatively stable large hematoma in the right abdomen. Trace ascites. No free air. Left subhepatic percutaneous drainage catheter
remains in place. Thin linear soft tissue attenuation noted adjacent to the peripheral margin of the drainage catheter, which could represent a collapsed abscess versus small amount of residual complex fluid within a small abscess. This appears
slightly improved compared to prior examination. Right lateral abdomen percutaneous drainage catheter in place without adjacent or surrounding persistent fluid collection/abscess.
02/15/2025 CXR (portable): stable right PICC line. Interval NG tube placement. Mild bibasilar atelectasis. No significant residual pleural effusion.
02/10/2025 CT abdomen/pelvis: a 9.7 cm left upper quadrant subphrenic abscess noted. 810 cm left lateral mid abdominal intraperitoneal abscess is noted. A 6.5 cm intraperitoneal abscess in the center of the pelvis is appreciated. There is a large
29 cm hemorrhagic fluid collection in the right lateral paracolic gutter. Patient is status post right hemicolectomy and ileocolonic anastomosis. There is moderate small bowel distention consistent with adynamic ileus. Please see full dictation
for additional detail.
[2025-02-24 15:35] VITALS: BP 126/78
[2025-02-24 16:56] LABS: Glucose - Point of Care 126 mg/dl (70-99)
[2025-02-24] MEDS: LOVENOX 40 MG SC (17:31)
--- NOTE | 2025-02-24 20:34 | PTCARENOTE ---
Pt had multiple drain irrigation orders for R abdominal SHANICE drain inserted in IR. Clarified with Dr. Ledbetter via TT. Instructed to 'Flush with 10cc sterile water Q shift'. Pt also had PRN irrigation order for NGT but was being flushed q4.
Clarified with Dr. Ledbetter via TT. Instructed 'No flush for NGT'. Care remains ongoing.
[2025-02-24] MEDS: MELATONIN PO (21:26)
[2025-02-24] MEDS: Parenteral Nutrition, Central 1470 IV (21:32)
[2025-02-24 23:24] VITALS: BP 116/81
[2025-02-24 23:59] LABS: Glucose - Point of Care 117 mg/dl (70-99)
--- NOTE | 2025-02-25 02:39 | DOWNTIME ---
There was a [employer] Client [employer] Downtime on 02/25/2025 from 0100 to 02/25/2025 at 0235. Downtime documentation of patient's care, including medication administrations, has been reconciled in the electronic record per guidelines. Refer to the
patient's paper chart under the miscellaneous tab to see printed paper medication records and downtime forms.
[2025-02-25] MEDS: DILAUDID 1 MG IV ×7 (03:09→21:22)
[2025-02-25 06:00] VITALS: BMI 28.9
[2025-02-25 06:06] LABS: Glucose - Point of Care 104 mg/dl (70-99)
[2025-02-25 06:50] LABS: Hematocrit 26.7 % (39.0-52.0); Hemoglobin 8.9 g/dL (13.0-18.0); Mean Corp Hgb Conc. 33.3 g/dL (33.0-37.0); Mean Corpuscular Volume 82.7 fL (80.0-94.0); Platelet Count 621 10^3/uL (130-400); Red Cell Dist. Width 15.6 % (11.5-14.5)
[2025-02-25 07:10] LABS: Blood Urea Nitrogen 12 mg/dl (9-20); Calcium 7.8 mg/dl (8.4-10.2); Carbon Dioxide 27 mmol/L (22-30); Chloride 100 mmol/L (98-107); Estimated Creatinine Clearance > 125 ml/min; Glucose 107 mg/dl (70-99); Magnesium 2.0 mg/dl (1.6-2.3); Potassium 4.6 mmol/L (3.5-5.1); Sodium 129 mmol/L (135-145); eGFR > 60.00
[2025-02-25 07:45] VITALS: BP 122/74
[2025-02-25] MEDS: PEPCID 20 MG IV ×2 (09:18→19:57)
[2025-02-25] MEDS: PROTONIX IV 40 MG IV ×2 (09:18→19:56)
[2025-02-25] MEDS: NSS (PRESERVATIVE FREE) 10 ML IV ×2 (09:19→19:56)
[2025-02-25] MEDS: NSS (PRESERVATIVE FREE) 8 ML IV ×2 (09:19→19:56)
[2025-02-25] MEDS: MYCAMINE 105 MG IV (11:20)
[2025-02-25] MEDS: TORADOL 30 MG IV ×3 (11:25→23:39)
--- NOTE | 2025-02-25 12:01 | W.PN.NEPH.PH ---
Today's Communication / Plan
-
TPN provided
Urine osmolality check
Assessment/Plan
-
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 He is s/p right hemicolectomy, take-down hepatic flexure
01/25/25, Urology was involved in OR case given proximity to ureter patient is s/p ureteral stent placement. Post-op course c/b ABNER.
Renal consult for acute kidney injury with a creatinine of 1.9 from 1.2
Impression.
Acute kidney injury uncertain etiology ATN possible contrast nephropathy. No obvious episodes of hypotension /was given Toradol for pain
Right hemicolectomy status post with interrupted ureteral stent
Hyponatremia
Stage III neuroendocrine tumor of colon; s/p hemicolectomy with anastomosis 01/25/25
01/30/25 perforated viscous at site of anastomosis s/p repair
Intra-abdominal abscesses s/p IR perc drain x 2 on 02/11/25
Plan.
TPN adjusted for hyponatremia
Toradol may be aggravating hyponatremia by inhibiting free water excretion
Check urine osmolality
Renal function remained stable and grossly nonoliguric
Other electrolytes appear to be normalized
Weight is down significantly from admission from 108 kg to 96.5 kg
No dynamically stable
Today's total encounter time was 50 minutes as this was a reconsult requiring extensive review of records since sign off with new problem workup and TPN adjustment
-
-
Date of Service: February 25, 2025
CC / HPI / ROS
-
Chief Complaint:
Acute kidney injury
History of Present Illness:
Acute kidney resolved
TPN running
still with NGT but currently clamped
Hemodynamically stable
Review of Systems:
No reported chest pain or shortness of breath
Nonoliguric
Right lower quadrant hematoma during
Labs
-
Labs:
WBC 15.9 10^3/uL (4.8-10.8) H 02/25/25 06:25
RBC 3.23 10^6/uL (4.70-6.10) L 02/25/25 06:25
Hgb 8.9 g/dL (13.0-18.0) L 02/25/25 06:25
Hct 26.7 % (39.0-52.0) L 02/25/25 06:25
Plt Count 621 10^3/uL (130-400) H 02/25/25 06:25
Sodium 129 mmol/L (135-145) L 02/25/25 06:25
Potassium 4.6 mmol/L (3.5-5.1) 02/25/25 06:25
Chloride 100 mmol/L (98-107) 02/25/25 06:25
Carbon Dioxide 27 mmol/L (22-30) 02/25/25 06:25
BUN 12 mg/dl (9-20) 02/25/25 06:25
Creatinine 0.6 mg/dL (0.7-1.3) L 02/25/25 06:25
eGFR > 60.00 02/25/25 06:25
Glucose 107 mg/dl (70-99) H 02/25/25 06:25
Calcium 7.8 mg/dl (8.4-10.2) L 02/25/25 06:25
Phosphorus 3.8 mg/dl (2.5-4.5) 02/25/25 06:25
Albumin 2.0 g/dl (3.5-5.0) L 02/23/25 04:50
Physical Exam
-
Vital Signs:
Vital Signs
Temp Pulse Resp BP Pulse Ox
99 F 96 16 122/74 98
02/25/25 07:45 02/25/25 07:45 02/25/25 07:45 02/25/25 07:45 02/25/25 07:45
Cardiovascular:: Regular rate and rhythm
Lung Excursion:: Normal
Abdomen:: Distended and Tender
Bowel Sounds:: Decreased (Right lower quadrant SHANICE drain with blood)
Extremity Edema:: None: Bilateral:
Perera Catheter: No
[2025-02-25 12:05] LABS: Glucose - Point of Care 135 mg/dl (70-99)
--- NOTE | 2025-02-25 12:26 | W.PN.GS2 ---
Today's Communication / Plan
-
Clamp trials
TPN
Re-engage Nephrology
Assessment / Plan
-
Assessment: 49yoM who presented with SBO secondary to malignant obstruction
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 Lymphovascular invasion identified. Negative resection margins. Mesenteric peritoneal tumor implants multiple.
POD #31 ex lap for Right hemicolectomy with cystoscopy for stent for identification of the right ureter (stent removed on pod #1 by urology)
POD #26 take back to OR for ex lap, bowel resection d/t anastomotic leak with abdominal washout
02/11/2025 -IR drainage left upper quadrant perisplenic fluid collection (purulent) and left-mid sided fluid collection (serous), both with scant outputs
-- Mid abdomen collection with no organisms and no WBC
-- Left subdiaphragmatic collection growing padmaja
-- Both drains removed 02/23
Leukocytosis trending up, h/h stable, hyponatremia ongoing
Low grade temps continue. VSS
NGT placed on 02/15. Suspect delayed ileus related to resolving hematoma/abscess. Subsequently able to be removed; however, did not tolerate dietary advancement and n/v recurred
Rpt CT 02/17 with much improved left side collections, resolving hematoma to right hemiabdomen noted, po contrast to sigmoid with air in rectum (nonobstructive pattern)
NGT placed on 02/20 for bilious outputs of 1.2L immediately. XR abdomen consistent with ileus.
CT with ileus vs SBO 02/22, collections on left side appear resolved, hematoma remains
02/23 new IR drain to hematoma Cx: prelim enterococcus
Persistent hyponatremia
Plan:
-- Cont PPI and H2 kailash for reflux
-- F/U Cx hematoma fluid
-- Clamp trials
-- Continue TPN, Nephrology re-engaged for persistent hyponatremia, recs appreciated.
-- Abx: per ID
-- Pain control: scheduled IV toradol, prn IV diluadid
-- OOB as able
-- Trend labs/exams
-- DVT: Lovenox sq, SCDs in place
Subjective Data
-
Date of Service: February 25, 2025
Low grade temps, otherwise VSS, ambulating, pain controlled, minimal nausea yesterday, none today while tube clamped for ambulation, passed flatus yesterday as well
Objective Data
-
Intake and Output
02/24/25 02/25/25 02/26/25
06:59 06:59 06:59
Intake Total 1330 / 1330 1030 / 1030
Output Total 950 / 950 2260 / 2260 5 / 5
Balance 380 / 380 -1230 / -1230 -5 / -5
Intake:
Oral fluids 0 / 0 0 / 0
IV piggybacks 300 / 300 200 / 200
TPN/PPN 720 / 720 720 / 720
Amount instilled into Drain (
Total)
Right Lower Abdomen Placed in
IR
Amount instilled into GI Tube ( 310 / 310 90 / 90
Total)
[place] Sump 310 / 310 90 / 90
Output:
Drain Output (Total) 35 / 35 5 / 5
Right Lower Abdomen Placed in 35 5 / 5
IR
Gastrointestinal tube output ( 340 / 340 750 / 750
Total)
[place] Sump 340 / 340 750 / 750
Urine, Voided 600 / 600 1475 / 1475
Other:
Number of approximated MODERATE 3
amounts of urine
Vital Signs
Temp Pulse Resp BP Pulse Ox
99 F 96 16 122/74 98
02/25/25 07:45 02/25/25 07:45 02/25/25 07:45 02/25/25 07:45 02/25/25 07:45
Lab Results
02/25/25 06:25
02/25/25 06:25
Calcium 7.8 mg/dl (8.4-10.2) L 02/25/25 06:25
Phosphorus 3.8 mg/dl (2.5-4.5) 02/25/25 06:25
Magnesium 2.0 mg/dl (1.6-2.3) 02/25/25 06:25
Total Bilirubin 1.0 mg/dl (0.2-1.3) 02/23/25 04:50
AST 32 U/L (17-59) 02/23/25 04:50
ALT 37 U/L (0-50) 02/23/25 04:50
Alkaline Phosphatase 66 U/L (38-126) 02/23/25 04:50
Total Protein 5.1 g/dl (6.3-8.2) L 02/23/25 04:50
Albumin 2.0 g/dl (3.5-5.0) L 02/23/25 04:50
Physical Exam
-
Gen: NAD
Abd: softly distended, incision cdi with some minor bleeding at inferior aspect with ambulation, right hemiabdomen firm at th area of hematoma, drain ss
Patient has a winters catheter: No
Patient has a central line: Yes (picc)
--- NOTE | 2025-02-25 12:45 | CM ---
Reviewed the chart notes. Clamp trial today. CM continues to be available to patient/family and is monitoring medical plan for needs at discharge.
Plan: Discharge plans will depend on the patient's progress.
--- NOTE | 2025-02-25 14:00 | PTCARENOTE ---
Pt's NGT was clamped per MD's orders. At 1400 after a walk around the hallway, pt reported that he was feeling nauseous and needed his NGT hooked back up to suction. Pt's ngt re hooked to low intermittent suction as per orders. Approx. 50mls of
green bile drained immediately then slowed to a trickle. Will continue to monitor Ngt output.
--- NOTE | 2025-02-25 15:39 | W.PN.ID1 ---
Date of Service
Date of Service: February 25, 2025
Today's Communication
Continue micafungin. Begin linezolid.
Assessment / Plan
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
- Pathology with well differentiated endocrine tumor with clean margins, small peritoneal implants present, node malignant , 5/40 nodes positive , appendix neg
# SBO
# Perforated viscous at site of anastomosis s/p repair (01/30/25)
# Intra-abdominal abscesses s/p IR perc drain x 2 on 02/11/25
# Leukocytosis; trending up
Recommendations:
- Abscess # 1 cx: no growth (Gram stain: no wbc's, no organisms)
- Abscess #2 cx: Juju albicans (Gram stain: many wbc's, rare GNR's)
Unasyn discontinued yesterday.
Continue micafungin 100mg IV q24 (d#12)
Given recent administration of ampicillin (and Unasyn), Enterococcus isolate is likely VRE.
Will begin linezolid.
- Trend wbc; slight upward trend over the past several days noted, possibly from SBO
- Follow drain output
- Await pending cultures
- Follow N/V; currently improved with NG tube
����������������������������������������������������������
Chief Complaint
-: Clinical Sepsis (improving abdominal abscesses, peritonitis) and Other (peritonitis 2*perforated viscous. Multiple abdominal abscesses)
Subjective / Review of Systems
Review of Systems: No Fever and No Chills
Vital Signs / Physical Exam
Vital Signs
Vital Signs
Temp Pulse Resp BP Pulse Ox
99 F 96 16 122/74 98
02/25/25 07:45 02/25/25 07:45 02/25/25 07:45 02/25/25 07:45 02/25/25 07:45
Physical Exam
Constitutional: No Acute Distress, Comfortable and Non-toxic
Eyes: Sclera Anicteric
Cardiovascular: S1/S2; Negative S3/S4
Pulmonary: Non Labored
Gastrointestinal: Non Distended, Decreased Bowel Sounds and Other (right sided SHANICE with bloody fluid)
Extremities: Negative Edema
Skin: Warm and Dry; Negative Rash
Neurological: AO x 3
Psychological: Calm
Objective Data
Lab Data
Lab Results
02/25/25 06:25
02/25/25 06:25
PT 20.0 Sec (11.4-14.6) H 02/04/25 06:10
INR 1.65 02/04/25 06:10
APTT 38.7 Sec (23.4-35.0) H 02/04/25 06:10
Estimated Creat Clear > 125 ml/min 02/25/25 06:25
Total Bilirubin 1.0 mg/dl (0.2-1.3) 02/23/25 04:50
AST 32 U/L (17-59) 02/23/25 04:50
ALT 37 U/L (0-50) 02/23/25 04:50
Alkaline Phosphatase 66 U/L (38-126) 02/23/25 04:50
Most recent labs reviewed.
Micro Results:
02/24/25 14:05 Wound Culture - Preliminary
Abdomen Enterococcus species
Gram Stain - Preliminary
02/11/25 16:12 Wound Culture - Final
Abdomen Juju albicans
Gram Stain - Final
02/11/25 15:35 Wound Culture - Final
Abdomen No growth
Gram Stain - Final
Imaging:
02/22/2025 CT abdomen/pelvis with contrast: SBO noted with transition point in the right lateral abdomen. Persistent relatively stable large hematoma in the right abdomen. Trace ascites. No free air. Left subhepatic percutaneous drainage catheter
remains in place. Thin linear soft tissue attenuation noted adjacent to the peripheral margin of the drainage catheter, which could represent a collapsed abscess versus small amount of residual complex fluid within a small abscess. This appears
slightly improved compared to prior examination. Right lateral abdomen percutaneous drainage catheter in place without adjacent or surrounding persistent fluid collection/abscess.
02/15/2025 CXR (portable): stable right PICC line. Interval NG tube placement. Mild bibasilar atelectasis. No significant residual pleural effusion.
02/10/2025 CT abdomen/pelvis: a 9.7 cm left upper quadrant subphrenic abscess noted. 810 cm left lateral mid abdominal intraperitoneal abscess is noted. A 6.5 cm intraperitoneal abscess in the center of the pelvis is appreciated. There is a large
29 cm hemorrhagic fluid collection in the right lateral paracolic gutter. Patient is status post right hemicolectomy and ileocolonic anastomosis. There is moderate small bowel distention consistent with adynamic ileus. Please see full dictation
for additional detail.
[2025-02-25 15:42] VITALS: BP 120/81
[2025-02-25] MEDS: ZYVOX 600 MG 300 IV (16:31)
[2025-02-25 17:48] LABS: Glucose - Point of Care 110 mg/dl (70-99)
[2025-02-25] MEDS: LOVENOX 40 MG SC (18:20)
[2025-02-25] MEDS: Parenteral Nutrition, Central 1480 IV (20:16)
[2025-02-25] MEDS: MELATONIN PO (21:03)
[2025-02-25 23:24] VITALS: BP 124/75
[2025-02-25 23:49] LABS: Glucose - Point of Care 116 mg/dl (70-99)
[2025-02-26] MEDS: DILAUDID 1 MG IV ×6 (03:40→22:50)
[2025-02-26] MEDS: TORADOL 30 MG IV ×4 (04:11→22:50)
[2025-02-26] MEDS: ZYVOX 600 MG 300 IV (05:01)
[2025-02-26 05:35] VITALS: BMI 28.7
[2025-02-26 06:24] LABS: Glucose - Point of Care 114 mg/dl (70-99)
[2025-02-26 07:45] VITALS: BP 120/73
[2025-02-26] MEDS: PROTONIX IV 40 MG IV ×2 (07:45→19:55)
[2025-02-26] MEDS: NSS (PRESERVATIVE FREE) 10 ML IV ×2 (07:45→19:55)
[2025-02-26] MEDS: NSS (PRESERVATIVE FREE) 8 ML IV ×2 (07:46→19:55)
[2025-02-26] MEDS: PEPCID 20 MG IV ×2 (07:46→19:55)
--- NOTE | 2025-02-26 08:08 | W.PN.GS2 ---
Today's Communication / Plan
-
bedside opening of midline incision today -hematoma may be decompressing through midline or possible superficial surgical site infection -> will obtain new cultures
Assessment / Plan
-
Assessment: 49yoM who presented with SBO secondary to malignant obstruction
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 Lymphovascular invasion identified. Negative resection margins. Mesenteric peritoneal tumor implants multiple.
POD #32 ex lap for Right hemicolectomy with cystoscopy for stent for identification of the right ureter (stent removed on pod #1 by urology)
POD #27 take back to OR for ex lap, bowel resection d/t anastomotic leak with abdominal washout
02/11/2025 -IR drainage left upper quadrant perisplenic fluid collection (purulent) and left-mid sided fluid collection (serous), both with scant outputs
-- Mid abdomen collection with no organisms and no WBC
-- Left subdiaphragmatic collection growing padmaja
-- Both drains removed 02/23
Leukocytosis trending up, h/h stable, hyponatremia ongoing
Low grade temps continue. VSS
NGT placed on 02/15. Suspect delayed ileus related to resolving hematoma/abscess. Subsequently able to be removed; however, did not tolerate dietary advancement and n/v recurred
Rpt CT 02/17 with much improved left side collections, resolving hematoma to right hemiabdomen noted, po contrast to sigmoid with air in rectum (nonobstructive pattern)
NGT placed on 02/20 for bilious outputs of 1.2L immediately. XR abdomen consistent with ileus.
CT with ileus vs SBO 02/22, collections on left side appear resolved, hematoma remains
02/23 new IR drain to hematoma Cx: prelim enterococcus
Persistent hyponatremia
Plan: bedside opening of midline incision today -hematoma may be decompressing through midline or possible superficial surgical site infection -> will obtain new cultures
-- Cont PPI and H2 kailash for reflux
-- F/U Cx hematoma fluid
-- maintain NGT but okay to clamp for ambulation and PRN
-- Continue TPN, Nephrology re-engaged for persistent hyponatremia, recs appreciated.
-- Abx: per ID
-- Pain control: scheduled IV toradol, prn IV diluadid
-- OOB as able
-- Trend labs/exams
-- DVT: Lovenox sq, SCDs in place
Subjective Data
-
Date of Service: February 26, 2025
pt seen and examined
some nausea/fullness with NGT clamping yesterday; got relief when returned to suction
reports bleeding at incision
Objective Data
-
Intake and Output
02/25/25 02/26/25 02/27/25
06:59 06:59 06:59
Intake Total 1030 / 1030 1502 / 1502
Output Total 2260 / 2260 910 / 910
Balance -1230 / -1230 592 / 592
Intake:
Oral fluids 0 / 0
IV piggybacks 200 / 200 708 / 708
TPN/PPN 720 / 720 744 / 744
Amount instilled into Drain (
Total)
Right Lower Abdomen Placed in
IR
Amount instilled into GI Tube ( 90 / 90 30 / 30
Total)
[place] Sump 90 / 90 30 / 30
Output:
Drain Output (Total) 35 / 35 10 / 10
Right Lower Abdomen Placed in 35 / 35 10 / 10
IR
Gastrointestinal tube output ( 750 / 750 450 / 450
Total)
[place] Sump 750 / 750 450 / 450
Urine, Voided 1475 / 1475 450 / 450
Other:
Number of approximated MODERATE 3 4
amounts of urine
Vital Signs
Temp Pulse Resp BP Pulse Ox
98.8 F 84 17 124/75 99
02/25/25 23:24 02/25/25 23:24 02/25/25 23:24 02/25/25 23:24 02/25/25 23:24
Lab Results
02/25/25 06:25
Calcium 7.8 mg/dl (8.4-10.2) L 02/25/25 06:25
Phosphorus 3.8 mg/dl (2.5-4.5) 02/25/25 06:25
Magnesium 2.0 mg/dl (1.6-2.3) 02/25/25 06:25
Total Bilirubin 1.0 mg/dl (0.2-1.3) 02/23/25 04:50
AST 32 U/L (17-59) 02/23/25 04:50
ALT 37 U/L (0-50) 02/23/25 04:50
Alkaline Phosphatase 66 U/L (38-126) 02/23/25 04:50
Total Protein 5.1 g/dl (6.3-8.2) L 02/23/25 04:50
Albumin 2.0 g/dl (3.5-5.0) L 02/23/25 04:50
Physical Exam
-
NAD AAOx3
ABD: soft, ND
TTP around incision
centralized erythema, fluctuance and old bloody drainage from midline incision
--- NOTE | 2025-02-26 09:00 | W.PN.SURGUPD ---
Surgical Update
Surgical Update
midline incision opened at bedside
10mL 1% lido utilized for local block
3 areas opened at cleaned - supraumbilical, infraumbilical and suprapubic
-old liquefactive hematoma removed and new culture obtained.
- fascia appears intact
packed with 4x4 gauze and ABD dressing placed
firm area on right lateral abd wall at old drain site will continue to monitor
[2025-02-26 09:04] LABS: Blood Urea Nitrogen 15 mg/dl (9-20); Calcium 8.1 mg/dl (8.4-10.2); Carbon Dioxide 26 mmol/L (22-30); Chloride 101 mmol/L (98-107); Estimated Creatinine Clearance > 125 ml/min; Glucose 108 mg/dl (70-99); Potassium 4.6 mmol/L (3.5-5.1); Sodium 130 mmol/L (135-145); eGFR > 60.00
--- NOTE | 2025-02-26 09:47 | W.PN.NEPH.PH ---
Today's Communication / Plan
-
Maintain current TPN
Follow electrolyte
Assessment/Plan
-
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 He is s/p right hemicolectomy, take-down hepatic flexure
01/25/25, Urology was involved in OR case given proximity to ureter patient is s/p ureteral stent placement. Post-op course c/b ABNER.
Renal consult for acute kidney injury with a creatinine of 1.9 from 1.2
Impression.
Acute kidney injury uncertain etiology ATN possible contrast nephropathy. No obvious episodes of hypotension /was given Toradol for pain
Right hemicolectomy status post with interrupted ureteral stent
Hyponatremia
Stage III neuroendocrine tumor of colon; s/p hemicolectomy with anastomosis 01/25/25
01/30/25 perforated viscous at site of anastomosis s/p repair
Intra-abdominal abscesses s/p IR perc drain x 2 on 02/11/25
Plan.
Serum sodium stable at 130
Maintain current TPN administration
If hyponatremia exacerbate, given urine osmolality of greater than 600 likely due to underlying malignancy,we can provide PRN Samsca
Toradol may be aggravating hyponatremia by inhibiting free water excretion
Renal function remained stable and grossly nonoliguric
Other electrolytes appear to be normalized
Weight is down significantly from admission from 108 kg to 96 kg
Hemodynamically
-
-
Date of Service: February 26, 2025
CC / HPI / ROS
-
Chief Complaint:
Acute kidney injury
History of Present Illness:
Acute kidney resolved
TPN running
still with NGT but currently clamped
Hemodynamically stable
Serum sodium stable at 130
Review of Systems:
No reported chest pain or shortness of breath
Nonoliguric
Right lower quadrant hematoma during
Labs
-
Labs:
WBC 15.9 10^3/uL (4.8-10.8) H 02/25/25 06:25
RBC 3.23 10^6/uL (4.70-6.10) L 02/25/25 06:25
Hgb 8.9 g/dL (13.0-18.0) L 02/25/25 06:25
Hct 26.7 % (39.0-52.0) L 02/25/25 06:25
Plt Count 621 10^3/uL (130-400) H 02/25/25 06:25
Sodium 130 mmol/L (135-145) L 02/26/25 08:36
Potassium 4.6 mmol/L (3.5-5.1) 02/26/25 08:36
Chloride 101 mmol/L (98-107) 02/26/25 08:36
Carbon Dioxide 26 mmol/L (22-30) 02/26/25 08:36
BUN 15 mg/dl (9-20) 02/26/25 08:36
Creatinine 0.6 mg/dL (0.7-1.3) L 02/26/25 08:36
eGFR > 60.00 02/26/25 08:36
Glucose 108 mg/dl (70-99) H 02/26/25 08:36
Calcium 8.1 mg/dl (8.4-10.2) L 02/26/25 08:36
Phosphorus 3.8 mg/dl (2.5-4.5) 02/25/25 06:25
Albumin 2.0 g/dl (3.5-5.0) L 02/23/25 04:50
Physical Exam
-
Vital Signs:
Vital Signs
Temp Pulse Resp BP Pulse Ox
98.2 F 73 16 120/73 99
02/26/25 07:45 02/26/25 07:45 02/26/25 07:45 02/26/25 07:45 02/26/25 07:45
Cardiovascular:: Regular rate and rhythm
Lung Excursion:: Normal
Abdomen:: Distended and Tender
Bowel Sounds:: Decreased (Right lower quadrant SHANICE drain with blood)
Extremity Edema:: None: Bilateral:
Perera Catheter: No
--- NOTE | 2025-02-26 11:00 | CM ---
Chart reviewed patient ambulating hallway, attempted clamp trial yesterday, patint remains on TPN, plan isto home with spouse when stable.
Plan; Home when stable.
[2025-02-26] MEDS: MYCAMINE 105 MG IV (11:23)
[2025-02-26] MEDS: TORADOL IV (11:24)
[2025-02-26 11:59] LABS: Glucose - Point of Care 127 mg/dl (70-99)
--- NOTE | 2025-02-26 15:33 | W.PN.ID1 ---
Date of Service
Date of Service: February 26, 2025
Today's Communication
Continue antibiotics. Discontinue further linezolid and reinitiate Unasyn.
Assessment / Plan
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
- Pathology with well differentiated endocrine tumor with clean margins, small peritoneal implants present, node malignant , 5/40 nodes positive , appendix neg
# SBO
# Perforated viscous at site of anastomosis s/p repair (01/30/25)
# Intra-abdominal abscesses s/p IR perc drain x 2 on 02/11/25
# Leukocytosis; trending up
Recommendations:
Continue micafungin 100mg IV q24 (d#13)
Right abdominal collection/hematoma growing Enterococcus (sensitive to ampicillin and vancomycin).
Discontinue further linezolid.
Restart Unasyn. Prior growth of Enterococcus while on Unasyn was likely due to a lack of penetration into the hematoma.
- Trend wbc; slight upward trend over the past several days noted, possibly from SBO
- Follow drain output
- Follow N/V; currently improved with NG tube
����������������������������������������������������������
Chief Complaint
-: Clinical Sepsis (improving abdominal abscesses, peritonitis) and Other (peritonitis 2*perforated viscous. Multiple abdominal abscesses)
Subjective / Review of Systems
Review of Systems: No Fever and No Chills
Vital Signs / Physical Exam
Vital Signs
Vital Signs
Temp Pulse Resp BP Pulse Ox
98.2 F 73 16 120/73 99
02/26/25 07:45 02/26/25 07:45 02/26/25 07:45 02/26/25 07:45 02/26/25 07:45
Physical Exam
Constitutional: No Acute Distress, Comfortable and Non-toxic
Eyes: Sclera Anicteric
Cardiovascular: S1/S2; Negative S3/S4
Pulmonary: Non Labored
Gastrointestinal: Non Distended, Decreased Bowel Sounds and Other (right sided SHANICE with bloody fluid)
Extremities: Negative Edema
Skin: Warm and Dry; Negative Rash
Neurological: AO x 3
Psychological: Calm
Objective Data
Lab Data
Lab Results
02/25/25 06:25
02/26/25 08:36
PT 20.0 Sec (11.4-14.6) H 02/04/25 06:10
INR 1.65 02/04/25 06:10
APTT 38.7 Sec (23.4-35.0) H 02/04/25 06:10
Estimated Creat Clear > 125 ml/min 02/26/25 08:36
Total Bilirubin 1.0 mg/dl (0.2-1.3) 02/23/25 04:50
AST 32 U/L (17-59) 02/23/25 04:50
ALT 37 U/L (0-50) 02/23/25 04:50
Alkaline Phosphatase 66 U/L (38-126) 02/23/25 04:50
Most recent labs reviewed.
Micro Results:
02/24/25 14:05 Wound Culture - Final
Abdomen Enterococcus faecalis
Gram Stain - Final
02/26/25 08:57 Wound Culture - Pending
Abdomen Gram Stain - Preliminary
02/11/25 16:12 Wound Culture - Final
Abdomen Juju albicans
Gram Stain - Final
02/11/25 15:35 Wound Culture - Final
Abdomen No growth
Gram Stain - Final
Imaging:
02/22/2025 CT abdomen/pelvis with contrast: SBO noted with transition point in the right lateral abdomen. Persistent relatively stable large hematoma in the right abdomen. Trace ascites. No free air. Left subhepatic percutaneous drainage catheter
remains in place. Thin linear soft tissue attenuation noted adjacent to the peripheral margin of the drainage catheter, which could represent a collapsed abscess versus small amount of residual complex fluid within a small abscess. This appears
slightly improved compared to prior examination. Right lateral abdomen percutaneous drainage catheter in place without adjacent or surrounding persistent fluid collection/abscess.
02/15/2025 CXR (portable): stable right PICC line. Interval NG tube placement. Mild bibasilar atelectasis. No significant residual pleural effusion.
02/10/2025 CT abdomen/pelvis: a 9.7 cm left upper quadrant subphrenic abscess noted. 810 cm left lateral mid abdominal intraperitoneal abscess is noted. A 6.5 cm intraperitoneal abscess in the center of the pelvis is appreciated. There is a large
29 cm hemorrhagic fluid collection in the right lateral paracolic gutter. Patient is status post right hemicolectomy and ileocolonic anastomosis. There is moderate small bowel distention consistent with adynamic ileus. Please see full dictation
for additional detail.
[2025-02-26 15:40] VITALS: BP 125/75
[2025-02-26] MEDS: UNASYN IV ×2 (16:38→21:52)
[2025-02-26] MEDS: LOVENOX 40 MG SC (17:06)
[2025-02-26 18:06] LABS: Glucose - Point of Care 116 mg/dl (70-99)
[2025-02-26] MEDS: Parenteral Nutrition, Central 1480 IV (20:45)
[2025-02-26] MEDS: MELATONIN PO (22:13)
[2025-02-26 23:21] VITALS: BP 112/70
[2025-02-26 23:54] LABS: Glucose - Point of Care 122 mg/dl (70-99)
[2025-02-27] MEDS: UNASYN IV ×4 (03:40→21:07)
[2025-02-27] MEDS: DILAUDID 1 MG IV ×7 (03:40→22:59)
[2025-02-27] MEDS: TORADOL 30 MG IV (05:44)
[2025-02-27 05:57] LABS: Glucose - Point of Care 108 mg/dl (70-99)
[2025-02-27 07:55] VITALS: BP 110/72
[2025-02-27 07:58] LABS: Hematocrit 24.1 % (39.0-52.0); Hemoglobin 7.7 g/dL (13.0-18.0); Mean Corp Hgb Conc. 32.0 g/dL (33.0-37.0); Mean Corpuscular Volume 83.7 fL (80.0-94.0); Platelet Count 559 10^3/uL (130-400); Red Cell Dist. Width 15.9 % (11.5-14.5)
[2025-02-27 08:27] LABS: Blood Urea Nitrogen 16 mg/dl (9-20); Calcium 8.1 mg/dl (8.4-10.2); Carbon Dioxide 26 mmol/L (22-30); Chloride 103 mmol/L (98-107); Estimated Creatinine Clearance > 125 ml/min; Glucose 109 mg/dl (70-99); Magnesium 2.2 mg/dl (1.6-2.3); Potassium 5.0 mmol/L (3.5-5.1); Sodium 131 mmol/L (135-145); eGFR > 60.00
--- NOTE | 2025-02-27 09:23 | CM ---
Reviewed the chart notes and spoke with the RN. Patient had incision opened at bedside yesterday. Continues with TPN and NGT. CM continues to be available to patient/family and is monitoring medical plan for needs at discharge.
Plan: Discharge plans will depend on the patient's progress.
[2025-02-27] MEDS: PROTONIX IV 40 MG IV ×2 (09:46→19:49)
[2025-02-27] MEDS: NSS (PRESERVATIVE FREE) 10 ML IV ×2 (09:46→19:49)
[2025-02-27] MEDS: NSS (PRESERVATIVE FREE) 8 ML IV ×2 (09:47→19:49)
[2025-02-27] MEDS: PEPCID 20 MG IV ×2 (09:48→19:50)
--- NOTE | 2025-02-27 10:09 | W.PN.GS2 ---
Today's Communication / Plan
-
TPN
NGT
Local wound care
h/h recheck this afternoon
Assessment / Plan
-
Assessment: 49yoM who presented with SBO secondary to malignant obstruction
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 Lymphovascular invasion identified. Negative resection margins. Mesenteric peritoneal tumor implants multiple.
01/25/25 ex lap for Right hemicolectomy with cystoscopy for stent for identification of the right ureter (stent removed on pod #1 by urology)
01/30/25 take back to OR for ex lap, bowel resection d/t anastomotic leak with abdominal washout
02/11/2025 -IR drainage left upper quadrant perisplenic fluid collection (purulent) and left-mid sided fluid collection (serous), both with scant outputs
-- Mid abdomen collection with no organisms and no WBC
-- Left subdiaphragmatic collection growing padmaja
-- Both drains removed 02/23
NGT placed on 02/15/25. Suspect delayed ileus related to resolving hematoma/abscess. Subsequently able to be removed; however, did not tolerate dietary advancement and n/v recurred
Rpt CT 02/17/25 with much improved left side collections, resolving hematoma to right hemiabdomen noted, po contrast to sigmoid with air in rectum (nonobstructive pattern)
NGT placed on 02/20/25 for bilious outputs of 1.2L immediately. XR abdomen consistent with ileus.
CT with ileus vs SBO 02/22/25, collections on left side appear resolved, hematoma remains
02/23/2025 - IR drainage of hematoma, minimal old blood able to be removed. Other drains removed. Cx: enterococcus
02/26/2025 - 3 small areas of incision opened near base, liquified hematoma drained and cx sent and pending
Today:
Has not tolerated prolonged clamp trial of NGT thus far
Leukocytosis resolved
h/h with drift downwards s/p I&D of hematoma yesterday, no active bleeding present on exam
hyponatremia ongoing
Afebrile, VSS
Plan:
-- CX pending from I&D on 02/26
-- Cont PPI and H2 kailash for reflux
-- F/U Cx hematoma fluid
-- maintain NGT but okay to clamp for ambulation and PRN
-- Continue TPN, Nephrology following for persistent hyponatremia, recs appreciated.
-- Abx: per ID on Unasyn given for coverage of enterococcus in cx from IR drainage on 02/23
-- Pain control: scheduled IV toradol, prn IV diluadid
-- OOB as able, encouraged spending time in chair instead of bed during the day
-- Trend labs/exams
-- Local wound care
-- DVT: Lovenox sq, SCDs in place
Subjective Data
-
Date of Service: February 27, 2025
Pt seen and examined at bedside with Dr. Munoz, updated pt's spouse via telephone. Denies n/v. Passing a small amount of flatus. Discomfort around base of incision.
Objective Data
-
Intake and Output
02/26/25 02/27/25 02/28/25
06:59 06:59 06:59
Intake Total 1502 / 1502 120 / 120 200 / 200
Output Total 910 / 910 1630 / 1630
Balance 592 / 592 -1510 / -1510 200 / 200
Intake:
IV piggybacks 708 / 708 200 / 200
TPN/PPN 744 / 744
Amount instilled into Drain (
Total)
Right Lower Abdomen Placed in
IR
Amount instilled into GI Tube (
Total)
Crystal Sump
Output:
Drain Output (Total)
Right Lower Abdomen Placed in
IR
Gastrointestinal tube output ( 450 / 450 600 / 600
Total)
Crystal Sump 450 / 450 600 / 600
Urine, Voided 450 / 450 1000 / 1000
Other:
Number of approximated MODERATE 4
amounts of urine
Vital Signs
Temp Pulse Resp BP Pulse Ox
98.4 F 74 16 110/72 98
02/27/25 07:55 02/27/25 07:55 02/27/25 07:55 02/27/25 07:55 02/27/25 07:55
Lab Results
02/27/25 07:47
Calcium 8.1 mg/dl (8.4-10.2) L 02/27/25 07:47
Phosphorus 3.8 mg/dl (2.5-4.5) 02/25/25 06:25
Magnesium 2.2 mg/dl (1.6-2.3) 02/27/25 07:47
Total Bilirubin 1.0 mg/dl (0.2-1.3) 02/23/25 04:50
AST 32 U/L (17-59) 02/23/25 04:50
ALT 37 U/L (0-50) 02/23/25 04:50
Alkaline Phosphatase 66 U/L (38-126) 02/23/25 04:50
Total Protein 5.1 g/dl (6.3-8.2) L 02/23/25 04:50
Albumin 2.0 g/dl (3.5-5.0) L 02/23/25 04:50
Physical Exam
-
NAD AAOx3
ABD: soft, ND
TTP around incision
centralized erythema/tenderness, 3 open areas to base of incision, packing removed both old bloody drainage from midline incision saturating dressing but no active bleeding noted. No purulence.
--- NOTE | 2025-02-27 11:54 | W.PN.ID1 ---
Date of Service
Date of Service: February 27, 2025
Today's Communication
Continue current antibiotics.
Assessment / Plan
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
- Pathology with well differentiated endocrine tumor with clean margins, small peritoneal implants present, node malignant , 5/40 nodes positive , appendix neg
# SBO
# Perforated viscous at site of anastomosis s/p repair (01/30/25)
# Intra-abdominal abscesses s/p IR perc drain x 2 on 02/11/25
# Intra-abdominal infected hematoma with Enterococcus; s/p drain placement (02/23/25)
# Leukocytosis; improved today
Recommendations:
Continue micafungin 100mg IV q24 (d#14)
Right abdominal collection/hematoma growing Enterococcus (sensitive to ampicillin and vancomycin).
Continue Unasyn. Prior growth of Enterococcus while on Unasyn was likely due to a lack of penetration into the hematoma, which is not drained
- Trend wbc
- Follow drain output
- Follow N/V; currently improved with NG tube
����������������������������������������������������������
Chief Complaint
-: Clinical Sepsis (improving abdominal abscesses, peritonitis) and Other (peritonitis 2*perforated viscous. Multiple abdominal abscesses)
Subjective / Review of Systems
Patient seen and examined. Reports no significant issues overnight. Currently up to chair.
Review of Systems: No Fever and No Chills
Vital Signs / Physical Exam
Vital Signs
Vital Signs
Temp Pulse Resp BP Pulse Ox
98.4 F 74 16 110/72 98
02/27/25 07:55 02/27/25 07:55 02/27/25 07:55 02/27/25 07:55 02/27/25 07:55
Physical Exam
Constitutional: No Acute Distress, Comfortable and Non-toxic
Eyes: Sclera Anicteric
Cardiovascular: S1/S2; Negative S3/S4
Pulmonary: Non Labored
Gastrointestinal: Non Distended, Decreased Bowel Sounds and Other (right sided SHANICE with bloody fluid)
Extremities: Negative Edema
Skin: Warm and Dry; Negative Rash
Neurological: AO x 3
Psychological: Calm
Objective Data
Lab Data
Lab Results
02/27/25 07:47
PT 20.0 Sec (11.4-14.6) H 02/04/25 06:10
INR 1.65 02/04/25 06:10
APTT 38.7 Sec (23.4-35.0) H 02/04/25 06:10
Estimated Creat Clear > 125 ml/min 02/27/25 07:47
Total Bilirubin 1.0 mg/dl (0.2-1.3) 02/23/25 04:50
AST 32 U/L (17-59) 02/23/25 04:50
ALT 37 U/L (0-50) 02/23/25 04:50
Alkaline Phosphatase 66 U/L (38-126) 02/23/25 04:50
Most recent labs reviewed.
Micro Results:
02/26/25 08:57 Wound Culture - Preliminary
Abdomen (anterior) No growth
Gram Stain - Preliminary
02/24/25 14:05 Wound Culture - Final
Abdomen (R) SHANICE Enterococcus faecalis
Gram Stain - Final
02/11/25 16:12 Wound Culture - Final
Abdomen Juju albicans
Gram Stain - Final
02/11/25 15:35 Wound Culture - Final
Abdomen No growth
Gram Stain - Final
Imaging:
02/22/2025 CT abdomen/pelvis with contrast: SBO noted with transition point in the right lateral abdomen. Persistent relatively stable large hematoma in the right abdomen. Trace ascites. No free air. Left subhepatic percutaneous drainage catheter
remains in place. Thin linear soft tissue attenuation noted adjacent to the peripheral margin of the drainage catheter, which could represent a collapsed abscess versus small amount of residual complex fluid within a small abscess. This appears
slightly improved compared to prior examination. Right lateral abdomen percutaneous drainage catheter in place without adjacent or surrounding persistent fluid collection/abscess.
02/15/2025 CXR (portable): stable right PICC line. Interval NG tube placement. Mild bibasilar atelectasis. No significant residual pleural effusion.
02/10/2025 CT abdomen/pelvis: a 9.7 cm left upper quadrant subphrenic abscess noted. 810 cm left lateral mid abdominal intraperitoneal abscess is noted. A 6.5 cm intraperitoneal abscess in the center of the pelvis is appreciated. There is a large
29 cm hemorrhagic fluid collection in the right lateral paracolic gutter. Patient is status post right hemicolectomy and ileocolonic anastomosis. There is moderate small bowel distention consistent with adynamic ileus. Please see full dictation
for additional detail.
Care Review
Plan reviewed with: Other Provider (Gen Sx)
[2025-02-27] MEDS: MYCAMINE 105 MG IV (11:57)
--- NOTE | 2025-02-27 12:07 | W.PN.NEPH.PH ---
Today's Communication / Plan
-
Continue TPN
Assessment/Plan
-
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 He is s/p right hemicolectomy, take-down hepatic flexure
01/25/25, Urology was involved in OR case given proximity to ureter patient is s/p ureteral stent placement. Post-op course c/b ABNER.
Renal consult for acute kidney injury with a creatinine of 1.9 from 1.2
Impression.
Acute kidney injury uncertain etiology ATN possible contrast nephropathy. No obvious episodes of hypotension /was given Toradol for pain
Right hemicolectomy status post with interrupted ureteral stent
Hyponatremia
Stage III neuroendocrine tumor of colon; s/p hemicolectomy with anastomosis 01/25/25
01/30/25 perforated viscous at site of anastomosis s/p repair
Intra-abdominal abscesses s/p IR perc drain x 2 on 02/11/25
Plan.
Serum sodium stable at 131
Maintain current TPN administration
Toradol may be aggravating hyponatremia by inhibiting free water excretion
Renal function remained stable and grossly nonoliguric
Other electrolytes appear to be normalized
Weight is down significantly from admission from 108 kg to 96 kg
Hemodynamically
-
-
Date of Service: February 27, 2025
CC / HPI / ROS
-
Chief Complaint:
Acute kidney injury
History of Present Illness:
Acute kidney resolved
TPN running
still with NGT but currently clamped
Hemodynamically stable
Serum sodium stable at 130
Review of Systems:
No reported chest pain or shortness of breath
Nonoliguric
Right lower quadrant hematoma during
Labs
-
Labs:
WBC 8.8 10^3/uL (4.8-10.8) 02/27/25 07:47
RBC 2.88 10^6/uL (4.70-6.10) L 02/27/25 07:47
Plt Count 559 10^3/uL (130-400) H 02/27/25 07:47
Sodium 131 mmol/L (135-145) L 02/27/25 07:47
Potassium 5.0 mmol/L (3.5-5.1) 02/27/25 07:47
Chloride 103 mmol/L (98-107) 02/27/25 07:47
Carbon Dioxide 26 mmol/L (22-30) 02/27/25 07:47
BUN 16 mg/dl (9-20) 02/27/25 07:47
Creatinine 0.6 mg/dL (0.7-1.3) L 02/27/25 07:47
eGFR > 60.00 02/27/25 07:47
Glucose 109 mg/dl (70-99) H 02/27/25 07:47
Calcium 8.1 mg/dl (8.4-10.2) L 02/27/25 07:47
Phosphorus 3.8 mg/dl (2.5-4.5) 02/25/25 06:25
Albumin 2.0 g/dl (3.5-5.0) L 02/23/25 04:50
Physical Exam
-
Vital Signs:
Vital Signs
Temp Pulse Resp BP Pulse Ox
98.4 F 74 16 110/72 98
02/27/25 07:55 02/27/25 07:55 02/27/25 07:55 02/27/25 07:55 02/27/25 07:55
Cardiovascular:: Regular rate and rhythm
Lung Excursion:: Normal
Abdomen:: Distended and Tender
Bowel Sounds:: Decreased (Right lower quadrant SHANICE drain with blood)
Extremity Edema:: None: Bilateral:
Perera Catheter: No
[2025-02-27 12:19] LABS: Glucose - Point of Care 110 mg/dl (70-99)
[2025-02-27 14:46] LABS: Hematocrit 25.0 % (39.0-52.0); Hemoglobin 8.2 g/dL (13.0-18.0)
[2025-02-27 15:45] VITALS: BP 120/74
[2025-02-27] MEDS: LOVENOX 40 MG SC (17:03)
[2025-02-27 18:23] LABS: Glucose - Point of Care 102 mg/dl (70-99)
[2025-02-27] MEDS: Parenteral Nutrition, Central 1480 IV (21:15)
[2025-02-27] MEDS: MELATONIN PO (21:19)
[2025-02-27 23:10] VITALS: BP 123/71
[2025-02-27 23:58] LABS: Glucose - Point of Care 112 mg/dl (70-99)
[2025-02-28] MEDS: DILAUDID 1 MG IV ×6 (02:14→20:20)
[2025-02-28] MEDS: UNASYN IV ×4 (03:32→23:58)
[2025-02-28 05:34] LABS: Glucose - Point of Care 112 mg/dl (70-99)
[2025-02-28 05:42] VITALS: BMI 28.3
[2025-02-28 08:10] VITALS: BP 110/75
[2025-02-28 08:31] LABS: Hematocrit 25.8 % (39.0-52.0); Hemoglobin 8.4 g/dL (13.0-18.0); Mean Corp Hgb Conc. 32.6 g/dL (33.0-37.0); Mean Corpuscular Volume 83.2 fL (80.0-94.0); Platelet Count 750 10^3/uL (130-400); Red Cell Dist. Width 16.0 % (11.5-14.5)
[2025-02-28 09:01] LABS: Blood Urea Nitrogen 13 mg/dl (9-20); Calcium 8.3 mg/dl (8.4-10.2); Carbon Dioxide 29 mmol/L (22-30); Chloride 100 mmol/L (98-107); Estimated Creatinine Clearance > 125 ml/min; Glucose 105 mg/dl (70-99); Magnesium 2.2 mg/dl (1.6-2.3); Potassium 5.3 mmol/L (3.5-5.1); Sodium 132 mmol/L (135-145); eGFR > 60.00
[2025-02-28] MEDS: NSS (PRESERVATIVE FREE) 10 ML IV ×2 (09:09→20:19)
[2025-02-28] MEDS: PEPCID 20 MG IV ×2 (09:09→20:20)
[2025-02-28] MEDS: NSS (PRESERVATIVE FREE) 8 ML IV ×2 (09:09→20:20)
[2025-02-28] MEDS: PROTONIX IV 40 MG IV ×2 (09:10→20:19)
--- NOTE | 2025-02-28 11:26 | W.PN.NEPH.PH ---
Today's Communication / Plan
-
Continue TPN
Assessment/Plan
-
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 He is s/p right hemicolectomy, take-down hepatic flexure
01/25/25, Urology was involved in OR case given proximity to ureter patient is s/p ureteral stent placement. Post-op course c/b ABNER.
Renal consult for acute kidney injury with a creatinine of 1.9 from 1.2
Impression.
Acute kidney injury uncertain etiology ATN possible contrast nephropathy. No obvious episodes of hypotension /was given Toradol for pain
Right hemicolectomy status post with interrupted ureteral stent
Hyponatremia
Stage III neuroendocrine tumor of colon; s/p hemicolectomy with anastomosis 01/25/25
01/30/25 perforated viscous at site of anastomosis s/p repair
Intra-abdominal abscesses s/p IR perc drain x 2 on 02/11/25
Plan.
Serum sodium stable at 132
Maintain current TPN administration
Toradol may be aggravating hyponatremia by inhibiting free water excretion
Renal function remained stable and grossly nonoliguric
Other electrolytes appear to be normalized
Weight is down significantly from admission from 108 kg to 96 kg
Hemodynamically
No changes today
-
-
Date of Service: February 28, 2025
CC / HPI / ROS
-
Chief Complaint:
Acute kidney injury
History of Present Illness:
Acute kidney resolved
TPN running
still with NGT but currently clamped
Hemodynamically stable
Serum sodium stable at 130
Review of Systems:
No reported chest pain or shortness of breath
Nonoliguric
Right lower quadrant hematoma during
Labs
-
Labs:
WBC 11.1 10^3/uL (4.8-10.8) H 02/28/25 08:06
RBC 3.10 10^6/uL (4.70-6.10) L 02/28/25 08:06
Hgb 8.4 g/dL (13.0-18.0) L 02/28/25 08:06
Hct 25.8 % (39.0-52.0) L 02/28/25 08:06
Plt Count 750 10^3/uL (130-400) H D 02/28/25 08:06
Sodium 132 mmol/L (135-145) L 02/28/25 08:06
Potassium 5.3 mmol/L (3.5-5.1) H 02/28/25 08:06
Chloride 100 mmol/L (98-107) 02/28/25 08:06
Carbon Dioxide 29 mmol/L (22-30) 02/28/25 08:06
BUN 13 mg/dl (9-20) 02/28/25 08:06
Creatinine 0.7 mg/dL (0.7-1.3) 02/28/25 08:06
eGFR > 60.00 02/28/25 08:06
Glucose 105 mg/dl (70-99) H 02/28/25 08:06
Calcium 8.3 mg/dl (8.4-10.2) L 02/28/25 08:06
Phosphorus 3.8 mg/dl (2.5-4.5) 02/25/25 06:25
Albumin 2.0 g/dl (3.5-5.0) L 02/23/25 04:50
Physical Exam
-
Vital Signs:
Vital Signs
Temp Pulse Resp BP Pulse Ox
98.2 F 79 16 110/75 100
02/28/25 08:10 02/28/25 08:10 02/28/25 08:10 02/28/25 08:10 02/28/25 08:10
Cardiovascular:: Regular rate and rhythm
Lung Excursion:: Normal
Abdomen:: Distended and Tender
Bowel Sounds:: Decreased (Right lower quadrant SHANICE drain with blood)
Extremity Edema:: None: Bilateral:
Perera Catheter: No
[2025-02-28 11:48] LABS: Glucose - Point of Care 116 mg/dl (70-99)
[2025-02-28] MEDS: MYCAMINE 105 MG IV (13:15)
--- NOTE | 2025-02-28 15:32 | W.PN.GS2 ---
Today's Communication / Plan
-
TPN/NPO/Wound care
Assessment / Plan
-
Assessment: 49yoM who presented with SBO secondary to malignant obstruction
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 Lymphovascular invasion identified. Negative resection margins. Mesenteric peritoneal tumor implants multiple.
01/25/25 ex lap for Right hemicolectomy with cystoscopy for stent for identification of the right ureter (stent removed on pod #1 by urology)
01/30/25 take back to OR for ex lap, bowel resection d/t anastomotic leak with abdominal washout
02/11/2025 -IR drainage left upper quadrant perisplenic fluid collection (purulent) and left-mid sided fluid collection (serous), both with scant outputs
-- Mid abdomen collection with no organisms and no WBC
-- Left subdiaphragmatic collection growing padmaja
-- Both drains removed 02/23
NGT placed on 02/15/25. Suspect delayed ileus related to resolving hematoma/abscess. Subsequently able to be removed; however, did not tolerate dietary advancement and n/v recurred
Rpt CT 02/17/25 with much improved left side collections, resolving hematoma to right hemiabdomen noted, po contrast to sigmoid with air in rectum (nonobstructive pattern)
NGT placed on 02/20/25 for bilious outputs of 1.2L immediately. XR abdomen consistent with ileus.
CT with ileus vs SBO 02/22/25, collections on left side appear resolved, hematoma remains
02/23/2025 - IR drainage of hematoma, minimal old blood able to be removed. Other drains removed. Cx: enterococcus
02/26/2025 - 3 small areas of incision opened near base, liquified hematoma drained and cx sent and pending (NGTD)
Intermittent NGT clamping, tolerating thus far
Leukocytosis present, mild
h/h stable
hyponatremia improving
mild hyperkalemia
Afebrile, VSS
Plan:
-- Cont PPI and H2 kailash for reflux
-- F/U Cx hematoma fluid
-- maintain NGT but okay to clamp for ambulation and PRN
-- Continue TPN, potassium adjusted
-- Abx: per ID. Currently on Unasyn/Micafungin
-- Pain control: scheduled IV toradol, prn IV diluadid
-- OOB/ambulate
-- Trend labs/exams
-- Local wound care
-- DVT: Lovenox sq, SCDs in place
Subjective Data
-
Date of Service: February 28, 2025
Pt seen and examined at bedside with Dr. Ledbetter. Denies n/v. NGT clamped currently while OOB. Minimal abdominal discomfort.
Objective Data
-
Intake and Output
02/27/25 02/28/25 03/01/25
06:59 06:59 06:59
Intake Total 130 / 130 958 / 958
Output Total 1630 / 1630 3265 / 3265
Balance -1500 / -1500 -2307 / -2307
Intake:
Oral fluids 240 / 240
IV piggybacks 698 / 698
Amount instilled into Drain ( 40 / 40
Total)
Right Lower Abdomen Placed in 40 / 40 / 20
IR
Amount instilled into GI Tube ( 90 / 90
Total)
Wilkin Sump 90 / 90
Output:
Drain Output (Total)
Right Lower Abdomen Placed in
IR
Gastrointestinal tube output ( 600 / 600 600 / 600
Total)
Wilkin Sump 600 / 600 600 / 600
Urine, Voided 1000 / 1000 2650 / 2650
Other:
Number of approximated MODERATE 2
amounts of urine
Vital Signs
Temp Pulse Resp BP Pulse Ox
98.2 F 79 16 110/75 100
02/28/25 08:10 02/28/25 08:10 02/28/25 08:10 02/28/25 08:10 02/28/25 08:10
Lab Results
02/28/25 08:06
02/28/25 08:06
Calcium 8.3 mg/dl (8.4-10.2) L 02/28/25 08:06
Phosphorus 3.8 mg/dl (2.5-4.5) 02/25/25 06:25
Magnesium 2.2 mg/dl (1.6-2.3) 02/28/25 08:06
Total Bilirubin 1.0 mg/dl (0.2-1.3) 02/23/25 04:50
AST 32 U/L (17-59) 02/23/25 04:50
ALT 37 U/L (0-50) 02/23/25 04:50
Alkaline Phosphatase 66 U/L (38-126) 02/23/25 04:50
Total Protein 5.1 g/dl (6.3-8.2) L 02/23/25 04:50
Albumin 2.0 g/dl (3.5-5.0) L 02/23/25 04:50
Physical Exam
-
NAD AAOx3
ABD: soft, ND
TTP around incision
centralized erythema nearly resolved, 3 open areas to base of incision. Packing removed with old bloody drainage from midline incision saturating dressing but no active bleeding noted. No purulence. Dressing changed.
Patient has a central line: Yes (PICC)
[2025-02-28 15:38] VITALS: BP 116/75
[2025-02-28] MEDS: LOVENOX 40 MG SC (17:16)
[2025-02-28 17:38] LABS: Glucose - Point of Care 97 mg/dl (70-99)
[2025-02-28] MEDS: Parenteral Nutrition, Central 1470 IV (21:28)
[2025-02-28 23:45] VITALS: BP 117/69
[2025-02-28] MEDS: MELATONIN PO (23:52)
[2025-02-28] MEDS: DILAUDID 0.5 MG IV (23:58)
[2025-03-01 00:05] LABS: Glucose - Point of Care 110 mg/dl (70-99)
[2025-03-01] MEDS: DILAUDID 1 MG IV ×3 (03:29→19:37)
[2025-03-01] MEDS: UNASYN IV ×4 (05:03→21:05)
[2025-03-01 06:00] VITALS: BMI 28.2
[2025-03-01 07:15] LABS: Glucose - Point of Care 124 mg/dl (70-99)
[2025-03-01] MEDS: PROTONIX IV 40 MG IV ×2 (07:47→19:41)
[2025-03-01] MEDS: NSS (PRESERVATIVE FREE) 10 ML IV ×2 (07:47→19:41)
[2025-03-01] MEDS: NSS (PRESERVATIVE FREE) 8 ML IV ×2 (07:47→19:41)
[2025-03-01] MEDS: PEPCID 20 MG IV ×2 (07:48→19:41)
[2025-03-01] MEDS: DILAUDID 0.5 MG IV ×2 (07:52→11:52)
[2025-03-01 08:00] VITALS: BP 125/79
[2025-03-01 08:31] LABS: Hematocrit 27.2 % (39.0-52.0); Hemoglobin 8.8 g/dL (13.0-18.0); Mean Corp Hgb Conc. 32.4 g/dL (33.0-37.0); Mean Corpuscular Volume 84.0 fL (80.0-94.0); Platelet Count 768 10^3/uL (130-400); Red Cell Dist. Width 16.3 % (11.5-14.5)
[2025-03-01 08:50] LABS: Blood Urea Nitrogen 15 mg/dl (9-20); Calcium 8.8 mg/dl (8.4-10.2); Carbon Dioxide 29 mmol/L (22-30); Chloride 99 mmol/L (98-107); Estimated Creatinine Clearance > 125 ml/min; Glucose 111 mg/dl (70-99); Magnesium 2.2 mg/dl (1.6-2.3); Potassium 5.0 mmol/L (3.5-5.1); Sodium 132 mmol/L (135-145); eGFR > 60.00
[2025-03-01] MEDS: MYCAMINE 105 MG IV (11:18)
--- NOTE | 2025-03-01 12:11 | W.PN.UPDATE ---
Update Note
Progress Note Update
na stable
will sign off
please yevgeniy as needed
[2025-03-01 12:34] LABS: Glucose - Point of Care 118 mg/dl (70-99)
--- NOTE | 2025-03-01 13:13 | W.PN.GS2 ---
Addendum entered and electronically signed by Сергей Ledbetter MD 03/01/25 13:30:
I saw and examined the patient.
The Health Safety Manager's note was reviewed and I agree with the note.
Comment: 100cc residual after 24 hrs clamped. Denies n/v. Increased flatus. Abd exam with ss drainage from midline wounds, ss fluid in IR drain. Plan for additional 24 hr clamp trial, cont tpn. Hyponatremia improving, appreciate Nephrology recs.
Plan for rpt CT with PO and IV contrast tomorrow to assess bowel function and re-assess hematoma. Hematoma micro - enterococcus, cont unasyn
Original Note:
Today's Communication / Plan
-
Clamp trial
TPN
Assessment / Plan
-
Assessment: 49yoM who presented with SBO secondary to malignant obstruction
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 Lymphovascular invasion identified. Negative resection margins. Mesenteric peritoneal tumor implants multiple.
01/25/25 ex lap for Right hemicolectomy with cystoscopy for stent for identification of the right ureter (stent removed on pod #1 by urology)
01/30/25 take back to OR for ex lap, bowel resection d/t anastomotic leak with abdominal washout
02/11/2025 -IR drainage left upper quadrant perisplenic fluid collection (purulent) and left-mid sided fluid collection (serous), both with scant outputs
-- Mid abdomen collection with no organisms and no WBC
-- Left subdiaphragmatic collection growing padmaja
-- Both drains removed 02/23
NGT placed on 02/15/25. Suspect delayed ileus related to resolving hematoma/abscess. Subsequently able to be removed; however, did not tolerate dietary advancement and n/v recurred
Rpt CT 02/17/25 with much improved left side collections, resolving hematoma to right hemiabdomen noted, po contrast to sigmoid with air in rectum (nonobstructive pattern)
NGT placed on 02/20/25 for bilious outputs of 1.2L immediately. XR abdomen consistent with ileus.
CT with ileus vs SBO 02/22/25, collections on left side appear resolved, hematoma remains
02/23/2025 - IR drainage of hematoma, minimal old blood able to be removed. Other drains removed. Cx: enterococcus
02/26/2025 - 3 small areas of incision opened near base, liquified hematoma drained and cx sent and pending (NGTD)
Tolerating 24h clamp trial
Leukocytosis present, mild
h/h stable
hyponatremia stable
mild hyperkalemia, resolved with adjustments to TPN
Afebrile, VSS
Plan:
-- Cont PPI and H2 kailash for reflux
-- Keep NGT clamped unless nauseated
-- Tentative CT with PO/IV contrast in AM if continues to tolerate clamp trial
-- Continue TPN
-- Abx: per ID. Currently on Unasyn/Micafungin
-- Pain control: scheduled IV toradol, prn IV diluadid
-- OOB/ambulate
-- Trend labs/exams
-- Local wound care
-- DVT: Lovenox sq, SCDs in place
Subjective Data
-
Date of Service: March 01, 2025
Pt seen and examined at bedside with Dr. Ledbetter. Spouse present and updated. Denies n/v. Passing flatus. Tolerating clamp trial. Denies heartburn. Pain manageable.
Objective Data
-
Intake and Output
02/28/25 03/01/25 03/02/25
06:59 06:59 06:59
Intake Total 1926 / 1926 1099 / 1099 942 / 942
Output Total 3265 / 3265 450 / 450 1080 / 1080
Balance -1338 / -1338 649 / 649 -138 / -138
Intake:
Oral fluids 240 / 240
IV piggybacks 923 / 923 345 / 345 200 / 200
TPN/PPN 744 / 744 744 / 744 732 / 732
Amount instilled into Drain (
Total)
Right Lower Abdomen Placed in
IR
Output:
Drain Output (Total)
Right Lower Abdomen Placed in
IR
Gastrointestinal tube output ( 600 / 600
Total)
[place] Sump 600 / 600
Urine, Voided 2650 / 2650 450 / 450 1075 / 1075
Other:
Number of approximated MODERATE 2
amounts of urine
Vital Signs
Temp Pulse Resp BP Pulse Ox
98.6 F 82 16 125/79 99
03/01/25 08:00 03/01/25 08:00 03/01/25 08:00 03/01/25 08:00 03/01/25 08:00
Lab Results
03/01/25 08:11
03/01/25 08:11
Calcium 8.8 mg/dl (8.4-10.2) 03/01/25 08:11
Phosphorus 3.8 mg/dl (2.5-4.5) 02/25/25 06:25
Magnesium 2.2 mg/dl (1.6-2.3) 03/01/25 08:11
Total Bilirubin 1.0 mg/dl (0.2-1.3) 02/23/25 04:50
AST 32 U/L (17-59) 02/23/25 04:50
ALT 37 U/L (0-50) 02/23/25 04:50
Alkaline Phosphatase 66 U/L (38-126) 02/23/25 04:50
Total Protein 5.1 g/dl (6.3-8.2) L 02/23/25 04:50
Albumin 2.0 g/dl (3.5-5.0) L 08/18/25 04:50
Physical Exam
-
NAD AAOx3
ABD: soft, ND, NT
centralized erythema nearly resolved not tender any longer. 3 open areas to base of incision. Packing removed with old bloody drainage from midline incision saturating dressing but no active bleeding noted. No purulence. Dressing changed.
NGT placed to suction with 100ml bilious residual present
Patient has a central line: Yes (PICC)
[2025-03-01 15:26] VITALS: BP 132/82
[2025-03-01] MEDS: LOVENOX 40 MG SC (17:00)
--- NOTE | 2025-03-01 17:31 | PTCARENOTE ---
pt asking NG to be hooked to suction after ambulation around unit, approx 75 ml of dark brown fluid drained.
[2025-03-01 17:39] LABS: Glucose - Point of Care 112 mg/dl (70-99)
[2025-03-01] MEDS: Parenteral Nutrition, Central 1470 IV (20:44)
[2025-03-01] MEDS: MELATONIN PO (21:04)
[2025-03-01 23:24] VITALS: BP 127/87
[2025-03-02 00:14] LABS: Glucose - Point of Care 119 mg/dl (70-99)
[2025-03-02] MEDS: DILAUDID 0.5 MG IV ×2 (03:14→15:29)
[2025-03-02] MEDS: UNASYN IV ×4 (03:20→21:32)
--- NOTE | 2025-03-02 03:45 | PTCARENOTE ---
Addendum entered by Anne Best RN 03/02/25 03:49:
Pt vomited ~50cc w/ minor relief of nausea @ 0300. Pt requested to be connected to suction for 15min. After 15min 200cc of green output was in container. Pt still feeling nauseated and requested to stay on for another 15min. Compazine offered
but declined. After another 15min (total of 30min), NGT output was 300cc. Pt requested to stay connected to suction until first installation of Omnipaque occurs at 0600. Care ongoing.
Original Note:
Pt vomited ~50cc w/ minor relief of nausea. Pt requested to be connected to suction for 15min. After 15min 200cc of green output was in container. Pt still feeling nauseated and requested to stay on for another 15min. Compazine offered but
declined. After another 15min (total of 30min), NGT output was 300cc. Pt requested to stay connected to suction until first installation of Omnipaque occurs at 0600. Care ongoing.
[2025-03-02 05:13] LABS: Hematocrit 28.5 % (39.0-52.0); Hemoglobin 9.3 g/dL (13.0-18.0); Mean Corp Hgb Conc. 32.6 g/dL (33.0-37.0); Mean Corpuscular Volume 83.8 fL (80.0-94.0); Platelet Count 767 10^3/uL (130-400); Red Cell Dist. Width 16.8 % (11.5-14.5)
[2025-03-02 05:20] LABS: ALT (SGPT) 186 U/L (0-50); AST (SGOT) 85 U/L (17-59); Albumin 2.8 g/dl (3.5-5.0); Alkaline Phosphatase 235 U/L (38-126); Blood Urea Nitrogen 13 mg/dl (9-20); Calcium 8.6 mg/dl (8.4-10.2); Carbon Dioxide 28 mmol/L (22-30); Chloride 101 mmol/L (98-107); Estimated Creatinine Clearance > 125 ml/min; Glucose 115 mg/dl (70-99); Magnesium 2.3 mg/dl (1.6-2.3); Potassium 5.0 mmol/L (3.5-5.1); Sodium 134 mmol/L (135-145); Total Protein 6.0 g/dl (6.3-8.2); Triglycerides 176 mg/dl (10-149); eGFR > 60.00
[2025-03-02 05:35] LABS: Glucose - Point of Care 115 mg/dl (70-99)
[2025-03-02 06:00] VITALS: BMI 27.9
[2025-03-02] MEDS: OMNIPAQUE 50 ML PO (06:00)
[2025-03-02 07:55] VITALS: BP 121/82
[2025-03-02] MEDS: NSS (PRESERVATIVE FREE) 8 ML IV ×2 (08:16→20:36)
[2025-03-02] MEDS: NSS (PRESERVATIVE FREE) 10 ML IV ×2 (08:16→20:36)
[2025-03-02] MEDS: DILAUDID 1 MG IV ×4 (08:16→22:48)
[2025-03-02] MEDS: PROTONIX IV 40 MG IV ×2 (08:17→20:37)
[2025-03-02] MEDS: PEPCID 20 MG IV ×2 (08:17→20:37)
--- NOTE | 2025-03-02 11:56 | W.PN.GS2 ---
Today's Communication / Plan
-
tPA to drain
TPN
clamp trials
iv abx
Assessment / Plan
-
Assessment: 49yoM who presented with SBO secondary to malignant obstruction
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 Lymphovascular invasion identified. Negative resection margins. Mesenteric peritoneal tumor implants multiple.
01/25/25 ex lap for Right hemicolectomy with cystoscopy for stent for identification of the right ureter (stent removed on pod #1 by urology)
01/30/25 take back to OR for ex lap, bowel resection d/t anastomotic leak with abdominal washout
02/11/2025 -IR drainage left upper quadrant perisplenic fluid collection (purulent) and left-mid sided fluid collection (serous), both with scant outputs
-- Mid abdomen collection with no organisms and no WBC
-- Left subdiaphragmatic collection growing padmaja
-- Both drains removed 02/23
NGT placed on 02/15/25. Suspect delayed ileus related to resolving hematoma/abscess. Subsequently able to be removed; however, did not tolerate dietary advancement and n/v recurred
Rpt CT 02/17/25 with much improved left side collections, resolving hematoma to right hemiabdomen noted, po contrast to sigmoid with air in rectum (nonobstructive pattern)
NGT placed on 02/20/25 for bilious outputs of 1.2L immediately. XR abdomen consistent with ileus.
CT with ileus vs SBO 02/22/25, collections on left side appear resolved, hematoma remains
02/23/2025 - IR drainage of hematoma, minimal old blood able to be removed. Other drains removed. Cx: enterococcus
02/26/2025 - 3 small areas of incision opened near base, liquified hematoma drained and cx sent and pending (NGTD)
Tolerating clamping but with intermittent nausea and residuals as high as 200cc
Leukocytosis present, mild, trending down
h/h stable
hyponatremia stable
mild hyperphos, adjustments to TPN
Afebrile, VSS
CT today similar to last week, old contrast remains in colon, proximal sb remains dilated, hematoma slightly decreased in size, ? collection deep to incision, this may communicate with hematoma
Plan:
-- Cont PPI and H2 kailash for reflux
-- Keep NGT clamped with Q6H residual checks
-- IR consult for tPA to drain
-- Continue TPN
-- Abx: per ID. Currently on Unasyn/Micafungin
-- Pain control: scheduled IV toradol, prn IV diluadid
-- OOB/ambulate
-- Trend labs/exams
-- Local wound care
-- DVT: Lovenox sq, SCDs in place
Subjective Data
-
Date of Service: March 02, 2025
AFVSS, tolerating ng clamping to some extent, but had emesis with contrast administration, passing more flatus and had a small BM
Objective Data
-
Intake and Output
03/01/25 03/02/25 03/03/25
06:59 06:59 06:59
Intake Total 1099 / 1099 2659 / 2659
Output Total 450 / 450 2750 / 2750 200 / 200
Balance 649 / 649 -91 / -91 -190 / -190
Intake:
IV piggybacks 345 / 345 640 / 640
TPN/PPN 744 / 744 1464 / 1464
Amount instilled into Drain (
Total)
Right Lower Abdomen Placed in
IR
Amount instilled into GI Tube ( 535 / 535
Total)
[place] Sump 535 / 535
Output:
Emesis 50 / 50
Drain Output (Total)
Right Lower Abdomen Placed in
IR
Gastrointestinal tube output ( 400 / 400
Total)
[place] Sump 400 / 400
Urine, Voided 450 / 450 2275 / 2275 200 / 200
Other:
Number of approximated MODERATE 3
amounts of urine
Vital Signs
Temp Pulse Resp BP Pulse Ox
98.4 F 84 16 121/82 100
03/02/25 07:55 03/02/25 07:55 03/02/25 07:55 03/02/25 07:55 03/02/25 07:55
Lab Results
03/02/25 04:50
03/02/25 04:50
Calcium 8.6 mg/dl (8.4-10.2) 03/02/25 04:50
Phosphorus 4.8 mg/dl (2.5-4.5) H 03/02/25 04:50
Magnesium 2.3 mg/dl (1.6-2.3) 03/02/25 04:50
Total Bilirubin 0.8 mg/dl (0.2-1.3) 03/02/25 04:50
AST 85 U/L (17-59) H 03/02/25 04:50
ALT 186 U/L (0-50) H 03/02/25 04:50
Alkaline Phosphatase 235 U/L (38-126) H 03/02/25 04:50
Total Protein 6.0 g/dl (6.3-8.2) L 03/02/25 04:50
Albumin 2.8 g/dl (3.5-5.0) L 03/02/25 04:50
Physical Exam
-
Gen: NAD
Abd: soft, approp ttp, right hemiabdomen firm as before, drain ss, midline incision with ss drainage from open areas, no erythema or purulence
Patient has a winters catheter: No
Patient has a central line: Yes (PICC)
[2025-03-02] MEDS: MYCAMINE 105 MG IV (12:07)
[2025-03-02 12:13] LABS: Glucose - Point of Care 127 mg/dl (70-99)
--- NOTE | 2025-03-02 13:23 | CM ---
Chart Reviewed. Case Management will continue to monitor and support if/when needs are identified
--- NOTE | 2025-03-02 14:04 | W.PN.ID1 ---
Date of Service
Date of Service: March 02, 2025
Today's Communication
Continue antibiotics.
Assessment / Plan
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
- Pathology with well differentiated endocrine tumor with clean margins, small peritoneal implants present, node malignant , 5/40 nodes positive , appendix neg
# SBO
# Perforated viscous at site of anastomosis s/p repair (01/30/25)
# Intra-abdominal abscesses s/p IR perc drain x 2 on 02/11/25
# Intra-abdominal infected hematoma with Enterococcus; s/p drain placement (02/23/25)
# Leukocytosis; improved today
Recommendations:
Continue micafungin 100mg IV q24 (d#17)
Right abdominal collection/hematoma growing Enterococcus (sensitive to ampicillin and vancomycin).
Continue Unasyn. Prior growth of Enterococcus while on Unasyn was likely due to a lack of penetration into the hematoma, which is not drained
- Trend wbc
- Follow drain output
- Follow N/V; currently improved with NG tube
����������������������������������������������������������
Chief Complaint
-: Clinical Sepsis (improving abdominal abscesses, peritonitis) and Other (peritonitis 2*perforated viscous. Multiple abdominal abscesses)
Subjective / Review of Systems
Review of Systems: No Fever
Vital Signs / Physical Exam
Vital Signs
Vital Signs
Temp Pulse Resp BP Pulse Ox
98.4 F 84 16 121/82 100
03/02/25 07:55 03/02/25 07:55 03/02/25 07:55 03/02/25 07:55 03/02/25 07:55
Physical Exam
Constitutional: No Acute Distress, Comfortable and Non-toxic
Cardiovascular: S1/S2; Negative S3/S4
Pulmonary: Non Labored
Gastrointestinal: Other (right sided SHANICE with bloody fluid)
Extremities: Negative Edema
Psychological: Calm
Objective Data
Lab Data
Lab Results
03/02/25 04:50
03/02/25 04:50
PT 20.0 Sec (11.4-14.6) H 02/04/25 06:10
INR 1.65 02/04/25 06:10
APTT 38.7 Sec (23.4-35.0) H 02/04/25 06:10
Estimated Creat Clear > 125 ml/min 03/02/25 04:50
Total Bilirubin 0.8 mg/dl (0.2-1.3) 03/02/25 04:50
AST 85 U/L (17-59) H 03/02/25 04:50
ALT 186 U/L (0-50) H 03/02/25 04:50
Alkaline Phosphatase 235 U/L (38-126) H 03/02/25 04:50
Most recent labs reviewed.
Micro Results:
02/26/25 08:57 Wound Culture - Final
Abdomen No growth
Gram Stain - Final
02/24/25 14:05 Wound Culture - Final
Abdomen Enterococcus faecalis
Gram Stain - Final
02/11/25 16:12 Wound Culture - Final
Abdomen Juju albicans
Gram Stain - Final
02/11/25 15:35 Wound Culture - Final
Abdomen No growth
Gram Stain - Final
Wound/abscess/other Cult Final 02/24/25
Moderate Enterococcus faecalis
Rare Gram Positive Bacilli
Organism 1 Enterococcus faecalis
1. Enterococcus faecalis
M.I.C. RX
--------- ---
Ampicillin <=2 S
Gentamicin Synergy Screen <=500 S
Susceptible result indicates synergy is likely with a cell
wall active agent that is also susceptible
(e.g.ampicillin,penicillin,vancomycin)
Vancomycin 2 S
Imaging:
03/02/2025 CT abdomen/pelvis with contrast: Interval placement of a percutaneous pigtail catheter within the right paracolic gutter collection which has slightly decreased in size from prior now measuring 10.6 cm in AP dimension, previously 12.0
cm.. There are persistent dilated loops of small bowel throughout the left hemiabdomen extending into the upper pelvis. Oral contrast is present within the colon, possibly secondary to prior examination although this would be suggestive of ileus
rather than a mechanical small bowel obstruction. Interval removal of the left-sided percutaneous drains without evidence of recurrent collection. Small left pleural effusion with adjacent atelectasis. There is a new ill-defined hypodensity
underlying the midline incision inferiorly which may represent fat necrosis although developing collection is possible.
02/22/2025 CT abdomen/pelvis with contrast: SBO noted with transition point in the right lateral abdomen. Persistent relatively stable large hematoma in the right abdomen. Trace ascites. No free air. Left subhepatic percutaneous drainage catheter
remains in place. Thin linear soft tissue attenuation noted adjacent to the peripheral margin of the drainage catheter, which could represent a collapsed abscess versus small amount of residual complex fluid within a small abscess. This appears
slightly improved compared to prior examination. Right lateral abdomen percutaneous drainage catheter in place without adjacent or surrounding persistent fluid collection/abscess.
02/15/2025 CXR (portable): stable right PICC line. Interval NG tube placement. Mild bibasilar atelectasis. No significant residual pleural effusion.
02/10/2025 CT abdomen/pelvis: a 9.7 cm left upper quadrant subphrenic abscess noted. 810 cm left lateral mid abdominal intraperitoneal abscess is noted. A 6.5 cm intraperitoneal abscess in the center of the pelvis is appreciated. There is a large
29 cm hemorrhagic fluid collection in the right lateral paracolic gutter. Patient is status post right hemicolectomy and ileocolonic anastomosis. There is moderate small bowel distention consistent with adynamic ileus. Please see full dictation
for additional detail.
--- NOTE | 2025-03-02 14:59 | PN.IRAD.UPD ---
Update Note - IRAD
- -
PATIENT CAME TO DEPARTMENT FOR INSTILLATION OF 50ML TPA INTO RIGHT SIDED DRAIN. INJECTED IT WITH NO COMPLAINTS, TURNED STOPCOCK OFF. IT IS TO REMAIN OFF FOR TWO HOURS, UNTIL 1700, THEN OPEN STOPCOCK UP TO SHANICE BULB WHICH WAS CHANGED WELL. AP
[2025-03-02 15:45] VITALS: BP 116/80
[2025-03-02] MEDS: LOVENOX 40 MG SC (18:19)
[2025-03-02 18:27] LABS: Glucose - Point of Care 126 mg/dl (70-99)
[2025-03-02 20:23] LABS: 24 Hour Urine Total Volume 1600 mL; 5HIAA, 24 Hour Urine 8 mg/d (0-15); 5HIAA, Urine 5.1 mg/L; 5HIAA/Creatinine Ratio 6 mg/gCR (0-14); Creatinine, Urine 24 Hour 1440 mg/d (1000-2500); Creatinine, Urine per Volume 90 mg/dL; Urine Collection Length 24 hr
[2025-03-02] MEDS: Parenteral Nutrition, Central 1470 IV (21:20)
[2025-03-02] MEDS: MELATONIN PO (21:31)
[2025-03-02 23:15] VITALS: BP 121/78
[2025-03-02 23:37] LABS: Glucose - Point of Care 124 mg/dl (70-99)
--- NOTE | 2025-03-02 23:56 | PTCARENOTE ---
Pt received awake alert and oriented. Requesting that NG tube not be clamped tonight as he has had some nausea. Will clamp in am. SHANICE drain intact . Per Dr. Alexander PRASAD not irrigated tonight due to TPA.
[2025-03-03] MEDS: UNASYN IV ×4 (04:03→21:14)
[2025-03-03] MEDS: DILAUDID 1 MG IV ×4 (04:03→23:20)
[2025-03-03 06:12] LABS: Glucose - Point of Care 103 mg/dl (70-99)
[2025-03-03 07:30] VITALS: BP 116/72
[2025-03-03] MEDS: PROTONIX IV 40 MG IV ×2 (09:06→19:40)
[2025-03-03] MEDS: NSS (PRESERVATIVE FREE) 8 ML IV ×2 (09:06→19:40)
[2025-03-03] MEDS: PEPCID 20 MG IV ×2 (09:06→19:41)
[2025-03-03] MEDS: NSS (PRESERVATIVE FREE) 10 ML IV ×2 (09:07→19:40)
--- NOTE | 2025-03-03 10:16 | W.PN.ONC ---
Today's Communication / Plan
-
Reviewed results of 24hr urine 5-HIAA (normal). Chromagranin A also normal -- both reassuring
Will need outpatient med onc f/u after hospital discharge
Will plan to do outpatient SSRT-PET/CT with DOTATATE tracer to exclude residual disease and establish post-treatment baseline.
Would consider 'adjuvant' lanreotide due to disease bulk.
Transfuse Hgb <7 or as needed for sxs anemia
Med onc will sign off. Please contact us when d/c is pending so that outpatient f/u can be arranged.
Impression
Impression
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
- normal Chromogranin A and 24hr urine 5-HIAA
s/p ex lap for hemicolectomy c/b anastomotic leak s/p bowel resection/wash out 02/04
Recurrent bowel obstruction
Hematomas with drains in place
Pain from reflux and hematoma
Plan
Plan
Reviewed results of 24hr urine 5-HIAA (normal). Chromagranin A also normal -- both reassuring
Will need outpatient med onc f/u after hospital discharge
Will plan to do outpatient SSRT-PET/CT with DOTATATE tracer to exclude residual disease and establish post-treatment baseline.
Would consider 'adjuvant' lanreotide due to disease bulk.
Transfuse Hgb <7 or as needed for sxs anemia
Med onc will sign off. Please contact us when d/c is pending so that outpatient f/u can be arranged.
Subjective/Objective
Subjective/Objective
frustrated w/ continued bowel obstruction symptoms, requiring NGT and TPN
Vital Signs:
Vital Signs
Temp Pulse Resp BP Pulse Ox
97.7 F 84 18 116/72 97
03/03/25 07:30 03/03/25 07:30 03/03/25 07:30 03/03/25 07:30 03/03/25 07:30
Lab Results:
Laboratory Data
WBC 11.2 10^3/uL (4.8-10.8) H 03/02/25 04:50
Hgb 9.3 g/dL (13.0-18.0) L 03/02/25 04:50
Plt Count 767 10^3/uL (130-400) H 03/02/25 04:50
PT 20.0 Sec (11.4-14.6) H 02/04/25 06:10
INR 1.65 02/04/25 06:10
APTT 38.7 Sec (23.4-35.0) H 02/04/25 06:10
eGFR > 60.00 03/02/25 04:50
--- NOTE | 2025-03-03 11:15 | CM ---
Reviewed the chart notes and spoke with RN. Patient continues with TPN and NGT. CM continues to be available to patient/family and is monitoring medical plan for needs at discharge.
Plan: Discharge plans will depend on the patient's progress.
[2025-03-03] MEDS: REGLAN 15 MG IV ×3 (11:18→23:19)
[2025-03-03] MEDS: TORADOL 30 MG IV ×3 (11:22→23:19)
[2025-03-03] MEDS: OFIRMEV 100 IV ×3 (11:22→23:20)
[2025-03-03] MEDS: FLUSH (NSS) 4 FLUSH IV (11:56)
[2025-03-03] MEDS: MYCAMINE 105 MG IV (11:56)
[2025-03-03 12:38] LABS: Glucose - Point of Care 123 mg/dl (70-99)
--- NOTE | 2025-03-03 13:10 | W.PN.GS2 ---
Today's Communication / Plan
-
TPN
NGT
tPA
abx
Assessment / Plan
-
Assessment: 49yoM who presented with SBO secondary to malignant obstruction
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 Lymphovascular invasion identified. Negative resection margins. Mesenteric peritoneal tumor implants multiple.
01/25/25 ex lap for Right hemicolectomy with cystoscopy for stent for identification of the right ureter (stent removed on pod #1 by urology)
01/30/25 take back to OR for ex lap, bowel resection d/t anastomotic leak with abdominal washout
02/11/2025 -IR drainage left upper quadrant perisplenic fluid collection (purulent) and left-mid sided fluid collection (serous), both with scant outputs
-- Mid abdomen collection with no organisms and no WBC
-- Left subdiaphragmatic collection growing padmaja
-- Both drains removed 02/23
NGT placed on 02/15/25. Suspect delayed ileus related to resolving hematoma/abscess. Subsequently able to be removed; however, did not tolerate dietary advancement and n/v recurred
Rpt CT 02/17/25 with much improved left side collections, resolving hematoma to right hemiabdomen noted, po contrast to sigmoid with air in rectum (nonobstructive pattern)
NGT placed on 02/20/25 for bilious outputs of 1.2L immediately. XR abdomen consistent with ileus.
CT with ileus vs SBO 02/22/25, collections on left side appear resolved, hematoma remains
02/23/2025 - IR drainage of hematoma, minimal old blood able to be removed. Other drains removed. Cx: enterococcus
02/26/2025 - 3 small areas of incision opened near base, liquified hematoma drained and cx sent and pending (NGTD)
Tolerating clamping but with intermittent nausea, residual after 7 hrs today 75cc
Leukocytosis present, mild, trending down
h/h stable
hyponatremia stable
Lab holiday today
Afebrile, VSS
CT 03/02 similar to last week, old contrast remains in colon, proximal sb remains dilated, hematoma slightly decreased in size, ? collection deep to incision, this may communicate with hematoma
Plan:
-- Cont PPI and H2 kailash for reflux
-- Keep NGT clamped with Q6H residual checks
-- IR consult for tPA to drain, day 2
-- Continue TPN
-- Abx: per ID. Currently on Unasyn/Micafungin
-- Pain control: scheduled IV toradol and ofirmev, prn IV diluadid, wean dose starting tomorrow
-- OOB/ambulate
-- Trend labs/exams
-- Local wound care
-- DVT: Lovenox sq, SCDs in place
Subjective Data
-
Date of Service: March 03, 2025
AFVSS. Needing NGT intermittently. Passing flatus. Pain controlled. OOBTC
Objective Data
-
Intake and Output
03/02/25 03/03/25 03/04/25
06:59 06:59 06:59
Intake Total 2659 / 2659 1290 / 1290 325 / 325
Output Total 2750 / 2750 5 / 2075 75 / 75
Balance -91 / -91 -785 / -785 250 / 250
Intake:
Oral fluids 0 / 0
IV piggybacks 640 / 640 325 / 325
TPN/PPN 1464 / 1464 720 / 720
Amount instilled into Drain (
Total)
Right Lower Abdomen Placed in
IR
Amount instilled into GI Tube ( 535 / 535 560 / 560
Total)
[place] Sump 535 / 535 560 / 560
Output:
Emesis 50 / 50
Drain Output (Total)
Right Lower Abdomen Placed in
IR
Gastrointestinal tube output ( 400 / 400 750 / 750 75 / 75
Total)
[place] Sump 400 / 400 750 / 750 75 / 75
Urine, Voided 2275 / 2275 1325 / 1325
Other:
Number of approximated MODERATE 3 1
amounts of urine
Vital Signs
Temp Pulse Resp BP Pulse Ox
97.7 F 84 18 116/72 97
03/03/25 07:30 03/03/25 07:30 03/03/25 07:30 03/03/25 07:30 03/03/25 07:30
Lab Results
03/02/25 04:50
03/02/25 04:50
Calcium 8.6 mg/dl (8.4-10.2) 03/02/25 04:50
Phosphorus 4.8 mg/dl (2.5-4.5) H 03/02/25 04:50
Magnesium 2.3 mg/dl (1.6-2.3) 03/02/25 04:50
Total Bilirubin 0.8 mg/dl (0.2-1.3) 03/02/25 04:50
AST 85 U/L (17-59) H 03/02/25 04:50
ALT 186 U/L (0-50) H 03/02/25 04:50
Alkaline Phosphatase 235 U/L (38-126) H 03/02/25 04:50
Total Protein 6.0 g/dl (6.3-8.2) L 03/02/25 04:50
Albumin 2.8 g/dl (3.5-5.0) L 03/02/25 04:50
Physical Exam
-
Gen: NAD
Abd: soft, ttp mainly to right hemiabdomen, mild, drain with minimal ss output, more old bloody drainage from midline incision open areas
Patient has a winters catheter: No
Patient has a central line: Yes (PICC)
--- NOTE | 2025-03-03 15:00 | PTCARENOTE ---
Patient will not answer questions most of the time. Patient keeps his eye closed when staff is speaking to him.
[2025-03-03 15:30] VITALS: BP 118/79
[2025-03-03] MEDS: LOVENOX 40 MG SC (17:03)
[2025-03-03 17:56] LABS: Glucose - Point of Care 130 mg/dl (70-99)
--- NOTE | 2025-03-03 18:22 | PN.IRAD.UPD ---
Update Note - IRAD
- -
TPA 10 mg instilled via right upper abdomen abscess catheter. Catheter clamped at 1455.
[2025-03-03] MEDS: MELATONIN PO (20:54)
[2025-03-03] MEDS: Parenteral Nutrition, Central 1470 IV (21:12)
[2025-03-03 23:22] LABS: Glucose - Point of Care 120 mg/dl (70-99)
[2025-03-03 23:31] VITALS: BP 112/68
[2025-03-04] MEDS: UNASYN IV ×4 (04:27→22:24)
[2025-03-04] MEDS: DILAUDID 1 MG IV (04:27)
[2025-03-04] MEDS: REGLAN 15 MG IV ×4 (05:00→22:27)
[2025-03-04] MEDS: TORADOL 30 MG IV ×4 (05:00→23:07)
[2025-03-04] MEDS: OFIRMEV 100 IV (05:00)
--- NOTE | 2025-03-04 05:11 | PTCARENOTE ---
NG clamped through night. Residual checked and was only apprx 25 ml.
[2025-03-04 05:13] VITALS: BMI 27.9
[2025-03-04 05:42] LABS: Glucose - Point of Care 116 mg/dl (70-99)
[2025-03-04 06:05] LABS: Hematocrit 28.1 % (39.0-52.0); Hemoglobin 9.0 g/dL (13.0-18.0); Mean Corp Hgb Conc. 32.0 g/dL (33.0-37.0); Mean Corpuscular Volume 87.0 fL (80.0-94.0); Platelet Count 713 10^3/uL (130-400); Red Cell Dist. Width 17.6 % (11.5-14.5)
[2025-03-04 06:15] LABS: Blood Urea Nitrogen 18 mg/dl (9-20); Calcium 8.4 mg/dl (8.4-10.2); Carbon Dioxide 26 mmol/L (22-30); Chloride 104 mmol/L (98-107); Estimated Creatinine Clearance 110 ml/min; Glucose 100 mg/dl (70-99); Magnesium 2.3 mg/dl (1.6-2.3); Potassium 4.6 mmol/L (3.5-5.1); Sodium 134 mmol/L (135-145); eGFR > 60.00
[2025-03-04 08:00] VITALS: BP 115/75
[2025-03-04] MEDS: NSS (PRESERVATIVE FREE) 10 ML IV ×2 (08:31→19:44)
[2025-03-04] MEDS: PROTONIX IV 40 MG IV ×2 (08:31→19:44)
[2025-03-04] MEDS: NSS (PRESERVATIVE FREE) 8 ML IV ×2 (08:31→19:45)
[2025-03-04] MEDS: PEPCID 20 MG IV ×2 (08:32→19:45)
--- NOTE | 2025-03-04 09:55 | W.PN.ID1 ---
Date of Service
Date of Service: March 04, 2025
Today's Communication
Continue antibiotics.
Assessment / Plan
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
- Pathology with well differentiated endocrine tumor with clean margins, small peritoneal implants present, node malignant , 5/40 nodes positive , appendix neg
# SBO
# Perforated viscous at site of anastomosis s/p repair (01/30/25)
# Intra-abdominal abscesses s/p IR perc drain x 2 on 02/11/25
# Intra-abdominal infected hematoma with Enterococcus; s/p drain placement (02/23/25)
# Leukocytosis; improved today
Recommendations:
Continue micafungin 100mg IV q24 (d#18)
Right abdominal collection/hematoma (02/24/25) growing Enterococcus (sensitive to ampicillin and vancomycin).
Continue Unasyn. Prior growth of Enterococcus while on Unasyn was likely due to a lack of penetration into the hematoma
- Trend wbc.
- Follow drain output (minimal today)
- Follow N/V; currently improved with NG tube
����������������������������������������������������������
Chief Complaint
-: Clinical Sepsis (improving abdominal abscesses, peritonitis) and Other (peritonitis 2*perforated viscous. Multiple abdominal abscesses)
Subjective / Review of Systems
Patient feeling somewhat improved. Notes having bowel movement this a.m. NG tube still in place.
Review of Systems: No Fever and No Chills
Vital Signs / Physical Exam
Vital Signs
Vital Signs
Temp Pulse Resp BP Pulse Ox
98.3 F 76 16 115/75 98
03/04/25 08:00 03/04/25 08:00 03/04/25 08:00 03/04/25 08:00 03/04/25 08:00
Physical Exam
Constitutional: No Acute Distress, Comfortable and Non-toxic
Head: Other (NG tube in place)
Eyes: Sclera Anicteric
Cardiovascular: S1/S2; Negative S3/S4
Pulmonary: Non Labored
Gastrointestinal: Soft, Non Distended and Decreased Bowel Sounds
Neurological: Awake and Alert
Psychological: Calm
Objective Data
Lab Data
Lab Results
03/04/25 05:32
03/04/25 05:32
PT 20.0 Sec (11.4-14.6) H 02/04/25 06:10
INR 1.65 02/04/25 06:10
APTT 38.7 Sec (23.4-35.0) H 02/04/25 06:10
Estimated Creat Clear 110 ml/min 03/04/25 05:32
Total Bilirubin 0.8 mg/dl (0.2-1.3) 03/02/25 04:50
AST 85 U/L (17-59) H 03/02/25 04:50
ALT 186 U/L (0-50) H 03/02/25 04:50
Alkaline Phosphatase 235 U/L (38-126) H 03/02/25 04:50
Most recent labs reviewed.
Micro Results:
02/26/25 08:57 Wound Culture - Final
Abdomen No growth
Gram Stain - Final
02/24/25 14:05 Wound Culture - Final
Abdomen Enterococcus faecalis
Gram Stain - Final
02/11/25 16:12 Wound Culture - Final
Abdomen Juju albicans
Gram Stain - Final
02/11/25 15:35 Wound Culture - Final
Abdomen No growth
Gram Stain - Final
Wound/abscess/other Cult Final 02/24/25
Moderate Enterococcus faecalis
Rare Gram Positive Bacilli
Organism 1 Enterococcus faecalis
1. Enterococcus faecalis
M.I.C. RX
--------- ---
Ampicillin <=2 S
Gentamicin Synergy Screen <=500 S
Susceptible result indicates synergy is likely with a cell
wall active agent that is also susceptible
(e.g.ampicillin,penicillin,vancomycin)
Vancomycin 2 S
Imaging:
03/02/2025 CT abdomen/pelvis with contrast: Interval placement of a percutaneous pigtail catheter within the right paracolic gutter collection which has slightly decreased in size from prior now measuring 10.6 cm in AP dimension, previously 12.0
cm.. There are persistent dilated loops of small bowel throughout the left hemiabdomen extending into the upper pelvis. Oral contrast is present within the colon, possibly secondary to prior examination although this would be suggestive of ileus
rather than a mechanical small bowel obstruction. Interval removal of the left-sided percutaneous drains without evidence of recurrent collection. Small left pleural effusion with adjacent atelectasis. There is a new ill-defined hypodensity
underlying the midline incision inferiorly which may represent fat necrosis although developing collection is possible.
02/22/2025 CT abdomen/pelvis with contrast: SBO noted with transition point in the right lateral abdomen. Persistent relatively stable large hematoma in the right abdomen. Trace ascites. No free air. Left subhepatic percutaneous drainage catheter
remains in place. Thin linear soft tissue attenuation noted adjacent to the peripheral margin of the drainage catheter, which could represent a collapsed abscess versus small amount of residual complex fluid within a small abscess. This appears
slightly improved compared to prior examination. Right lateral abdomen percutaneous drainage catheter in place without adjacent or surrounding persistent fluid collection/abscess.
02/15/2025 CXR (portable): stable right PICC line. Interval NG tube placement. Mild bibasilar atelectasis. No significant residual pleural effusion.
02/10/2025 CT abdomen/pelvis: a 9.7 cm left upper quadrant subphrenic abscess noted. 810 cm left lateral mid abdominal intraperitoneal abscess is noted. A 6.5 cm intraperitoneal abscess in the center of the pelvis is appreciated. There is a large
29 cm hemorrhagic fluid collection in the right lateral paracolic gutter. Patient is status post right hemicolectomy and ileocolonic anastomosis. There is moderate small bowel distention consistent with adynamic ileus. Please see full dictation
for additional detail.
[2025-03-04] MEDS: ACTIVASE 10 MG IV (10:14)
--- NOTE | 2025-03-04 11:06 | W.PN.GS2 ---
Today's Communication / Plan
-
TPN
IV abx
Reglan
tPA to drain
wean dilaudid
Assessment / Plan
-
Assessment: 49yoM who presented with SBO secondary to malignant obstruction
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 Lymphovascular invasion identified. Negative resection margins. Mesenteric peritoneal tumor implants multiple.
01/25/25 ex lap for Right hemicolectomy with cystoscopy for stent for identification of the right ureter (stent removed on pod #1 by urology)
01/30/25 take back to OR for ex lap, bowel resection d/t anastomotic leak with abdominal washout
02/11/2025 -IR drainage left upper quadrant perisplenic fluid collection (purulent) and left-mid sided fluid collection (serous), both with scant outputs
-- Mid abdomen collection with no organisms and no WBC
-- Left subdiaphragmatic collection growing padmaja
-- Both drains removed 02/23
NGT placed on 02/15/25. Suspect delayed ileus related to resolving hematoma/abscess. Subsequently able to be removed; however, did not tolerate dietary advancement and n/v recurred
Rpt CT 02/17/25 with much improved left side collections, resolving hematoma to right hemiabdomen noted, po contrast to sigmoid with air in rectum (nonobstructive pattern)
NGT placed on 02/20/25 for bilious outputs of 1.2L immediately. XR abdomen consistent with ileus.
CT with ileus vs SBO 02/22/25, collections on left side appear resolved, hematoma remains
02/23/2025 - IR drainage of hematoma, minimal old blood able to be removed. Other drains removed. Cx: enterococcus
02/26/2025 - 3 small areas of incision opened near base, liquified hematoma drained and cx sent and pending (NGTD)
Tolerating clamping but with intermittent nausea, residual after all night clamping 25cc
Leukocytosis normalized
h/h stable
hyponatremia stable
Hyperphos, monitor, TPN adjusted
Afebrile, VSS
CT 03/02 similar to last week, old contrast remains in colon, proximal sb remains dilated, hematoma slightly decreased in size, ? collection deep to incision, this may communicate with hematoma
tPA drain infusions are decompressing hematoma through midline wound, reglan helping with ileus
Plan:
-- Cont PPI and H2 kailash for reflux
-- Cont reglan
-- Keep NGT clamped with Q6H residual checks
-- Bedside tPA to drain, day 3
-- Continue TPN
-- Abx: per ID. Currently on Unasyn/Micafungin
-- Pain control: scheduled IV toradol and ofirmev, prn IV diluadid dose reduced to 0.75mg, tomorrow will go to 0.5mg
-- OOB/ambulate
-- Trend labs/exams
-- Local wound care
-- DVT: Lovenox sq, SCDs in place
Subjective Data
-
Date of Service: March 04, 2025
AFVSS, more flatus and another BM, he feels the reglan is helping, increased ss drainage from midline wound after tPA instillation, ambulating, nausea seems improved, pain controlled
Objective Data
-
Intake and Output
03/03/25 03/04/25 03/05/25
06:59 06:59 06:59
Intake Total 1290 / 1290 1907 / 1907
Output Total 2074 / 2074 1105 / 1105
Balance -785 / -785 802 / 802
Intake:
Oral fluids 0 / 0
IV piggybacks 425 / 425
TPN/PPN 720 / 720 1452 / 1452
Amount instilled into Drain (
Total)
Right Lower Abdomen Placed in
IR
Amount instilled into GI Tube ( 560 / 560
Total)
[place] Sump 560 / 560
Output:
Drain Output (Total)
Right Lower Abdomen Placed in
IR
Gastrointestinal tube output ( 750 / 750 300 / 300
Total)
[place] Sump 750 / 750 300 / 300
Urine, Voided 1325 / 1325 800 / 800
Other:
Number of approximated MODERATE 1 1
amounts of urine
Vital Signs
Temp Pulse Resp BP Pulse Ox
98.3 F 76 16 115/75 98
03/04/25 08:00 03/04/25 08:00 03/04/25 08:00 03/04/25 08:00 03/04/25 08:00
Lab Results
03/04/25 05:32
03/04/25 05:32
Calcium 8.4 mg/dl (8.4-10.2) 03/04/25 05:32
Phosphorus 5.1 mg/dl (2.5-4.5) H 03/04/25 05:32
Magnesium 2.3 mg/dl (1.6-2.3) 03/04/25 05:32
Total Bilirubin 0.8 mg/dl (0.2-1.3) 03/02/25 04:50
AST 85 U/L (17-59) H 03/02/25 04:50
ALT 186 U/L (0-50) H 03/02/25 04:50
Alkaline Phosphatase 235 U/L (38-126) H 03/02/25 04:50
Total Protein 6.0 g/dl (6.3-8.2) L 03/02/25 04:50
Albumin 2.8 g/dl (3.5-5.0) L 03/02/25 04:50
Physical Exam
-
Gen: NAD
Abd: soft, approp ttp, firm area to right hemiabdomen softer today, dark ss dranage from midline
Patient has a winters catheter: No
Patient has a central line: Yes (PICC)
--- NOTE | 2025-03-04 11:10 | CM ---
Reviewed the chart notes. NPO and NGT remain. CM continues to be available to patient/family and is monitoring medical plan for needs at discharge.
Plan: Discharge plans will depend on the patient's progress.
[2025-03-04] MEDS: MYCAMINE 105 MG IV (12:07)
[2025-03-04 12:08] LABS: Glucose - Point of Care 119 mg/dl (70-99)
[2025-03-04] MEDS: DILAUDID 0.5 MG IV (12:19)
[2025-03-04 15:30] VITALS: BP 116/80
[2025-03-04] MEDS: DILAUDID 0.75 MG IV ×3 (16:30→23:06)
[2025-03-04] MEDS: LOVENOX 40 MG SC (16:30)
[2025-03-04 18:12] LABS: Glucose - Point of Care 109 mg/dl (70-99)
[2025-03-04] MEDS: Parenteral Nutrition, Central 1470 IV (21:05)
[2025-03-04] MEDS: MELATONIN PO (21:08)
[2025-03-04 23:21] VITALS: BP 126/73
[2025-03-04 23:39] LABS: Glucose - Point of Care 100 mg/dl (70-99)
--- NOTE | 2025-03-04 23:47 | PTCARENOTE ---
wound care per orders, small shadowing on previous dressing, cleansed and repacked. wound healthy, moist red wound bed. Pt NGT with residual of 70 grenn output, flushed tube with 15ml tap water clamped @ this time. Pt denies any nausea or vomiting.
[2025-03-05] MEDS: DILAUDID 0.75 MG IV ×2 (02:47→06:11)
[2025-03-05] MEDS: UNASYN IV ×4 (04:01→21:20)
[2025-03-05] MEDS: TORADOL 30 MG IV (04:44)
[2025-03-05] MEDS: REGLAN 15 MG IV ×4 (04:45→23:40)
[2025-03-05 04:50] LABS: Blood Urea Nitrogen 18 mg/dl (9-20); Calcium 8.6 mg/dl (8.4-10.2); Carbon Dioxide 28 mmol/L (22-30); Chloride 105 mmol/L (98-107); Estimated Creatinine Clearance 124 ml/min; Glucose 98 mg/dl (70-99); Magnesium 2.3 mg/dl (1.6-2.3); Potassium 4.5 mmol/L (3.5-5.1); Sodium 136 mmol/L (135-145); eGFR > 60.00
--- NOTE | 2025-03-05 05:05 | PTCARENOTE ---
pt refused chg , he states ''I will do it when my comes in''.
--- NOTE | 2025-03-05 05:51 | PTCARENOTE ---
ngt residual 50,flushed with 30cc water/
[2025-03-05 06:00] VITALS: BMI 28.0
[2025-03-05 06:15] LABS: Glucose - Point of Care 103 mg/dl (70-99)
[2025-03-05 07:00] VITALS: BP 116/69
[2025-03-05] MEDS: PROTONIX IV 40 MG IV ×2 (08:38→20:30)
[2025-03-05] MEDS: NSS (PRESERVATIVE FREE) 10 ML IV ×2 (08:38→20:30)
[2025-03-05] MEDS: NSS (PRESERVATIVE FREE) 8 ML IV ×2 (08:39→20:45)
[2025-03-05] MEDS: PEPCID 20 MG IV ×2 (08:39→20:30)
--- NOTE | 2025-03-05 09:47 | W.PN.ID1 ---
Date of Service
Date of Service: March 05, 2025
Today's Communication
Continue antibiotics.
Assessment / Plan
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
- Pathology with well differentiated endocrine tumor with clean margins, small peritoneal implants present, node malignant , 5/40 nodes positive , appendix neg
# SBO
# Perforated viscous at site of anastomosis s/p repair (01/30/25)
# Intra-abdominal abscesses s/p IR perc drain x 2 on 02/11/25
# Intra-abdominal infected hematoma with Enterococcus; s/p drain placement (02/23/25)
# Leukocytosis; improved today
Recommendations:
Continue micafungin 100mg IV q24 (d#20)
Right abdominal collection/hematoma (02/24/25) growing Enterococcus (sensitive to ampicillin and vancomycin).
Continue Unasyn. Prior growth of Enterococcus while on Unasyn was likely due to a lack of penetration into the hematoma
- Trend wbc.
- Follow drain output (minimal today). Patient reports that hematoma is draining out through midline incision.
- Follow N/V; currently improved with NG tube
����������������������������������������������������������
Chief Complaint
-: Clinical Sepsis (improving abdominal abscesses, peritonitis) and Other (peritonitis 2*perforated viscous. Multiple abdominal abscesses)
Subjective / Review of Systems
Review of Systems: No Fever and No Chills
Vital Signs / Physical Exam
Vital Signs
Vital Signs
Temp Pulse Resp BP Pulse Ox
98.4 F 68 18 116/69 97
03/05/25 07:00 03/05/25 07:00 03/05/25 07:00 03/05/25 07:00 03/05/25 07:00
Physical Exam
Constitutional: No Acute Distress, Comfortable and Non-toxic
Head: Other (NG tube in place.)
Eyes: Sclera Anicteric
Cardiovascular: S1/S2; Negative S3/S4
Pulmonary: Non Labored
Gastrointestinal: Soft, Non Distended and Other (Right sided SHANICE drain with scant fluid.)
Extremities: Negative Edema, Cyanosis or Erythema
Skin: Warm and Dry; Negative Rash or Jaundice
Neurological: Awake and Alert
Psychological: Calm
Objective Data
Lab Data
Lab Results
03/04/25 05:32
03/05/25 03:55
PT 20.0 Sec (11.4-14.6) H 02/04/25 06:10
INR 1.65 02/04/25 06:10
APTT 38.7 Sec (23.4-35.0) H 02/04/25 06:10
Estimated Creat Clear 124 ml/min 03/05/25 03:55
Total Bilirubin 0.8 mg/dl (0.2-1.3) 03/02/25 04:50
AST 85 U/L (17-59) H 03/02/25 04:50
ALT 186 U/L (0-50) H 03/02/25 04:50
Alkaline Phosphatase 235 U/L (38-126) H 03/02/25 04:50
Most recent labs reviewed.
Micro Results:
02/26/25 08:57 Wound Culture - Final
Abdomen No growth
Gram Stain - Final
02/24/25 14:05 Wound Culture - Final
Abdomen Enterococcus faecalis
Gram Stain - Final
02/11/25 16:12 Wound Culture - Final
Abdomen Juju albicans
Gram Stain - Final
02/11/25 15:35 Wound Culture - Final
Abdomen No growth
Gram Stain - Final
Wound/abscess/other Cult Final 02/24/25
Moderate Enterococcus faecalis
Rare Gram Positive Bacilli
Organism 1 Enterococcus faecalis
1. Enterococcus faecalis
M.I.C. RX
--------- ---
Ampicillin <=2 S
Gentamicin Synergy Screen <=500 S
Susceptible result indicates synergy is likely with a cell
wall active agent that is also susceptible
(e.g.ampicillin,penicillin,vancomycin)
Vancomycin 2 S
Imaging:
03/02/2025 CT abdomen/pelvis with contrast: Interval placement of a percutaneous pigtail catheter within the right paracolic gutter collection which has slightly decreased in size from prior now measuring 10.6 cm in AP dimension, previously 12.0
cm.. There are persistent dilated loops of small bowel throughout the left hemiabdomen extending into the upper pelvis. Oral contrast is present within the colon, possibly secondary to prior examination although this would be suggestive of ileus
rather than a mechanical small bowel obstruction. Interval removal of the left-sided percutaneous drains without evidence of recurrent collection. Small left pleural effusion with adjacent atelectasis. There is a new ill-defined hypodensity
underlying the midline incision inferiorly which may represent fat necrosis although developing collection is possible.
02/22/2025 CT abdomen/pelvis with contrast: SBO noted with transition point in the right lateral abdomen. Persistent relatively stable large hematoma in the right abdomen. Trace ascites. No free air. Left subhepatic percutaneous drainage catheter
remains in place. Thin linear soft tissue attenuation noted adjacent to the peripheral margin of the drainage catheter, which could represent a collapsed abscess versus small amount of residual complex fluid within a small abscess. This appears
slightly improved compared to prior examination. Right lateral abdomen percutaneous drainage catheter in place without adjacent or surrounding persistent fluid collection/abscess.
02/15/2025 CXR (portable): stable right PICC line. Interval NG tube placement. Mild bibasilar atelectasis. No significant residual pleural effusion.
02/10/2025 CT abdomen/pelvis: a 9.7 cm left upper quadrant subphrenic abscess noted. 810 cm left lateral mid abdominal intraperitoneal abscess is noted. A 6.5 cm intraperitoneal abscess in the center of the pelvis is appreciated. There is a large
29 cm hemorrhagic fluid collection in the right lateral paracolic gutter. Patient is status post right hemicolectomy and ileocolonic anastomosis. There is moderate small bowel distention consistent with adynamic ileus. Please see full dictation
for additional detail.
[2025-03-05] MEDS: OFIRMEV 100 IV ×3 (10:22→21:00)
--- NOTE | 2025-03-05 11:10 | W.PN.GS2 ---
Today's Communication / Plan
-
TPN
reglan
iv abx
sips and chips
Assessment / Plan
-
Assessment: 49yoM who presented with SBO secondary to malignant obstruction
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 Lymphovascular invasion identified. Negative resection margins. Mesenteric peritoneal tumor implants multiple.
01/25/25 ex lap for Right hemicolectomy with cystoscopy for stent for identification of the right ureter (stent removed on pod #1 by urology)
01/30/25 take back to OR for ex lap, bowel resection d/t anastomotic leak with abdominal washout
02/11/2025 -IR drainage left upper quadrant perisplenic fluid collection (purulent) and left-mid sided fluid collection (serous), both with scant outputs
-- Mid abdomen collection with no organisms and no WBC
-- Left subdiaphragmatic collection growing padmjaa
-- Both drains removed 02/23
NGT placed on 02/15/25. Suspect delayed ileus related to resolving hematoma/abscess. Subsequently able to be removed; however, did not tolerate dietary advancement and n/v recurred
Rpt CT 02/17/25 with much improved left side collections, resolving hematoma to right hemiabdomen noted, po contrast to sigmoid with air in rectum (nonobstructive pattern)
NGT placed on 02/20/25 for bilious outputs of 1.2L immediately. XR abdomen consistent with ileus.
CT with ileus vs SBO 02/22/25, collections on left side appear resolved, hematoma remains
02/23/2025 - IR drainage of hematoma, minimal old blood able to be removed. Other drains removed. Cx: enterococcus
02/26/2025 - 3 small areas of incision opened near base, liquified hematoma drained and cx sent and pending (NGTD)
Tolerating clamping but with intermittent nausea, residual after all night clamping 25cc
Leukocytosis normalized
h/h stable
hyponatremia resolved
Hyperphos improved, monitor, TPN adjusted
Afebrile, VSS
decompressing hematoma through midline wound, reglan helping with ileus
Plan:
-- Cont PPI and H2 kailash for reflux
-- Cont reglan
-- DC NGT
-- Continue TPN
-- Abx: per ID. Currently on Unasyn/Micafungin
-- Pain control: scheduled IV toradol and ofirmev, prn IV diluadid dose reduced to 0.75mg, tomorrow will go to 0.5mg
-- OOB/ambulate
-- Trend labs/exams
-- Local wound care
-- DVT: Lovenox sq, SCDs in place
Subjective Data
-
Date of Service: March 05, 2025
AFVSS, improved bowel function with more gas and BMs, low residuals, denies nausea; c/o agitation
Objective Data
-
Intake and Output
03/04/25 03/05/25 03/06/25
06:59 06:59 06:59
Intake Total 1907 / 1907 1007 / 1007
Output Total 1105 / 1105 1200 / 1200
Balance 802 / 802 -193 / -193
Intake:
IV piggybacks 425 / 425 200 / 200
TPN/PPN 1452 / 1452 732 / 732
Amount instilled into GI Tube ( 30 / 30 75 / 75
Total)
[place] Sump 30 / 30 75 / 75
Output:
Drain Output (Total) 5 / 5 0 / 0
Right Lower Abdomen Placed in 5 / 5 0 / 0
IR
Gastrointestinal tube output ( 300 / 300 200 / 200
Total)
[place] Sump 300 / 300 200 / 200
Urine, Voided 800 / 800 1000 / 1000
Other:
Number of approximated MODERATE 1
amounts of urine
Vital Signs
Temp Pulse Resp BP Pulse Ox
98.4 F 68 18 116/69 97
03/05/25 07:00 03/05/25 07:00 03/05/25 07:00 03/05/25 07:00 03/05/25 07:00
Lab Results
03/04/25 05:32
03/05/25 03:55
Calcium 8.6 mg/dl (8.4-10.2) 03/05/25 03:55
Phosphorus 4.8 mg/dl (2.5-4.5) H 03/05/25 03:55
Magnesium 2.3 mg/dl (1.6-2.3) 03/05/25 03:55
Total Bilirubin 0.8 mg/dl (0.2-1.3) 03/02/25 04:50
AST 85 U/L (17-59) H 03/02/25 04:50
ALT 186 U/L (0-50) H 03/02/25 04:50
Alkaline Phosphatase 235 U/L (38-126) H 03/02/25 04:50
Total Protein 6.0 g/dl (6.3-8.2) L 03/02/25 04:50
Albumin 2.8 g/dl (3.5-5.0) L 03/02/25 04:50
Physical Exam
-
Gen: NAD
Abd: soft, mild-mod ttp mainly to right hemiabdomen, midline with dark ss drainage
Patient has a winters catheter: No
Patient has a central line: Yes (PICC)
[2025-03-05 11:53] LABS: Glucose - Point of Care 111 mg/dl (70-99)
[2025-03-05] MEDS: MYCAMINE 105 MG IV (12:01)
--- NOTE | 2025-03-05 12:56 | CM ---
Reviewed the chart notes. NGT to be discontinued. TPN continues. Sips and chips. Patient seen ambulating ad alanna in hallway. CM continues to be available to patient/family and is monitoring medical plan for needs at discharge.
Plan: Discharge plans will depend on the patient's progress.
[2025-03-05 15:00] VITALS: BP 129/82
[2025-03-05] MEDS: VALIUM 5 MG PO (16:17)
[2025-03-05] MEDS: LOVENOX 40 MG SC (16:58)
[2025-03-05 17:07] LABS: Glucose - Point of Care 100 mg/dl (70-99)
[2025-03-05] MEDS: DILAUDID 0.5 MG IV ×2 (17:10→21:10)
[2025-03-05] MEDS: Parenteral Nutrition, Central 1470 IV (21:00)
[2025-03-05] MEDS: MELATONIN PO (22:00)
[2025-03-05 23:11] VITALS: BP 113/74
[2025-03-05 23:48] LABS: Glucose - Point of Care 116 mg/dl (70-99)
[2025-03-06] MEDS: DILAUDID 0.5 MG IV ×2 (01:15→05:25)
[2025-03-06] MEDS: OFIRMEV 100 IV (04:30)
[2025-03-06] MEDS: REGLAN 15 MG IV ×4 (04:45→22:33)
[2025-03-06] MEDS: UNASYN IV ×4 (04:45→21:20)
[2025-03-06 05:44] LABS: Glucose - Point of Care 97 mg/dl (70-99)
[2025-03-06 05:53] VITALS: BMI 28.0
[2025-03-06 07:50] VITALS: BP 128/82
[2025-03-06] MEDS: NSS (PRESERVATIVE FREE) 10 ML IV ×2 (08:39→20:23)
[2025-03-06] MEDS: PROTONIX IV 40 MG IV ×2 (08:40→20:22)
[2025-03-06] MEDS: PEPCID 20 MG IV ×2 (08:40→20:23)
[2025-03-06] MEDS: NSS (PRESERVATIVE FREE) 8 ML IV ×2 (08:40→20:24)
--- NOTE | 2025-03-06 10:41 | W.PN.GS2 ---
Today's Communication / Plan
-
TPN
Slow diet advancement (cld)
valium
wean dilaudid
chem panel tomorrow
Assessment / Plan
-
Assessment: 49yoM who presented with SBO secondary to malignant obstruction
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 Lymphovascular invasion identified. Negative resection margins. Mesenteric peritoneal tumor implants multiple.
01/25/25 ex lap for Right hemicolectomy with cystoscopy for stent for identification of the right ureter (stent removed on pod #1 by urology)
01/30/25 take back to OR for ex lap, bowel resection d/t anastomotic leak with abdominal washout
02/11/2025 -IR drainage left upper quadrant perisplenic fluid collection (purulent) and left-mid sided fluid collection (serous), both with scant outputs
-- Mid abdomen collection with no organisms and no WBC
-- Left subdiaphragmatic collection growing padmaja
-- Both drains removed 02/23
NGT placed on 02/15/25. Suspect delayed ileus related to resolving hematoma/abscess. Subsequently able to be removed; however, did not tolerate dietary advancement and n/v recurred
Rpt CT 02/17/25 with much improved left side collections, resolving hematoma to right hemiabdomen noted, po contrast to sigmoid with air in rectum (nonobstructive pattern)
NGT placed on 02/20/25 for bilious outputs of 1.2L immediately. XR abdomen consistent with ileus.
CT with ileus vs SBO 02/22/25, collections on left side appear resolved, hematoma remains
02/23/2025 - IR drainage of hematoma, minimal old blood able to be removed. Other drains removed. Cx: enterococcus
02/26/2025 - 3 small areas of incision opened near base, liquified hematoma drained and cx sent and pending (NGTD)
Doing well without NGT, ally sips and chips
Leukocytosis normalized
h/h stable
hyponatremia resolved
Hyperphos improved, monitor, TPN adjusted
Afebrile, VSS
decompressing hematoma through midline wound, now seems to be favoring drain, reglan helping with ileus
Plan:
-- Cont PPI and H2 kailash for reflux
-- Cont reglan
-- Adv to clears, 6 small meals, advised to take one cup at a time and wait 2 hours before next
-- Continue TPN
-- Abx: per ID. Currently on Unasyn/Micafungin
-- Pain control: weaning IV diluadid dose reduced to 0.25mg
-- Valium 10mg PRN for agitation/sleep
-- OOB/ambulate
-- Trend labs/exams
-- Local wound care
-- DVT: Lovenox sq, SCDs in place
Subjective Data
-
Date of Service: March 06, 2025
AFVSS, no nausea, passing flatus and BMs, pain controlled, ambulating, voiding
Objective Data
-
Intake and Output
03/05/25 03/06/25 03/07/25
06:59 06:59 06:59
Intake Total 1007 / 1007 570 / 570
Output Total 1200 / 1200 785 / 785 300 / 300
Balance -193 / -193 -215 / -215 -290 / -290
Intake:
Oral fluids 120 / 120
IV piggybacks 200 / 200 440 / 440
TPN/PPN 732 / 732
Amount instilled into Drain (
Total)
Right Lower Abdomen Placed in
IR
Amount instilled into GI Tube ( 75 / 75
Total)
[place] Sump 75 / 75
Output:
Drain Output (Total)
Right Lower Abdomen Placed in
IR
Gastrointestinal tube output ( 200 / 200
Total)
[place] Sump 200 / 200
Urine, Voided 1000 / 1000 775 / 775 300 / 300
Vital Signs
Temp Pulse Resp BP Pulse Ox
98.5 F 86 16 128/82 97
03/06/25 07:50 03/06/25 07:50 03/06/25 07:50 03/06/25 07:50 03/06/25 07:50
Lab Results
03/04/25 05:32
03/05/25 03:55
Calcium 8.6 mg/dl (8.4-10.2) 03/05/25 03:55
Phosphorus 4.8 mg/dl (2.5-4.5) H 03/05/25 03:55
Magnesium 2.3 mg/dl (1.6-2.3) 03/05/25 03:55
Total Bilirubin 0.8 mg/dl (0.2-1.3) 03/02/25 04:50
AST 85 U/L (17-59) H 03/02/25 04:50
ALT 186 U/L (0-50) H 03/02/25 04:50
Alkaline Phosphatase 235 U/L (38-126) H 03/02/25 04:50
Total Protein 6.0 g/dl (6.3-8.2) L 03/02/25 04:50
Albumin 2.8 g/dl (3.5-5.0) L 03/02/25 04:50
Physical Exam
-
Gen: NAD
Abd: soft, mild ttp mainly to right hemiabdomen, drain with dark ss, midline with less ss drainage
Patient has a winters catheter: No
Patient has a central line: Yes (PICC)
--- NOTE | 2025-03-06 10:50 | CM ---
Reviewed the chart notes and spoke with the patient's spouse at the bedside. TPN continues. Sips and chips. Patient seen ambulating ad alanna in hallway. CM continues to be available to patient/family and is monitoring medical plan for needs at
discharge.
Plan: Discharge plans will depend on the patient's progress.
[2025-03-06 11:44] LABS: Glucose - Point of Care 99 mg/dl (70-99)
--- NOTE | 2025-03-06 11:47 | W.PN.ID1 ---
Date of Service
Date of Service: March 06, 2025
Today's Communication
Continue antibiotics.
Assessment / Plan
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
- Pathology with well differentiated endocrine tumor with clean margins, small peritoneal implants present, node malignant , 5/40 nodes positive , appendix neg
# SBO
# Perforated viscous at site of anastomosis s/p repair (01/30/25)
# Intra-abdominal abscesses s/p IR perc drain x 2 on 02/11/25
# Intra-abdominal infected hematoma with Enterococcus; s/p drain placement (02/23/25)
# Leukocytosis; improved today
Recommendations:
Continue micafungin 100mg IV q24 (d#21)
Right abdominal collection/hematoma (02/24/25) growing Enterococcus (sensitive to ampicillin and vancomycin).
Continue Unasyn. Prior growth of Enterococcus while on Unasyn was likely due to a lack of penetration into the hematoma which is draining.
- Trend wbc.
- Follow drain output (minimal today). Patient reports that hematoma is draining out through midline incision.
����������������������������������������������������������
Chief Complaint
-: Clinical Sepsis (improving abdominal abscesses, peritonitis) and Other (peritonitis 2*perforated viscous. Multiple abdominal abscesses)
Subjective / Review of Systems
Patient seen and examined. NG tube has been removed. Patient otherwise feels well.
Review of Systems: No Fever and No Chills
Vital Signs / Physical Exam
Vital Signs
Vital Signs
Temp Pulse Resp BP Pulse Ox
98.5 F 86 16 128/82 97
03/06/25 07:50 03/06/25 07:50 03/06/25 07:50 03/06/25 07:50 03/06/25 07:50
Physical Exam
Constitutional: No Acute Distress, Comfortable and Non-toxic
Eyes: Sclera Anicteric
Cardiovascular: S1/S2; Negative S3/S4
Pulmonary: Non Labored
Gastrointestinal: Soft, Non Distended and Other (Right sided SHANICE drain with bloody drainage.)
Extremities: Negative Edema, Cyanosis or Erythema
Skin: Warm and Dry; Negative Rash or Jaundice
Wound: Other (Lower abdominal wounds packed.)
Neurological: Awake and Alert
Psychological: Calm
Objective Data
Lab Data
Lab Results
03/04/25 05:32
03/05/25 03:55
PT 20.0 Sec (11.4-14.6) H 02/04/25 06:10
INR 1.65 02/04/25 06:10
APTT 38.7 Sec (23.4-35.0) H 02/04/25 06:10
Estimated Creat Clear 124 ml/min 03/05/25 03:55
Total Bilirubin 0.8 mg/dl (0.2-1.3) 03/02/25 04:50
AST 85 U/L (17-59) H 03/02/25 04:50
ALT 186 U/L (0-50) H 03/02/25 04:50
Alkaline Phosphatase 235 U/L (38-126) H 03/02/25 04:50
Most recent labs reviewed.
Micro Results:
02/26/25 08:57 Wound Culture - Final
Abdomen No growth
Gram Stain - Final
02/24/25 14:05 Wound Culture - Final
Abdomen Enterococcus faecalis
Gram Stain - Final
02/11/25 16:12 Wound Culture - Final
Abdomen Juju albicans
Gram Stain - Final
02/11/25 15:35 Wound Culture - Final
Abdomen No growth
Gram Stain - Final
Wound/abscess/other Cult Final 02/24/25
Moderate Enterococcus faecalis
Rare Gram Positive Bacilli
Organism 1 Enterococcus faecalis
1. Enterococcus faecalis
M.I.C. RX
--------- ---
Ampicillin <=2 S
Gentamicin Synergy Screen <=500 S
Susceptible result indicates synergy is likely with a cell
wall active agent that is also susceptible
(e.g.ampicillin,penicillin,vancomycin)
Vancomycin 2 S
Imaging:
03/02/2025 CT abdomen/pelvis with contrast: Interval placement of a percutaneous pigtail catheter within the right paracolic gutter collection which has slightly decreased in size from prior now measuring 10.6 cm in AP dimension, previously 12.0
cm.. There are persistent dilated loops of small bowel throughout the left hemiabdomen extending into the upper pelvis. Oral contrast is present within the colon, possibly secondary to prior examination although this would be suggestive of ileus
rather than a mechanical small bowel obstruction. Interval removal of the left-sided percutaneous drains without evidence of recurrent collection. Small left pleural effusion with adjacent atelectasis. There is a new ill-defined hypodensity
underlying the midline incision inferiorly which may represent fat necrosis although developing collection is possible.
02/22/2025 CT abdomen/pelvis with contrast: SBO noted with transition point in the right lateral abdomen. Persistent relatively stable large hematoma in the right abdomen. Trace ascites. No free air. Left subhepatic percutaneous drainage catheter
remains in place. Thin linear soft tissue attenuation noted adjacent to the peripheral margin of the drainage catheter, which could represent a collapsed abscess versus small amount of residual complex fluid within a small abscess. This appears
slightly improved compared to prior examination. Right lateral abdomen percutaneous drainage catheter in place without adjacent or surrounding persistent fluid collection/abscess.
02/15/2025 CXR (portable): stable right PICC line. Interval NG tube placement. Mild bibasilar atelectasis. No significant residual pleural effusion.
02/10/2025 CT abdomen/pelvis: a 9.7 cm left upper quadrant subphrenic abscess noted. 810 cm left lateral mid abdominal intraperitoneal abscess is noted. A 6.5 cm intraperitoneal abscess in the center of the pelvis is appreciated. There is a large
29 cm hemorrhagic fluid collection in the right lateral paracolic gutter. Patient is status post right hemicolectomy and ileocolonic anastomosis. There is moderate small bowel distention consistent with adynamic ileus. Please see full dictation
for additional detail.
Care Review
Plan reviewed with: Physician (Gen Vieira.)
[2025-03-06] MEDS: VALIUM 10 MG PO ×2 (12:22→22:33)
[2025-03-06] MEDS: MYCAMINE 105 MG IV (12:50)
[2025-03-06 15:30] VITALS: BP 134/83
[2025-03-06] MEDS: DILAUDID 0.25 MG IV ×2 (16:58→20:29)
[2025-03-06] MEDS: LOVENOX 40 MG SC (17:45)
[2025-03-06 18:36] LABS: Glucose - Point of Care 104 mg/dl (70-99)
[2025-03-06] MEDS: Parenteral Nutrition, Central 1470 IV (21:20)
[2025-03-06 23:10] VITALS: BP 122/81
[2025-03-06 23:17] LABS: Glucose - Point of Care 100 mg/dl (70-99)
[2025-03-06] MEDS: MELATONIN PO (23:25)
[2025-03-07] MEDS: VALIUM 10 MG PO ×3 (02:36→22:05)
[2025-03-07] MEDS: UNASYN IV ×4 (03:09→21:29)
[2025-03-07 05:33] LABS: Glucose - Point of Care 112 mg/dl (70-99)
[2025-03-07 05:38] VITALS: BMI 27.8
[2025-03-07] MEDS: REGLAN 15 MG IV ×4 (05:55→22:05)
[2025-03-07] MEDS: DILAUDID 0.25 MG IV (06:14)
[2025-03-07] MEDS: NSS (PRESERVATIVE FREE) 10 ML IV ×2 (08:02→19:49)
[2025-03-07] MEDS: PROTONIX IV 40 MG IV ×2 (08:03→19:50)
[2025-03-07] MEDS: NSS (PRESERVATIVE FREE) 8 ML IV ×2 (08:03→19:49)
[2025-03-07] MEDS: PEPCID 20 MG IV ×2 (08:04→19:48)
[2025-03-07 08:11] VITALS: BP 125/82
[2025-03-07 09:13] LABS: Blood Urea Nitrogen 14 mg/dl (9-20); Calcium 8.8 mg/dl (8.4-10.2); Carbon Dioxide 26 mmol/L (22-30); Chloride 105 mmol/L (98-107); Estimated Creatinine Clearance 124 ml/min; Glucose 105 mg/dl (70-99); Magnesium 2.2 mg/dl (1.6-2.3); Potassium 4.5 mmol/L (3.5-5.1); Sodium 135 mmol/L (135-145); eGFR > 60.00
--- NOTE | 2025-03-07 12:17 | W.PN.GS2 ---
Today's Communication / Plan
-
-- No changes from surgical perspective
Assessment / Plan
-
Assessment: 49yoM who presented with SBO secondary to malignant obstruction
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 Lymphovascular invasion identified. Negative resection margins. Mesenteric peritoneal tumor implants multiple.
01/25/25 ex lap for Right hemicolectomy with cystoscopy for stent for identification of the right ureter (stent removed on pod #1 by urology)
01/30/25 take back to OR for ex lap, bowel resection d/t anastomotic leak with abdominal washout
02/11/2025 -IR drainage left upper quadrant perisplenic fluid collection (purulent) and left-mid sided fluid collection (serous), both with scant outputs
-- Mid abdomen collection with no organisms and no WBC
-- Left subdiaphragmatic collection growing padmaja
-- Both drains removed 02/23
NGT placed on 02/15/25. Suspect delayed ileus related to resolving hematoma/abscess. Subsequently able to be removed; however, did not tolerate dietary advancement and n/v recurred
Rpt CT 02/17/25 with much improved left side collections, resolving hematoma to right hemiabdomen noted, po contrast to sigmoid with air in rectum (nonobstructive pattern)
NGT placed on 02/20/25 for bilious outputs of 1.2L immediately. XR abdomen consistent with ileus.
CT with ileus vs SBO 02/22/25, collections on left side appear resolved, hematoma remains
02/23/2025 - IR drainage of hematoma, minimal old blood able to be removed. Other drains removed. Cx: enterococcus
02/26/2025 - 3 small areas of incision opened near base, liquified hematoma drained and cx sent and pending (NGTD)
Doing well without NGT, clears
Leukocytosis normalized
H/h stable
Hyponatremia resolved
Hyperphos improved, monitor, TPN adjusted
Afebrile, VSS
Decompressing hematoma through midline wound, now seems to be favoring drain, reglan helping with ileus
Plan:
-- Cont PPI and H2 kailash for reflux
-- Cont reglan
-- Adv to clears, 6 small meals, advised to take one cup at a time and wait 2 hours before next
-- Continue TPN
-- Abx: per ID. Currently on Unasyn/Micafungin
-- Pain control: weaning IV diluadid dose reduced to 0.25mg
-- Valium 10mg PRN for agitation/sleep
-- OOB/ambulate
-- Trend labs/exams
-- Local wound care
-- DVT: Lovenox sq, SCDs in place
Subjective Data
-
Date of Service: March 07, 2025
No complaints. Feels improved. No nausea or vomiting. Tolerating clears. Passing loose stools and flatus. Afebrile.
Objective Data
-
Intake and Output
03/06/25 03/07/25 03/08/25
06:59 06:59 06:59
Intake Total 570 / 570 2519 / 2519
Output Total 785 / 785 1080 / 1080
Balance -215 / -215 1439 / 1439
Intake:
Oral fluids 120 / 120 450 / 450
IV piggybacks 440 / 440 585 / 585
TPN/PPN 1464 / 1464
Amount instilled into Drain (
Total)
Right Lower Abdomen Placed in
IR
Output:
Drain Output (Total) 80 / 80
Right Joaquim-Perales 50 / 50
Right Lower Abdomen Placed in
IR
Urine, Voided 775 / 775 1000 / 1000
Other:
Number of unmeasured liquid
stools
Rectum 1
Vital Signs
Temp Pulse Resp BP Pulse Ox
99 F 88 16 125/82 98
03/07/25 08:11 03/07/25 08:11 03/07/25 08:11 03/07/25 08:11 03/07/25 08:11
Lab Results
03/04/25 05:32
03/07/25 08:38
Calcium 8.8 mg/dl (8.4-10.2) 03/07/25 08:38
Phosphorus 4.0 mg/dl (2.5-4.5) 03/07/25 08:38
Magnesium 2.2 mg/dl (1.6-2.3) 03/07/25 08:38
Total Bilirubin 0.8 mg/dl (0.2-1.3) 03/02/25 04:50
AST 85 U/L (17-59) H 03/02/25 04:50
ALT 186 U/L (0-50) H 03/02/25 04:50
Alkaline Phosphatase 235 U/L (38-126) H 03/02/25 04:50
Total Protein 6.0 g/dl (6.3-8.2) L 03/02/25 04:50
Albumin 2.8 g/dl (3.5-5.0) L 03/02/25 04:50
Physical Exam
-
Gen: NAD
Abd: soft, mild tenderness, mild distension, non-peritoneal, IR drain with serosang old clot, midline with small openings dressing c/d/i
Patient has a winters catheter: No
Patient has a central line: Yes
[2025-03-07 12:19] LABS: Glucose - Point of Care 113 mg/dl (70-99)
[2025-03-07] MEDS: MYCAMINE 105 MG IV (12:25)
[2025-03-07 16:00] VITALS: BP 129/82
[2025-03-07] MEDS: LOVENOX 40 MG SC (17:20)
[2025-03-07 17:21] LABS: Glucose - Point of Care 103 mg/dl (70-99)
[2025-03-07] MEDS: Parenteral Nutrition, Central 1470 IV (21:30)
[2025-03-07] MEDS: MELATONIN PO (22:55)
[2025-03-07 22:58] VITALS: BP 125/79
[2025-03-08 00:14] LABS: Glucose - Point of Care 108 mg/dl (70-99)
[2025-03-08] MEDS: UNASYN IV ×4 (04:01→21:08)
[2025-03-08] MEDS: REGLAN 15 MG IV ×4 (04:02→22:28)
[2025-03-08] MEDS: VALIUM 10 MG PO ×2 (04:33→22:29)
[2025-03-08 06:00] VITALS: BMI 27.4
[2025-03-08 08:09] VITALS: BP 117/79
[2025-03-08] MEDS: NSS (PRESERVATIVE FREE) 8 ML IV ×2 (08:21→20:07)
[2025-03-08] MEDS: NSS (PRESERVATIVE FREE) 10 ML IV ×2 (08:21→20:06)
[2025-03-08] MEDS: PEPCID 20 MG IV ×2 (08:22→20:07)
[2025-03-08] MEDS: PROTONIX IV 40 MG IV ×2 (08:22→20:07)
--- NOTE | 2025-03-08 10:26 | W.PN.ID1 ---
Date of Service
Date of Service: March 08, 2025
Today's Communication
Continue antibiotics.
Assessment / Plan
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
- Pathology with well differentiated endocrine tumor with clean margins, small peritoneal implants present, node malignant , 5/40 nodes positive , appendix neg
# SBO
# Perforated viscous at site of anastomosis s/p repair (01/30/25)
# Intra-abdominal abscesses s/p IR perc drain x 2 on 02/11/25
# Intra-abdominal infected hematoma with Enterococcus; s/p drain placement (02/23/25)
# Leukocytosis; improved today
Recommendations:
Continue micafungin 100mg IV q24 (d#23)
Right abdominal collection/hematoma (02/24/25) growing Enterococcus (sensitive to ampicillin and vancomycin).
Continue Unasyn. Prior growth of Enterococcus while on Unasyn was likely due to a lack of penetration into the hematoma which is draining.
- Trend wbc.
- Follow drain output.
����������������������������������������������������������
Chief Complaint
-: Clinical Sepsis (improving abdominal abscesses, peritonitis) and Other (peritonitis 2*perforated viscous. Multiple abdominal abscesses)
Subjective / Review of Systems
Patient seen and examined. No specific complaints today.
Vital Signs / Physical Exam
Vital Signs
Vital Signs
Temp Pulse Resp BP Pulse Ox
98.9 F 88 16 117/79 99
03/08/25 08:09 03/08/25 08:09 03/08/25 08:09 03/08/25 08:09 03/08/25 08:09
Physical Exam
Constitutional: No Acute Distress, Comfortable and Non-toxic
Eyes: Sclera Anicteric
Pulmonary: Non Labored
Gastrointestinal: Non Distended
Neurological: Awake and Alert
Psychological: Calm
Objective Data
Lab Data
Lab Results
03/04/25 05:32
03/07/25 08:38
PT 20.0 Sec (11.4-14.6) H 02/04/25 06:10
INR 1.65 02/04/25 06:10
APTT 38.7 Sec (23.4-35.0) H 02/04/25 06:10
Estimated Creat Clear 124 ml/min 03/07/25 08:38
Total Bilirubin 0.8 mg/dl (0.2-1.3) 03/02/25 04:50
AST 85 U/L (17-59) H 03/02/25 04:50
ALT 186 U/L (0-50) H 03/02/25 04:50
Alkaline Phosphatase 235 U/L (38-126) H 03/02/25 04:50
Most recent labs reviewed.
Micro Results:
02/26/25 08:57 Wound Culture - Final
Abdomen No growth
Gram Stain - Final
02/24/25 14:05 Wound Culture - Final
Abdomen Enterococcus faecalis
Gram Stain - Final
02/11/25 16:12 Wound Culture - Final
Abdomen Juju albicans
Gram Stain - Final
02/11/25 15:35 Wound Culture - Final
Abdomen No growth
Gram Stain - Final
Wound/abscess/other Cult Final 02/24/25
Moderate Enterococcus faecalis
Rare Gram Positive Bacilli
Organism 1 Enterococcus faecalis
1. Enterococcus faecalis
M.I.C. RX
--------- ---
Ampicillin <=2 S
Gentamicin Synergy Screen <=500 S
Susceptible result indicates synergy is likely with a cell
wall active agent that is also susceptible
(e.g.ampicillin,penicillin,vancomycin)
Vancomycin 2 S
Imaging:
03/02/2025 CT abdomen/pelvis with contrast: Interval placement of a percutaneous pigtail catheter within the right paracolic gutter collection which has slightly decreased in size from prior now measuring 10.6 cm in AP dimension, previously 12.0
cm.. There are persistent dilated loops of small bowel throughout the left hemiabdomen extending into the upper pelvis. Oral contrast is present within the colon, possibly secondary to prior examination although this would be suggestive of ileus
rather than a mechanical small bowel obstruction. Interval removal of the left-sided percutaneous drains without evidence of recurrent collection. Small left pleural effusion with adjacent atelectasis. There is a new ill-defined hypodensity
underlying the midline incision inferiorly which may represent fat necrosis although developing collection is possible.
02/22/2025 CT abdomen/pelvis with contrast: SBO noted with transition point in the right lateral abdomen. Persistent relatively stable large hematoma in the right abdomen. Trace ascites. No free air. Left subhepatic percutaneous drainage catheter
remains in place. Thin linear soft tissue attenuation noted adjacent to the peripheral margin of the drainage catheter, which could represent a collapsed abscess versus small amount of residual complex fluid within a small abscess. This appears
slightly improved compared to prior examination. Right lateral abdomen percutaneous drainage catheter in place without adjacent or surrounding persistent fluid collection/abscess.
02/15/2025 CXR (portable): stable right PICC line. Interval NG tube placement. Mild bibasilar atelectasis. No significant residual pleural effusion.
02/10/2025 CT abdomen/pelvis: a 9.7 cm left upper quadrant subphrenic abscess noted. 810 cm left lateral mid abdominal intraperitoneal abscess is noted. A 6.5 cm intraperitoneal abscess in the center of the pelvis is appreciated. There is a large
29 cm hemorrhagic fluid collection in the right lateral paracolic gutter. Patient is status post right hemicolectomy and ileocolonic anastomosis. There is moderate small bowel distention consistent with adynamic ileus. Please see full dictation
for additional detail.
--- NOTE | 2025-03-08 10:52 | W.PN.GS2 ---
Addendum entered and electronically signed by Chadd Sandoval MD 03/08/25 11:02:
Patient seen and examined. Agree with assessment plan as documented below.
Original Note:
Today's Communication / Plan
-
c/w TPN/clears
Assessment / Plan
-
Assessment: 49yoM who presented with SBO secondary to malignant obstruction
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 Lymphovascular invasion identified. Negative resection margins. Mesenteric peritoneal tumor implants multiple.
01/25/25 ex lap for Right hemicolectomy with cystoscopy for stent for identification of the right ureter (stent removed on pod #1 by urology)
01/30/25 take back to OR for ex lap, bowel resection d/t anastomotic leak with abdominal washout
02/11/2025 -IR drainage left upper quadrant perisplenic fluid collection (purulent) and left-mid sided fluid collection (serous), both with scant outputs
-- Mid abdomen collection with no organisms and no WBC
-- Left subdiaphragmatic collection growing padmaja
-- Both drains removed 02/23
NGT placed on 02/15/25. Suspect delayed ileus related to resolving hematoma/abscess. Subsequently able to be removed; however, did not tolerate dietary advancement and n/v recurred
Rpt CT 02/17/25 with much improved left side collections, resolving hematoma to right hemiabdomen noted, po contrast to sigmoid with air in rectum (nonobstructive pattern)
NGT placed on 02/20/25 for bilious outputs of 1.2L immediately. XR abdomen consistent with ileus.
CT with ileus vs SBO 02/22/25, collections on left side appear resolved, hematoma remains
02/23/2025 - IR drainage of hematoma, minimal old blood able to be removed. Other drains removed. Cx: enterococcus
02/26/2025 - 3 small areas of incision opened near base, liquified hematoma drained and cx with no growth
Doing well without NGT, clears but feels full quickly
Afebrile, VSS
Decompressing hematoma through midline wound, now seems to be favoring drain, reglan helping with ileus
Plan:
-- Cont PPI and H2 kailash for reflux
-- Cont reglan
-- Adv to clears, 6 small meals, advised to take one cup at a time and wait 2 hours before next
-- Continue TPN
-- Abx: per ID. Currently on Unasyn/Micafungin
-- Pain control: weaning IV diluadid
-- Valium 10mg PRN for agitation/sleep
-- OOB/ambulate
-- Labs in AM
-- Local wound care
-- DVT: Lovenox sq, SCDs in place
Pending Po toleratance, may need home TPN, yet to be determined.
Subjective Data
-
Date of Service: March 08, 2025
Pt seen and examined at bedside with Dr. Sandoval. Denies n/v. Passing flatus, with small liquid stools about 4-5 times per day. Drinking small amounts of liquids and tolerating but feels full quickly. Family at bedside, questions addressed. Notes
he has been tearful as he processes his course of stay.
Objective Data
-
Intake and Output
03/07/25 03/08/25 03/09/25
06:59 06:59 06:59
Intake Total 2519 / 2519 2249 / 2249
Output Total 1080 / 1080 900 / 900
Balance 1439 / 1439 1349 / 1349
Intake:
Oral fluids 450 / 450 175 / 175
IV piggybacks 585 / 585 590 / 590
TPN/PPN 1464 / 1464 1464 / 1464
Amount instilled into Drain (
Total)
Right Lower Abdomen Placed in
IR
Output:
Drain Output (Total) 80 / 80 100 / 100
Right Joaquim-Perales 50 / 50 100 / 100
Right Lower Abdomen Placed in
IR
Urine, Voided 1000 / 1000 800 / 800
Other:
Number of approximated MODERATE 2
amounts of urine
Number of unmeasured liquid
stools
Rectum 1 1
Vital Signs
Temp Pulse Resp BP Pulse Ox
98.9 F 88 16 117/79 99
03/08/25 08:09 03/08/25 08:09 03/08/25 08:09 03/08/25 08:09 03/08/25 08:09
Lab Results
03/04/25 05:32
03/07/25 08:38
Calcium 8.8 mg/dl (8.4-10.2) 03/07/25 08:38
Phosphorus 4.0 mg/dl (2.5-4.5) 03/07/25 08:38
Magnesium 2.2 mg/dl (1.6-2.3) 03/07/25 08:38
Total Bilirubin 0.8 mg/dl (0.2-1.3) 03/02/25 04:50
AST 85 U/L (17-59) H 03/02/25 04:50
ALT 186 U/L (0-50) H 03/02/25 04:50
Alkaline Phosphatase 235 U/L (38-126) H 03/02/25 04:50
Total Protein 6.0 g/dl (6.3-8.2) L 03/02/25 04:50
Albumin 2.8 g/dl (3.5-5.0) L 03/02/25 04:50
Physical Exam
-
Gen: NAD
Abd: soft, mild tenderness, mild distension, non-peritoneal, IR drain with serosang old clot, midline with small openings dressing c/d/i
Patient has a winters catheter: No
Patient has a central line: Yes
[2025-03-08] MEDS: MYCAMINE 105 MG IV (12:18)
[2025-03-08 12:22] LABS: Glucose - Point of Care 123 mg/dl (70-99)
[2025-03-08 15:00] VITALS: BP 125/84
--- NOTE | 2025-03-08 16:02 | CHAP ---
Sudheer shared his story, a remarkable recounting of struggle through life, and of becoming. He shared that the gift of God's love has carried him through, and helped him become the person he is. Emotional and spiritual support provided.
[2025-03-08] MEDS: LOVENOX 40 MG SC (17:03)
[2025-03-08 17:08] LABS: Glucose - Point of Care 104 mg/dl (70-99)
[2025-03-08 19:00] VITALS: BP 120/86
[2025-03-08] MEDS: MELATONIN PO (21:08)
[2025-03-08] MEDS: Parenteral Nutrition, Central 1470 IV (21:09)
[2025-03-08 23:16] VITALS: BP 122/82
[2025-03-08 23:23] LABS: Glucose - Point of Care 118 mg/dl (70-99)
[2025-03-09] MEDS: UNASYN IV ×4 (04:30→22:35)
[2025-03-09] MEDS: VALIUM 10 MG PO ×2 (04:30→22:36)
[2025-03-09] MEDS: REGLAN 15 MG IV ×3 (04:30→16:54)
[2025-03-09 05:27] LABS: ALT (SGPT) 77 U/L (0-50); AST (SGOT) 28 U/L (17-59); Albumin 2.8 g/dl (3.5-5.0); Alkaline Phosphatase 138 U/L (38-126); Blood Urea Nitrogen 18 mg/dl (9-20); Calcium 8.2 mg/dl (8.4-10.2); Carbon Dioxide 25 mmol/L (22-30); Chloride 106 mmol/L (98-107); Estimated Creatinine Clearance > 125 ml/min; Glucose 102 mg/dl (70-99); Magnesium 2.1 mg/dl (1.6-2.3); Potassium 4.3 mmol/L (3.5-5.1); Sodium 135 mmol/L (135-145); Total Protein 5.8 g/dl (6.3-8.2); Triglycerides 93 mg/dl (10-149); eGFR > 60.00
[2025-03-09 07:40] VITALS: BP 109/76
[2025-03-09] MEDS: NSS (PRESERVATIVE FREE) 10 ML IV ×2 (08:28→20:55)
[2025-03-09] MEDS: PROTONIX IV 40 MG IV ×2 (08:28→20:55)
[2025-03-09] MEDS: NSS (PRESERVATIVE FREE) 8 ML IV ×2 (08:29→20:55)
[2025-03-09] MEDS: PEPCID 20 MG IV ×2 (08:29→20:56)
--- NOTE | 2025-03-09 08:59 | W.PN.GS2 ---
Today's Communication / Plan
-
Check WBC.
Hold TPN for today.
Fulls
Assessment / Plan
-
Assessment: 49yoM who presented with SBO secondary to malignant obstruction
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 Lymphovascular invasion identified. Negative resection margins. Mesenteric peritoneal tumor implants multiple.
01/25/25 ex lap for Right hemicolectomy with cystoscopy for stent for identification of the right ureter (stent removed on pod #1 by urology)
01/30/25 take back to OR for ex lap, bowel resection d/t anastomotic leak with abdominal washout
02/11/2025 -IR drainage left upper quadrant perisplenic fluid collection (purulent) and left-mid sided fluid collection (serous), both with scant outputs
-- Mid abdomen collection with no organisms and no WBC
-- Left subdiaphragmatic collection growing padmaja
-- Both drains removed 02/23
NGT placed on 02/15/25. Suspect delayed ileus related to resolving hematoma/abscess. Subsequently able to be removed; however, did not tolerate dietary advancement and n/v recurred
Rpt CT 02/17/25 with much improved left side collections, resolving hematoma to right hemiabdomen noted, po contrast to sigmoid with air in rectum (nonobstructive pattern)
NGT placed on 02/20/25 for bilious outputs of 1.2L immediately. XR abdomen consistent with ileus.
CT with ileus vs SBO 02/22/25, collections on left side appear resolved, hematoma remains
02/23/2025 - IR drainage of hematoma, minimal old blood able to be removed. Other drains removed. Cx: enterococcus
02/26/2025 - 3 small areas of incision opened near base, liquified hematoma drained and cx with no growth
Doing well without NGT, clears but feels full quickly
Afebrile, but temperature up to 100.3 VSS
Decompressing hematoma through midline wound, now seems to be favoring drain, reglan helping with ileus
Plan:
-- Cont PPI and H2 kailash for reflux
-- Cont reglan
-- Adv to fulls, Okay for outside hospital smoothie
-- Will hold TPN today
-- Abx: per ID. Currently on Unasyn/Micafungin
-- Pain control: weaning IV diluadid
-- Valium 10mg PRN for agitation/sleep
-- OOB/ambulate
-- Labs in AM
-- Local wound care
-- DVT: Lovenox sq, SCDs in place
Pending Po toleratance, may need home TPN, yet to be determined. Anticipate home early this week.
Time Spent
Total Time Spent with Patient (in minutes): 20
Subjective Data
-
Date of Service: March 09, 2025
Interval Events:
No acute events overnight. Slept well. Pain Controlled. Denies Nausea/Vomiting, +bowel function. Tolerating diet.
Objective Data
-
Intake and Output
03/08/25 03/09/25 03/10/25
06:59 06:59 06:59
Intake Total 2609 / 2609 2059 / 2059
Output Total 900 / 900 740 / 740
Balance 1709 / 1709 1320 / 1320
Intake:
Oral fluids 535 / 535 1320 / 1320
IV piggybacks 590 / 590
TPN/PPN 1464 / 1464 720 / 720
Amount instilled into Drain (
Total)
Right Lower Abdomen Placed in
IR
Output:
Drain Output (Total) 100 / 100 65 / 65
Right Joaquim-Perales 100 / 100 40 / 40
Right Lower Abdomen Placed in
IR
Urine, Voided 800 / 800 675 / 675
Other:
Number of approximated MODERATE 2 2
amounts of urine
Number of unmeasured liquid
stools
Rectum 1 1
Vital Signs
Temp Pulse Resp BP Pulse Ox
99.3 F 95 18 109/76 99
03/09/25 07:40 03/09/25 07:40 03/09/25 07:40 03/09/25 07:40 03/09/25 07:40
Lab Results
03/09/25 04:47
Calcium 8.2 mg/dl (8.4-10.2) L 03/09/25 04:47
Phosphorus 4.0 mg/dl (2.5-4.5) 03/09/25 04:47
Magnesium 2.1 mg/dl (1.6-2.3) 03/09/25 04:47
Total Bilirubin 0.9 mg/dl (0.2-1.3) 03/09/25 04:47
AST 28 U/L (17-59) 03/09/25 04:47
ALT 77 U/L (0-50) H 03/09/25 04:47
Alkaline Phosphatase 138 U/L (38-126) H 03/09/25 04:47
Total Protein 5.8 g/dl (6.3-8.2) L 03/09/25 04:47
Albumin 2.8 g/dl (3.5-5.0) L 03/09/25 04:47
Physical Exam
-
GENERAL/NEURO: Awake, Alert, no distress
CHEST: Unlabored breathing on RA
ABDOMEN: Soft, Non-Tender, Non-Distended, incisions clean dry, lower incision is open in 2 spots
Patient has a winters catheter: No
Patient has a central line: No
--- NOTE | 2025-03-09 10:58 | W.PN.ID1 ---
Date of Service
Date of Service: March 09, 2025
Today's Communication
Continue Unasyn. Discontinue further micafungin.
Assessment / Plan
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
- Pathology with well differentiated endocrine tumor with clean margins, small peritoneal implants present, node malignant , 5/40 nodes positive , appendix neg
# SBO
# Perforated viscous at site of anastomosis s/p repair (01/30/25)
# Intra-abdominal abscesses s/p IR perc drain x 2 on 02/11/25
# Intra-abdominal infected hematoma with Enterococcus; s/p drain placement (02/23/25)
# Leukocytosis; improved today
Recommendations:
Discontinue further micafungin.
Right abdominal collection/hematoma (02/24/25) growing Enterococcus (sensitive to ampicillin and vancomycin).
Continue Unasyn. Prior growth of Enterococcus while on Unasyn was likely due to a lack of penetration into the hematoma which is draining.
Likely transition to amoxicillin once tolerance of orals confirmed.
- Trend wbc.
- Follow drain output.
����������������������������������������������������������
Chief Complaint
-: Clinical Sepsis (improving abdominal abscesses, peritonitis) and Other (peritonitis 2*perforated viscous. Multiple abdominal abscesses)
Subjective / Review of Systems
Review of Systems: No Fever and No Chills
Vital Signs / Physical Exam
Vital Signs
Vital Signs
Temp Pulse Resp BP Pulse Ox
99.3 F 95 18 109/76 99
03/09/25 07:40 03/09/25 07:40 03/09/25 07:40 03/09/25 07:40 03/09/25 07:40
Physical Exam
Constitutional: No Acute Distress, Comfortable and Non-toxic
Eyes: Sclera Anicteric
Pulmonary: Non Labored
Gastrointestinal: Non Distended and Other (Right SHANICE remains in place with bloody drainage.)
Neurological: Awake and Alert
Psychological: Calm
Objective Data
Lab Data
Lab Results
03/09/25 04:47
PT 20.0 Sec (11.4-14.6) H 02/04/25 06:10
INR 1.65 02/04/25 06:10
APTT 38.7 Sec (23.4-35.0) H 02/04/25 06:10
Estimated Creat Clear > 125 ml/min 03/09/25 04:47
Total Bilirubin 0.9 mg/dl (0.2-1.3) 03/09/25 04:47
AST 28 U/L (17-59) 03/09/25 04:47
ALT 77 U/L (0-50) H 03/09/25 04:47
Alkaline Phosphatase 138 U/L (38-126) H 03/09/25 04:47
Most recent labs reviewed.
Micro Results:
02/26/25 08:57 Wound Culture - Final
Abdomen No growth
Gram Stain - Final
02/24/25 14:05 Wound Culture - Final
Abdomen Enterococcus faecalis
Gram Stain - Final
02/11/25 16:12 Wound Culture - Final
Abdomen Juju albicans
Gram Stain - Final
02/11/25 15:35 Wound Culture - Final
Abdomen No growth
Gram Stain - Final
Wound/abscess/other Cult Final 02/24/25
Moderate Enterococcus faecalis
Rare Gram Positive Bacilli
Organism 1 Enterococcus faecalis
1. Enterococcus faecalis
M.I.C. RX
--------- ---
Ampicillin <=2 S
Gentamicin Synergy Screen <=500 S
Susceptible result indicates synergy is likely with a cell
wall active agent that is also susceptible
(e.g.ampicillin,penicillin,vancomycin)
Vancomycin 2 S
Imaging:
03/02/2025 CT abdomen/pelvis with contrast: Interval placement of a percutaneous pigtail catheter within the right paracolic gutter collection which has slightly decreased in size from prior now measuring 10.6 cm in AP dimension, previously 12.0
cm.. There are persistent dilated loops of small bowel throughout the left hemiabdomen extending into the upper pelvis. Oral contrast is present within the colon, possibly secondary to prior examination although this would be suggestive of ileus
rather than a mechanical small bowel obstruction. Interval removal of the left-sided percutaneous drains without evidence of recurrent collection. Small left pleural effusion with adjacent atelectasis. There is a new ill-defined hypodensity
underlying the midline incision inferiorly which may represent fat necrosis although developing collection is possible.
02/22/2025 CT abdomen/pelvis with contrast: SBO noted with transition point in the right lateral abdomen. Persistent relatively stable large hematoma in the right abdomen. Trace ascites. No free air. Left subhepatic percutaneous drainage catheter
remains in place. Thin linear soft tissue attenuation noted adjacent to the peripheral margin of the drainage catheter, which could represent a collapsed abscess versus small amount of residual complex fluid within a small abscess. This appears
slightly improved compared to prior examination. Right lateral abdomen percutaneous drainage catheter in place without adjacent or surrounding persistent fluid collection/abscess.
02/15/2025 CXR (portable): stable right PICC line. Interval NG tube placement. Mild bibasilar atelectasis. No significant residual pleural effusion.
02/10/2025 CT abdomen/pelvis: a 9.7 cm left upper quadrant subphrenic abscess noted. 810 cm left lateral mid abdominal intraperitoneal abscess is noted. A 6.5 cm intraperitoneal abscess in the center of the pelvis is appreciated. There is a large
29 cm hemorrhagic fluid collection in the right lateral paracolic gutter. Patient is status post right hemicolectomy and ileocolonic anastomosis. There is moderate small bowel distention consistent with adynamic ileus. Please see full dictation
for additional detail.
[2025-03-09 11:59] LABS: Glucose - Point of Care 111 mg/dl (70-99)
[2025-03-09 12:55] LABS: Hematocrit 28.9 % (39.0-52.0); Hemoglobin 9.6 g/dL (13.0-18.0); Mean Corp Hgb Conc. 33.2 g/dL (33.0-37.0); Mean Corpuscular Volume 85.5 fL (80.0-94.0); Nucleated Red Blood Cells % 0 % (-); Platelet Count 535 10^3/uL (130-400); Red Cell Dist. Width 18.0 % (11.5-14.5)
[2025-03-09 15:19] VITALS: BP 101/87
[2025-03-09] MEDS: LOVENOX 40 MG SC (16:56)
[2025-03-09] MEDS: MELATONIN PO (22:35)
[2025-03-09] MEDS: REGLAN IV (22:51)
[2025-03-09 23:06] VITALS: BP 124/79
[2025-03-10] MEDS: VALIUM 10 MG PO (03:08)
[2025-03-10] MEDS: UNASYN IV ×2 (03:08→10:28)
[2025-03-10] MEDS: FLUSH (NSS) 1 FLUSH IV ×3 (03:08→10:32)
[2025-03-10] MEDS: REGLAN IV ×2 (04:42→10:34)
[2025-03-10 05:52] LABS: Hematocrit 28.0 % (39.0-52.0); Hemoglobin 9.2 g/dL (13.0-18.0); Mean Corp Hgb Conc. 32.9 g/dL (33.0-37.0); Mean Corpuscular Volume 84.6 fL (80.0-94.0); Nucleated Red Blood Cells % 0 % (-); Platelet Count 531 10^3/uL (130-400); Red Cell Dist. Width 17.7 % (11.5-14.5)
[2025-03-10 06:00] VITALS: BMI 27.2
[2025-03-10 07:45] VITALS: BP 107/74
[2025-03-10] MEDS: PEPCID 20 MG IV (08:16)
[2025-03-10] MEDS: PROTONIX IV 40 MG IV (08:16)
[2025-03-10] MEDS: NSS (PRESERVATIVE FREE) 8 ML IV (08:17)
[2025-03-10] MEDS: NSS (PRESERVATIVE FREE) 10 ML IV (08:17)
--- NOTE | 2025-03-10 11:04 | CM ---
Addendum entered by Maren Cardenas RN 03/10/25 12:13:
VN referral previously sent and accepted.
Plan: Discharge to home with VN services for wound and drain management.
Original Note:
Reviewed the chart notes and spoke with the patient and spouse at the bedside. Patient currently on full liquids. Patient continues with R low abdominal drain. If discharged with drain will need VN services. If no drain, no needs. continues
to be available to patient/family and is monitoring medical plan for needs at discharge.
Plan: Discharge to home when medically stable. If no drain at discharge, no needs. If home with drain, will need VN services.
--- NOTE | 2025-03-10 11:49 | W.PN.GS2 ---
Today's Communication / Plan
-
DC
Assessment / Plan
-
Assessment: 49yoM who presented with SBO secondary to malignant obstruction
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 Lymphovascular invasion identified. Negative resection margins. Mesenteric peritoneal tumor implants multiple.
01/25/25 ex lap for Right hemicolectomy with cystoscopy for stent for identification of the right ureter (stent removed on pod #1 by urology)
01/30/25 take back to OR for ex lap, bowel resection d/t anastomotic leak with abdominal washout
02/11/2025 -IR drainage left upper quadrant perisplenic fluid collection (purulent) and left-mid sided fluid collection (serous), both with scant outputs
-- Mid abdomen collection with no organisms and no WBC
-- Left subdiaphragmatic collection growing padmaja
-- Both drains removed 02/23
NGT placed on 02/15/25. Suspect delayed ileus related to resolving hematoma/abscess. Subsequently able to be removed; however, did not tolerate dietary advancement and n/v recurred
Rpt CT 02/17/25 with much improved left side collections, resolving hematoma to right hemiabdomen noted, po contrast to sigmoid with air in rectum (nonobstructive pattern)
NGT placed on 02/20/25 for bilious outputs of 1.2L immediately. XR abdomen consistent with ileus.
CT with ileus vs SBO 02/22/25, collections on left side appear resolved, hematoma remains
02/23/2025 - IR drainage of hematoma, minimal old blood able to be removed. Other drains removed. Cx: enterococcus
02/26/2025 - 3 small areas of incision opened near base, liquified hematoma drained and cx with no growth
Doing well without NGT, clears but feels full quickly
Afebrile, but temperature up to 100.3 VSS
Decompressing hematoma through midline wound, now seems to be favoring drain, reglan helping with ileus
Plan:
-- Cont PPI and H2 kailash for reflux, transition to PPI 40mg daily PO at home
-- Fulls
-- Abx: off
-- Pain control: doing well without IV meds
-- Valium 10mg PRN for agitation/sleep
-- OOB/ambulate
-- Labs in AM
-- Local wound care
-- DVT: Lovenox sq, SCDs in place
DC home
Subjective Data
-
Date of Service: March 10, 2025
Low grade temps Tmax 100.2F; denies pain, passing flatus and stool, taking PO without nausea
Objective Data
-
Intake and Output
03/09/25 03/10/25 03/11/25
06:59 06:59 06:59
Intake Total 2059 988 / 988 120 / 120
Output Total 740 / 740 35 / 35 30 / 30
Balance 1320 / 1320 953 / 953 90 / 90
Intake:
Oral fluids 1320 / 1320
IV piggybacks 480 / 480 120 / 120
TPN/PPN 720 / 720 488 / 488
Amount instilled into Drain (
Total)
Right Lower Abdomen Placed in
IR
Output:
Drain Output (Total) 65 / 65 35 / 35 30 / 30
Right Joaquim-Perales 40 / 40
Right Lower Abdomen Placed in / 35 30 / 30
IR
Urine, Voided 675 / 675
Other:
Number of approximated MODERATE 2 2
amounts of urine
Number of approximated LARGE 1
amounts of urine
Number of unmeasured liquid
stools
Rectum 1
Vital Signs
Temp Pulse Resp BP Pulse Ox
99.1 F 100 16 107/74 96
03/10/25 07:45 03/10/25 07:45 03/10/25 07:45 03/10/25 07:45 03/10/25 07:45
Lab Results
03/10/25 05:23
03/09/25 04:47
Calcium 8.2 mg/dl (8.4-10.2) L 03/09/25 04:47
Phosphorus 4.0 mg/dl (2.5-4.5) 03/09/25 04:47
Magnesium 2.1 mg/dl (1.6-2.3) 03/09/25 04:47
Total Bilirubin 0.9 mg/dl (0.2-1.3) 03/09/25 04:47
AST 28 U/L (17-59) 03/09/25 04:47
ALT 77 U/L (0-50) H 03/09/25 04:47
Alkaline Phosphatase 138 U/L (38-126) H 03/09/25 04:47
Total Protein 5.8 g/dl (6.3-8.2) L 03/09/25 04:47
Albumin 2.8 g/dl (3.5-5.0) L 03/09/25 04:47
Physical Exam
-
Gen: NAd
Abd: soft, minimal ttp, drain dark ss, midline wounds without signs of infection
Patient has a winters catheter: No
Patient has a central line: Yes (PICC)
--- NOTE | 2025-03-10 11:56 | W.DS.TRANS ---
DC Summary - [employer]
-
Discharge Instructions:
Discharge Diagnosis/Procedures Malignant bowel obstruction status post
exploratory laparostomy with right hemicolectomy
. return to OR for anastomotic leak. IR drainage
of intraabdominal fluid collections.
Intraabdominal hematoma. Ileus.
Diet Low Residue,Other diet
Additional Diets Full liquids
Activity No strenuous activity
Additional Activity Do not lift over 15lbs for the next 4-6 weeks
Driving Restrictions OK to drive when you feel up to it
Bathing Restrictions OK to Shower
Wound Care Keep your incision clean and dry. Cover with
clean gauze and change daily. Please call if you
notice increasing redness at your incision or
pus draining from the openings near the base.
Call your surgeon if you have worsening pain, a
fever >100.5 or nausea with vomiting.
Change the gauze around the drain daily. Flush
the drain twice daily with 10cc saline. You can
get prefilled saline syringes at [facility]
.
Instructions: How to care for a closed suction drain
Stand-Alone Forms:
Changes to Home Medications: Yes
Discharge Medications:
DC Medications w/original date entered in [employer]
acetaminophen 325 mg tablet 650 mg (2 x 325 mg) PO Q4HPRN PRN mild pain #1 tab 02/13/25
diazepam 10 mg tablet (Valium) 10 mg PO TID PRN Sleep #24 tabs 03/10/25
omeprazole 40 mg capsule,delayed release 40 mg PO DAILY #30 caps 03/10/25
Home Medication Changes
Added PPI
Pending Results: No
--- NOTE | 2025-03-10 12:25 | W.PN.ID1 ---
Date of Service
Date of Service: March 10, 2025
Today's Communication
Continue antibiotics. Transition to oral amoxicillin.
Assessment / Plan
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
- Pathology with well differentiated endocrine tumor with clean margins, small peritoneal implants present, node malignant , 5/40 nodes positive , appendix neg
# SBO
# Perforated viscous at site of anastomosis s/p repair (01/30/25)
# Intra-abdominal abscesses s/p IR perc drain x 2 on 02/11/25
# Intra-abdominal infected hematoma with Enterococcus; s/p drain placement (02/23/25)
# Leukocytosis; improved today
Recommendations:
Right abdominal collection/hematoma (02/24/25) growing Enterococcus (sensitive to ampicillin and vancomycin).
Transition to oral amoxicillin 500 mg TID for an additional 2 weeks.
- Follow drain output.
����������������������������������������������������������
Chief Complaint
-: Clinical Sepsis (improving abdominal abscesses, peritonitis) and Other (peritonitis 2*perforated viscous. Multiple abdominal abscesses)
Subjective / Review of Systems
Review of Systems: No Fever and No Chills
Vital Signs / Physical Exam
Vital Signs
Vital Signs
Temp Pulse Resp BP Pulse Ox
99.1 F 100 16 107/74 96
03/10/25 07:45 03/10/25 07:45 03/10/25 07:45 03/10/25 07:45 03/10/25 07:45
Physical Exam
Constitutional: No Acute Distress, Comfortable and Non-toxic
Eyes: Sclera Anicteric
Pulmonary: Non Labored
Gastrointestinal: Non Distended and Other (Right SHANICE remains in place with minimal bloody drainage.)
Neurological: Awake and Alert
Psychological: Calm
Objective Data
Lab Data
Lab Results
03/10/25 05:23
03/09/25 04:47
PT 20.0 Sec (11.4-14.6) H 02/04/25 06:10
INR 1.65 02/04/25 06:10
APTT 38.7 Sec (23.4-35.0) H 02/04/25 06:10
Estimated Creat Clear > 125 ml/min 03/09/25 04:47
Total Bilirubin 0.9 mg/dl (0.2-1.3) 03/09/25 04:47
AST 28 U/L (17-59) 03/09/25 04:47
ALT 77 U/L (0-50) H 03/09/25 04:47
Alkaline Phosphatase 138 U/L (38-126) H 03/09/25 04:47
Most recent labs reviewed.
Micro Results:
02/26/25 08:57 Wound Culture - Final
Abdomen No growth
Gram Stain - Final
02/24/25 14:05 Wound Culture - Final
Abdomen Enterococcus faecalis
Gram Stain - Final
02/11/25 16:12 Wound Culture - Final
Abdomen Juju albicans
Gram Stain - Final
02/11/25 15:35 Wound Culture - Final
Abdomen No growth
Gram Stain - Final
Wound/abscess/other Cult Final 02/24/25
Moderate Enterococcus faecalis
Rare Gram Positive Bacilli
Organism 1 Enterococcus faecalis
1. Enterococcus faecalis
M.I.C. RX
--------- ---
Ampicillin <=2 S
Gentamicin Synergy Screen <=500 S
Susceptible result indicates synergy is likely with a cell
wall active agent that is also susceptible
(e.g.ampicillin,penicillin,vancomycin)
Vancomycin 2 S
Imaging:
03/02/2025 CT abdomen/pelvis with contrast: Interval placement of a percutaneous pigtail catheter within the right paracolic gutter collection which has slightly decreased in size from prior now measuring 10.6 cm in AP dimension, previously 12.0
cm.. There are persistent dilated loops of small bowel throughout the left hemiabdomen extending into the upper pelvis. Oral contrast is present within the colon, possibly secondary to prior examination although this would be suggestive of ileus
rather than a mechanical small bowel obstruction. Interval removal of the left-sided percutaneous drains without evidence of recurrent collection. Small left pleural effusion with adjacent atelectasis. There is a new ill-defined hypodensity
underlying the midline incision inferiorly which may represent fat necrosis although developing collection is possible.
02/22/2025 CT abdomen/pelvis with contrast: SBO noted with transition point in the right lateral abdomen. Persistent relatively stable large hematoma in the right abdomen. Trace ascites. No free air. Left subhepatic percutaneous drainage catheter
remains in place. Thin linear soft tissue attenuation noted adjacent to the peripheral margin of the drainage catheter, which could represent a collapsed abscess versus small amount of residual complex fluid within a small abscess. This appears
slightly improved compared to prior examination. Right lateral abdomen percutaneous drainage catheter in place without adjacent or surrounding persistent fluid collection/abscess.
02/15/2025 CXR (portable): stable right PICC line. Interval NG tube placement. Mild bibasilar atelectasis. No significant residual pleural effusion.
02/10/2025 CT abdomen/pelvis: a 9.7 cm left upper quadrant subphrenic abscess noted. 810 cm left lateral mid abdominal intraperitoneal abscess is noted. A 6.5 cm intraperitoneal abscess in the center of the pelvis is appreciated. There is a large
29 cm hemorrhagic fluid collection in the right lateral paracolic gutter. Patient is status post right hemicolectomy and ileocolonic anastomosis. There is moderate small bowel distention consistent with adynamic ileus. Please see full dictation
for additional detail.
Care Review
Plan reviewed with: Physician (General Surgery)
--- NOTE | 2025-03-10 12:39 | VNURNOTE ---
Chart reviewed. Patient DC today. Met w/pt and spouse at bedside. Spouse understands SHANICE drain flush orders. Per RN Nicki, spouse was shown. Spouse and pt agreeable to bean picker NSS flushes at [facility]. This author confirmed that they have in
stock and Rx was rec'ed. Spouse and pt aware that VN will contact them for VN visit for tomorrow. [facility] referral accepted.
[2025-03-10 15:30] VITALS: BP 117/82
[2025-03-10] MEDS: AMOXIL 500 MG PO (15:48)
== END 2025-03-10 16:45 | disposition home health service (06) | DRG 826 ==
LOC: 2 SOUTH 00:17
PROVIDERS: Emergency Medicine; Internal Medicine; Internal Medicine Hematology & Oncology; Nurse Practitioner Gerontology; Radiology Diagnostic Radiology; Radiology Vascular & Interventional Radiology; Registered Nurse; Specialist; Student in an Organized Health Care Education/Training Program; Surgery; ADMITTING PHYSICIAN Internal Medicine; ATTENDING PHYSICIAN Surgery; CONSULT PHYSICIAN Internal Medicine Nephrology; EMERGENCY PHYSICIAN Emergency Medicine; FAMILY PHYSICIAN Internal Medicine; OTHER PHYSICIAN Hospitalist; OTHER PHYSICIAN Internal Medicine Hematology & Oncology; OTHER PHYSICIAN Specialist
PROC: 0DTF0ZZ Resection of Right Large Intestine, Open Approach (ICD-10-PCS; 2025-01-26)
PROC: 0DBL0ZZ Excision of Transverse Colon, Open Approach (ICD-10-PCS; 2025-01-30)
PROC: 3E0436Z Introduction of Nutritional Substance into Central Vein, Percutaneous Approach (ICD-10-PCS; 2025-01-30)
PROC: 0DBB0ZZ Excision of Ileum, Open Approach (ICD-10-PCS; 2025-01-30)
PROC: 30233N1 Transfusion of Nonautologous Red Blood Cells into Peripheral Vein, Percutaneous Approach (ICD-10-PCS; 2025-02-04)
PROC: 0W9G30Z Drainage of Peritoneal Cavity with Drainage Device, Percutaneous Approach (ICD-10-PCS; 2025-02-11)
PROC: 0D9W0ZZ Drainage of Peritoneum, Open Approach (ICD-10-PCS; 2025-02-26)
PROC: 3E0M3GC Introduction of Other Therapeutic Substance into Peritoneal Cavity, Percutaneous Approach (ICD-10-PCS; 2025-03-02)
DX: C7A.8 Other malignant neuroendocrine tumors (principal); K65.1 Peritoneal abscess; N17.0 Acute kidney failure with tubular necrosis; K66.1 Hemoperitoneum; K65.8 Other peritonitis; K91.89 Other postprocedural complications and disorders of digestive system; K91.870 Postprocedural hematoma of a digestive system organ or structure following a digestive system procedure; K56.0 Paralytic ileus; E87.1 Hypo-osmolality and hyponatremia; K56.690 Other partial intestinal obstruction; D62 Acute posthemorrhagic anemia; C7B.8 Other secondary neuroendocrine tumors; I95.1 Orthostatic hypotension; R11.0 Nausea; E83.39 Other disorders of phosphorus metabolism; E87.5 Hyperkalemia; Y83.2 Surgical operation with anastomosis, bypass or graft as the cause of abnormal reaction of the patient, or of later complication, without mention of misadventure at the time of the procedure
CPT/HCPCS: 49185; 49406; 71045; 74018; 74022; 74176; 74177; 76770; 80048; 80053; 81003; 81015; 81050; 82040; 82378; 82570; 82962; 83036; 83497; 83690; 83735; 83935; 84100; 84134; 84300; 84478; 85014; 85018; 85025; 85027; 85610; 85730; 86316; 86850; 86900; 86901; 86920; 87070; 87077; 87106; 87186; 87205; 88304; 88307; 88309; 88341; 88342; 96361; 96365; 96366; 96375; 97116; 97162; 97530; 99152; 99153; 99284; A4300; C1729; C1769; C1776; J2020; J2997; P9016; Q9967

== ENCOUNTER → 2025-04-09 07:46 | Outpatient (REF) | payer BC, SELFPAY ==
--- NOTE | 2025-04-09 10:14 | W.PN.UPDATE ---
Update Note
Progress Note Update
49 yo male with H/O carcinoid tumor and abdominal abscess who had PET scan today and came by IR because his drainage bulb to the catheter broke. He is being treated by Dr. Burnett and Dr. Ledbetter. It was recommended that he come to IR after his
PET scan to change the SHANICE bulb. CT scan shows improved collection with small residual cavity. He is still draining 15-20cc of cloudy jin fluid daily. He is no longer flushing the drain. We recommended that he follow up with Dr. Ledbetter and we can
potentially perform drain check. Concern there may be fistula to the colon
== END ==
LOC: PET 07:46
PROVIDERS: ATTENDING PHYSICIAN Internal Medicine Hematology & Oncology
DX: C7A.012 Malignant carcinoid tumor of the ileum (principal)
CPT/HCPCS: 78815

== ENCOUNTER → 2025-04-20 12:50 | Outpatient (REF) | payer BC, SELFPAY ==
[2025-04-20 13:00] VITALS: BP 129/84; BP_SYST 76
[2025-04-20 13:31] VITALS: BP 132/83; BP_SYST 70
[2025-04-20 13:37] VITALS: BP 132/83
== END ==
LOC: RADI 12:50
PROVIDERS: ATTENDING PHYSICIAN Surgery; FAMILY PHYSICIAN Internal Medicine
DX: Z46.82 Encounter for fitting and adjustment of non-vascular catheter (principal); K66.1 Hemoperitoneum
CPT/HCPCS: 49424; 76080

== ENCOUNTER → 2025-05-13 12:07 | Outpatient (REF) | payer BC, SELFPAY | LOC: RAD 12:07 | PROVIDERS: ATTENDING PHYSICIAN Chiropractor; FAMILY PHYSICIAN Nurse Practitioner | DX: M54.6 Pain in thoracic spine (principal); M53.2X7 Spinal instabilities, lumbosacral region; R10.20 Pelvic and perineal pain unspecified side | CPT/HCPCS: 72072; 72100; 72170 ==